=== PATIENT | male | born 1950 | race Caucasian/White ===

== ENCOUNTER → 2016-03-27 | Outpatient (CLI) | payer OTHER ==
[~2016-03-27] VITALS: Ht 167.6 cm; Wt 123.2 kg
[~2016-03-27] MED LIST: ACT30 PO; ALBINS/ INH; ALBUAER2 INH; AMLO10TA2 PO; ASPI-435 PO; ATOR-54 PO; CALC500C70 PO; CARV25TA PO; FRRS300 PO; FURO-85 PO; GLYB5TAB3 PO; HYDR-5688 PO; INSDGI SC; INSDGIPEN SC; LSN/2025 PO; LSN20 PO; MRLP17X PO; MULTCAP33 PO; NAPR-1169 PO; PRD20 PO; SITA50TA9 PO; TMF75 PO; VNTHFA/IN INH
[2016-03-27 15:38] VITALS: BP 131/78; PULSE 92; Ht 167.6 cm; Wt 123.2 kg
== END | disposition home or self-care (01) ==
LOC: C.NEUR 13:15
PROVIDERS: ATTEND Internal Medicine Pulmonary Disease
DX: G47.33 Obstructive sleep apnea (adult) (pediatric) (principal); I10 Essential (primary) hypertension

== ENCOUNTER 2016-05-07 09:13 | Inpatient (IN) | payer OTHER ==
[~2016-05-07] VITALS: Ht 167.6 cm; Wt 119.3 kg
[2016-05-07] VITALS (7 sets, daily range): BP systolic 107–137; BP diastolic 63–77; PULSE 78–87; TEMP 36.6–36.7; O2SAT 90–97; BMI 42.5
[~2016-05-07 09:13] MED LIST changes: -ALBINS/ INH; -FRRS300 PO; -FURO-85 PO; -INSDGI SC; -INSDGIPEN SC; -LSN20 PO; -MRLP17X PO; -PRD20 PO; -SITA50TA9 PO; -TMF75 PO; -VNTHFA/IN INH
[2016-05-07] MEDS ORDERED: ALBUT/IPRATROP 3MG/0.5MG NEB 3 ML VIAL INH STA (09:39)
[2016-05-07] MEDS ORDERED: METHYLPREDNISOLONE 125 MG VIAL IV STA (09:39)
[2016-05-07] MEDS ORDERED: SODIUM CHLORIDE 0.9% 1000ML 1,000 ML IV STA (09:39)
[2016-05-07] MEDS ORDERED: ALBUT/IPRATROP 3MG/0.5MG NEB 3 ML VIAL INH ONE (09:45)
[2016-05-07 09:53] LABS: BASO % 0.6 %; BASO ABS # 0.03 K/uL (0-0.2); COMPLETE YES; EOS % 0.8 %; HEMATOCRIT 42.6 % (42-52); IG% 0.2 %; LYMPH % 16.9 %; LYMPH ABS # 0.82 K/uL (1.2-3.4); MEAN CELL VOLUME 82.7 fL (80-100); MEAN CORPUSCULAR HEMOGLOBIN 26.8 pg (25-34); MEAN CORPUSCULAR HGB CONC 32.4 g/dl (32-36); MEAN PLATELET VOLUME 8.5 fL (7.4-10.4); MONO % 11.5 %; PLATELET COUNT 170 K/uL (130-400); RED BLOOD COUNT 5.15 M/uL (4.7-6.1); WHITE BLOOD COUNT 4.86 K/uL (4.8-10.8)
[2016-05-07 09:56] LABS: ISTAT CREATININE 1.7 mg/dl (0.6-1.3); ISTAT HEMOGLOBIN 15.3 g/dl (14.0-18.0); ISTAT IONIZED CALCIUM 1.1 mmol/l (1.12-1.32)
--- NOTE | 2016-05-07 10:06 | DIAGNOSTIC IMAGING REPORT ---
CHEST ONE VIEW PORTABLE CLINICAL HISTORY: EVALUATE RESPIRATORY DISTRESS. DYSPNEA dyspnea COMPARISON STUDY: No previous studies for comparison. FINDINGS: Poor inspiratory volumes. Lungs are considered clear. No evidence for significant cardiac enlargement. IMPRESSION: No acute process. Electronically signed by: Michael Espinal M.D. 05/07/2016 10:05 AM Dictated Date/Time: 05/07/2016 10:05 AM
[2016-05-07 10:08] LABS: BUN/CREATININE RATIO 9.5 (10-20); CALCIUM 8.6 mg/dl (8.5-10.1); CREATININE 1.9 mg/dl (0.60-1.40); POTASSIUM 3.4 mmol/L (3.5-5.1)
[2016-05-07 10:12] LABS: ALB/GLOB RATIO 0.8 (0.9-2); CKMB/CK RATIO 1.2 (0-3.0)
[2016-05-07] MEDS ORDERED: VNTHFA/IN INH (10:34)
[2016-05-07] MEDS ORDERED: OSELTAMIVIR PHOSPHATE 75 MG CAP PO STA (10:36)
[2016-05-07] MEDS ORDERED: HydrALAZINE HCL 20 MG/ML VIAL IV. PRN (11:45)
[2016-05-07] MEDS ORDERED: ALBUTEROL HFA 8 GM INHALER INH PRN (11:45)
[2016-05-07] MEDS ORDERED: ONDANSETRON INJ 2 MG/ML 2 ML VIAL IV PRN (11:45)
[2016-05-07] MEDS ORDERED: MAGNESIUM HYDROXIDE SUSP 30 ML UDC PO PRN (11:45)
[2016-05-07] MEDS ORDERED: ALUMINUM/MAGNESIUM/SIMETH (MAALOX MAX) 30 ML UDC PO PRN (11:45)
[2016-05-07] MEDS ORDERED: ACETAMINOPHEN 325 MG TAB PO PRN (11:45)
--- NOTE | 2016-05-07 12:02 | History and Physical ---
History & Physical Date & Time of Service: May 07, 2016 at 11:43 Chief Complaint: COUGH Primary Care Physician: Chidi Bearden MD History of Present Illness Source: patient Patient is a pleasant 65 y/o male, with PMHx of HTN, COPD, T2DM, dyslipidemia, SHALA, ?CKD stage III, and prostate cancer, who presented to the ED because of worsening SOB x3 days. For the last 3 days, patient has felt over lousy. + cough. +body aches. +diarrhea- 1 episode on 05/07 AM. +decreased appetite. He has a history of COPD and uses nebulizers 3 times per day. Over the last 3 days , SOB has been getting progressively worse, with little improvement from nebulizer. Patient states his SOB has improved significantly since arrival. Patient denies any fever, chills, sweats, lightheadedness, dizziness, vision changes, CP, palpitations, edema, wheezing, abdominal pain, nausea, vomiting, urinary symptoms, melena, numbness/tingling, weakness, anxiety/depression, active bleeding, or new skin discoloration/changes. Past Medical/Surgical History PMHx: 1. HTN 2. COPD 3. T2DM 4. SHALA 5. ?CKD stage III 6. Prostate cancer 7. Dyslipidemia Family History Mother and father- heart disease Social History Smoking Status: Never Smoker Alcohol Use: occasionally Drug Use: none Marital Status: Housing status: lives with family Occupational Status: retired Allergies Coded Allergies: BEE STING (Unverified Allergy, Severe, ANAPHYLAXIS, 05/07/16) Home Medications Scheduled Amlodipine Besylate (Norvasc), 10 MG PO HS Aspirin (Aspirin 81), 1 TAB PO DAILY Atorvastatin (Lipitor), 20 MG PO HS Carvedilol (Coreg), 25 MG PO BID Glyburide-Metformin (Glucovance 5/500 Mg), 2 TAB PO BID Hctz/Lisinopril (Lisinopril/Hctz 20/25 Mg), 1 TAB PO QAM Multiple Vitamins W/ Minerals (Preservision Areds), 1 CAP PO BID Pioglitazone (Actos), 30 MG PO QAM Scheduled PRN Albuterol Hfa (Ventolin Hfa), 2 PUFFS INH QID PRN for Shortness of Breath Physical Exam Vital Signs Date Time Temp Pulse Resp B/P Pulse Ox O2 Delivery O2 Flow Rate FiO2 05/07/16 11:37 77 20 110/66 96 Nebulizer 6.0 05/07/16 11:00 76 20 101/64 95 Nebulizer 6.0 05/07/16 10:56 76 05/07/16 10:15 76 26 112/58 97 Room Air 05/07/16 10:03 78 24 90 Venturi Mask 8.0 05/07/16 09:54 66 Room Air 05/07/16 09:30 90 Venturi Mask 10.0 05/07/16 09:25 90 Venturi Mask 10.0 05/07/16 09:23 37.4 80 16 119/71 77 Room Air General Appearance: no apparent distress, + obese Head: normocephalic, atraumatic Eyes: normal inspection, PERRL ENT: hearing grossly normal Neck: supple Respiratory/Chest: no respiratory distress, no accessory muscle use, + decreased breath sounds (bilateral lung bases ), + pertinent finding (Nebulizer treatment in process. Patient is able to speak full sentences w/out SOB.) Cardiovascular: regular rate, rhythm, normal peripheral pulses Abdomen/GI: normal bowel sounds, non tender, soft Back: normal inspection Extremities/Musculoskelatal: no calf tenderness, no pedal edema Neurologic/Psych: alert, normal mood/affect, oriented x 3 Skin: normal color, warm/dry, no rash Diagnostics Laboratory Results Results Past 24 Hours Test 05/07/16 09:39 05/07/16 09:41 05/07/16 09:43 05/07/16 09:44 Range/Units White Blood Count 4.86 4.8-10.8 K/uL Red Blood Count 5.15 4.7-6.1 M/uL Hemoglobin 13.8 14.0-18.0 g/dL Hematocrit 42.6 42-52 % Mean Corpuscular Volume 82.7 80-100 fL Mean Corpuscular Hemoglobin 26.8 25-34 pg Mean Corpuscular Hemoglobin Concent 32.4 32-36 g/dl Platelet Count 170 130-400 K/uL Mean Platelet Volume 8.5 7.4-10.4 fL Neutrophils (%) (Auto) 70.0 % Lymphocytes (%) (Auto) 16.9 % Monocytes (%) (Auto) 11.5 % Eosinophils (%) (Auto) 0.8 % Basophils (%) (Auto) 0.6 % Neutrophils # (Auto) 3.40 1.4-6.5 K/uL Lymphocytes # (Auto) 0.82 1.2-3.4 K/uL Monocytes # (Auto) 0.56 0.11-0.59 K/uL Eosinophils # (Auto) 0.04 0-0.5 K/uL Basophils # (Auto) 0.03 0-0.2 K/uL RDW Standard Deviation 46.3 36.4-46.3 fL RDW Coefficient of Variation 15.4 11.5-14.5 % Immature Granulocyte % (Auto) 0.2 % Immature Granulocyte # (Auto) 0.01 0.00-0.02 K/uL Sodium Level 137 136-145 mmol/L Potassium Level 3.4 3.5-5.1 mmol/L Chloride Level 96 98-107 mmol/L Carbon Dioxide Level 30 21-32 mmol/L Anion Gap 11.0 19.0 16-25 mmol/L Blood Urea Nitrogen 18 7-18 mg/dl Creatinine 1.90 0.60-1.40 mg/dl Est Creatinine Clear Calc Drug Dose 46.5 ml/min Estimated GFR () 41.7 Estimated GFR (Non- 35.9 BUN/Creatinine Ratio 9.5 10-20 Random Glucose 201 70-99 mg/dl Calcium Level 8.6 8.5-10.1 mg/dl Total Bilirubin 0.5 0.2-1 mg/dl Aspartate Amino Transf (AST/SGOT) 22 15-37 U/L Alanine Aminotransferase (ALT/SGPT) 20 12-78 U/L Alkaline Phosphatase 103 45-117 U/L Total Creatine Kinase 384 39-308 U/L Creatine Kinase MB 4.5 0.5-3.6 ng/ml Creatine Kinase MB Ratio 1.2 0-3.0 Total Protein 7.2 6.4-8.2 gm/dl Albumin 3.2 3.4-5.0 gm/dl Globulin 4.0 2.5-4.0 gm/dl Albumin/Globulin Ratio 0.8 0.9-2 Influenza Type A Antigen Neg for Influ A NEG Influenza Type B Antigen POS for Influ B NEG Bedside Troponin I 0.000 0-0.045 ng/ml CD-Yra-O-Type Natriuretic Peptide 205 0-900 pg/ml Bedside Hemoglobin 15.3 14.0-18.0 g/dl Bedside Hematocrit 45 42-52 % Bedside Sodium 137 135-144 mEq/L Bedside Potassium 3.4 3.3-5.0 mEq/L Bedside Chloride 91 101-112 mEq/L Bedside Total CO2 31 24-31 mEq/l Bedside Blood Urea Nitrogen 20 7-18 mg/dl Bedside Creatinine 1.7 0.6-1.3 mg/dl Bedside Glucose (other) 210 70-99 mg/dl Bedside Ionized Calcium (Andrea) 1.10 1.12-1.32 mmol/l Test 05/07/16 09:59 Range/Units Bedside Lactic Acid Venous 1.39 0.90-1.70 mmol/L Microbiology Results 05/07/16 Blood Culture, Received Pending 05/07/16 Blood Culture, Received Pending Diagnostic Radiology CHEST ONE VIEW PORTABLE CLINICAL HISTORY: EVALUATE RESPIRATORY DISTRESS. DYSPNEA dyspnea COMPARISON STUDY: No previous studies for comparison. FINDINGS: Poor inspiratory volumes. Lungs are considered clear. No evidence for significant cardiac enlargement. IMPRESSION: No acute process. Electronically signed by: Michael Espinal M.D. 05/07/2016 10:05 AM Dictated Date/Time: 05/07/2016 10:05 AM The status of this report is Signed. Draft = Not yet reviewed or approved by Radiologist. Signed = Reviewed and approved by Radiologist. EKG JO BISHOP ID:[id number] 07-MAY-2016 09:37:23 [facility] Normal sinus rhythm Normal ECG No previous ECGs available 25mm/s 10mm/mV 150Hz 8.0 SP2 12SL 241 CRISTIANE: 0 Referred by: Referred Self Unconfirmed Vent. 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 +Influenza B: - Admit med/surg - Pending U/A and blood cultures - Tamiflu 75 mg PO BID (started on 05/07) - Droplet precautions Acute on chronic COPD exacerbation, hypoxic on RA at 66%: - DuoNeb QID and q2 hrs PRN - IV SoluMedrol 125 mg given in ED. Start IV SoluMedrol 40 mg q8 hrs - CXR- no acute processes ?CKD, stage III: - Bump in Cr/BUN, likely secondary to dehydration. Treat with IV NSS + 20 mEq KCL @ 125 ml/hr - Follow PRP HTN: - Hold Lisinopril/HCTZ due to bump in kidney function - Continue Norvasc 10 mg PO daily - Hydralazine 10 mg IV PRN T2DM: - Hold Actos and Glucovance - BSG ACHS - Start Lantus 20 units BID due to IV steroid treatment, titrate as needed Dyslipidemia: - Continue Atorvastatin 20 mg PO HS SHALA: - CPAP GI Prophylaxis: - Maalox PRN - IV Zofran PRN - Colace and/or Milk of Mag PRN DVT prophylaxis: - Heparin 5000 units SQ q12 hrs - JANN and SCDs Code Status: LEVEL V, DNR Dispo: From home Level of Care Med/Surg Resuscitation Status DO NOT RESUSCITATE VTE Prophylaxis VTE Risk Assessment Done? Y/N: Yes Risk Level: Low Given or contraindicated: Unfractionated heparin SQ, T.E.D. Stockings, SCD's Reviewed: Pt Seen/Exam by Me History Pt is feeling improved. No further SOB s/p nebs, steroids, and O2 use. He is not on O2 at home. Pt states he was dx with COPD about 2 years ago. He has been using nebs daily since he was d/c'd from [facility] about a month ago. Prior to this he was on rescue inhalers PRN only. His smokes, although he has no hx of tobacco use himself. Denies chest pain. Has had decreased appetite and PO intake the last few days, but did take 1/2 of a sandwich while awaiting transfer from the ED. Agree with HPI/ROS as noted. General Appearance: no apparent distress, obese Respiratory: normal breath sounds, no respiratory distress Cardiovascular: normal peripheral pulses, regular rate, rhythm Gastrointestinal: non tender, soft Extremities: non-tender, no pedal edema Neurologic/Psychiatric: alert, oriented x 3 Skin Characteristics: normal color, warm/dry Assessment/Plan Agree with plan as outlined above Flu B + in ED, started on tamiflu Nebs, steroids, O2 for COPD exacerbation
[2016-05-07] MEDS ORDERED: GLUCOSE 10 TABS/TUBE PO PRN (14:30)
[2016-05-07] MEDS ORDERED: DEXTROSE 50% 50 ML SYR IV PRN (14:30)
[2016-05-07] MEDS ORDERED: GLUCOSE 40% GEL 15 GM TUBE PO PRN (14:30)
[2016-05-07] MEDS ORDERED: GLUCAGON FOR INJ 1 MG VIAL SQ PRN (14:30)
[2016-05-07] MEDS ORDERED: INFLUENZA ADMINISTRATION CHARGE ONE (14:45)
[2016-05-07] MEDS ORDERED: PNEUMOCOCCAL POLYSACCHARIDES 25 MCG/0.5 ML VIAL/SYR IM. ONE (14:45)
[2016-05-07] MEDS ORDERED: INFLUENZA VIRUS QUAD VACCINE 0.5 ML SYR IM. ONE (14:45)
[2016-05-07] MEDS ORDERED: PNEUMOCOCCAL ADMINISTRATION CHARGE ONE (14:45)
[2016-05-07 14:48] LABS: PARTIAL THROMBOPLASTIN RATIO 1.1; PROTHROMBIN TIME (PATIENT) 11.2 SECONDS (9.0-12.0)
[2016-05-07] MEDS: NSS + 20MEQ KCL 1000ML 1,000 ML IV SCH ×2 (15:18→23:30)
[2016-05-07] MEDS: ALBUT/IPRATROP 3MG/0.5MG NEB 3 ML VIAL INH SCH ×2 (15:42→19:16)
[2016-05-07] MEDS: METHYLPREDNISOLONE IV 40 MG in SYRINGE 0 ML IV SCH (17:52)
[2016-05-07] MEDS: INSULIN ASPART 100 UNITS/ML 3 ML PEN SC SCH ×2 (17:55→20:39)
[2016-05-07 19:05] LABS: URINE APPEARANCE CLEAR (CLEAR); URINE BILIRUBIN NEG (NEG); URINE COLOR YELLOW; URINE NITRITE NEG (NEG); URINE SPECIFIC GRAVITY 1.021 (1.000-1.030); UROBILINOGEN NEG (NEG)
[2016-05-07 19:06] LABS: MANUAL MICROSCOPIC REQUIRED? NO; REVIEW REQ? YES
--- NOTE | 2016-05-07 19:15 | EMERGENCY ROOM VISIT NOTE ---
History Report prepared by Dutch: Kelli Samuels Under the Supervision of: Dr. Braulio Padilla M.D. First contact with patient: 09:33 Chief Complaint: RESPIRATORY PROBLEMS Stated Complaint: COUGH History of Present Illness The patient is a 65 year old male who presents to the Emergency Room with complaints of worsening respiratory problems. He is accompanied by his . He reports he has felt "lousy" for the past 3 days with cold symptoms and this morning his breathing worsened. He admits to a history of COPD for the past 2 years and states he uses Nebulizers at home as needed. The patient notes he did experience some neck and shoulder pain this morning as well, but states the pain is improved here in the ED. He denies any chest pain but states he feels "discomfort" around his esophagus. The patient denies any previous cardiac history. He does have an occasionally productive cough and admits he experienced pneumonia approximately 1 month ago. He also admits to some recent diarrhea. The patient denies any LOC, headache, fevers, chills, diaphoresis, visual changes, nausea, vomiting, abdominal pain, back pain, melena, hematochezia, urinary symptoms, numbness, weakness, lymphadenopathy, rash, or other complaints. Source of History: patient Onset: 729 this morning Position: chest Timing: worsening Associated Symptoms: + cough, + diarrhea, + neck pain Review of Systems See HPI for pertinent positives and negatives. A total of ten systems were reviewed and were otherwise negative. Past Medical & Surgical Medical Problems: (1) COPD (chronic obstructive pulmonary disease) (2) Influenza B (3) Prostate cancer Social History Smoking Status: Never Smoker Smokeless Tobacco Use: No Alcohol Use: occasionally Drug Use: none Marital Status: Housing Status: lives with family Occupation Status: retired Current/Historical Medications Scheduled Amlodipine Besylate (Norvasc), 10 MG PO HS Aspirin (Aspirin 81), 1 TAB PO DAILY Atorvastatin (Lipitor), 20 MG PO HS Carvedilol (Coreg), 25 MG PO BID Glyburide-Metformin (Glucovance 5/500 Mg), 2 TAB PO BID Hctz/Lisinopril (Lisinopril/Hctz 20/25 Mg), 1 TAB PO QAM Multiple Vitamins W/ Minerals (Preservision Areds), 1 CAP PO BID Pioglitazone (Actos), 30 MG PO QAM Scheduled PRN Albuterol Hfa (Ventolin Hfa), 2 PUFFS INH QID PRN for Shortness of Breath Allergies Coded Allergies: BEE STING (Unverified Allergy, Severe, ANAPHYLAXIS, 05/07/16) Physical Exam Vital Signs Date Time Temp Pulse Resp B/P Pulse Ox O2 Delivery O2 Flow Rate FiO2 05/07/16 11:37 77 20 110/66 96 Nebulizer 6.0 05/07/16 11:10 96 6.0 05/07/16 11:00 76 20 101/64 95 Nebulizer 6.0 05/07/16 10:56 76 05/07/16 10:15 76 26 112/58 97 Room Air 05/07/16 10:03 78 24 90 Venturi Mask 10.0 05/07/16 09:54 66 Room Air 05/07/16 09:30 90 Venturi Mask 10.0 05/07/16 09:25 90 Venturi Mask 10.0 05/07/16 09:23 37.4 80 16 119/71 77 Room Air Physical Exam GENERAL: Awake, alert, tired-appearing, in no acute distress HENT: Normocephalic, atraumatic. Oropharynx unremarkable. EYES: Normal conjunctiva. Sclera non-icteric. NECK: Supple. No nuchal rigidity. FROM. No JVD. RESPIRATORY: Clear to auscultation. CARDIAC: Regular rate, normal rhythm. Extremities warm and well perfused. Pulses equal. ABDOMEN: Soft, non-distended. Mild tenderness to palpation, worsens with cough. No rebound or guarding. No masses. RECTAL: Deferred. MUSCULOSKELETAL: Chest examination reveals no tenderness. The back is symmetrical on inspection without obvious abnormality. There is no CVA tenderness to palpation. No joint edema. LOWER EXTREMITIES: Calves are equal size bilaterally and non-tender. Chronic venous discoloration of the lower extremities bilaterally. 1+ edema. NEURO: Normal sensorium. No sensory or motor deficits noted. SKIN: No rash or jaundice noted. Medical Decision & Procedures ER Provider Diagnostic Interpretation: This X-Ray was reviewed and interpreted by myself and the radiologist. CHEST ONE VIEW PORTABLE CLINICAL HISTORY: EVALUATE RESPIRATORY DISTRESS. DYSPNEA dyspnea COMPARISON STUDY: No previous studies for comparison. FINDINGS: Poor inspiratory volumes. Lungs are considered clear. No evidence for significant cardiac enlargement. IMPRESSION: No acute process. Electronically signed by: Michael Espinal M.D. 05/07/2016 10:05 AM Laboratory Results 05/07/16 09:39 Red Blood Count 5.15, Mean Corpuscular Volume 82.7, Mean Corpuscular Hemoglobin 26.8, Mean Corpuscular Hemoglobin Concent 32.4, Mean Platelet Volume 8.5, Neutrophils (%) (Auto) 70.0, Lymphocytes (%) (Auto) 16.9, Monocytes (%) (Auto) 11.5, Eosinophils (%) (Auto) 0.8, Basophils (%) (Auto) 0.6, Neutrophils # (Auto ) 3.40, Lymphocytes # (Auto) 0.82, Monocytes # (Auto) 0.56, Eosinophils # (Auto ) 0.04, Basophils # (Auto) 0.03 05/07/16 09:39 Test 05/07/16 09:39 05/07/16 09:41 05/07/16 09:43 05/07/16 09:44 White Blood Count 4.86 K/uL (4.8-10.8) Red Blood Count 5.15 M/uL (4.7-6.1) Hemoglobin 13.8 g/dL (14.0-18.0) Hematocrit 42.6 % (42-52) Mean Corpuscular Volume 82.7 fL (80-100) Mean Corpuscular Hemoglobin 26.8 pg (25-34) Mean Corpuscular Hemoglobin Concent 32.4 g/dl (32-36) Platelet Count 170 K/uL (130-400) Mean Platelet Volume 8.5 fL (7.4-10.4) Neutrophils (%) (Auto) 70.0 % Lymphocytes (%) (Auto) 16.9 % Monocytes (%) (Auto) 11.5 % Eosinophils (%) (Auto) 0.8 % Basophils (%) (Auto) 0.6 % Neutrophils # (Auto) 3.40 K/uL (1.4-6.5) Lymphocytes # (Auto) 0.82 K/uL (1.2-3.4) Monocytes # (Auto) 0.56 K/uL (0.11-0.59) Eosinophils # (Auto) 0.04 K/uL (0-0.5) Basophils # (Auto) 0.03 K/uL (0-0.2) RDW Standard Deviation 46.3 fL (36.4-46.3) RDW Coefficient of Variation 15.4 % (11.5-14.5) Immature Granulocyte % (Auto) 0.2 % Immature Granulocyte # (Auto) 0.01 K/uL (0.00-0.02) Prothrombin Time 11.2 SECONDS (9.0-12.0) Prothromb Time International Ratio 1.0 (0.9-1.1) Activated Partial Thromboplast Time 29.8 SECONDS (21.0-31.0) Partial Thromboplastin Ratio 1.1 Est Creatinine Clear Calc Drug Dose 46.5 ml/min Estimated GFR () 41.7 Estimated GFR (Non- 35.9 BUN/Creatinine Ratio 9.5 (10-20) Calcium Level 8.6 mg/dl (8.5-10.1) Total Bilirubin 0.5 mg/dl (0.2-1) Aspartate Amino Transf (AST/SGOT) 22 U/L (15-37) Alanine Aminotransferase (ALT/SGPT) 20 U/L (12-78) Alkaline Phosphatase 103 U/L (45-117) Total Creatine Kinase 384 U/L (39-308) Creatine Kinase MB 4.5 ng/ml (0.5-3.6) Creatine Kinase MB Ratio 1.2 (0-3.0) Total Protein 7.2 gm/dl (6.4-8.2) Albumin 3.2 gm/dl (3.4-5.0) Globulin 4.0 gm/dl (2.5-4.0) Albumin/Globulin Ratio 0.8 (0.9-2) Influenza Type A Antigen Neg for Influ A (NEG) Influenza Type B Antigen POS for Influ B (NEG) Bedside Troponin I 0.000 ng/ml (0-0.045) AY-Ukx-X-Type Natriuretic Peptide 205 pg/ml (0-900) Bedside Hemoglobin 15.3 g/dl (14.0-18.0) Bedside Hematocrit 45 % (42-52) Bedside Sodium 137 mEq/L (135-144) Bedside Potassium 3.4 mEq/L (3.3-5.0) Bedside Chloride 91 mEq/L (101-112) Bedside Total CO2 31 mEq/l (24-31) Anion Gap 19.0 mmol/L (16-25) Bedside Blood Urea Nitrogen 20 mg/dl (7-18) Bedside Creatinine 1.7 mg/dl (0.6-1.3) Bedside Glucose (other) 210 mg/dl (70-99) Bedside Ionized Calcium (Andrea) 1.10 mmol/l (1.12-1.32) Test 05/07/16 09:59 Bedside Lactic Acid Venous 1.39 mmol/L (0.90-1.70) Laboratory results reviewed by me Medications Administered Medications (Trade) Dose Ordered Sig/Zenobia Route Start Time Stop Time Status Last Admin Dose Admin Albuterol/ Ipratropium (Duoneb) 3 ml NOW STAT INH 05/07/16 09:39 05/07/16 09:42 DC 05/07/16 09:47 3 ML Methylprednisolone Sodium Succinate 125 mg 125 mg NOW STAT IV 05/07/16 09:39 05/07/16 09:42 DC 05/07/16 09:47 125 MG Sodium Chloride (Nss 1000ml) 1,000 ml @ 125 mls/hr Q8H STAT IV 05/07/16 09:39 05/07/16 14:16 DC 05/07/16 09:39 125 MLS/HR Albuterol/ Ipratropium (Duoneb) 12 ml ONE ONCE INH 05/07/16 09:45 05/07/16 09:46 DC 05/07/16 10:02 12 ML Oseltamivir Phosphate (Tamiflu Cap) 75 mg NOW STAT PO 05/07/16 10:36 05/07/16 10:37 DC 05/07/16 10:55 75 MG ECG Indication: SOB/dyspnea Rate (beats per minute): 78 Rhythm: normal sinus (normal sinus rhythm) Findings: no acute ischemic change, no ectopy ED Course 0934: The patient was evaluated in room A2. A complete history and physical exam was performed. 1939: NSS 1000 ml @ 125 mls/hr IV, Solu-Medrol 125 mg IV, DuoNeb 3 ml INH. 0945: DuoNeb 12 ml INH. 0955: I reevaluated the patient. He is feeling a little better after starting a breathing treatment. 1036: Tamiflu 75 mg PO. 1037: I reevaluated the patient. He is feeling well and resting comfortably. I discussed my plan for him to remain in the hospital for further evaluation and management and he and his verbalized complete understanding and agreement. 1045: I discussed the patients case with Dr. Qureshi [facility] Hospitalist. The patient will be further evaluated. Medical Decision Triage Nursing notes reviewed. The patient's presentation and history were concerning for SOB. Etiologies such as pneumonia, COPD, reactive airway disease, CHF, cardiac ischemia, pulmonary embolism, pneumothorax, musculoskeletal, infections, gastrointestinal, as well as others were entertained. The patient was evaluated. He was hypoxic. He was given a breathing treatment and Solu-Medrol. This helped somewhat but he still required supplemental oxygen. I did use a Venturi mask to try and improve his oxygenation without going overboard on a nonrebreather. Chest imaging was unremarkable. The patient was placed on a hour-long breathing treatment. On reassessment he was doing better. CBC and chemistry panel were unremarkable. Creatinine was mildly elevated at 1.7. Cardiac markers were negative. Glucose was mildly elevated at 210. Influenza testing came back positive for flu B. The patient was treated with Tamiflu. Because of uterine will need admission to the hospital. I discussed this with him and his family. I gave my usual and customary discussion regarding this issue. The patient had consultation made with internal medicine. He was evaluated in the Emergency Room for further management. The chart was completed utilizing [employer] Speech voice recognition software. Grammatical errors, random word insertions, pronoun errors, and incomplete sentences are an occasional consequence of this system due to software limitations, ambient noise, and hardware issues. Any formal questions or concerns about the content, text, or information contained within the body of this dictation should be directly addressed to the physician for clarification. Consults Time Called: 1033 Consulting Physician: Dr. Qureshi [facility] Hospitalist Returned Call: [phone] I discussed the patients case with Dr. Qureshi [facility] Hospitalist. The patient will be further evaluated. Impression Primary Impression: Influenza B Additional Impressions: Hypoxia COPD (chronic obstructive pulmonary disease) Critical Care I have personally spent greater than 30 minutes of critical care time in the direct management of this patient. This includes bedside care, interpretation of diagnostic studies, and testing, discussion with consultants, patient, and family members, and other required patient management activities. This 30 minutes is in excess of all separately billable procedures. Scribe Attestation The scribe's documentation has been prepared under my direction and personally reviewed by me in its entirety. I confirm that the note above accurately reflects all work, treatment, procedures, and medical decision making performed by me. Departure Information Dispostion Being Evaluated By Hospitalist Referrals Chidi Bearden MD (PCP) Patient Instructions My [facility] Problem Qualifiers
[2016-05-07] MEDS: OSELTAMIVIR PHOSPHATE 75 MG CAP PO SCH (20:43)
[2016-05-07] MEDS: AMLODIPINE BESYLATE 5 MG TAB PO SCH (20:43)
[2016-05-07] MEDS: ATORVASTATIN 20 MG TAB PO SCH (20:43)
[2016-05-07] MEDS: CARVEDILOL 25 MG TAB PO SCH (20:43)
[2016-05-07] MEDS ORDERED: INSULIN GLARGINE SOLOSTAR 100 UNITS/ML 3 ML PEN SC SCH (21:00)
[2016-05-07] MEDS: HEPARIN SOD 5000 UNIT/0.5 ML CARP SQ SCH (21:19)
[2016-05-07] MEDS ORDERED: INSULIN HUMAN REGULAR PER UNIT 6 UNITS in SYRINGE 5.94 ML IV ONE (22:02)
[2016-05-08] VITALS (10 sets, daily range): BP systolic 105–144; BP diastolic 64–79; PULSE 66–88; TEMP 36.4–36.7; O2SAT 90–96; BMI 42.5
[2016-05-08] MEDS ORDERED: INSULIN HUMAN REGULAR PER UNIT 6 UNITS in SYRINGE 5.94 ML IV ONE (01:30)
[2016-05-08] MEDS: METHYLPREDNISOLONE IV 40 MG in SYRINGE 0 ML IV SCH ×2 (02:47→10:40)
--- NOTE | 2016-05-08 05:00 | Progress Note ---
Progress Note I was paged at approximately 20:28 on 05/07/2016. Patient was noted to be glycemic with 2 consecutive blood sugar measurements of 403 and 431. The following was done: - Administer sliding scale coverage (9 units NovoLog) - Administer 20 units of insulin glargine - Call back in one hour with repeat blood sugar checks - 00:00 and 04:00 Accu-Cheks were ordered ------- 21:30 repeat BSG 403 21:45 repeat BSG 367 - 6 units regular insulin IV administered; repeat Accu-Chek at 00:00 -------- 05/08/2016 00:00 repeat BSG 272 - 6 units regular insulin IV administered; repeat Accu-Chek at 04:00 -------- 04:25 repeat BSG 206 - A administer NovoLog per sliding scale coverage
[2016-05-08 05:52] LABS: MEAN CELL VOLUME 85.5 fL (80-100); MEAN CORPUSCULAR HEMOGLOBIN 27.4 pg (25-34); MEAN CORPUSCULAR HGB CONC 32.1 g/dl (32-36); MEAN PLATELET VOLUME 8.9 fL (7.4-10.4); PLATELET COUNT 166 K/uL (130-400); RED BLOOD COUNT 5.03 M/uL (4.7-6.1); WHITE BLOOD COUNT 2.77 K/uL (4.8-10.8)
[2016-05-08] MEDS: NSS + 20MEQ KCL 1000ML 1,000 ML IV SCH (06:11)
[2016-05-08 06:27] LABS: BUN/CREATININE RATIO 15.5 (10-20); CALCIUM 8.2 mg/dl (8.5-10.1); CREATININE 1.9 mg/dl (0.60-1.40)
[2016-05-08] MEDS: INSULIN ASPART 100 UNITS/ML 3 ML PEN SC SCH ×4 (06:30→22:03)
[2016-05-08] MEDS: ALBUT/IPRATROP 3MG/0.5MG NEB 3 ML VIAL INH SCH ×4 (07:01→19:32)
[2016-05-08 07:06] LABS: POTASSIUM 4.7 mmol/L (3.5-5.1)
--- NOTE | 2016-05-08 07:23 | Hospitalist Progress Note ---
Hospitalist Progress Note Date of Service May 08, 2016. Subjective Pt evaluation today including: conversation w/ patient, physical exam, chart review, lab review, review of inpatient medication list Voiding: no voiding problems, no incontinence Patient states he is feeling improved since admission. +productive cough since this AM. +SOB- improving. He is eating and drinking OK. Patient denies any fever , chills, sweats, lightheadedness, dizziness, vision changes, CP, palpitations, edema, wheezing, abdominal pain, nausea, vomiting, diarrhea, urinary symptoms, melena, numbness/tingling, weakness, muscle/joint pain, anxiety/depression, active bleeding, or new skin discoloration/changes. Medications Current Inpatient Medications Medications (Trade) Dose Ordered Sig/Zenobia Route Start Time Stop Time Status Last Admin Dose Admin Acetaminophen (Tylenol Tab) 650 mg Q4H PRN PO 05/07/16 11:45 06/06/16 11:44 Al Hydrox/Mg Hydrox/Simethicone (Maalox Max Susp) 15 ml Q4H PRN PO 05/07/16 11:45 06/06/16 11:44 Magnesium Hydroxide (Milk Of Magnesia Susp) 30 ml Q6H PRN PO 05/07/16 11:45 06/06/16 11:44 Ondansetron HCl (Zofran Inj) 4 mg Q6H PRN IV 05/07/16 11:45 06/06/16 11:44 Heparin Sodium (Porcine) (Heparin Sq 5000 Unit/0.5ml) 5,000 unit Q12 SQ 05/07/16 21:00 06/06/16 20:59 05/07/16 21:19 5,000 UNIT Oseltamivir Phosphate (Tamiflu Cap) 75 mg BID PO 05/07/16 21:00 05/12/16 08:59 05/08/16 07:44 75 MG Albuterol/ Ipratropium 3 ml 3 ml QIDR INH 05/07/16 16:00 06/06/16 15:59 05/08/16 07:01 3 ML Methylprednisolone Sodium Succinate/ Syringe (Solu-Medrol IV/ Syringe) 0.64 ml @ 1.5 mls/min Q8@0200,1000,1800 IV 05/07/16 18:00 06/06/16 17:59 05/08/16 02:47 1.5 MLS/MIN Albuterol (Ventolin Hfa Inhaler) 2 puffs QID PRN INH 05/07/16 11:45 06/06/16 11:44 Amlodipine Besylate (Norvasc Tab) 10 mg HS PO 05/07/16 21:00 06/06/16 20:59 05/07/16 20:43 10 MG Aspirin (Ecotrin Tab) 81 mg DAILY PO 05/08/16 09:00 06/07/16 08:59 05/08/16 07:44 81 MG Atorvastatin Calcium (Lipitor Tab) 20 mg HS PO 05/07/16 21:00 06/06/16 20:59 05/07/16 20:43 20 MG Carvedilol (Coreg Tab) 25 mg BID PO 05/07/16 21:00 06/06/16 20:59 05/08/16 07:44 25 MG Insulin Aspart (novoLOG ASPART) SLIDING SCALE G... ACHS SC 05/07/16 16:00 06/06/16 15:59 05/07/16 20:39 9 UNITS Insulin Glargine (Lantus Solostar Pen) 20 unit BID SC 05/07/16 21:00 06/06/16 20:59 05/07/16 20:40 20 UNIT Hydralazine HCl (HydrALAZINE INJ) 10 mg Q6H PRN IV. 05/07/16 11:45 06/06/16 11:44 Glucose (Glucose 40% Gel) 15-30 GRAMS 15 GRAMS... UD PRN PO 05/07/16 14:30 06/06/16 14:29 Glucose (Glucose Chew Tab) 4-8 Tablets 4 Tabl... UD PRN PO 05/07/16 14:30 06/06/16 14:29 Dextrose (Dextrose 50% 50ML Syringe) 25-50ML OF 50% DW IV FOR... UD PRN IV 05/07/16 14:30 06/06/16 14:29 Glucagon 1 mg 1 mg UD PRN SQ 05/07/16 14:30 06/06/16 14:29 Sodium Chloride (Nss 1000ml) 1,000 ml @ 125 mls/hr Q8H IV 05/08/16 07:30 06/07/16 07:29 05/08/16 07:42 125 MLS/HR Objective Vital Signs Date Time Temp Pulse Resp B/P Pulse Ox O2 Delivery O2 Flow Rate FiO2 05/08/16 07:01 88 18 90 Nasal Cannula 5.0 05/08/16 01:00 Nasal Cannula 5.0 05/08/16 00:22 36.5 71 18 105/64 96 Nasal Cannula 5.0 05/07/16 22:00 Nasal Cannula 5.0 05/07/16 19:16 81 18 92 Nasal Cannula 5.0 05/07/16 16:17 36.6 87 16 107/63 94 6.0 05/07/16 16:00 94 Nasal Cannula 5.0 05/07/16 15:42 85 18 94 Nasal Cannula 6.0 05/07/16 13:29 36.7 87 20 137/77 97 Nasal Cannula 5.0 05/07/16 13:00 79 20 122/71 96 Nasal Cannula 6.0 05/07/16 11:44 95 Nasal Cannula 6.0 05/07/16 11:44 87 Room Air 05/07/16 11:37 77 20 110/66 96 Nebulizer 6.0 05/07/16 11:10 96 6.0 05/07/16 11:00 76 20 101/64 95 Nebulizer 6.0 05/07/16 10:56 76 05/07/16 10:15 76 26 112/58 97 Room Air 05/07/16 10:03 78 24 90 Venturi Mask 10.0 05/07/16 09:54 66 Room Air 05/07/16 09:30 90 Venturi Mask 10.0 05/07/16 09:25 90 Venturi Mask 10.0 05/07/16 09:23 37.4 80 16 119/71 77 Room Air Physical Exam General Appearance: no apparent distress, + obese Eyes: normal inspection, PERRL ENT: hearing grossly normal Neck: supple Respiratory/Chest: lungs clear, no respiratory distress, no accessory muscle use, + decreased breath sounds (decreased BS throughout, > at bilateral lung bases ) Cardiovascular: regular rate, rhythm Abdomen: normal bowel sounds, non tender, + distended Extremities: no pedal edema, no calf tenderness Neurologic/Psychiatric: alert, normal mood/affect, oriented x 3 Laboratory Results Last 24 Hours Test 05/07/16 09:39 05/07/16 09:41 05/07/16 09:43 05/07/16 09:44 White Blood Count 4.86 K/uL Red Blood Count 5.15 M/uL Hemoglobin 13.8 g/dL Hematocrit 42.6 % Mean Corpuscular Volume 82.7 fL Mean Corpuscular Hemoglobin 26.8 pg Mean Corpuscular Hemoglobin Concent 32.4 g/dl Platelet Count 170 K/uL Mean Platelet Volume 8.5 fL Neutrophils (%) (Auto) 70.0 % Lymphocytes (%) (Auto) 16.9 % Monocytes (%) (Auto) 11.5 % Eosinophils (%) (Auto) 0.8 % Basophils (%) (Auto) 0.6 % Neutrophils # (Auto) 3.40 K/uL Lymphocytes # (Auto) 0.82 K/uL Monocytes # (Auto) 0.56 K/uL Eosinophils # (Auto) 0.04 K/uL Basophils # (Auto) 0.03 K/uL RDW Standard Deviation 46.3 fL RDW Coefficient of Variation 15.4 % Immature Granulocyte % (Auto) 0.2 % Immature Granulocyte # (Auto) 0.01 K/uL Prothrombin Time 11.2 SECONDS Prothromb Time International Ratio 1.0 Activated Partial Thromboplast Time 29.8 SECONDS Partial Thromboplastin Ratio 1.1 Sodium Level 137 mmol/L Potassium Level 3.4 mmol/L Chloride Level 96 mmol/L Carbon Dioxide Level 30 mmol/L Anion Gap 11.0 mmol/L 19.0 mmol/L Blood Urea Nitrogen 18 mg/dl Creatinine 1.90 mg/dl Est Creatinine Clear Calc Drug Dose 46.5 ml/min Estimated GFR () 41.7 Estimated GFR (Non- 35.9 BUN/Creatinine Ratio 9.5 Random Glucose 201 mg/dl Calcium Level 8.6 mg/dl Total Bilirubin 0.5 mg/dl Aspartate Amino Transf (AST/SGOT) 22 U/L Alanine Aminotransferase (ALT/SGPT) 20 U/L Alkaline Phosphatase 103 U/L Total Creatine Kinase 384 U/L Creatine Kinase MB 4.5 ng/ml Creatine Kinase MB Ratio 1.2 Total Protein 7.2 gm/dl Albumin 3.2 gm/dl Globulin 4.0 gm/dl Albumin/Globulin Ratio 0.8 Influenza Type A Antigen Neg for Influ A Influenza Type B Antigen POS for Influ B Bedside Troponin I 0.000 ng/ml XR-Fro-N-Type Natriuretic Peptide 205 pg/ml Bedside Hemoglobin 15.3 g/dl Bedside Hematocrit 45 % Bedside Sodium 137 mEq/L Bedside Potassium 3.4 mEq/L Bedside Chloride 91 mEq/L Bedside Total CO2 31 mEq/l Bedside Blood Urea Nitrogen 20 mg/dl Bedside Creatinine 1.7 mg/dl Bedside Glucose (other) 210 mg/dl Bedside Ionized Calcium (Andrea) 1.10 mmol/l Test 05/07/16 09:59 05/07/16 18:00 05/07/16 21:38 05/07/16 21:42 Bedside Lactic Acid Venous 1.39 mmol/L Urine Color YELLOW Urine Appearance CLEAR Urine pH 5.0 Urine Specific [place] 1.021 Urine Protein 1+ Urine Glucose (UA) 3+ Urine Ketones NEG Urine Occult Blood NEG Urine Nitrite NEG Urine Bilirubin NEG Urine Urobilinogen NEG Urine Leukocyte Esterase NEG Urine WBC (Auto) 1-5 /hpf Urine RBC (Auto) 0-4 /hpf Urine Hyaline Casts (Auto) 5-10 /lpf Urine Epithelial Cells (Auto) 10-20 /lpf Urine Bacteria (Auto) NEG Urine Pathogenic Casts /lpf Bedside Glucose 405 mg/dl 367 mg/dl Test 05/07/16 23:53 05/08/16 04:04 05/08/16 05:20 Bedside Glucose 272 mg/dl 206 mg/dl White Blood Count 2.77 K/uL Red Blood Count 5.03 M/uL Hemoglobin 13.8 g/dL Hematocrit 43.0 % Mean Corpuscular Volume 85.5 fL Mean Corpuscular Hemoglobin 27.4 pg Mean Corpuscular Hemoglobin Concent 32.1 g/dl RDW Standard Deviation 48.6 fL RDW Coefficient of Variation 15.6 % Platelet Count 166 K/uL Mean Platelet Volume 8.9 fL Sodium Level 140 mmol/L Potassium Level 4.7 mmol/L Chloride Level 99 mmol/L Carbon Dioxide Level 31 mmol/L Anion Gap 10.0 mmol/L Blood Urea Nitrogen 30 mg/dl Creatinine 1.90 mg/dl Est Creatinine Clear Calc Drug Dose 46.5 ml/min Estimated GFR () 41.7 Estimated GFR (Non- 35.9 BUN/Creatinine Ratio 15.5 Random Glucose 242 mg/dl Calcium Level 8.2 mg/dl Assessment and Plan 65 y/o male, with PMHx of HTN, COPD, T2DM, dyslipidemia, SHALA, ?CKD stage III, and prostate cancer, who presented to the ED because of worsening SOB x3 days. +Influenza B: - Admit med/surg - Pending blood cultures - U/A pending - Tamiflu 75 mg PO BID (started on 05/07) - Droplet precautions Acute on chronic COPD exacerbation, hypoxic on RA at 66%: - DuoNeb QID and q2 hrs PRN - IV SoluMedrol 125 mg given in ED. Start IV SoluMedrol 40 mg q8 hrs--> wean as patient's status improves - CXR- no acute processes - O2 supplement- does NOT wear O2 at home, currently on 5L--> wean as tolerated ?CKD, stage III: - Bump in Cr/BUN, likely secondary to dehydration. Treat with IV NSS + 20 mEq KCL @ 125 ml/hr x3 bags. Start IV NSS @ 125 ml/hr - Follow PRP HTN: - Hold Lisinopril/HCTZ due to bump in kidney function - Continue Norvasc 10 mg PO daily - Hydralazine 10 mg IV PRN T2DM: - Hold Actos and Glucovance - BSG ACHS w/ sliding insulin scale - Start Lantus 30 units BID due to IV steroid treatment, titrate as needed - Per patient, sugars run 200-250 at home. Does not remember last ha1c check, no records found--> check ha1c Dyslipidemia: - Continue Atorvastatin 20 mg PO HS SHALA: - CPAP GI Prophylaxis: - Maalox PRN - IV Zofran PRN - Colace and/or Milk of Mag PRN DVT prophylaxis: - Heparin 5000 units SQ q12 hrs - JANN and SCDs Code Status: LEVEL V, DNR Dispo: discharge to home once medically stable
[2016-05-08] MEDS ORDERED: SODIUM CHLORIDE 0.9% 1000ML 1,000 ML IV SCH (07:30)
[2016-05-08] MEDS: OSELTAMIVIR PHOSPHATE 75 MG CAP PO SCH ×2 (07:44→22:01)
[2016-05-08] MEDS: ASPIRIN 81 MG ECTAB PO SCH (07:44)
[2016-05-08] MEDS: CARVEDILOL 25 MG TAB PO SCH ×2 (07:44→22:01)
[2016-05-08] MEDS: HEPARIN SOD 5000 UNIT/0.5 ML CARP SQ SCH ×2 (08:07→22:05)
[2016-05-08] MEDS: INSULIN GLARGINE SOLOSTAR 100 UNITS/ML 3 ML PEN SC SCH ×2 (08:14→22:04)
[2016-05-08 09:41] LABS: ESTIMATED AVERAGE GLUCOSE 249 mg/dl; HA1C FLAG Normal (Normal)
[2016-05-08] MEDS: ATORVASTATIN 20 MG TAB PO SCH (21:59)
[2016-05-08] MEDS: AMLODIPINE BESYLATE 5 MG TAB PO SCH (21:59)
[2016-05-09] VITALS (7 sets, daily range): BP systolic 126–144; BP diastolic 76–79; PULSE 72–81; TEMP 36.4; O2SAT 79–94; Ht 167.6 cm; Wt 119.3 kg
[2016-05-09 06:44] LABS: HEMATOCRIT 41.2 % (42-52); MEAN CELL VOLUME 83.6 fL (80-100); MEAN CORPUSCULAR HEMOGLOBIN 27.2 pg (25-34); MEAN CORPUSCULAR HGB CONC 32.5 g/dl (32-36); MEAN PLATELET VOLUME 8.6 fL (7.4-10.4); PLATELET COUNT 153 K/uL (130-400); RED BLOOD COUNT 4.93 M/uL (4.7-6.1); WHITE BLOOD COUNT 8.03 K/uL (4.8-10.8)
[2016-05-09 07:19] LABS: BUN/CREATININE RATIO 21.8 (10-20); CALCIUM 7.9 mg/dl (8.5-10.1); CREATININE 1.5 mg/dl (0.60-1.40); POTASSIUM 4.3 mmol/L (3.5-5.1)
[2016-05-09] MEDS: ALBUT/IPRATROP 3MG/0.5MG NEB 3 ML VIAL INH SCH ×2 (08:28→11:11)
[2016-05-09] MEDS: ASPIRIN 81 MG ECTAB PO SCH (08:57)
[2016-05-09] MEDS: OSELTAMIVIR PHOSPHATE 75 MG CAP PO SCH (09:00)
[2016-05-09] MEDS: CARVEDILOL 25 MG TAB PO SCH (09:00)
[2016-05-09] MEDS: INSULIN GLARGINE SOLOSTAR 100 UNITS/ML 3 ML PEN SC SCH (09:04)
[2016-05-09] MEDS: INSULIN ASPART 100 UNITS/ML 3 ML PEN SC SCH ×2 (09:04→12:19)
[2016-05-09] MEDS: HEPARIN SOD 5000 UNIT/0.5 ML CARP SQ SCH (09:05)
[2016-05-09] MEDS ORDERED: INSDGIPEN SC (15:33)
[2016-05-09] MEDS ORDERED: TMF75 PO (15:33)
--- NOTE | 2016-05-09 15:45 | Discharge Instructions ---
Discharge Instructions Admission Reason for Admission: Influenza B Discharge Discharge Diagnosis / Problem: Acute hypoxic respiratory failure, COPD exacerbation, influenza B infection Discharge Goals Goal(s): Improve function, Improve disease control Activity Recommendations Activity Limitations: resume your previous activity Lifting Limitations: none Exercise/Sports Limitations: as tolerated May Resume Sexual Activity: when tolerated Shower/Bathe: no limitations Driving or Machine Use: no limitations . Instructions / Follow-Up Instructions / Follow-Up Medications: - PREDNISONE: taper as follows, starting tomorrow, 40mg daily x 2 days then 20mg daily x 3 days then stop - LANTUS: based on your HbA1c of 10.4, you would benefit from twice a day Lantus in addition to your oral agents for the first two days you will take 30 units twice a day, then when you start taking Prednisone 20mg daily you will take 20 units twice a day once you are off of Prednisone you will take 10 units twice a day, continue with this dose if your morning blood sugar is less than 120, only take 5 units in the morning - TAMIFLU: you need two more days (4 more doses) for influenza B Influenza B: treated with Tamiflu, you are no longer contagious COPD exacerbation: no wheezing on exam, your lungs are moving good air, still requiring supplemental oxygen, complete 5 more days of Prednisone Acute hypoxic respiratory failure: testing today showed that you need 2L at rest and 3L on exertion, script sent to supply [facility] you should continue to use this oxygen until you are seen in your PCP office in 5-7 days and they can check your pulse oximetry Diabetes type II: you are poorly controlled currently with HbA1c of 10, Lantus has been added to your daily regimen please check your sugars 4 times a day (first thing in morning, prior to lunch, prior to dinner and prior to bedtime) please record the results and take them to your PCP visit in 5-7 days to discuss please continue your your Glyburide, Actos and Metformin as previously prescribed FOLLOW UP - please call office of Dr. Bearden for follow up visit in 5-7 days, request a hospital follow up visit, very important that you are seen in a timely manner Current Hospital Diet Patient's current hospital diet: AHA Diet (Heart Healthy), Diabetes Type 2 Diet Discharge Diet Recommended Diet: AHA Diet (Heart Healthy), Diabetes Type 2 Diet Procedures Procedures Performed: none Pending Studies Studies pending at discharge: no Laboratory Results Last Resulted CBC 05/09/16 06:29 Last Resulted BMP 05/09/16 06:29 Hemoglobin A1c Test 05/08/16 05:20 Range/Units Estimated Average Glucose 249 mg/dl Hemoglobin A1c 10.3 H 4.5-5.6 % Medical Emergencies . Who to Call and When: Medical Emergencies: If at any time you feel your situation is an emergency, please call 911 immediately. . Non-Emergent Contact Non-Emergency issues call your: Primary Care Provider Call Non-Emergent contact if: you have any medication questions . . "Provider Documentation" section prepared by Richard Solano. VTE Core Measure Inpt VTE Proph given/why not?: Unfractionated heparin SQ, T.E.Sabino Maldonado, SCD 's [place] Drug Monitoring Program Search Results: no issues identified
[2016-05-09] MEDS ORDERED: PRD20 PO (15:47)
--- NOTE | 2016-05-09 16:15 | Discharge Summary ---
Discharge Summary Date of Service May 09, 2016. Discharge Summary Admission Date: May 07, 2016 at 11:42 Discharge Date: May 09, 2016 Discharge Disposition: Home Principal Diagnosis: COPD exacerbation Problems/Secondary Diagnoses: Influenza B Acute respiratory failure with hypoxia DM type II with hyperglycemia Procedures: 2 step exercise - required 2L at rest and 3L on exertion Consultations: none Medication Reconciliation New Medications: Insulin Glargine (Lantus Solostar) 100 Unit/Ml Inj 30 UNIT SC BID, #1 BOX 5 Refills 30 units BID while on Prednisone 40mg 20 units BID while on Prednisone 20mg 10 units BID once off of Prednisone Oseltamivir Phosphate (Tamiflu) 75 Mg Cap 75 MG PO BID, #4 CAP 0 Refills Prednisone (Prednisone) 20 Mg Tab 40 MG PO QAM, #7 TAB 0 Refills starting 05/10, take 40mg daily x 2 days then 20mg daily x 3 days then stop Continued Medications: Albuterol Hfa (Ventolin Hfa) 200 Puffs/32610 Mcg Aers 2 PUFFS INH QID PRN for Shortness of Breath, #1 INHALER Amlodipine Besylate (Norvasc) 10 Mg Tab 10 MG PO HS, TAB Aspirin (Aspirin 81) 81 Mg Tab 1 TAB PO DAILY Atorvastatin (Lipitor) 20 Mg Tab 20 MG PO HS, TAB Carvedilol (Coreg) 25 Mg Tab 25 MG PO BID, TAB Glyburide-Metformin (Glucovance 5/500 Mg) 1 Tab Tab 2 TAB PO BID, TAB Hctz/Lisinopril (Lisinopril/Hctz 20/25 Mg) 1 Ea Tab 1 TAB PO QAM, TAB Multiple Vitamins W/ Minerals (Preservision Areds) 1 Cap Cap 1 CAP PO BID Pioglitazone (Actos) 30 Mg Tab 30 MG PO QAM for 30 Days, #30 TAB 5 Refills Discharge Exam Patient feeling well today, sitting up in chair out of bed. Was off oxygen for an hour, repeated pulse oximetry and he was 85% on room air so oxygen was resumed. Even when he was 85% he did not feel short of breath. He performed a 2 step and required supplemental oxygen and was set up for home. He is eating well, drinking fluids, urinating well and moving bowels. The mild swelling in his legs went down after IV fluids stopped. Overall he feels much better and would like to go home and now oxygen is arranged. Review of Systems: Constitutional: No chills, No fatigue, No fever, No problem reported, No sweats, No weakness, No weight loss Eyes: No diplopia, No discharge, No eye pain, No problem reported, No redness, No worsening of vision ENT: No dental problems, No hearing loss, No nasal symptoms, No problem reported, No sore throat, No tinnitus, No trouble swallowing, No unusual epistaxis Respiratory: + cough, + dyspnea on exertion, No dyspnea at rest, No hemoptysis, No problem reported, No shortness of breath, No sputum, No wheezing Cardiovascular: No PND, No chest pain, No claudication, No edema, No orthopnea, No palpitations, No problem reported Abdomen: No GI bleeding, No constipation, No diarrhea, No nausea, No pain, No problem reported, No vomiting Musculoskeletal: No calf pain, No joint pain, No muscle pain, No problem reported, No swelling Genitourinary - Male: No dysuria, No hematuria, No urinary frequency, No urinary urgency Neurologic: No balance problems, No memory loss, No numbness/tingling, No paralysis, No problem reported, No vertigo, No weakness Psychiatric: No anhedonism, No anxiety, No depression symptoms, No insomnia , No problem reported, No substance abuse Endocrine: No excessive thirst, No excessive urination, No fatigue, No problem reported Hematologic / Lymphatic: No abnormal bleeding/bruising, No clotting problems , No night sweats, No problem reported, No swollen lymph nodes Integumentary: No bleeding, No color change, No itch, No new/changing skin lesions, No problem reported, No rash Physical Exam: General Appearance: no apparent distress, + obese Eyes: normal inspection, EOMI, sclerae normal ENT: normal ENT inspection, hearing grossly normal, pharynx normal Neck: supple, no adenopathy, no JVD, trachea midline Respiratory/Chest: chest non-tender, lungs clear, normal breath sounds, no respiratory distress, no accessory muscle use Cardiovascular: regular rate, rhythm, no edema, no gallop, no JVD, no murmur , normal peripheral pulses Abdomen / GI: normal bowel sounds, non tender, soft, no organomegaly Extremities: normal inspection, no calf tenderness, normal capillary refill , no pedal edema, normal range of motion, pelvis stable Neurologic/Psychiatric: tire finisher II-XII nml as tested, no motor/sensory deficits , alert, normal mood/affect, normal reflexes, oriented x 3 Skin: normal color, warm/dry, no rash Lymphatic: no adenopathy Hospital Course 65 y/o male, with PMHx of HTN, COPD, T2DM, dyslipidemia, SHALA, ?CKD stage III, and prostate cancer, who presented to the ED because of worsening SOB x3 days. +Influenza B: treated with Tamiflu, will complete 4 more doses for 5 days total treatment initially given IV fluids, stopped yesterday since he was eating and drinking well COPD exacerbation: treated with Solumedrol, nebulizers transitioned to Prednisone 40mg daily lungs clear, no wheezing, no distress will d/c home on short Prednisone taper, continue nebulizers at home Acute hypoxic respiratory failure: still requiring oxygen 2L at rest and 3L on exertion, will follow up with PCP to determine when oxygen can be discontinued CKD, stage III: Cr stable, good urine output initially given IV fluids for 24 hours, had some mild edema which resolved after fluids stopped HTN: -held Lisinopril/HCTZ due to bump in kidney function, resumed on discharge - Continue Norvasc 10 mg PO daily - Hydralazine 10 mg IV PRN T2DM: poorly controlled, HbA1c 10.3, takes Actos, Metformin, Glyburide hyperglycemia due to steroid use here in the hospital, responded well to Lantus 30 units BID based upon weight plan on discharge is to continue oral medications while on Prednisone he will continue with the Lantus 30 units BID and will taper down over 5 days once off Prednisone, he should be on 10 units BID planning on following diabetic diet, recording sugars 4 times a day for the next week Dyslipidemia: - Continue Atorvastatin 20 mg PO HS SHALA: - CPAP GI Prophylaxis: - Maalox PRN - IV Zofran PRN - Colace and/or Milk of Mag PRN DVT prophylaxis: - Heparin 5000 units SQ q12 hrs - JANN and SCDs Code Status: LEVEL V, DNR Dispo: d/c home on oxygen Total Time Spent: Greater than 30 minutes This includes examination of the patient, discharge planning, medication reconciliation, and communication with other providers. Discharge Instructions Please refer to the electronic Patient Visit Report (Discharge Instructions) for additional information. Follow-Up Dr. Bearden in 5-7 days Additional Copies To Chidi Bearden MD
[2016-06-13] MEDS ORDERED: FURO-85 PO (13:17)
[2016-06-13] MEDS ORDERED: INSDGI SC (13:17)
== END 2016-05-09 17:20 | disposition home or self-care (01) | DRG 190 ==
LOC: ENRESERVDT → ENRESERVTM → C.EDB 09:15 → C.MS2W 11:42
PROVIDERS: ADMIT Family Medicine; ATTEND Internal Medicine
DX: J44.1 Chronic obstructive pulmonary disease with (acute) exacerbation (principal); J96.01 Acute respiratory failure with hypoxia; J11.1 Influenza due to unidentified influenza virus with other respiratory manifestations; E11.65 Type 2 diabetes mellitus with hyperglycemia; E78.5 Hyperlipidemia, unspecified; E11.22 Type 2 diabetes mellitus with diabetic chronic kidney disease; G47.33 Obstructive sleep apnea (adult) (pediatric); N18.3 Chronic kidney disease, stage 3 (moderate); I12.9 Hypertensive chronic kidney disease with stage 1 through stage 4 chronic kidney disease, or unspecified chronic kidney disease; Z85.46 Personal history of malignant neoplasm of prostate; Z66 Do not resuscitate; Z79.84 Long term (current) use of oral hypoglycemic drugs; Z79.82 Long term (current) use of aspirin; Z79.899 Other long term (current) drug therapy

== ENCOUNTER → 2016-06-13 | Outpatient (CLI) | payer OTHER ==
[~2016-06-13] MED LIST changes: +ALBINS/ INH; -ALBUAER2 INH; -CALC500C70 PO; +FRRS300 PO; +FURO-85 PO; -HYDR-5688 PO; +INSDGI SC; +INSDGIPEN SC; +LSN20 PO; +MRLP17X PO; -NAPR-1169 PO; +PRD20 PO; +PRED50TA PO; +SITA50TA9 PO; +TMF75 PO; +UMEC1AER INH; +VNTHFA/IN INH
[2016-06-13 13:00] VITALS: BP 132/76; PULSE 75; TEMP 36.4; O2SAT 93
--- NOTE | 2016-06-13 17:06 | Radiation Oncology Follow-Up ---
Radiation Oncology Follow-Up Date of Visit Jun 13, 2016. Reason For Visit Annual follow-up Radiation Completion Date salvage radiation on 11-16-2014 Diagnosis (1) Prostate cancer Status: Chronic Onset Date: 06/23/2008 Histology Subtype: adenocarcinoma Stage: ll (B) Permanent Comment: Rising PSA Status post biopsy revealing adenocarcinoma Anderson 3+4 10 of 24 cores positive, High-grade prostatic intraepithelial neoplasm present Status post robotic prostatectomy 10/06/2008 Adenocarcinoma Josy 3+3 negative margins Perineural invasion present Stage pT2c [id number] Rising PSA to 0.08 Status post completion of salvage radiation 11/16/2014 received 7040 cGy Last Edited By: Oliva Lozano on Nov 24, 2014 15:53 History of Present Illness Mr. Irizarry is a 64-year-old male who presented with an elevated prostate- specific antigen in 2008. He was seen by Dr. Resendez at the [facility] and underwent a prostate biopsy on 09/2008. This revealed an infiltrating moderately differentiated adenocarcinoma the prostate, Josy score 3+4 involving 10-80% of 10 out of 24 cores. Evidence of high-grade PIN was also identified. Lab #: [id number]. The patient opted to proceed with a radical prostatectomy. This was performed by Dr. Gomez at [facility]. His procedure was performed on 10/06/2008. This revealed a moderately differentiated adenocarcinoma with Josy grade 3+3 primarily involving the apical aspects of the right and left lobes. There was evidence of perineural invasion but no evidence of angiolymphatic invasion. There was no evidence of extraprostatic extension of tumor and all examined surgical margins were free of neoplasm. The seminal vesicles were uninvolved by tumor. A total of 10 lymph nodes were removed and all were negative. Patient underwent bone scan and CT scan of the abdomen and pelvis which were unremarkable with no evidence of disseminated disease. The patient was subsequently followed. Prostate-specific antigen on 04/06/2009 was less than 0.01. Prostate-specific antigen in 12/03/2009 was less than 0.005. Prostate-specific antigen on 2010 was 0.014. Prostate-specific antigen on 11/01/2010 was less than 0.005. Prostate-specific antigen on 05/31/2011 was less than 0.007. Prostate-specific antigen from 12/06/2011 was less than 0.007. He did have persistent urinary symptoms which persist to date. He has had multiple bone scans which have all been unremarkable. His prostate-specific antigen became undetectable and he continued under the care of Dr. Resendez. With his snf he was subsequently seen by Dr. Coreas initially on 2011. At that time he was using 3-4 pads a day and had Emergency Department. He underwent a diagnostic cystourethroscopy. The prostate was surgically absent. All regions of the bladder appeared normal with moderate trabeculation noted. The patient was placed onToviaz 8 mg with some improvement of his incontinence following provision of samples. Prostate-specific antigen from June 2012 was less than 0.007.. In June 2013 prostate-specific antigen was less than 0.07. On 09/30/2013 his prostate-specific antigen was 0.047. On 12/22/2013 the prostate-specific antigen continued to slowly rise to 0.08. Repeat prostate-specific antigen from 08/11/2014 showed continued slow rise to 0.171. With the slow rise in prostate-specific antigen the patient falls into the category of recurrent prostate cancer. Dr. Coreas's therefore asked if we would see this patient to discuss with him the role of salvage radiation. He completed salvage radiation therapy 11/16/2014 received 7040 cGy. Interim History He continues to have a high AUA score. He gave a score of 10. He does take diuretics. He completed expanded prostate cancer index composite for clinical practice and gave a score of 8 of 12 and urinary incontinence symptoms. He was score 212 and urinary irritation symptoms. He gave a score of 0 12 and bowel symptoms. He gave a score of 6 of 12 sexual symptoms. He gave a score of 4 of 12 and hormonal vitality symptoms. His total was 20 of 60. He has been followed by Dr. Coreas and has had recheck PSAs. He is been getting these closer to home at [facility] in [place]. He had a PSA 11/20/2015 that was 0.295. He had a recheck PSA 05/10/2016 that was 0.344. He has seen Dr. Coreas in follow-up there was discussion of the concern of increasing PSA. Patient has multiple comorbidities and there is concern about treatment with Lupron therapy. Allergies Coded Allergies: BEE STING (Unverified Allergy, Severe, ANAPHYLAXIS, 05/07/16) Home Medications Scheduled Amlodipine Besylate (Norvasc), 10 MG PO HS Aspirin (Aspirin 81), 1 TAB PO DAILY Atorvastatin (Lipitor), 20 MG PO HS Carvedilol (Coreg), 25 MG PO BID Furosemide (Lasix), 1 TAB PO MWF Glyburide-Metformin (Glucovance 5/500 Mg), 2 TAB PO BID Hctz/Lisinopril (Lisinopril/Hctz 20/25 Mg), 1 TAB PO QAM Insulin Glargine (Lantus), 12 UNITS SC AMPM Multiple Vitamins W/ Minerals (Preservision Areds), 1 CAP PO BID Pioglitazone (Actos), 30 MG PO QAM Scheduled PRN Albuterol Hfa (Ventolin Hfa), 2 PUFFS INH QID PRN for Shortness of Breath Review of Systems Gastrointestinal: Symptoms: WNL GI Comments: Not using any fiber supplements Oral: Symptoms: No Problems Respiratory: Symptoms: SOB With Exertion Other Respiratory: wears O 2 CONTINUOUS AT 2.0- 3.0 LITERS NC Urinary: Symptoms: Nocturia Comments: NOCTURIA TIMES 2 , DRIBBLING MOST OF THE TIME, URGENCY Skin: Symptoms: No Problems Physical Exam Vital Signs Date Time Temp Pulse Resp B/P Pulse Ox O2 Delivery O2 Flow Rate FiO2 06/13/16 13:00 36.4 75 20 132/76 93 Pain: Side: Bilateral Pain Location: None Patient Pain Scale: 0 - 10 Initial Pain Intensity: 0.0 Fatigue: None General Appearance: no apparent distress, + pertinent finding (has nasal oxygen in place) Eyes: normal inspection, EOMI ENT: normal ENT inspection, hearing grossly normal Neck: no adenopathy Respiratory/Chest: lungs clear, no respiratory distress, no accessory muscle use, + decreased breath sounds Cardiovascular: regular rate, rhythm, no gallop, no murmur Abdomen: non tender, soft Laboratory Studies Test 05/07/16 09:39 05/07/16 09:41 05/07/16 09:43 05/07/16 09:44 Immature Granulocyte % (Auto) 0.2 % White Blood Count 4.86 K/uL (4.8-10.8) Red Blood Count 5.15 M/uL (4.7-6.1) Hemoglobin 13.8 g/dL (14.0-18.0) Hematocrit 42.6 % (42-52) Mean Corpuscular Volume 82.7 fL (80-100) Mean Corpuscular Hemoglobin 26.8 pg (25-34) Mean Corpuscular Hemoglobin Concent 32.4 g/dl (32-36) Platelet Count 170 K/uL (130-400) Mean Platelet Volume 8.5 fL (7.4-10.4) Neutrophils (%) (Auto) 70.0 % Lymphocytes (%) (Auto) 16.9 % Monocytes (%) (Auto) 11.5 % Eosinophils (%) (Auto) 0.8 % Basophils (%) (Auto) 0.6 % Neutrophils # (Auto) 3.40 K/uL (1.4-6.5) Lymphocytes # (Auto) 0.82 K/uL (1.2-3.4) Monocytes # (Auto) 0.56 K/uL (0.11-0.59) Eosinophils # (Auto) 0.04 K/uL (0-0.5) Basophils # (Auto) 0.03 K/uL (0-0.2) Immature Granulocyte # (Auto) 0.01 K/uL (0.00-0.02) Prothrombin Time 11.2 SECONDS (9.0-12.0) Prothrombin Time INR 1.0 (0.9-1.1) PTT 29.8 SECONDS (21.0-31.0) Partial Thromboplastin Ratio 1.1 Total Bilirubin 0.5 mg/dl (0.2-1) Aspartate Amino Transferase (AST) 22 U/L (15-37) Alanine Aminotransferase (ALT) 20 U/L (12-78) Alkaline Phosphatase 103 U/L (45-117) Total Creatine Kinase 384 U/L (39-308) Creatine Kinase MB 4.5 ng/ml (0.5-3.6) Creatine Kinase MB Ratio 1.2 (0-3.0) Total Protein 7.2 gm/dl (6.4-8.2) Albumin 3.2 gm/dl (3.4-5.0) Globulin 4.0 gm/dl (2.5-4.0) Albumin/Globulin Ratio 0.8 (0.9-2) Influenza Type A Antigen Neg for Influ A (NEG) Influenza Type B Antigen POS for Influ B (NEG) POC Troponin I 0.000 ng/ml (0-0.045) LS-Vqd-M-Type Natriuretic Peptide 205 pg/ml (0-900) POC Hemoglobin 15.3 g/dl (14.0-18.0) POC Hematocrit 45 % (42-52) POC Sodium 137 mEq/L (135-144) POC Potassium 3.4 mEq/L (3.3-5.0) POC Chloride 91 mEq/L (101-112) POC Total CO2 31 mEq/l (24-31) POC Blood Urea Nitrogen 20 mg/dl (7-18) POC Creatinine 1.7 mg/dl (0.6-1.3) POC Glucose 210 mg/dl (70-99) POC Ionized Calcium (Andrea) 1.10 mmol/l (1.12-1.32) Test 05/07/16 09:59 05/07/16 18:00 05/08/16 05:20 05/09/16 06:29 POC Lactic Acid Venous 1.39 mmol/L (0.90-1.70) Urine Color YELLOW Urine Appearance CLEAR (CLEAR) Urine pH 5.0 (4.5-7.5) Urine Specific [place] 1.021 (1.000-1.030) Urine Protein 1+ (NEG) Urine Glucose (UA) 3+ (NEG) Urine Ketones NEG (NEG) Urine Occult Blood NEG (NEG) Urine Nitrite NEG (NEG) Urine Bilirubin NEG (NEG) Urine Urobilinogen NEG (NEG) Urine Leukocyte Esterase NEG (NEG) Urine WBC (Auto) 1-5 /hpf (0-5) Urine RBC (Auto) 0-4 /hpf (0-4) Urine Hyaline Casts (Auto) 5-10 /lpf (0-5) Urine Epithelial Cells (Auto) 10-20 /lpf (0-5) Urine Bacteria (Auto) NEG (NEG) Urine Pathogenic Casts /lpf (0) White Blood Count 2.77 K/uL (4.8-10.8) 8.03 K/uL (4.8-10.8) Red Blood Count 5.03 M/uL (4.7-6.1) 4.93 M/uL (4.7-6.1) Hemoglobin 13.8 g/dL (14.0-18.0) 13.4 g/dL (14.0-18.0) Hematocrit 43.0 % (42-52) 41.2 % (42-52) Mean Corpuscular Volume 85.5 fL (80-100) 83.6 fL (80-100) Mean Corpuscular Hemoglobin 27.4 pg (25-34) 27.2 pg (25-34) Mean Corpuscular Hemoglobin Concent 32.1 g/dl (32-36) 32.5 g/dl (32-36) RDW Standard Deviation 48.6 fL (36.4-46.3) 47.1 fL (36.4-46.3) RDW Coefficient of Variation 15.6 % (11.5-14.5) 15.4 % (11.5-14.5) Platelet Count 166 K/uL (130-400) 153 K/uL (130-400) Mean Platelet Volume 8.9 fL (7.4-10.4) 8.6 fL (7.4-10.4) Sodium Level 140 mmol/L (136-145) 141 mmol/L (136-145) Potassium Level 4.7 mmol/L (3.5-5.1) 4.3 mmol/L (3.5-5.1) Chloride Level 99 mmol/L (98-107) 102 mmol/L (98-107) Carbon Dioxide Level 31 mmol/L (21-32) 31 mmol/L (21-32) Anion Gap 10.0 mmol/L (3-11) 8.0 mmol/L (3-11) Blood Urea Nitrogen 30 mg/dl (7-18) 33 mg/dl (7-18) Creatinine 1.90 mg/dl (0.60-1.40) 1.50 mg/dl (0.60-1.40) Est Creatinine Clear Calc Drug Dose 46.5 ml/min 58.9 ml/min Estimated GFR () 41.7 55.4 Estimated GFR (Non- 35.9 47.8 BUN/Creatinine Ratio 15.5 (10-20) 21.8 (10-20) Random Glucose 242 mg/dl (70-99) 201 mg/dl (70-99) Estimated Average Glucose 249 mg/dl Hemoglobin A1c 10.3 % (4.5-5.6) Calcium Level 8.2 mg/dl (8.5-10.1) 7.9 mg/dl (8.5-10.1) Test 05/09/16 11:40 05/09/16 16:08 POC Glucose 170 mg/dl (70-99) 195 mg/dl (70-99) Assessment & Plan Plan: PSAs were reviewed with the patient. His case was discussed with Dr. Dr. Arredondo. This felt he should continue his follow-up with Dr. Coreas and follow- up PSAs. He is concerned that these are continuing to go up. He is also concerned as to how to proceed with treatment with his significant comorbidities. His information will be reviewed at our next urologic cancer conference. Patient will be notified as to the outcome of that discussion. Otherwise we'll continue follow-up with Dr. Coreas and Dr. Bearden. We gave an appointment to return to our office in 1 year. Total Time In Follow-Up I spent 20 minutes speaking to the patient forming examination. I spent 15 minutes reviewing information and completing this note. Copy To Chidi Bearden MD; Levon Coreas MD, Urology
== END | disposition home or self-care (01) ==
LOC: C.ONC 12:43
PROVIDERS: ATTEND Physician Assistant Medical
DX: Z08 Encounter for follow-up examination after completed treatment for malignant neoplasm (principal); Z92.3 Personal history of irradiation; Z85.46 Personal history of malignant neoplasm of prostate

== ENCOUNTER 2016-11-25 19:05 | Inpatient (IN) | payer OTHER ==
[~2016-11-25] VITALS: Ht 167.6 cm; Wt 121.1 kg
[~2016-11-25 19:05] MED LIST changes: -ALBINS/ INH; -FRRS300 PO; -INSDGIPEN SC; -LSN20 PO; -MRLP17X PO; -PRD20 PO; -PRED50TA PO; -SITA50TA9 PO; -TMF75 PO; -UMEC1AER INH
--- NOTE | 2016-11-25 19:41 | DIAGNOSTIC IMAGING REPORT ---
CHEST ONE VIEW PORTABLE CLINICAL HISTORY: EVALUATE GI BLEED dyspnea COMPARISON STUDY: 05/07/2016 FINDINGS: Mild stable cardiomegaly. Scattered atelectatic change considered stable. Chronic prominence pulmonary vasculature. IMPRESSION: Chronic change. Moderate stable cardiomegaly. No acute process. The above report was generated using voice recognition software. It may contain grammatical, syntax or spelling errors. Electronically signed by: Michael Espinal M.D. 11/25/2016 7:40 PM Dictated Date/Time: 11/25/2016 7:39 PM
[2016-11-25] MEDS ORDERED: SITA50TA9 PO (20:18)
[2016-11-25 20:19] LABS: BASO % 0.4 %; BASO ABS # 0.04 K/uL (0-0.2); COMPLETE YES; EOS % 3.1 %; HEMATOCRIT 30.5 % (42-52); IG% 0.5 %; LYMPH % 4.3 %; MEAN CELL VOLUME 81.8 fL (80-100); MEAN CORPUSCULAR HEMOGLOBIN 25.5 pg (25-34); MEAN CORPUSCULAR HGB CONC 31.1 g/dl (32-36); MEAN PLATELET VOLUME 8.1 fL (7.4-10.4); MONO % 9.4 %; NEUT % 82.3 %; PLATELET COUNT 220 K/uL (130-400); RED BLOOD COUNT 3.73 M/uL (4.7-6.1); WHITE BLOOD COUNT 9.29 K/uL (4.8-10.8)
[2016-11-25] MEDS ORDERED: LSN20 PO (20:21)
[2016-11-25] MEDS ORDERED: ALBINS/ INH (20:22)
[2016-11-25 20:32] LABS: PROTHROMBIN TIME (PATIENT) 10.9 SECONDS (9.0-12.0)
[2016-11-25 20:38] LABS: ALT/SGPT 14 U/L (12-78); AST/SGOT 10 U/L (15-37); BLOOD UREA NITROGEN 20 mg/dl (7-18); BUN/CREATININE RATIO 15.3 (10-20); CALCIUM 8.5 mg/dl (8.5-10.1); CARBON DIOXIDE 33 mmol/L (21-32); CHLORIDE 105 mmol/L (98-107); GLUCOSE 106 mg/dl (70-99); SODIUM 142 mmol/L (136-145)
[2016-11-25 20:43] LABS: ALKALINE PHOSPHATASE 105 U/L (45-117); CKMB/CK RATIO 4.2 (0-3.0)
--- NOTE | 2016-11-25 21:09 | EMERGENCY ROOM VISIT NOTE ---
History Report prepared by Dutch: An Sam Under the Supervision of: Dr. Scott Iglesias D.O. First contact with patient: 19:16 Chief Complaint: RECTAL BLEEDING Stated Complaint: RECTAL BLEEDING History of Present Illness The patient is a 66 year old male who presents to the Emergency Room with complaints of intermittent rectal bleeding beginning 3 hours ago. The patient states that he has had 4 episodes of rectal bleeding in the last 3 hours. He reports that he only passes blood with bowel movements and there is a significant amount. 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 The patient notes that he had a rectal mass removed at the time. He notes that the blood was bright red and there were clots. He denies any lightheadedness, dizziness, nausea, vomiting, history of rectal bleeding. The patient states that he had prostate cancer previously. Source of History: patient Onset: 3 days ago Position: other (rectal) Symptom Intensity: 4 episodes Quality: other (bleeding) Associated Symptoms: No SOB, No nausea, No vomiting Note: Pt notes that the blood was had clots in it. He denies lightheadedness, dizziness. Review of Systems See HPI for pertinent positives & negatives. A total of 10 systems reviewed and were otherwise negative. Past Medical & Surgical Medical Problems: (1) COPD (chronic obstructive pulmonary disease) (2) Influenza B (3) Prostate cancer Family History No pertinent family history stated. Social History Smoking Status: Never Smoker Alcohol Use: occasionally Drug Use: none Marital Status: Housing Status: lives with family Occupation Status: retired Current/Historical Medications Scheduled Amlodipine Besylate (Norvasc), 10 MG PO HS Atorvastatin (Lipitor), 20 MG PO HS Carvedilol (Coreg), 25 MG PO BID Furosemide (Lasix), 1 TAB PO MWF Glyburide-Metformin (Glucovance 5/500 Mg), 2 TAB PO BID Insulin Glargine (Lantus), 35 UNITS SC QAM Lisinopril (Lisinopril), 20 MG PO BID Multiple Vitamins W/ Minerals (Preservision Areds), 1 CAP PO BID Pioglitazone (Actos), 30 MG PO QAM Sitagliptin-Metformin Hcl (Janumet), 1 TAB PO BID Scheduled PRN Albuterol Hfa (Ventolin Hfa), 2 PUFFS INH QID PRN for Shortness of Breath Albuterol Sulf (Proventil 0.083% 2.5MG/3ML), 2.5 MG INH QID PRN for SOB/Wheezing Allergies Coded Allergies: BEE STING (Unverified Allergy, Severe, ANAPHYLAXIS, 11/25/16) Physical Exam Vital Signs Date Time Temp Pulse Resp B/P (MAP) Pulse Ox O2 Delivery O2 Flow Rate FiO2 11/25/16 22:07 76 11/25/16 19:10 36.7 78 22 168/82 90 Nasal Cannula 2.0 Physical Exam CONSTITUTIONAL/VITAL SIGNS: Reviewed / noted above. GENERAL: Non-toxic in appearance. INTEGUMENTARY: Warm, dry, and [place]. HEAD: Normocephalic. EYES: without scleral icterus or trauma. ENT/OROPHARYNX: clear and moist. LYMPHADENOPATHY/NECK: Is supple without lymphadenopathy or meningismus. RESPIRATORY: Lungs clear and equal. CARDIOVASCULAR: Regular rate and rhythm. GI/ABDOMEN: Soft and nontender. No organomegaly or pulsatile mass. No rebound or guarding. Normal bowel sounds. EXTREMITIES: Warm and well perfused. BACK: No CVA tenderness. NEUROLOGICAL: Intact without focal deficits. PSYCHIATRIC: normal affect. MUSCULOSKELETAL: Normally developed with good muscle tone. Medical Decision & Procedures ER Provider Diagnostic Interpretation: X ray results and stated below per my interpretation and radiology interpretation. CHEST ONE VIEW PORTABLE FINDINGS: Mild stable cardiomegaly. Scattered atelectatic change considered stable. Chronic prominence pulmonary vasculature. IMPRESSION: Chronic change. Moderate stable cardiomegaly. No acute process. The above report was generated using voice recognition software. It may contain grammatical, syntax or spelling errors. Electronically signed by: Michael Espinal M.D. 11/25/2016 7:40 PM Dictated Date/Time: 11/25/2016 7:39 PM Laboratory Results 11/25/16 19:42 Red Blood Count 3.73, Mean Corpuscular Volume 81.8, Mean Corpuscular Hemoglobin 25.5, Mean Corpuscular Hemoglobin Concent 31.1, Mean Platelet Volume 8.1, Neutrophils (%) (Auto) 82.3, Lymphocytes (%) (Auto) 4.3, Monocytes (%) (Auto) 9.4, Eosinophils (%) (Auto) 3.1, Basophils (%) (Auto) 0.4, Neutrophils # (Auto) 7.64, Lymphocytes # (Auto) 0.40, Monocytes # (Auto) 0.87, Eosinophils # (Auto) 0.29, Basophils # (Auto) 0.04 11/25/16 19:42 Test 11/25/16 19:42 11/25/16 22:01 White Blood Count 9.29 K/uL (4.8-10.8) Red Blood Count 3.73 M/uL (4.7-6.1) Hemoglobin 9.5 g/dL (14.0-18.0) Hematocrit 30.5 % (42-52) Mean Corpuscular Volume 81.8 fL (80-100) Mean Corpuscular Hemoglobin 25.5 pg (25-34) Mean Corpuscular Hemoglobin Concent 31.1 g/dl (32-36) Platelet Count 220 K/uL (130-400) Mean Platelet Volume 8.1 fL (7.4-10.4) Neutrophils (%) (Auto) 82.3 % Lymphocytes (%) (Auto) 4.3 % Monocytes (%) (Auto) 9.4 % Eosinophils (%) (Auto) 3.1 % Basophils (%) (Auto) 0.4 % Neutrophils # (Auto) 7.64 K/uL (1.4-6.5) Lymphocytes # (Auto) 0.40 K/uL (1.2-3.4) Monocytes # (Auto) 0.87 K/uL (0.11-0.59) Eosinophils # (Auto) 0.29 K/uL (0-0.5) Basophils # (Auto) 0.04 K/uL (0-0.2) RDW Standard Deviation 52.2 fL (36.4-46.3) RDW Coefficient of Variation 17.4 % (11.5-14.5) Immature Granulocyte % (Auto) 0.5 % Immature Granulocyte # (Auto) 0.05 K/uL (0.00-0.02) Prothrombin Time 10.9 SECONDS (9.0-12.0) Prothromb Time International Ratio 1.0 (0.9-1.1) Activated Partial Thromboplast Time 26.1 SECONDS (21.0-31.0) Partial Thromboplastin Ratio 1.0 Est Creatinine Clear Calc Drug Dose 68.2 ml/min Estimated GFR () 65.4 Estimated GFR (Non- 56.5 BUN/Creatinine Ratio 15.3 (10-20) Calcium Level 8.5 mg/dl (8.5-10.1) Total Bilirubin 0.4 mg/dl (0.2-1) Direct Bilirubin < 0.1 mg/dl (0-0.2) Aspartate Amino Transf (AST/SGOT) 10 U/L (15-37) Alanine Aminotransferase (ALT/SGPT) 14 U/L (12-78) Alkaline Phosphatase 105 U/L (45-117) Total Creatine Kinase 69 U/L (39-308) Creatine Kinase MB 2.9 ng/ml (0.5-3.6) Creatine Kinase MB Ratio 4.2 (0-3.0) Troponin I < 0.015 ng/ml (0-0.045) Total Protein 6.9 gm/dl (6.4-8.2) Albumin 3.0 gm/dl (3.4-5.0) Bedside Hemoglobin 9.2 g/dl (14.0-18.0) Bedside Hematocrit 27 % (42-52) Bedside Sodium 142 mEq/L (135-144) Bedside Potassium 4.2 mEq/L (3.3-5.0) Bedside Chloride 101 mEq/L (101-112) Bedside Total CO2 30 mEq/l (24-31) Anion Gap 17.0 mmol/L (16-25) Bedside Blood Urea Nitrogen 22 mg/dl (7-18) Bedside Creatinine 1.4 mg/dl (0.6-1.3) Bedside Glucose (other) 169 mg/dl (70-99) Bedside Ionized Calcium (Andrea) 1.23 mmol/l (1.12-1.32) Laboratory results as stated above per my review. ECG Indication: other (bleeding) Rate (beats per minute): 74 Rhythm: normal sinus Findings: no acute ischemic change, no ectopy ED Course 1915: Previous medical records were reviewed. The patient was evaluated in room C2. A complete history and physical examination was performed. 2108: Discussed the patient's case with Dr. Lopez of [facility]. The patient will be evaluated for further treatment and disposition. On reevaluation, the patient is doing well. I discussed the results and findings with the patient. He verbalized agreement of the treatment plan. I spoke with Dr. Lopez of the [facility] Hospitalist Service. The patient will be evaluated for further management and care. Medical Decision Differential diagnosis: Etiologies such as metabolic, infection, hypo/hyperglycemia, electrolyte abnormalities, cardiac sources, intracerebral event, toxicologic, neurologic, as well as others were entertained. This is a 66-year-old male who presents to the ED with a chief complaint of GI bleeding. The patient states that he has a history of prostate cancer with resection in 2008. The patient 3 weeks ago was found to have a sessile polyp that ultimately was removed by Dr. Zamorano in [place]. The patient the developed rectal bleeding today around 4:30. He has had 4 episodes at home and one episode here. The patient denies any chest pains, shortness of breath, lightheadedness or other symptoms. He has no abdominal pain. No nausea or vomiting. The patient's exam was unremarkable. He did have a grossly bloody bowel movement here. He also reported there were some clots in his blood earlier. His hemoglobin tonight is 9.5. Blood work was otherwise unremarkable. Troponin is negative. EKG shows a normal sinus rhythm. Chest x- ray did not show acute disease. The patient has been typed and screened. He is hemodynamically stable this time. He is felt to be stable for admission and further observation by the medicine service. Medication Reconcilliation Current Medication List: was personally reviewed by me Blood Pressure Screening Patient's blood pressure: Elevated blood pressure Blood pressure disposition: Referred to PCP Consults Time Called: 2104 Consulting Physician: Dr. Lopez - [facility] Returned Call: 2108 Discussed the patient's case with Dr. Lopez of [facility]. The patient will be evaluated for further treatment and disposition. Impression Primary Impression: GI bleed Scribe Attestation The scribe's documentation has been prepared under my direction and personally reviewed by me in its entirety. I confirm that the note above accurately reflects all work, treatment, procedures, and medical decision making performed by me. Departure Information Dispostion Being Evaluated By Hospitalist Referrals Chidi Bearden MD (PCP) Patient Instructions My [facility]
[2016-11-25 22:11] LABS: ISTAT CREATININE 1.4 mg/dl (0.6-1.3); ISTAT HEMOGLOBIN 9.2 g/dl (14.0-18.0); ISTAT IONIZED CALCIUM 1.23 mmol/l (1.12-1.32)
[2016-11-25] MEDS ORDERED: DEXTROSE 50% 50 ML SYR IV PRN (23:00)
[2016-11-25] MEDS ORDERED: GLUCOSE 10 TABS/TUBE PO PRN (23:00)
[2016-11-25] MEDS ORDERED: ONDANSETRON INJ 2 MG/ML 2 ML VIAL IV PRN (23:00)
[2016-11-25] MEDS ORDERED: GLUCAGON FOR INJ 1 MG VIAL SQ PRN (23:00)
[2016-11-25] MEDS ORDERED: ALBUTEROL HFA 8 GM INHALER INH PRN (23:00)
[2016-11-25] MEDS ORDERED: ACETAMINOPHEN 325 MG TAB PO PRN (23:00)
[2016-11-25] MEDS ORDERED: ALBUTEROL 0.083% NEBU SOLN 3 ML VIAL INH PRN (23:00)
[2016-11-25] MEDS ORDERED: GLUCOSE 40% GEL 15 GM TUBE PO PRN (23:00)
--- NOTE | 2016-11-25 23:19 | History and Physical ---
History & Physical Date & Time of Service: Nov 25, 2016 at 23:19 Chief Complaint: Rectal Bleeding Primary Care Physician: Chidi Bearden MD History of Present Illness Source: patient, family, spouse The patient is a 66-year-old male who presents to the emergency department with complaint of 4 episodes of rectal bleeding that began about 3 hours prior to arrival. 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 He has remained off his aspirin during that interval time, and is not take any NSAIDs. He reports no straining of bowels. He did have an episode of lightheadedness while in the emergency department when going to the restroom. Past Medical/Surgical History Medical Problems: (1) COPD (chronic obstructive pulmonary disease) Status: Chronic (2) Prostate cancer Permanent Comment: Rising PSA Status post biopsy revealing adenocarcinoma [place] 3+4 10 of 24 cores positive, High-grade prostatic intraepithelial neoplasm present Status post robotic prostatectomy 10/06/2008 Adenocarcinoma Josy 3+3 negative margins Perineural invasion present Stage pT2c pN0M0 Rising PSA to 0.08 Status post completion of salvage radiation 11/16/2014 received 7040 cGy Status: Chronic Family History Noncontributory Social History Smoking Status: Never Smoker Smokeless Tobacco Use: No Alcohol Use: occasionally Drug Use: none Marital Status: Housing status: lives with family Occupational Status: retired Immunizations History of Influenza Vaccine: Unknown History of Tetanus Vaccine?: Unknown History of Pneumococcal: Unknown History of Hepatitis B Vaccine: Unknown Multi-Drug Resistant Organisms History of MDRO: No Allergies Coded Allergies: BEE STING (Unverified Allergy, Severe, ANAPHYLAXIS, 11/25/16) Home Medications Scheduled Amlodipine Besylate (Norvasc), 10 MG PO HS Atorvastatin (Lipitor), 20 MG PO HS Carvedilol (Coreg), 25 MG PO BID Furosemide (Lasix), 1 TAB PO MWF Glyburide-Metformin (Glucovance 5/500 Mg), 2 TAB PO BID Insulin Glargine (Lantus), 35 UNITS SC QAM Lisinopril (Lisinopril), 20 MG PO BID Multiple Vitamins W/ Minerals (Preservision Areds), 1 CAP PO BID Pioglitazone (Actos), 30 MG PO QAM Sitagliptin-Metformin Hcl (Janumet), 1 TAB PO BID Scheduled PRN Albuterol Hfa (Ventolin Hfa), 2 PUFFS INH QID PRN for Shortness of Breath Albuterol Sulf (Proventil 0.083% 2.5MG/3ML), 2.5 MG INH QID PRN for SOB/Wheezing Review of Systems The patient denies chest pain, palpitations, shortness of breath, cough, lower extremity swelling, vision change, hearing change, sore throat, fevers, chills, sweats, weight change, nausea, vomiting, constipation, abdominal pain, pelvic pain, blood in urine, dysuria, urinary frequency or urgency, headache, memory loss, rash, abnormal bruising or bleeding, focal weakness, numbness or tingling in arms or legs, generalized arthralgias or myalgias, back or neck pain, night sweats, or allergy symptoms. The review of systems is otherwise negative other than for that already noted above, and at least 10 systems have been reviewed. Physical Exam Vital Signs Date Time Temp Pulse Resp B/P (MAP) Pulse Ox O2 Delivery O2 Flow Rate FiO2 11/25/16 22:35 79 11/25/16 22:07 76 11/25/16 21:53 112/82 98 Nasal Cannula 2.0 11/25/16 19:10 36.7 78 22 168/82 90 Nasal Cannula 2.0 The patient is awake, well-developed and adequately nourished, alert and oriented 3, normocephalic and atraumatic, lying in bed and in no acute distress. HEENT--PERRL, EOMI, mucous membranes and oropharynx dry. Neck--supple, no JVD or bruits, thyroid normal, trachea midline, no adenopathy. Heart--normal S1 and S2, no extra beats, no murmurs, rubs or gallops. Lungs--clear bilaterally but diminished throughout, no respiratory distress, no accessory muscle use. Abdomen--normal bowel sounds and soft, nontender and nondistended, no hernias or masses, no organomegaly and obese. Extremities--no cyanosis, clubbing or edema. There are good distal pulses b/l. Dermatologic--normal skin turgor, normal color, warm and dry, no abnormal lymph nodes, no rash. Neurologic--cranial nerves II through XII grossly intact, motor and sensory examination normal. Rheumatologic--normal range of motion, nontender, muscles and joints. Psychiatric--normal affect. Diagnostics Laboratory Results Results Past 24 Hours Test 11/25/16 19:42 11/25/16 22:01 11/25/16 22:51 Range/Units White Blood Count 9.29 4.8-10.8 K/uL Red Blood Count 3.73 4.7-6.1 M/uL Hemoglobin 9.5 14.0-18.0 g/dL Hematocrit 30.5 42-52 % Mean Corpuscular Volume 81.8 80-100 fL Mean Corpuscular Hemoglobin 25.5 25-34 pg Mean Corpuscular Hemoglobin Concent 31.1 32-36 g/dl Platelet Count 220 130-400 K/uL Mean Platelet Volume 8.1 7.4-10.4 fL Neutrophils (%) (Auto) 82.3 % Lymphocytes (%) (Auto) 4.3 % Monocytes (%) (Auto) 9.4 % Eosinophils (%) (Auto) 3.1 % Basophils (%) (Auto) 0.4 % Neutrophils # (Auto) 7.64 1.4-6.5 K/uL Lymphocytes # (Auto) 0.40 1.2-3.4 K/uL Monocytes # (Auto) 0.87 0.11-0.59 K/uL Eosinophils # (Auto) 0.29 0-0.5 K/uL Basophils # (Auto) 0.04 0-0.2 K/uL RDW Standard Deviation 52.2 36.4-46.3 fL RDW Coefficient of Variation 17.4 11.5-14.5 % Immature Granulocyte % (Auto) 0.5 % Immature Granulocyte # (Auto) 0.05 0.00-0.02 K/uL Prothrombin Time 10.9 9.0-12.0 SECONDS Prothromb Time International Ratio 1.0 0.9-1.1 Activated Partial Thromboplast Time 26.1 21.0-31.0 SECONDS Partial Thromboplastin Ratio 1.0 Sodium Level 142 136-145 mmol/L Potassium Level 4.0 3.5-5.1 mmol/L Chloride Level 105 98-107 mmol/L Carbon Dioxide Level 33 21-32 mmol/L Anion Gap 4.0 17.0 16-25 mmol/L Blood Urea Nitrogen 20 7-18 mg/dl Creatinine 1.30 0.60-1.40 mg/dl Est Creatinine Clear Calc Drug Dose 68.2 ml/min Estimated GFR () 65.4 Estimated GFR (Non- 56.5 BUN/Creatinine Ratio 15.3 10-20 Random Glucose 106 70-99 mg/dl Calcium Level 8.5 8.5-10.1 mg/dl Total Bilirubin 0.4 0.2-1 mg/dl Direct Bilirubin < 0.1 0-0.2 mg/dl Aspartate Amino Transf (AST/SGOT) 10 15-37 U/L Alanine Aminotransferase (ALT/SGPT) 14 12-78 U/L Alkaline Phosphatase 105 45-117 U/L Total Creatine Kinase 69 39-308 U/L Creatine Kinase MB 2.9 0.5-3.6 ng/ml Creatine Kinase MB Ratio 4.2 0-3.0 Troponin I < 0.015 0-0.045 ng/ml Total Protein 6.9 6.4-8.2 gm/dl Albumin 3.0 3.4-5.0 gm/dl Bedside Hemoglobin 9.2 14.0-18.0 g/dl Bedside Hematocrit 27 42-52 % Bedside Sodium 142 135-144 mEq/L Bedside Potassium 4.2 3.3-5.0 mEq/L Bedside Chloride 101 101-112 mEq/L Bedside Total CO2 30 24-31 mEq/l Bedside Blood Urea Nitrogen 22 7-18 mg/dl Bedside Creatinine 1.4 0.6-1.3 mg/dl Bedside Glucose (other) 169 70-99 mg/dl Bedside Ionized Calcium (Andrea) 1.23 1.12-1.32 mmol/l Diagnostic Radiology Patient Name: JO BISHOP Unit Number: [id number] Dictated: 11/25/161938 Transcribed: 11/25/161938 MS Printed Date/Time: [~ rep prt dt]/[~ rep prt tm] [~ rep ct labl] - [~ rep ct ivnm] [facility] Radiology Department [place], [place] [id number] Dictated: 11/25/161938 Transcribed: 11/25/161938 MS Printed Date/Time: [~ rep prt dt]/[~ rep prt tm] [~ rep ct labl] - [~ rep ct ivnm] CHEST ONE VIEW PORTABLE CLINICAL HISTORY: EVALUATE GI BLEED dyspnea COMPARISON STUDY: 05/07/2016 FINDINGS: Mild stable cardiomegaly. Scattered atelectatic change considered stable. Chronic prominence pulmonary vasculature. IMPRESSION: Chronic change. Moderate stable cardiomegaly. No acute process. The above report was generated using voice recognition software. It may contain grammatical, syntax or spelling errors. Electronically signed by: Michael Espinal M.D. 11/25/2016 7:40 PM Dictated Date/Time: 11/25/2016 7:39 PM The status of this report is Signed. Draft = Not yet reviewed or approved by Radiologist. Signed = Reviewed and approved by Radiologist. <AttendingPhy></AttendingPhy> <FamilyPhy>Chidi Bearden MD</FamilyPhy> < PrimaryPhy>Chidi Bearden MD</PrimaryPhy> <UnitNumber>[id number]</UnitNumber> < VisitNumber>[id number]</VisitNumber> <PatientName>JO BISHOP</ PatientName> <DateOfBirth>1950</DateOfBirth> <Location>[facility]</Location> < ServiceDate>11/25/16</ServiceDate> <MNE>ESINDI</MNE> <OrderingPhy>Scott Iglesias D.O.</OrderingPhy> <OrderingPhyMNE>f rep ord dr yanez</OrderingPhyMNE> < DictatingPhyMNE>f rep dict dr yanez</DictatingPhyMNE> <CCListMNE>f rep ct mne</ CCListMNE> <AdmittingPhyMNE>f pt admit dr yanez</AdmittingPhyMNE> <AttendingPhyMNE >f pt attend dr yanez</AttendingPhyMNE> <ConsultingPhyMNE>f pt consult dr yanez</ConsultingPhyMNE> <FamilyPhyMNE>f pt fam dr yanez</FamilyPhyMNE> <OtherPhyMNE>f pt other dr yanez</OtherPhyMNE> < PrimaryPhyMNE>f pt prim care dr yanez</PrimaryPhyMNE> <ReferringPhyMNE>f pt referring dr yanez</ReferringPhyMNE> EKG EKG shows normal sinus rhythm at 74 bpm, no acute ST-T changes, and no change compared to 05/07/2016. Impression Assessment and Plan Hematochezia/status post colon biopsy 3 weeks ago by /radiation proctitis/symptomatic anemia-- Check H&H every 6 hours. Type and screen performed, and transfusion consent signed. NSS with KCl 20 mEq at 100 mils per hour. Nothing by mouth except medications. Consult gastroenterology. Hypertension-- Reduce carvedilol from 25 mg by mouth twice a day to 12.5 mg by mouth twice a day with hold parameters. Hold amlodipine 10 mg by mouth at bedtime Hold lisinopril 20 mg by mouth twice a day. Hold furosemide Sunday/ Sunday/ Sunday. Diabetes mellitus-- hold Glucovance, pioglitazone, Janumet. Continue Lantus insulin but reduce from 35 units subcutaneous every morning to 15 units subcutaneous every morning. Place on Accu-Cheks 4 times a day with NovoLog coverage per scale. Hyperlipidemia-- Hold Lipitor 20 mg by mouth at bedtime. Level of Care Telemetry Advanced Directives Existing Advance Directive: No Existing Living Will: No Existing Power of Care Transitions Manager: No Resuscitation Status FULL RESUSCITATION VTE Prophylaxis VTE Risk Assessment Done? Y/N: Yes Risk Level: Moderate Given or contraindicated: SCD's Social Service Consult None Apply
[2016-11-25 23:40] VITALS: BP 153/76; PULSE 90; TEMP 36.7; O2SAT 99; Ht 167.6 cm; Wt 121.1 kg
[2016-11-26] VITALS (16 sets, daily range): BP systolic 94–179; BP diastolic 52–91; PULSE 71–94; TEMP 36.4–36.9; O2SAT 92–99
[2016-11-26] MEDS: NSS + 20MEQ KCL 1000ML 1,000 ML IV SCH ×3 (00:33→20:44)
[2016-11-26 00:47] LABS: HEMATOCRIT 23.9 % (42-52)
[2016-11-26] MEDS: INSULIN ASPART 100 UNITS/ML 3 ML PEN SC SCH ×4 (06:30→20:45)
[2016-11-26 07:21] LABS: HEMATOCRIT 24.8 % (42-52)
[2016-11-26 07:22] LABS: BASO % 0.6 %; BASO ABS # 0.04 K/uL (0-0.2); EOS % 2.7 %; HEMATOCRIT 24.9 % (42-52); IG% 0.5 %; LYMPH % 7.8 %; LYMPH ABS # 0.49 K/uL (1.2-3.4); MEAN CELL VOLUME 82.5 fL (80-100); MEAN CORPUSCULAR HEMOGLOBIN 25.5 pg (25-34); MEAN CORPUSCULAR HGB CONC 30.9 g/dl (32-36); MEAN PLATELET VOLUME 7.8 fL (7.4-10.4); MONO % 7.3 %; NEUT % 81.1 %; PLATELET COUNT 148 K/uL (130-400); RED BLOOD COUNT 3.02 M/uL (4.7-6.1); WHITE BLOOD COUNT 6.32 K/uL (4.8-10.8)
[2016-11-26 07:30] LABS: INR 1.1 (0.9-1.1); PROTHROMBIN TIME (PATIENT) 11.4 SECONDS (9.0-12.0)
[2016-11-26] MEDS ORDERED: PNEUMOCOCCAL POLYSACCHARIDES 25 MCG/0.5 ML VIAL/SYR IM. ONE (08:00)
[2016-11-26] MEDS ORDERED: PNEUMOCOCCAL ADMINISTRATION CHARGE ONE (08:00)
[2016-11-26 08:05] LABS: ALT/SGPT 10 U/L (12-78); BLOOD UREA NITROGEN 18 mg/dl (7-18); BUN/CREATININE RATIO 16.2 (10-20); CALCIUM 8.1 mg/dl (8.5-10.1); CARBON DIOXIDE 33 mmol/L (21-32); CHLORIDE 108 mmol/L (98-107); GLUCOSE 113 mg/dl (70-99); MAGNESIUM 1.6 mg/dl (1.8-2.4); SODIUM 143 mmol/L (136-145)
[2016-11-26 08:16] LABS: ALKALINE PHOSPHATASE 80 U/L (45-117); AST/SGOT 8 U/L (15-37)
[2016-11-26 08:18] LABS: COMPLETE YES; POLYCHROMASIA 1+
[2016-11-26] MEDS: CARVEDILOL 12.5 MG TAB PO SCH ×2 (08:24→20:45)
[2016-11-26] MEDS: INSULIN GLARGINE SOLOSTAR 100 UNITS/ML 3 ML PEN SC SCH (08:29)
[2016-11-26] MEDS ORDERED: CARVEDILOL 25 MG TAB PO SCH (09:00)
--- NOTE | 2016-11-26 10:35 | Gastrointestinal Consultation ---
Gastrointestinal Consultation Date of Consultation: Nov 26, 2016 Attending Physician: Dr. Montanez Consulting Physician: Dr. Noble Reason for Consultation: dark clots and bloody stool History of Present Illness Patient is a 66 year old male with O2 dependent COPD (3L ATC) as well as SHALA. He has a history of prostate cancer s/p surgery 2008 with a recurrence within the last year treated with XRT. He had a routine colonoscopy by dr. Zamorano at [facility] on 11/06 at which time 2 adenomatous polyps as well as a polypoid mass in the cecum which was removed. 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 Margin reported as 0.1cm. He tells me that he was doing fine until Sunday evening when he went to have a BM and filled the commode with stool and blood. He went on to have several BMS over the next 24 hours with dark blood and clots. His last BM was last night. He denies any associated abdominal pain , nausea or vomiting. He was on ASA 81 mg prior to his colonoscopy but stopped it 5 days before his procedure and has not resumed taking it. He does not take any OTC NSAIDs. No prior history of GI bleeding. 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 The blood in his stool now is not bright red per patient. Past Medical/Surgical History Medical Problems: (1) GI bleed Status: Acute (2) Hypoxia Status: Acute Past Medical History: COPD SHALA h/p prostate cancer Past Surgical History: prostate surgery Family History non-contributory Social History Smoking Status: Never Smoker Alcohol Use: occasionally Drug Use: none Marital Status: Housing Status: lives with family Occupation Status: retired Allergies Coded Allergies: BEE STING (Unverified Allergy, Severe, ANAPHYLAXIS, 11/25/16) Current Medications Home Meds and Scripts Medications Dose Route/Sig Max Daily Dose Days Date Category Dose Instructions Proventil 0.083% 2.5MG/3ML (Albuterol Sulf) 2.5 Mg/3 Ml Nebu 2.5 Mg INH QID PRN 11/25/16 Reported Lisinopril 20 Mg Tab 20 Mg PO BID 11/25/16 Reported Janumet (Sitagliptin-Metformin Hcl) 1 Tab Tab 1 Tab PO BID 30 11/25/16 Reported DOSE EQUALS 50/1000MG Lasix (Furosemide) 20 Mg Tab 1 Tab PO MWF 90 06/13/16 Reported Lantus (Insulin Glargine) 100 Unit/Ml Inj 35 Units SC QAM 06/13/16 Reported Ventolin Hfa (Albuterol) 200 Puffs/47089 Mcg Aers 2 Puffs INH QID PRN 05/07/16 Reported Preservision Areds (Multiple Vitamins W/ Minerals) 1 Cap Cap 1 Cap PO BID 06/15/15 Reported Actos (Pioglitazone) 30 Mg Tab 30 Mg PO QAM 30 06/15/15 Reported Lipitor (Atorvastatin) 20 Mg Tab 20 Mg PO HS 09/04/14 Reported Glucovance 5/500 Mg (Glyburide-Metformin) 1 Tab Tab 2 Tab PO BID 09/04/14 Reported Coreg (Carvedilol) 25 Mg Tab 25 Mg PO BID 09/04/14 Reported Norvasc (Amlodipine Besylate) 10 Mg Tab 10 Mg PO HS 09/04/14 Reported Review of Systems 12 systems reviewed and negative except as noted Physical Exam Date Time Temp Pulse Resp B/P (MAP) Pulse Ox O2 Delivery O2 Flow Rate FiO2 11/26/16 07:45 Nasal Cannula 3.0 11/26/16 06:15 36.8 91 20 129/69 96 2.0 11/26/16 05:14 36.8 88 18 137/80 97 11/26/16 04:16 36.7 91 20 117/65 94 11/26/16 04:00 36.7 91 20 117/65 (82) 94 Nasal Cannula 11/26/16 04:00 Nasal Cannula 2.0 11/26/16 03:45 36.8 94 20 179/91 97 11/26/16 03:30 36.8 93 20 111/68 96 11/26/16 03:00 36.7 94 20 159/84 92 3.0 11/26/16 00:00 99 Nasal Cannula 3.0 11/25/16 23:40 36.7 90 20 153/76 99 Nasal Cannula 2.0 11/25/16 23:25 84 18 153/85 95 11/25/16 22:35 79 11/25/16 22:07 76 11/25/16 21:53 112/82 98 Nasal Cannula 2.0 11/25/16 19:10 36.7 78 22 168/82 90 Nasal Cannula 2.0 General Appearance: WD/WN, no apparent distress Eyes: normal inspection, PERRL ENT: normal ENT inspection, hearing grossly normal, pharynx normal Neck: supple, no adenopathy Respiratory/Chest: chest non-tender, + decreased breath sounds Cardiovascular: regular rate, rhythm, no murmur Abdomen: normal bowel sounds, non tender, soft, + pertinent finding (obese) Extremities: normal range of motion, non-tender Neurologic/Psych: rn liaison II-XII nml as tested, no motor/sensory deficits, alert, normal mood/affect, oriented x 3 Skin: normal color, no jaundice, warm/dry, no rash Laboratory Results Last 24 Hours Test 11/25/16 19:42 11/25/16 22:01 11/26/16 00:26 11/26/16 07:07 White Blood Count 9.29 K/uL 6.32 K/uL Red Blood Count 3.73 M/uL 3.02 M/uL Hemoglobin 9.5 g/dL 7.2 g/dL 7.7 g/dL Hematocrit 30.5 % 23.9 % 24.9 % Mean Corpuscular Volume 81.8 fL 82.5 fL Mean Corpuscular Hemoglobin 25.5 pg 25.5 pg Mean Corpuscular Hemoglobin Concent 31.1 g/dl 30.9 g/dl Platelet Count 220 K/uL 148 K/uL Mean Platelet Volume 8.1 fL 7.8 fL Neutrophils (%) (Auto) 82.3 % 81.1 % Lymphocytes (%) (Auto) 4.3 % 7.8 % Monocytes (%) (Auto) 9.4 % 7.3 % Eosinophils (%) (Auto) 3.1 % 2.7 % Basophils (%) (Auto) 0.4 % 0.6 % Neutrophils # (Auto) 7.64 K/uL 5.13 K/uL Lymphocytes # (Auto) 0.40 K/uL 0.49 K/uL Monocytes # (Auto) 0.87 K/uL 0.46 K/uL Eosinophils # (Auto) 0.29 K/uL 0.17 K/uL Basophils # (Auto) 0.04 K/uL 0.04 K/uL RDW Standard Deviation 52.2 fL 52.9 fL RDW Coefficient of Variation 17.4 % 17.5 % Immature Granulocyte % (Auto) 0.5 % 0.5 % Immature Granulocyte # (Auto) 0.05 K/uL 0.03 K/uL Prothrombin Time 10.9 SECONDS 11.4 SECONDS Prothromb Time International Ratio 1.0 1.1 Activated Partial Thromboplast Time 26.1 SECONDS 25.2 SECONDS Partial Thromboplastin Ratio 1.0 1.0 Sodium Level 142 mmol/L 143 mmol/L Potassium Level 4.0 mmol/L 4.0 mmol/L Chloride Level 105 mmol/L 108 mmol/L Carbon Dioxide Level 33 mmol/L 33 mmol/L Anion Gap 4.0 mmol/L 17.0 mmol/L 2.0 mmol/L Blood Urea Nitrogen 20 mg/dl 18 mg/dl Creatinine 1.30 mg/dl 1.10 mg/dl Est Creatinine Clear Calc Drug Dose 68.2 ml/min 80.6 ml/min Estimated GFR () 65.4 80.1 Estimated GFR (Non- 56.5 69.1 BUN/Creatinine Ratio 15.3 16.2 Random Glucose 106 mg/dl 113 mg/dl Calcium Level 8.5 mg/dl 8.1 mg/dl Total Bilirubin 0.4 mg/dl 0.3 mg/dl Direct Bilirubin < 0.1 mg/dl < 0.1 mg/dl Aspartate Amino Transf (AST/SGOT) 10 U/L 8 U/L Alanine Aminotransferase (ALT/SGPT) 14 U/L 10 U/L Alkaline Phosphatase 105 U/L 80 U/L Total Creatine Kinase 69 U/L Creatine Kinase MB 2.9 ng/ml Creatine Kinase MB Ratio 4.2 Troponin I < 0.015 ng/ml Total Protein 6.9 gm/dl 5.4 gm/dl Albumin 3.0 gm/dl 2.5 gm/dl Bedside Hemoglobin 9.2 g/dl Bedside Hematocrit 27 % Bedside Sodium 142 mEq/L Bedside Potassium 4.2 mEq/L Bedside Chloride 101 mEq/L Bedside Total CO2 30 mEq/l Bedside Blood Urea Nitrogen 22 mg/dl Bedside Creatinine 1.4 mg/dl Bedside Glucose (other) 169 mg/dl Bedside Ionized Calcium (Andrea) 1.23 mmol/l Polychromasia 1+ Magnesium Level 1.6 mg/dl Test 11/26/16 08:22 Bedside Glucose 115 mg/dl Impression Patient is a 66 year old male with COPD and SHALA as well as prostate cancer s/p surgery as well as XRT (1 year ago) who had a recent colonoscopy (11/06) and a large polypoid mass was removed (at [facility]) from the cecum (see HPI for path details). It is late for a post-polypectomy bleed but quite possible. He should receive a colonoscopy prep today in preparation for a colonoscopy tomorrow. Plan - Please give the patient 2 dulcolax tablets at noon today then 7 packets of MiraLax mixed in 32 oz of gatorade starting at 3PM. - Clear liquid diet today. - Please give patient 7 packets of MiraLax in 32 oz gatorade (2nd dose) starting at 3AM. - NPO except for prep starting at midnight tonight.
[2016-11-26] MEDS ORDERED: NURSING VERBAL MED ORDER ONE (11:00)
[2016-11-26 11:48] LABS: HEMATOCRIT 24.9 % (42-52)
[2016-11-26] MEDS ORDERED: BISACODYL 5 MG TABEC PO SCH (12:00)
[2016-11-26] MEDS: POLYETHYLENE (MIRALAX) 17 GM PACK PO SCH (14:38)
--- NOTE | 2016-11-26 15:49 | Progress Note ---
Subjective Date of Service: Nov 26, 2016. Subjective Pt evaluation today including: conversation w/ patient, physical exam, chart review, lab review, review of studies, review of inpatient medication list Pt resting comfortably in bed NO acute events overnight No BM this AM Problem List Medical Problems: (1) GI bleed Status: Acute (2) Hypoxia Status: Acute Review of Systems Constitutional: No fever, No chills, No sweats, No weakness Eyes: No worsening of vision, No eye pain, No redness Respiratory: No cough, No sputum, No wheezing, No shortness of breath, No dyspnea on exertion Cardiac: No chest pain, No orthopnea, No PND, No edema, No claudication Abdomen: No pain, No nausea, No vomiting, No diarrhea, No constipation Musculoskeletal: No joint pain, No muscle pain, No swelling, No calf pain Male : No dysuria, No urinary frequency, No incontinence, No slowing stream Neurologic: No memory loss, No paralysis, No weakness, No numbness/tingling Psychiatric: No depression symptoms, No anhedonism, No anxiety, No insomnia Endo: No fatigue, No excessive thirst Skin: No rash, No itch Objective Vital Signs Date Time Temp Pulse Resp B/P (MAP) Pulse Ox O2 Delivery O2 Flow Rate FiO2 11/26/16 15:14 36.7 71 20 131/75 (93) 99 Nasal Cannula 4.0 11/26/16 11:55 Nasal Cannula 3.0 11/26/16 11:18 36.4 88 18 129/74 (92) 97 3.0 11/26/16 07:45 Nasal Cannula 3.0 11/26/16 06:15 36.8 91 20 129/69 96 2.0 11/26/16 05:14 36.8 88 18 137/80 97 11/26/16 04:16 36.7 91 20 117/65 94 11/26/16 04:00 36.7 91 20 117/65 (82) 94 Nasal Cannula 11/26/16 04:00 Nasal Cannula 2.0 11/26/16 03:45 36.8 94 20 179/91 97 11/26/16 03:30 36.8 93 20 111/68 96 11/26/16 03:00 36.7 94 20 159/84 92 3.0 11/26/16 00:00 99 Nasal Cannula 3.0 11/25/16 23:40 36.7 90 20 153/76 99 Nasal Cannula 2.0 11/25/16 23:25 84 18 153/85 95 11/25/16 22:35 79 11/25/16 22:07 76 11/25/16 21:53 112/82 98 Nasal Cannula 2.0 11/25/16 19:10 36.7 78 22 168/82 90 Nasal Cannula 2.0 Physical Exam General Appearance: WD/WN, no apparent distress Eyes: normal inspection, PERRL, EOMI, sclerae normal ENT: normal ENT inspection, hearing grossly normal, TMs normal, pharynx normal Neck: supple, no adenopathy, thyroid normal, no JVD Respiratory/Chest: chest non-tender, lungs clear, normal breath sounds, no respiratory distress Cardiovascular: regular rate, rhythm, no edema, no gallop, no JVD Abdomen: normal bowel sounds, non tender, soft, no organomegaly Neurologic/Psychiatric: no motor/sensory deficits, alert, normal mood/affect, oriented x 3 Laboratory Results Last 24 Hours Test 11/25/16 19:42 11/25/16 22:01 11/26/16 00:26 11/26/16 07:07 White Blood Count 9.29 K/uL 6.32 K/uL Red Blood Count 3.73 M/uL 3.02 M/uL Hemoglobin 9.5 g/dL 7.2 g/dL 7.7 g/dL Hematocrit 30.5 % 23.9 % 24.9 % Mean Corpuscular Volume 81.8 fL 82.5 fL Mean Corpuscular Hemoglobin 25.5 pg 25.5 pg Mean Corpuscular Hemoglobin Concent 31.1 g/dl 30.9 g/dl Platelet Count 220 K/uL 148 K/uL Mean Platelet Volume 8.1 fL 7.8 fL Neutrophils (%) (Auto) 82.3 % 81.1 % Lymphocytes (%) (Auto) 4.3 % 7.8 % Monocytes (%) (Auto) 9.4 % 7.3 % Eosinophils (%) (Auto) 3.1 % 2.7 % Basophils (%) (Auto) 0.4 % 0.6 % Neutrophils # (Auto) 7.64 K/uL 5.13 K/uL Lymphocytes # (Auto) 0.40 K/uL 0.49 K/uL Monocytes # (Auto) 0.87 K/uL 0.46 K/uL Eosinophils # (Auto) 0.29 K/uL 0.17 K/uL Basophils # (Auto) 0.04 K/uL 0.04 K/uL RDW Standard Deviation 52.2 fL 52.9 fL RDW Coefficient of Variation 17.4 % 17.5 % Immature Granulocyte % (Auto) 0.5 % 0.5 % Immature Granulocyte # (Auto) 0.05 K/uL 0.03 K/uL Prothrombin Time 10.9 SECONDS 11.4 SECONDS Prothromb Time International Ratio 1.0 1.1 Activated Partial Thromboplast Time 26.1 SECONDS 25.2 SECONDS Partial Thromboplastin Ratio 1.0 1.0 Sodium Level 142 mmol/L 143 mmol/L Potassium Level 4.0 mmol/L 4.0 mmol/L Chloride Level 105 mmol/L 108 mmol/L Carbon Dioxide Level 33 mmol/L 33 mmol/L Anion Gap 4.0 mmol/L 17.0 mmol/L 2.0 mmol/L Blood Urea Nitrogen 20 mg/dl 18 mg/dl Creatinine 1.30 mg/dl 1.10 mg/dl Est Creatinine Clear Calc Drug Dose 68.2 ml/min 80.6 ml/min Estimated GFR () 65.4 80.1 Estimated GFR (Non- 56.5 69.1 BUN/Creatinine Ratio 15.3 16.2 Random Glucose 106 mg/dl 113 mg/dl Calcium Level 8.5 mg/dl 8.1 mg/dl Total Bilirubin 0.4 mg/dl 0.3 mg/dl Direct Bilirubin < 0.1 mg/dl < 0.1 mg/dl Aspartate Amino Transf (AST/SGOT) 10 U/L 8 U/L Alanine Aminotransferase (ALT/SGPT) 14 U/L 10 U/L Alkaline Phosphatase 105 U/L 80 U/L Total Creatine Kinase 69 U/L Creatine Kinase MB 2.9 ng/ml Creatine Kinase MB Ratio 4.2 Troponin I < 0.015 ng/ml Total Protein 6.9 gm/dl 5.4 gm/dl Albumin 3.0 gm/dl 2.5 gm/dl Bedside Hemoglobin 9.2 g/dl Bedside Hematocrit 27 % Bedside Sodium 142 mEq/L Bedside Potassium 4.2 mEq/L Bedside Chloride 101 mEq/L Bedside Total CO2 30 mEq/l Bedside Blood Urea Nitrogen 22 mg/dl Bedside Creatinine 1.4 mg/dl Bedside Glucose (other) 169 mg/dl Bedside Ionized Calcium (Andrea) 1.23 mmol/l Polychromasia 1+ Magnesium Level 1.6 mg/dl Test 11/26/16 08:22 11/26/16 11:25 11/26/16 11:37 Bedside Glucose 115 mg/dl 117 mg/dl Hemoglobin 7.6 g/dL Hematocrit 24.9 % Assessment and Plan Hematochezia/status post colon biopsy 3 weeks ago by /radiation proctitis/symptomatic anemia-- Check H&H every 6 hours. S/P 1 unit PRBC transfusion 11/25 NSS with KCl 20 mEq at 100 mils per hour. Nothing by mouth except medications. Consult gastroenterology - Cont aggressive bowel regiment and prep for colonoscopy 11/27 Hypertension-- Reduce carvedilol from 25 mg by mouth twice a day to 12.5 mg by mouth twice a day with hold parameters. Hold amlodipine 10 mg by mouth at bedtime Hold lisinopril 20 mg by mouth twice a day. Hold furosemide Sunday/ Sunday/ Sunday. Diabetes mellitus-- hold Glucovance, pioglitazone, Janumet. Continue Lantus insulin but reduce from 35 units subcutaneous every morning to 15 units subcutaneous every morning. [address] on Accu-Cheks 4 times a day with NovoLog coverage per scale. Hyperlipidemia-- Hold Lipitor 20 mg by mouth at bedtime.
[2016-11-26 16:38] LABS: HEMATOCRIT 25.1 % (42-52)
[2016-11-26 22:52] LABS: HEMATOCRIT 23.3 % (42-52)
[2016-11-26] MEDS ORDERED: MAGNESIUM SULFATE 1GM / D5W 1 GM in PREMIXED IN D5W 100 ML IV STA (23:31)
[2016-11-26] MEDS ORDERED: SODIUM CHLORIDE 0.9% 500ML 500 ML IV STA (23:31)
[2016-11-27] VITALS (19 sets, daily range): BP systolic 129–186; BP diastolic 64–88; PULSE 72–89; TEMP 36.3–36.9; O2SAT 90–96
[2016-11-27] MEDS: POLYETHYLENE (MIRALAX) 17 GM PACK PO SCH (02:39)
[2016-11-27] MEDS: NSS + 20MEQ KCL 1000ML 1,000 ML IV SCH (06:27)
[2016-11-27] MEDS: INSULIN ASPART 100 UNITS/ML 3 ML PEN SC SCH ×5 (06:30→21:00)
[2016-11-27 07:08] LABS: BASO % 0.8 %; BASO ABS # 0.05 K/uL (0-0.2); EOS % 5.2 %; HEMATOCRIT 28.1 % (42-52); IG% 0.8 %; LYMPH % 6.9 %; LYMPH ABS # 0.42 K/uL (1.2-3.4); MEAN CELL VOLUME 84.4 fL (80-100); MEAN CORPUSCULAR HEMOGLOBIN 26.7 pg (25-34); MEAN CORPUSCULAR HGB CONC 31.7 g/dl (32-36); MEAN PLATELET VOLUME 8.4 fL (7.4-10.4); MONO % 11.4 %; NEUT % 74.9 %; PLATELET COUNT 163 K/uL (130-400); RED BLOOD COUNT 3.33 M/uL (4.7-6.1); WHITE BLOOD COUNT 6.13 K/uL (4.8-10.8)
[2016-11-27 07:30] LABS: PROTHROMBIN TIME (PATIENT) 10.8 SECONDS (9.0-12.0)
[2016-11-27 07:31] LABS: BUN/CREATININE RATIO 10.8 (10-20); CALCIUM 8.4 mg/dl (8.5-10.1); CREATININE 1.1 mg/dl (0.60-1.40)
[2016-11-27 07:47] LABS: ANISOCYTOSIS PRESENT; COMPLETE YES
--- NOTE | 2016-11-27 08:48 | Clinical Documentation Query ---
ELTON Anderson : CLINICAL DOCUMENTATION QUERIES QUERY 1 OF 3 Patient is a 66 year old male presenting for evaluation and treatment of hematochezia. He had a routine colonoscopy by dr. Zamorano at [facility] on 11/06 at which time 2 adenomatous polyps as well as a polypoid mass in the cecum which was removed. 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 Please as clinically appropriate. Thank you. In your clinical opinion is this patient being managed for: ( ) Hematochezia post colonoscopy s/p removal of two adenomatous polyps and cecal mass, a complication of care ( ) Hematochezia post colonoscopy s/p removal of two adenomatous polyps and cecal mass, not a complication of care ( ) Not Agree ( ) Other explanation of clinical findings (Please Explain) ( ) Unable to determine (Please Define) ( ) Need to Discuss The medical record reflects the following clinical findings, treatment, and risk factors. Clinical Indicators: As above Treatment: IVF, transfusion, serial hematology, GI consultation Risk Factors: ASA use, colonoscopy, polypectomy, resection of cecal mass QUERY 2 OF 3 Documentation includes "symptomatic anemia" (in the setting of hematochezia). As appropriate, consider documentation as below as the acuity of the blood loss cannot be assumed by the professional materials planner. In your clinical opinion is this patient being managed for: ( ) Acute blood loss symptomatic anemia ( ) Not Agree ( ) Other explanation of clinical findings (Please Explain) ( ) Unable to determine (Please Define) ( ) Need to Discuss The medical record reflects the following clinical findings, treatment, and risk factors. Clinical Indicators: Hematochezia Treatment: Risk Factors: Cecal CA, colonoscopy, age QUERY 3 OF 3 Patient noted by admission photo to utilize home oxygen. Noted history of COPD. As appropriate, consider documentation as suggested below in order to capture the severity of illness and associated risk of mortality associated with this clinical diagnosis. In your clinical opinion is this patient being managed for: ( ) Chronic respiratory failure with hypoxia ( ) Not Agree ( ) Other explanation of clinical findings (Please Explain) ( ) Unable to determine (Please Define) ( ) Need to Discuss The medical record reflects the following clinical findings, treatment, and risk factors. Clinical Indicators: As above Treatment: Ongoing provision of supplemental O2 Risk Factors: Age, obesity, COPD Please clarify and document your clinical opinion in the progress notes and discharge summary. Terms such as "probable", "suspected", "likely", "questionable", "possible", or "still to be ruled out" are acceptable. IF IN AGREEMENT, YOU MUST DOCUMENT ABOVE DIAGNOSTIC STATEMENT IN DAILY PROGRESS NOTES AND DISCHARGE SUMMARY. This document is not part of the patient's record. Thank You, Ronaldo Duarte, RN [phone]
[2016-11-27] MEDS: INSULIN GLARGINE SOLOSTAR 100 UNITS/ML 3 ML PEN SC SCH (08:49)
--- NOTE | 2016-11-27 09:27 | Clinical Documentation Query ---
HARIKA Carson : CLINICAL DOCUMENTATION QUERIES QUERY 1 OF 3 Patient is a 66 year old male presenting for evaluation and treatment of hematochezia. He had a routine colonoscopy by dr. Zamorano at [facility] on 11/06 at which time 2 adenomatous polyps as well as a polypoid mass in the cecum which was removed. 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 Please as clinically appropriate. Thank you. In your clinical opinion is this patient being managed for: ( ) Hematochezia post colonoscopy s/p removal of two adenomatous polyps and cecal mass, a complication of care (x ) Hematochezia post colonoscopy s/p removal of two adenomatous polyps and cecal mass, not a complication of care ( ) Not Agree ( ) Other explanation of clinical findings (Please Explain) ( ) Unable to determine (Please Define) ( ) Need to Discuss The medical record reflects the following clinical findings, treatment, and risk factors. Clinical Indicators: As above Treatment: IVF, transfusion, serial hematology, GI consultation Risk Factors: ASA use, colonoscopy, polypectomy, resection of cecal mass QUERY 2 OF 3 Documentation includes "symptomatic anemia" (in the setting of hematochezia). As appropriate, consider documentation as below as the acuity of the blood loss cannot be assumed by the professional chain maker machine. In your clinical opinion is this patient being managed for: (x ) Acute blood loss symptomatic anemia ( ) Not Agree ( ) Other explanation of clinical findings (Please Explain) ( ) Unable to determine (Please Define) ( ) Need to Discuss The medical record reflects the following clinical findings, treatment, and risk factors. Clinical Indicators: Hematochezia Treatment: Risk Factors: Cecal CA, colonoscopy, age QUERY 3 OF 3 Patient noted by admission photo to utilize home oxygen. Noted history of COPD. As appropriate, consider documentation as suggested below in order to capture the severity of illness and associated risk of mortality associated with this clinical diagnosis. In your clinical opinion is this patient being managed for: (x ) Chronic respiratory failure with hypoxia ( ) Not Agree ( ) Other explanation of clinical findings (Please Explain) ( ) Unable to determine (Please Define) ( ) Need to Discuss The medical record reflects the following clinical findings, treatment, and risk factors. Clinical Indicators: As above Treatment: Ongoing provision of supplemental O2 Risk Factors: Age, obesity, COPD Please clarify and document your clinical opinion in the progress notes and discharge summary. Terms such as "probable", "suspected", "likely", "questionable", "possible", or "still to be ruled out" are acceptable. IF IN AGREEMENT, YOU MUST DOCUMENT ABOVE DIAGNOSTIC STATEMENT IN DAILY PROGRESS NOTES AND DISCHARGE SUMMARY. This document is not part of the patient's record. Thank You, Ronaldo Duarte, SHAREE [phone]
[2016-11-27 11:10] LABS: HEMATOCRIT 30.3 % (42-52)
[2016-11-27] MEDS ORDERED: MIDAZOLAM HCL 1 MG/ML 2ML VIAL ONE (11:41)
[2016-11-27] MEDS ORDERED: LIDOCAINE HCL 2% 2 ML VIAL (20MG/ML) ONE (11:43)
[2016-11-27] MEDS ORDERED: PROPOFOL IV EMULSION 10 MG/ML 20 ML VIAL IV ONE (11:43)
[2016-11-27] MEDS ORDERED: ONDANSETRON INJ 2 MG/ML 2 ML VIAL ONE (11:43)
--- NOTE | 2016-11-27 11:47 | Endo History and Physical ---
History & Physical Date of Service: Nov 27, 2016. Chief Complaint: Hematochezia Referring Physician: History of Present Illness The patient presents for hematochezia exam after colonoscopy. He had a number of colon polyps removed by Dr. Zamorano. Past Medical History Diabetes, Cancer, High Cholesterol, Sleep Apnea, Hypertension Past Surgical History Hx Cardiac Surgery: No Hx Pacemaker: No Hx Abdominal Surgery: No Hx Post-Op Nausea and Vomiting: Yes Hx Cancer Surgery: Yes (Prostate ) Hx Thoracic Surgery: No Hx Orthopedic: No Hx Urinary Tract Surgery: No Social History Smoking Status: Never Smoker Smokeless Tobacco Use: No Hx Substance Use: No Hx Alcohol Use: No Allergies Coded Allergies: BEE STING (Unverified Allergy, Severe, ANAPHYLAXIS, 11/25/16) Current Medications Reported Home Medications Medications Dose Route/Sig Max Daily Dose Days Date Category Dose Instructions Proventil 0.083% 2.5MG/3ML (Albuterol Sulf) 2.5 Mg/3 Ml Nebu 2.5 Mg INH QID PRN 11/25/16 Reported Lisinopril 20 Mg Tab 20 Mg PO BID 11/25/16 Reported Janumet (Sitagliptin-Metformin Hcl) 1 Tab Tab 1 Tab PO BID 30 11/25/16 Reported DOSE EQUALS 50/1000MG Lasix (Furosemide) 20 Mg Tab 1 Tab PO MWF 90 06/13/16 Reported Lantus (Insulin Glargine) 100 Unit/Ml Inj 35 Units SC QAM 06/13/16 Reported Ventolin Hfa (Albuterol) 200 Puffs/93358 Mcg Aers 2 Puffs INH QID PRN 05/07/16 Reported Preservision Areds (Multiple Vitamins W/ Minerals) 1 Cap Cap 1 Cap PO BID 06/15/15 Reported Actos (Pioglitazone) 30 Mg Tab 30 Mg PO QAM 30 06/15/15 Reported Lipitor (Atorvastatin) 20 Mg Tab 20 Mg PO HS 09/04/14 Reported Glucovance 5/500 Mg (Glyburide-Metformin) 1 Tab Tab 2 Tab PO BID 09/04/14 Reported Coreg (Carvedilol) 25 Mg Tab 25 Mg PO BID 09/04/14 Reported Norvasc (Amlodipine Besylate) 10 Mg Tab 10 Mg PO HS 09/04/14 Reported Vital Signs Weight (Kilograms): 123.900 Height (Feet): 5 Height (Inches): 6.00 Date Time Temp Pulse Resp B/P (MAP) Pulse Ox O2 Delivery O2 Flow Rate FiO2 11/27/16 11:31 36.9 89 16 186/88 (120) 93 Nasal Cannula 4.0 11/27/16 11:30 Nasal Cannula 3.0 11/27/16 11:18 36.8 84 16 155/72 94 Nasal Cannula 3.0 11/27/16 07:45 Nasal Cannula 3.0 11/27/16 06:54 36.8 84 16 155/72 (99) 94 Nasal Cannula 4.0 11/27/16 06:13 36.5 85 18 160/82 95 3.0 11/27/16 05:17 36.6 86 20 135/75 92 11/27/16 04:15 36.8 85 18 143/75 95 3.0 11/27/16 04:00 Nasal Cannula 3.0 11/27/16 03:43 36.8 81 18 143/68 96 11/27/16 03:28 36.6 84 18 142/69 95 11/27/16 03:04 36.6 84 18 146/76 95 3.0 11/27/16 02:35 36.7 84 18 137/72 95 3.0 11/27/16 02:05 36.7 81 18 150/71 95 11/27/16 01:34 36.5 77 19 129/68 96 11/27/16 01:20 36.4 72 18 134/64 96 3.0 11/27/16 01:05 36.3 80 18 141/73 96 4.0 11/27/16 00:00 Nasal Cannula 3.0 11/26/16 23:56 80 20 124/58 (80) 96 Nasal Cannula 3.0 11/26/16 22:43 36.9 78 18 94/52 (66) 97 Nasal Cannula 4.0 11/26/16 20:43 76 154/69 (97) 96 Nasal Cannula 3.0 11/26/16 20:00 92 Nasal Cannula 3.0 11/26/16 19:23 36.8 79 18 126/63 (84) 92 Nasal Cannula 4.0 11/26/16 16:00 99 Nasal Cannula 3.0 11/26/16 15:14 36.7 71 20 131/75 (93) 99 Nasal Cannula 4.0 11/26/16 11:55 Nasal Cannula 3.0 Physical Exam General Appearance: + mild distress Respiratory/Chest: Auscultation: deminished air movement Abdomen: Inspection & Palpation: soft Assessment and Plan I saw and evaluated the patient he presents with hematochezia. 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 We will proceed with colonoscopy today for evaluation.
[2016-11-27] MEDS ORDERED: ETOMIDATE 2 MG/ML 20 ML VIAL IV ONE (11:58)
[2016-11-27] MEDS ORDERED: ENDOSCOPIC MARKER 5 ML SYR ONE (12:32)
--- NOTE | 2016-11-27 12:32 | Anesthesiology Progress Note ---
Anesthesia Post Op Note Date & Time Nov 27, 2016 at 12:32 Vital Signs Pain Intensity: 0.0 Vital Signs Past 12 Hours Date Time Temp Pulse Resp B/P (MAP) Pulse Ox O2 Delivery O2 Flow Rate FiO2 11/27/16 11:44 37 83 22 206/95 (132) 94 Nasal Cannula 3 11/27/16 11:31 36.9 89 16 186/88 (120) 93 Nasal Cannula 4.0 11/27/16 11:30 Nasal Cannula 3.0 11/27/16 11:18 36.8 84 16 155/72 94 Nasal Cannula 3.0 11/27/16 07:45 Nasal Cannula 3.0 11/27/16 06:54 36.8 84 16 155/72 (99) 94 Nasal Cannula 4.0 11/27/16 06:13 36.5 85 18 160/82 95 3.0 11/27/16 05:17 36.6 86 20 135/75 92 11/27/16 04:15 36.8 85 18 143/75 95 3.0 11/27/16 04:00 Nasal Cannula 3.0 11/27/16 03:43 36.8 81 18 143/68 96 11/27/16 03:28 36.6 84 18 142/69 95 11/27/16 03:04 36.6 84 18 146/76 95 3.0 11/27/16 02:35 36.7 84 18 137/72 95 3.0 11/27/16 02:05 36.7 81 18 150/71 95 11/27/16 01:34 36.5 77 19 129/68 96 11/27/16 01:20 36.4 72 18 134/64 96 3.0 11/27/16 01:05 36.3 80 18 141/73 96 4.0 Notes Mental Status: alert / awake / arousable, participated in evaluation Pt Amnestic to Procedure: Yes Nausea / Vomiting: adequately controlled Pain: adequately controlled Airway Patency, RR, SpO2: stable & adequate BP & HR: stable & adequate Hydration State: stable & adequate Anesthetic Complications: no major complications apparent
--- NOTE | 2016-11-27 12:34 | GI REPORT ---
Procedure Date: 11/27/2016 11:52 AM Procedure: Colonoscopy Indications: Hematochezia Medicines: Monitored Anesthesia Care Complications: No immediate complications. Estimated blood loss: Minimal. Estimated Blood Loss: Estimated blood loss was minimal. Procedure: Pre-Anesthesia Assessment: - Prior to the procedure, a History and Physical was performed, and patient medications, allergies and sensitivities were reviewed. The patient's tolerance of previous anesthesia was reviewed. - The risks and benefits of the procedure and the sedation options and risks were discussed with the patient. All questions were answered and informed consent was obtained. - Patient identification and proposed procedure were verified prior to the procedure by the physician, the nurse and the supervisor of instruction. The procedure was verified in the procedure room. - Pre-procedure physical examination revealed no contraindications to sedation. - ASA Grade Assessment: IV - A patient with severe systemic disease that is a constant threat to life. - After reviewing the risks and benefits, the patient was deemed in satisfactory condition to undergo the procedure. - The anesthesia plan was to use monitored anesthesia care (MAC). - Immediately prior to administration of medications, the patient was re-assessed for adequacy to receive sedatives. - The heart rate, respiratory rate, oxygen saturations, blood pressure, adequacy of pulmonary ventilation, and response to care were monitored throughout the procedure. - The physical status of the patient was re-assessed after the procedure. After I obtained informed consent, the scope was passed under direct vision. Throughout the procedure, the patient's blood pressure, pulse, and oxygen saturations were monitored continuously. The scope was introduced through the anus and advanced to the terminal ileum. The colonoscopy was performed without difficulty. The patient tolerated the procedure well. The quality of the bowel preparation was fair. Findings: The perianal and digital rectal examinations were normal. Pertinent negatives include normal sphincter tone. The terminal ileum appeared normal. Many medium-mouthed diverticula were found in the sigmoid colon and in the descending colon. A single (solitary) ten mm ulcer was found in the descending colon correlating with a prior polypectomy site. No bleeding was present, however, stigmata of recent bleeding were present which included a visible vessel. For hemostasis, one hemostatic clip was successfully placed (MR conditional, [employer] Inst[employer]). There was no bleeding at the end of the procedure. Area was tattooed with an injection of 4 mL of Spot (carbon black). Internal hemorrhoids were found during retroflexion. The hemorrhoids were mild. There was no evidence of radiation proctitis. The exam was otherwise without abnormality. Impression: - The examined portion of the ileum was normal. - Mild diverticulosis in the sigmoid colon and in the descending colon. - A single (solitary) ulcer in the descending colon. This appears to represent post-polypectomy bleeing. Clip (MR conditional) was placed. Tattooed. - Internal hemorrhoids. - The examination was otherwise normal. - No specimens collected. Recommendation: - Return patient to [facility] for ongoing care. - Advance diet as tolerated today. - Try Miralax 1 capful (17 grams) in 8 ounces of water PO daily for 6 weeks. - Repeat colonoscopy for surveillance per Dr. Zamorano for patients history of polyps. - Return to referring physician as previously scheduled. Rohan Yo D.O. Rohan Yo, 11/27/2016 12:33:37 PM This report has been signed electronically. Note Initiated On: 11/27/2016 11:52 AM I attest to the content of the Intraoperative Record and orders documented therein, exceptions below
--- NOTE | 2016-11-27 12:36 | Progress Note ---
Progress Note Date of Service Nov 27, 2016. Progress Note The patient underwent a colonoscopy today for follow-up of hematochezia. Findings Diverticulosis of the colon Internal hemorrhoids Ulceration with a visible vessel in the descending colon Impression: Patient with hematochezia most likely related to post polypectomy bleeding. This was treated with placement of an endoscopic clip. Recommendations Advance diet as tolerated MiraLAX 17 g per day Patient to follow up with his regular endoscopy provider in 6-8 weeks
[2016-11-27] MEDS ORDERED: HydrALAZINE HCL 20 MG/ML VIAL IV. PRN (15:00)
--- NOTE | 2016-11-27 15:04 | Hospitalist Progress Note ---
Hospitalist Progress Note Date of Service Nov 27, 2016. (Genet Laurent ., PANKAJ) Subjective Pt evaluation today including: conversation w/ patient, physical exam, lab review, review of studies, review of inpatient medication list Patient feeling well. SOB at baseline- wears 2L O2 09/10 SHALA- does NOT wear CPAP Tolerated prep well Denies any melena/BRBPR Patient denies any fever, chills, sweats, lightheadedness, dizziness, vision changes, CP, palpitations, edema, SOB, wheezing, cough, abdominal pain, nausea, vomiting, diarrhea, urinary symptoms, melena, numbness/tingling, weakness, muscle/joint pain, anxiety/depression, active bleeding, or new skin discoloration/changes. (Genet Laurent, WILVERC) Medications Current Inpatient Medications Medications (Trade) Dose Ordered Sig/Zenobia Route Start Time Stop Time Status Last Admin Dose Admin Acetaminophen (Tylenol Tab) 650 mg Q4H PRN PO 11/25/16 23:00 12/25/16 22:59 Albuterol (Ventolin Hfa Inhaler) 2 puffs QID PRN INH 11/25/16 23:00 12/25/16 22:59 Albuterol Sulfate (Ventolin 0.083% 2.5MG/3ML Neb) 2.5 mg QID PRN INH 11/25/16 23:00 12/25/16 22:59 Insulin Glargine (Lantus Solostar Pen) 15 units QAM SC 11/26/16 09:00 12/26/16 08:59 11/26/16 08:29 15 UNITS Ondansetron HCl (Zofran Inj) 4 mg Q6H PRN IV 11/25/16 23:00 12/25/16 22:59 Insulin Aspart (novoLOG ASPART) SLIDING SCALE If C... ACHS SC 11/26/16 06:30 12/26/16 06:59 11/27/16 13:40 2 UNITS Glucose (Glucose 40% Gel) UD PRN PO 11/25/16 23:00 12/25/16 22:59 Glucose (Glucose Chew Tab) 1 tabs UD PRN PO 11/25/16 23:00 12/25/16 22:59 Dextrose (Dextrose 50% 50ML Syringe) 50 ml UD PRN IV 11/25/16 23:00 12/25/16 22:59 Glucagon (Glucagon Inj) 1 mg UD PRN SQ 11/25/16 23:00 12/25/16 22:59 Carvedilol (Coreg Tab) 12.5 mg BID PO 11/26/16 09:00 12/26/16 08:59 Future Hold 11/26/16 20:45 12.5 MG (Genet Laurent, PAKittyC) Objective Vital Signs Date Time Temp Pulse Resp B/P (MAP) Pulse Ox O2 Delivery O2 Flow Rate FiO2 11/27/16 13:00 94 18 141/77 (98) 94 Nasal Cannula 6 11/27/16 12:45 93 18 155/92 (113) 93 Nasal Cannula 6 11/27/16 12:30 95 22 161/89 (113) 91 Nasal Cannula 6 11/27/16 11:44 37 83 22 206/95 (132) 94 Nasal Cannula 3 11/27/16 11:31 36.9 89 16 186/88 (120) 93 Nasal Cannula 4.0 11/27/16 11:30 Nasal Cannula 3.0 11/27/16 11:18 36.8 84 16 155/72 94 Nasal Cannula 3.0 11/27/16 07:45 Nasal Cannula 3.0 11/27/16 06:54 36.8 84 16 155/72 (99) 94 Nasal Cannula 4.0 11/27/16 06:13 36.5 85 18 160/82 95 3.0 11/27/16 05:17 36.6 86 20 135/75 92 11/27/16 04:15 36.8 85 18 143/75 95 3.0 11/27/16 04:00 Nasal Cannula 3.0 11/27/16 03:43 36.8 81 18 143/68 96 11/27/16 03:28 36.6 84 18 142/69 95 11/27/16 03:04 36.6 84 18 146/76 95 3.0 11/27/16 02:35 36.7 84 18 137/72 95 3.0 11/27/16 02:05 36.7 81 18 150/71 95 11/27/16 01:34 36.5 77 19 129/68 96 11/27/16 01:20 36.4 72 18 134/64 96 3.0 9/11/17 01:05 36.3 80 18 141/73 96 4.0 11/27/16 00:00 Nasal Cannula 3.0 11/26/16 23:56 80 20 124/58 (80) 96 Nasal Cannula 3.0 11/26/16 22:43 36.9 78 18 94/52 (66) 97 Nasal Cannula 4.0 11/26/16 20:43 76 154/69 (97) 96 Nasal Cannula 3.0 11/26/16 20:00 92 Nasal Cannula 3.0 11/26/16 19:23 36.8 79 18 126/63 (84) 92 Nasal Cannula 4.0 11/26/16 16:00 99 Nasal Cannula 3.0 11/26/16 15:14 36.7 71 20 131/75 (93) 99 Nasal Cannula 4.0 (Genet Laurent ., PA-C) Physical Exam General Appearance: no apparent distress, + obese, + pertinent finding (2L O2 NC) Eyes: normal inspection, PERRL ENT: hearing grossly normal Neck: supple Respiratory/Chest: lungs clear, no respiratory distress, no accessory muscle use, + decreased breath sounds Cardiovascular: regular rate, rhythm Abdomen: normal bowel sounds, non tender, soft Extremities: non-tender, no calf tenderness, + swelling (+1 pitting edema of bilateral lower extremities ), + pertinent finding (chronic venous stasis changes to bilateral lower extremity edema ) Neurologic/Psychiatric: alert, normal mood/affect, oriented x 3 Skin: normal color, warm/dry, no rash (Genet Laurent, PA-C) Laboratory Results Last 24 Hours Test 11/26/16 16:09 11/26/16 16:35 11/26/16 20:42 11/26/16 22:44 Hemoglobin 7.8 g/dL 7.2 g/dL Hematocrit 25.1 % 23.3 % Bedside Glucose 99 mg/dl 91 mg/dl Test 11/27/16 05:58 11/27/16 06:11 11/27/16 07:07 11/27/16 10:44 Bedside Glucose 110 mg/dl 105 mg/dl White Blood Count 6.13 K/uL Red Blood Count 3.33 M/uL Hemoglobin 8.9 g/dL 9.6 g/dL Hematocrit 28.1 % 30.3 % Mean Corpuscular Volume 84.4 fL Mean Corpuscular Hemoglobin 26.7 pg Mean Corpuscular Hemoglobin Concent 31.7 g/dl Platelet Count 163 K/uL Mean Platelet Volume 8.4 fL Neutrophils (%) (Auto) 74.9 % Lymphocytes (%) (Auto) 6.9 % Monocytes (%) (Auto) 11.4 % Eosinophils (%) (Auto) 5.2 % Basophils (%) (Auto) 0.8 % Neutrophils # (Auto) 4.59 K/uL Lymphocytes # (Auto) 0.42 K/uL Monocytes # (Auto) 0.70 K/uL Eosinophils # (Auto) 0.32 K/uL Basophils # (Auto) 0.05 K/uL RDW Standard Deviation 53.5 fL RDW Coefficient of Variation 17.3 % Immature Granulocyte % (Auto) 0.8 % Immature Granulocyte # (Auto) 0.05 K/uL Anisocytosis PRESENT Prothrombin Time 10.8 SECONDS Prothromb Time International Ratio 1.0 Activated Partial Thromboplast Time 26.1 SECONDS Partial Thromboplastin Ratio 1.0 Sodium Level 143 mmol/L Potassium Level 4.0 mmol/L Chloride Level 107 mmol/L Carbon Dioxide Level 33 mmol/L Anion Gap 3.0 mmol/L Blood Urea Nitrogen 12 mg/dl Creatinine 1.10 mg/dl Est Creatinine Clear Calc Drug Dose 80.9 ml/min Estimated GFR () 80.1 Estimated GFR (Non- 69.1 BUN/Creatinine Ratio 10.8 Random Glucose 102 mg/dl Calcium Level 8.4 mg/dl Magnesium Level 2.0 mg/dl Total Bilirubin 0.4 mg/dl Direct Bilirubin 0.1 mg/dl Aspartate Amino Transf (AST/SGOT) 12 U/L Alanine Aminotransferase (ALT/SGPT) 13 U/L Alkaline Phosphatase 83 U/L Total Protein 6.2 gm/dl Albumin 2.9 gm/dl Test 11/27/16 11:10 Bedside Glucose 95 mg/dl (Genet Laurent PA-C) Assessment and Plan The patient is a 66-year-old male who presents to the emergency department with complaint of 4 episodes of rectal bleeding that began about 3 hours prior to arrival. 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 He has remained off his aspirin during that interval time, and is not take any NSAIDs. He reports no straining of bowels. He did have an episode of lightheadedness while in the emergency department when going to the restroom. Hematochezia s/p colon biopsy 3 weeks ago by /radiation proctitis/ symptomatic anemia- transfused 3 u PRBCs: - Followed H&H- STABLE - NSS with KCl 20 mEq at 100 mils per hour. - Consulted GI, appreciate recommendations - Colonoscopy on 11/27- Diverticulosis of the colon, Internal hemorrhoids, Ulceration with a visible vessel in the descending colon- treated with placement of an endoscopic clip. -- Advance diet as tolerated, MiraLAX 17 g per day -- Follow-up with his regular endoscopy provider Dr. Zamorano in 6-8 weeks HTN: - Carvedilol decreased from 25 mg BID to 12.5 mg BID - Held Amlodipine 10 mg by mouth at bedtime, Lisinopril 20 mg by mouth twice a day, Furosemide Sunday/ Sunday/ Sunday - Hydralazine PRN T2DM: - Hold Glucovance, Pioglitazone, Janumet. - Lantus insulin \reduce from 35 units subcutaneous every morning to 15 units subcutaneous every morning due to NPO status - BSG ACHS and sliding insulin scale Hyperlipidemia: Hold Lipitor 20 mg by mouth at bedtime- resume once tolerating PO DVT prophylaxis: Chemical anticoagulation held due to rectal bleeding Code Status: LEVEL I, FULL Dispo: Discharge to home once medically stable (Genet Laurent ., PA-C) Attending Attestation: Pt seen/examined, chart reviewed, care plan d/w BARRERA Laurent. I agree w/ the rust components of her documentation. I saw the patient post-colonoscopy and he was resting fine. C-scope results reviewed - bleeding was likely from a previous polypectomy site. H/H have remained stable since PRBCs. No abd pain or further rectal bleeding VSS no fever gen - obese heart - RRR lungs - CTA b/l abd - soft, NT, ND, BS+ A/P: acute blood loss anemia 2nd to rectal bleeding likely from previous polypectomy site s/p endoclip by GI today serial H/H's tonight/tomorrow am resume diet if H/H remain stable can likely d/c home tomorrow Yazan Murillo MD (Yazan Murillo MD)
[2016-11-27 17:11] LABS: HEMATOCRIT 29.4 % (42-52)
[2016-11-28 04:12] VITALS: BP 165/79; PULSE 80; TEMP 37.2; O2SAT 94
[2016-11-28 06:15] LABS: BASO % 0.8 %; BASO ABS # 0.05 K/uL (0-0.2); EOS % 5.9 %; HEMATOCRIT 27.7 % (42-52); IG% 0.5 %; LYMPH ABS # 0.44 K/uL (1.2-3.4); MEAN CELL VOLUME 83.4 fL (80-100); MEAN CORPUSCULAR HEMOGLOBIN 26.2 pg (25-34); MEAN CORPUSCULAR HGB CONC 31.4 g/dl (32-36); MEAN PLATELET VOLUME 7.7 fL (7.4-10.4); MONO % 14.2 %; NEUT % 71.6 %; PLATELET COUNT 133 K/uL (130-400); RED BLOOD COUNT 3.32 M/uL (4.7-6.1); WHITE BLOOD COUNT 6.27 K/uL (4.8-10.8)
[2016-11-28 06:46] LABS: BUN/CREATININE RATIO 7.8 (10-20); CALCIUM 8.7 mg/dl (8.5-10.1); CREATININE 1.2 mg/dl (0.60-1.40); MAGNESIUM 1.9 mg/dl (1.8-2.4); POTASSIUM 3.7 mmol/L (3.5-5.1)
[2016-11-28 07:02] LABS: ANISOCYTOSIS PRESENT; COMPLETE YES; HYPERSEGMENTED POLYS 1+; OVALOCYTES 1+
[2016-11-28 07:17] VITALS: BP 111/65; PULSE 86; TEMP 37.2; O2SAT 90
[2016-11-28 07:18] VITALS: BP 165/81; PULSE 86; TEMP 37; O2SAT 90
[2016-11-28] MEDS: INSULIN ASPART 100 UNITS/ML 3 ML PEN SC SCH ×2 (08:04→12:46)
[2016-11-28] MEDS: INSULIN GLARGINE SOLOSTAR 100 UNITS/ML 3 ML PEN SC SCH (08:04)
--- NOTE | 2016-11-28 08:57 | Gastroenterology Progress Note ---
Progress Note Date of Service: Nov 28, 2016 Subjective Pt evaluation today including: conversation w/ patient, physical exam Pt was seen and evaluated, chart reviewed. No acute events overnight. Colonoscopy yesterday for post-polypectomy bleed, clip placed. Tolerated procedure well. Feels well and wants to go home. Tells me he had a semi-formed stool this AM without any blood Colonoscopy 11/28/16: The examined portion of the ileum was normal. Mild diverticulosis in the sigmoid colon and in the descending colon. A single ( solitary) ulcer in the descending colon. This appears to represent post- polypectomy bleeing. Clip (MR conditional) was placed. Tattooed. Internal hemorrhoids. The examination was otherwise normal. No specimens collected. Review of Systems Constitutional: No fever, No chills Respiratory: No shortness of breath Cardiac: No chest pain Abdomen: No pain, No nausea, No vomiting, No diarrhea, No constipation, No GI bleeding Medications Current Inpatient Medications Medications (Trade) Dose Ordered Sig/Zenobia Route Start Time Stop Time Status Last Admin Dose Admin Acetaminophen (Tylenol Tab) 650 mg Q4H PRN PO 11/25/16 23:00 12/25/16 22:59 Albuterol (Ventolin Hfa Inhaler) 2 puffs QID PRN INH 11/25/16 23:00 12/25/16 22:59 Albuterol Sulfate (Ventolin 0.083% 2.5MG/3ML Neb) 2.5 mg QID PRN INH 11/25/16 23:00 12/25/16 22:59 Insulin Glargine (Lantus Solostar Pen) 15 units QAM SC 11/26/16 09:00 12/26/16 08:59 11/28/16 08:04 15 UNITS Ondansetron HCl (Zofran Inj) 4 mg Q6H PRN IV 11/25/16 23:00 12/25/16 22:59 Insulin Aspart (novoLOG ASPART) SLIDING SCALE If C... ACHS SC 11/26/16 06:30 12/26/16 06:59 11/28/16 08:04 4 UNITS Glucose (Glucose 40% Gel) UD PRN PO 11/25/16 23:00 12/25/16 22:59 Glucose (Glucose Chew Tab) 1 tabs UD PRN PO 11/25/16 23:00 12/25/16 22:59 Dextrose (Dextrose 50% 50ML Syringe) 50 ml UD PRN IV 11/25/16 23:00 12/25/16 22:59 Glucagon (Glucagon Inj) 1 mg UD PRN SQ 11/25/16 23:00 12/25/16 22:59 Carvedilol (Coreg Tab) 12.5 mg BID PO 11/26/16 09:00 12/26/16 08:59 Future Hold 11/26/16 20:45 12.5 MG Hydralazine HCl (HydrALAZINE INJ) 10 mg Q6H PRN IV. 11/27/16 15:00 12/27/16 14:59 Carvedilol (Coreg Tab) 25 mg BID PO 11/28/16 09:00 12/28/16 08:59 UNV Lisinopril (Zestril Tab) 20 mg BID PO 11/28/16 09:00 12/28/16 08:59 UNV Objective Vital Signs Date Time Temp Pulse Resp B/P (MAP) Pulse Ox O2 Delivery O2 Flow Rate FiO2 11/28/16 08:00 Nasal Cannula 3.0 11/28/16 07:18 37.0 86 20 165/81 (109) 90 11/28/16 04:12 37.2 80 18 165/79 (107) 94 11/28/16 04:00 Nasal Cannula 3.0 11/28/16 00:00 Nasal Cannula 3.0 11/27/16 23:46 36.7 84 18 165/86 (112) 93 3.0 159/86 (110) 11/27/16 20:00 90 Nasal Cannula 3.0 11/27/16 19:26 36.9 89 18 161/72 (101) 90 3.0 11/27/16 16:00 93 Nasal Cannula 3.0 11/27/16 15:22 36.6 86 20 158/74 (102) 93 Nasal Cannula 3.0 11/27/16 13:00 94 18 141/77 (98) 94 Nasal Cannula 6 11/27/16 12:45 93 18 155/92 (113) 93 Nasal Cannula 6 11/27/16 12:30 95 22 161/89 (113) 91 Nasal Cannula 6 11/27/16 11:44 37 83 22 206/95 (132) 94 Nasal Cannula 3 11/27/16 11:31 36.9 89 16 186/88 (120) 93 Nasal Cannula 4.0 11/27/16 11:30 Nasal Cannula 3.0 11/27/16 11:18 36.8 84 16 155/72 94 Nasal Cannula 3.0 Physical Exam General Appearance: no apparent distress Eyes: PERRL ENT: hearing grossly normal Neck: supple Respiratory/Chest: lungs clear Cardiovascular: regular rate, rhythm Abdomen: non tender, soft, no organomegaly Neurologic/Psych: alert, normal mood/affect, oriented x 3 Skin: normal color, no jaundice Laboratory Results Last 24 Hours Test 11/27/16 10:44 11/27/16 11:10 11/27/16 13:21 11/27/16 16:49 Hemoglobin 9.6 g/dL 8.8 g/dL Hematocrit 30.3 % 29.4 % Bedside Glucose 95 mg/dl 89 mg/dl Test 11/27/16 17:16 11/27/16 20:00 11/28/16 06:05 Bedside Glucose 149 mg/dl 142 mg/dl White Blood Count 6.27 K/uL Red Blood Count 3.32 M/uL Hemoglobin 8.7 g/dL Hematocrit 27.7 % Mean Corpuscular Volume 83.4 fL Mean Corpuscular Hemoglobin 26.2 pg Mean Corpuscular Hemoglobin Concent 31.4 g/dl Platelet Count 133 K/uL Mean Platelet Volume 7.7 fL Neutrophils (%) (Auto) 71.6 % Lymphocytes (%) (Auto) 7.0 % Monocytes (%) (Auto) 14.2 % Eosinophils (%) (Auto) 5.9 % Basophils (%) (Auto) 0.8 % Neutrophils # (Auto) 4.49 K/uL Lymphocytes # (Auto) 0.44 K/uL Monocytes # (Auto) 0.89 K/uL Eosinophils # (Auto) 0.37 K/uL Basophils # (Auto) 0.05 K/uL RDW Standard Deviation 52.6 fL RDW Coefficient of Variation 17.2 % Immature Granulocyte % (Auto) 0.5 % Immature Granulocyte # (Auto) 0.03 K/uL Hypersegmented Polys 1+ Anisocytosis PRESENT Ovalocytes 1+ Sodium Level 142 mmol/L Potassium Level 3.7 mmol/L Chloride Level 105 mmol/L Carbon Dioxide Level 33 mmol/L Anion Gap 4.0 mmol/L Blood Urea Nitrogen 9 mg/dl Creatinine 1.20 mg/dl Est Creatinine Clear Calc Drug Dose 73.3 ml/min Estimated GFR () 72.1 Estimated GFR (Non- 62.2 BUN/Creatinine Ratio 7.8 Random Glucose 105 mg/dl Calcium Level 8.7 mg/dl Magnesium Level 1.9 mg/dl Assessment and Plan Diet as tolerated Miralax 17 grams in 8 ounces of water Repeat colonoscopy for surveillance per Dr. Zamorano - No GI contraindication to discharge, GI to sign off. Thanks! Patient was discharged prior to afternoon rounds. 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 Zamorano for questions with regard to his polyp removal -- If the patient wishes to transfer his care is have him call our office
[2016-11-28] MEDS ORDERED: CARVEDILOL 25 MG TAB PO SCH (09:00)
[2016-11-28] MEDS ORDERED: LISINOPRIL 20 MG TAB PO SCH (09:00)
[2016-11-28] MEDS ORDERED: MRLP17X PO (10:41)
[2016-11-28] MEDS ORDERED: FRRS300 PO ×2 (10:41→10:58)
[2016-11-28 10:56] VITALS: BP 123/66; PULSE 73; TEMP 37.1; O2SAT 92
[2016-11-28] MEDS ORDERED: POTASSIUM CHLORIDE 10 MEQ TABCR PO ONE (11:00)
[2016-11-28] MEDS ORDERED: MAGNESIUM OXIDE 400 MG TAB PO ONE (11:00)
[2016-11-28] MEDS ORDERED: FUROSEMIDE INJ 20 MG in SYRINGE 0 ML IV ONE (11:00)
--- NOTE | 2016-11-28 11:02 | Discharge Instructions ---
Discharge Instructions Date of Service Nov 28, 2016. Admission Reason for Admission: Gi Bleed, Orthostatic Dizziness Discharge Discharge Diagnosis / Problem: Gastrointestinal bleed Discharge Goals Goal(s): Decrease discomfort, Improve function, Improve disease control, Learn about illness, Diagnostic testing, Therapeutic intervention, Prevent Disease Progression Activity Recommendations Activity Limitations: resume your previous activity . Instructions / Follow-Up Instructions / Follow-Up You were admitted to the hospital because of rectal bleeding. During your stay, you were transfused with 3 units of blood. Your blood count stabilized and a colonoscopy was performed by Dr. Madrigal. Per Dr. Madrigal's recommendations: 17 gm of MiraLAX per day You will need a repeat colonoscopy in 6-8 weeks- please contact Dr. Jaun LAW to setup an appointment Aspirin has been discontinued Additionally, because of your low blood count from rectal bleeding, you have been started on an Iron supplement (Ferrous Sulfate 325 mg) twice per day It is important to note that iron supplementation can cause your stools to appear dark in color You will need to [facility] was [facility] for you because the tumor removed from your colon is close to margin lines- you may need more surgical intervention to ensure all of tumor is removed If you start to experience rectal bleeding, lightheadedness/dizziness, fatigue, shortness of breath, weakness, palpitations, or any other concerning/worrisome symptoms, please seek medical attention ANI Please take Lasix 20 mg by mouth SUNDAY, SUNDAY, SUNDAY. Check your weight Sunday morning- if at baseline weight, resume Sunday, Sunday, Sunday schedule. If weight is still elevated, take another Lasix on Sunday and check weight Sunday morning and continue Lasix daily until weight is at baseline then resume Sunday, Sunday, Sunday schedule. Diabetic Medications: STOP Actos and Glyburide-Metformin CONTINUE Janumet twice daily and Lantus 35 units daily Resume all other regular home medications FOLLOW-UPS: Please follow-up with your PCP within 5-7 days Please follow-up with Dr. Zamorano within 6-8 weeks Please follow-up with Dr. Lopez on 12/01 Please follow-up/keep all of your subspecialty appointments Current Hospital Diet Patient's current hospital diet: Diabetes Type 2 Diet Discharge Diet Recommended Diet: Diabetes Type 2 Diet Procedures Procedures Performed: Colonoscopy Hemostasis, Bleed Site marking with Makenzie Ink Pending Studies Studies pending at discharge: no Medical Emergencies . Who to Call and When: Medical Emergencies: If at any time you feel your situation is an emergency, please call 911 immediately. . Non-Emergent Contact Non-Emergency issues call your: Primary Care Provider Call Non-Emergent contact if: you have a fever, your pain is not controlled, your pain is worsening, your pain is unusual for you, your pain is concerning you, you have any medication questions . . "Provider Documentation" section prepared by Genet Laurent Attending Attestation: I agree with these discharge instructions as outlined by BARRERA Dunaway. Yazan Murillo MD VTE Core Measure Inpt VTE Proph given/why not?: SCD's
[2016-11-28 11:04] VITALS: BP 123/66; PULSE 73; TEMP 37.1; O2SAT 92
--- NOTE | 2016-11-28 11:15 | Discharge Summary ---
Discharge Summary Date of Service Nov 28, 2016. (Genet Laurent PA-C) Discharge Summary Admission Date: Nov 25, 2016 at 22:52 Discharge Date: Nov 28, 2016 Discharge Disposition: Home Principal Diagnosis: GI bleed Problems/Secondary Diagnoses: Hematochezia s/p colon biopsy prostate cancer radiation proctitis symptomatic anemia HTN T2DM Hyperlipidemia SHALA COPD CHF Immunizations: Have You Had Influenza Vaccine: Unknown History of Tetanus Vaccine?: Unknown History of Pneumococcal: Unknown History of Hepatitis B Vaccine: Unknown Procedures: COLONOSCOPY Impression: - The examined portion of the ileum was normal. - Mild diverticulosis in the sigmoid colon and in the descending colon. - A single (solitary) ulcer in the descending colon. This appears to represent post-polypectomy bleeing. Clip (MR conditional) was placed. Tattooed. - Internal hemorrhoids. - The examination was otherwise normal. - No specimens collected. Recommendation: - Return patient to [facility] for [facility] care. - Advance diet as tolerated today. - Try Miralax 1 capful (17 grams) in 8 ounces of water PO daily for 6 weeks. - Repeat colonoscopy for surveillance per Dr. Zamorano for patients history of polyps. - Return to referring physician as previously CHEST ONE VIEW PORTABLE CLINICAL HISTORY: EVALUATE GI BLEED dyspnea COMPARISON STUDY: 05/07/2016 FINDINGS: Mild stable cardiomegaly. Scattered atelectatic change considered stable. Chronic prominence pulmonary vasculature. IMPRESSION: Chronic change. Moderate stable cardiomegaly. No acute process. The above report was generated using voice recognition software. It may contain grammatical, syntax or spelling errors. Electronically signed by: Michael Espinal M.D. 11/25/2016 7:40 PM Dictated Date/Time: 11/25/2016 7:39 PM The status of this report is Signed. Draft = Not yet reviewed or approved by Radiologist. Signed = Reviewed and approved by Radiologist. Consultations: GI (Genet Laurent PA-C) Problems/Secondary Diagnoses: acute/chronic diastolic CHF chronic hypoxic respiratory failure morbid obesity, BMI 43 colon cancer - dx October 2016 acute blood loss anemia 2nd to rectal bleeding Procedures: 3 units PRBCs (Yazan Murillo MD) Medication Reconciliation New Medications: Ferrous Sulfate (Ferrous Sulfate) 325 Mg Tab 325 MG PO BID for 30 Days, #60 TABS 2 Refills Polyethylene (Miralax) 17 Gm Pow 17 GM PO DAILY for 30 Days Continued Medications: Albuterol Hfa (Ventolin Hfa) 200 Puffs/11952 Mcg Aers 2 PUFFS INH QID PRN for Shortness of Breath, #1 INHALER Albuterol Sulf (Proventil 0.083% 2.5MG/3ML) 2.5 Mg/3 Ml Nebu 2.5 MG INH QID PRN for SOB/Wheezing, #150 Amlodipine Besylate (Norvasc) 10 Mg Tab 10 MG PO HS, TAB Atorvastatin (Lipitor) 20 Mg Tab 20 MG PO HS, TAB Carvedilol (Coreg) 25 Mg Tab 25 MG PO BID, TAB Furosemide (Lasix) 20 Mg Tab 1 TAB PO MWF for 90 Days, TAB 1 Refill Insulin Glargine (Lantus) 100 Unit/Ml Inj 35 UNITS SC QAM, VIAL Lisinopril (Lisinopril) 20 Mg Tab 20 MG PO BID, #180 Multiple Vitamins W/ Minerals (Preservision Areds) 1 Cap Cap 1 CAP PO BID Sitagliptin-Metformin Hcl (Janumet) 1 Tab Tab 1 TAB PO BID for 30 Days, #60 TAB 5 Refills DOSE EQUALS 50/1000MG Discontinued Medications: Glyburide-Metformin (Glucovance 5/500 Mg) 1 Tab Tab 2 TAB PO BID, TAB Pioglitazone (Actos) 30 Mg Tab 30 MG PO QAM for 30 Days, #30 TAB 5 Refills Referrals At Discharge Follow up Referrals: Family Practice Referral - Within 1 Week with Chidi Bearden MD Optometric Assistant Referral - Within 6 Weeks with Marcio Zamorano M.D. Discharge Exam Review of Systems: Constitutional: No fever, No chills, No sweats, No weakness, No fatigue ENT: No hearing loss Respiratory: No cough, No shortness of breath, No hemoptysis Cardiovascular: No chest pain, No edema, No palpitations Abdomen: No pain, No nausea, No vomiting, No diarrhea, No constipation, No GI bleeding Musculoskeletal: No joint pain, No muscle pain, No swelling, No calf pain Genitourinary - Male: No hematuria, No dysuria Neurologic: No weakness, No numbness/tingling Psychiatric: No depression symptoms, No anxiety Hematologic / Lymphatic: No abnormal bleeding/bruising Integumentary: No rash, No itch, No new/changing skin lesions Physical Exam: General Appearance: no apparent distress, + obese, + pertinent finding (2L O2 NC) Eyes: normal inspection, PERRL ENT: hearing grossly normal Neck: supple Respiratory/Chest: no respiratory distress, no accessory muscle use, + decreased breath sounds (>at lung bases ), + crackles (bilateral lung bases ) Cardiovascular: regular rate, rhythm Abdomen / GI: normal bowel sounds, non tender, soft Extremities: no calf tenderness, + swelling (+1 bilateral pitting edema to lower extremities ), + pertinent finding (chronic venous stasis changes noted to bilateral lower extremities ) Neurologic/Psychiatric: alert, normal mood/affect, oriented x 3 Skin: normal color, warm/dry, no rash (Genet Laurent, PANKAJ) Hospital Course Admission H&P: The patient is a 66-year-old male who presents to the emergency department with complaint of 4 episodes of rectal bleeding that began about 3 hours prior to arrival. 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 He has remained off his aspirin during that interval time, and is not take any NSAIDs. He reports no straining of bowels. He did have an episode of lightheadedness while in the emergency department when going to the restroom. Physical Exam Vital Signs Date Time Temp Pulse Resp B/P (MAP) Pulse Ox O2 Delivery O2 Flow Rate FiO2 11/25/16 22:35 79 11/25/16 22:07 76 11/25/16 21:53 112/82 98 Nasal Cannula 2.0 11/25/16 19:10 36.7 78 22 168/82 90 Nasal Cannula 2.0 The patient is awake, well-developed and adequately nourished, alert and oriented 3, normocephalic and atraumatic, lying in bed and in no acute distress. HEENT--PERRL, EOMI, mucous membranes and oropharynx dry. Neck--supple, no JVD or bruits, thyroid normal, trachea midline, no adenopathy. Heart--normal S1 and S2, no extra beats, no murmurs, rubs or gallops. Lungs--clear bilaterally but diminished throughout, no respiratory distress, no accessory muscle use. Abdomen--normal bowel sounds and soft, nontender and nondistended, no hernias or masses, no organomegaly and obese. Extremities--no cyanosis, clubbing or edema. There are good distal pulses b/l. Dermatologic--normal skin turgor, normal color, warm and dry, no abnormal lymph nodes, no rash. Neurologic--cranial nerves II through XII grossly intact, motor and sensory examination normal. Rheumatologic--normal range of motion, nontender, muscles and joints. Psychiatric--normal affect. Hospital Course: Hematochezia s/p colon biopsy 3 weeks ago by /radiation proctitis/ symptomatic anemia- transfused 3 u PRBCs: - Followed H&H- STABLE - Started Iron supplement BID x2 months - Treated w/ NSS with KCl 20 mEq at 100 mils per hour. - Consulted GI, appreciate recommendations -- Colonoscopy on 11/27- Diverticulosis of the colon, Internal hemorrhoids, Ulceration with a visible vessel in the descending colon- treated with placement of an endoscopic clip. -- Advance diet as tolerated- tolerated diet well prior to discharge -- MiraLAX 17 g per day -- Follow-up with his regular endoscopy provider Dr. Zamorano in 6-8 weeks HTN: - Carvedilol decreased from 25 mg BID to 12.5 mg BID due to bleeding- resumed 25 mg BID at discharge - Held Amlodipine 10 mg by mouth at bedtime, Lisinopril 20 mg by mouth twice a day, Furosemide Sunday/ Sunday/ Sunday due to bleeding- resumed at discharge - Hydralazine PRN Mild CHF exacerbation: - Treated w/ IV Lasix - Instructed to continue Lasix 20 mg daily at discharge until weight is at baseline, then resume MWF schedule T2DM: - Hold Glucovance, Pioglitazone, Janumet -- Discontinued Glucovance and Pioglitazone at discharge - Lantus insulin reduce from 35 units subcutaneous every morning to 15 units subcutaneous every morning due to NPO status- resume 35 u daily at discharge - BSG ACHS and sliding insulin scale Hyperlipidemia: Hold Lipitor 20 mg by mouth at bedtime- resume once tolerating PO- resumed at discharge COPD, SHALA: - Continue home inhalers - O2 protocol- weans 2L O2 09/10 - CPAP- long discussion w/ patient about the importance of CPAP compliance DVT prophylaxis: Chemical anticoagulation held due to rectal bleeding Code Status: LEVEL I, FULL Dispo: Discharge to home Total Time Spent: Greater than 30 minutes This includes examination of the patient, discharge planning, medication reconciliation, and communication with other providers. (Genet Laurent PA-C) Attending Discharge Note & Attestation: Pt seen/examined, chart reviewed, discharge care plan d/w BARRERA Laurent. I agree w/ the rust components of her documentation. 66yo male with chronic hypoxic respiratory failure on home O2 with recent diagnosis of colon cancer (discovered during colonoscopy by Dr. Marcio Zamorano performed at [facility] in October) who presented with rectal bleeding and subsequent acute blood loss anemia. He received 3 units PRBCs. Discharge hemoglobin was 8.7. He was seen in consult by [facility] who performed colonoscopy. This showed an ulceration at the previous site of a polypectomy. There was a visible vessel. This area was injected and a clip was placed. This location was felt to represent the cause of his rectal bleeding. Post-colonoscopy he was resumed on a diet and this was tolerated. Subsequent H/ H's remained stable. His stay was complicated by mild acute/chronic diastolic CHF and he received IV diuretic. He will need close follow-up with GI and general surgery for the newly discovered colon cancer. Follow-up appointments have been arranged. He was asked to remain OFF aspirin at this time. Discharge exam - gen - NAD, obese neck - no JVD heart - RRR lungs - mild rales bases abd - soft, NT, ND, BS+ ext - 1+ edema b/l Yazan Murillo MD (Yazan Murillo MD) Discharge Instructions Please refer to the electronic Patient Visit Report (Discharge Instructions) for additional information. (Genet Laurent, WILVERC) Follow-Up Please follow-up with your PCP within 5-7 days Please follow-up with General Surgery on 12/01 Follow-up with GI in 6-8 weeks Please follow-up/keep all of your subspecialty appointments (Genet Laurent PA-C) Additional Copies To Marcio Zamorano M.D.; Michael Lopez M.D.; Chidi Baerden MD; Ravinder Esquivel
== END 2016-11-28 13:30 | disposition home or self-care (01) | DRG 378 ==
LOC: C.EDB 19:06 → C.MED 22:52 → ENRESERV 23:06
PROVIDERS: ADMIT Hospitalist; ATTEND Internal Medicine
PROC: 0DJD8ZZ Inspection of Lower Intestinal Tract, Via Natural or Artificial Opening Endoscopic (ICD-10-PCS; principal; 2016-11-27 11:35)
DX: K92.1 Melena (principal); Z68.41 Body mass index [BMI] 40.0-44.9, adult; J44.9 Chronic obstructive pulmonary disease, unspecified; I10 Essential (primary) hypertension; E11.9 Type 2 diabetes mellitus without complications; E78.5 Hyperlipidemia, unspecified; G47.33 Obstructive sleep apnea (adult) (pediatric); D64.9 Anemia, unspecified; E66.9 Obesity, unspecified; K62.7 Radiation proctitis; Z85.46 Personal history of malignant neoplasm of prostate

== ENCOUNTER 2017-02-17 10:35 | Emergency (ER) | payer OTHER ==
[~2017-02-17] VITALS: Ht 167.6 cm; Wt 120.0 kg
[~2017-02-17 10:35] MED LIST changes: -ACT30 PO; +ALBINS/ INH; -ASPI-435 PO; +FRRS300 PO; -GLYB5TAB3 PO; -LSN/2025 PO; +LSN20 PO; +MRLP17X PO; +SITA50TA9 PO
[2017-02-17 10:42] VITALS: TEMP 36.8; Ht 167.6 cm; Wt 120.0 kg
--- NOTE | 2017-02-17 11:25 | DIAGNOSTIC IMAGING REPORT ---
CHEST ONE VIEW PORTABLE HISTORY: 66 years-old Male ABDOMINAL PAIN/GI acute generalized abdominal pain COMPARISON: Chest radiograph 11/25/2016 TECHNIQUE: Portable AP view of the chest FINDINGS: Cardiac silhouette is moderately enlarged, unchanged. Patient is slightly rotated to the right. No pneumothorax or pleural effusion. Mild pulmonary vascular congestion without overt pulmonary edema or lobar airspace consolidation. Linear subsegmental bibasilar opacities are unchanged compatible with atelectasis. IMPRESSION: Cardiomegaly without acute cardiopulmonary process. The above report was generated using voice recognition software. It may contain grammatical, syntax or spelling errors. Electronically signed by: Kobe Das M.D. 02/17/2017 11:24 AM Dictated Date/Time: 02/17/2017 11:22 AM
[2017-02-17 11:36] LABS: URINE APPEARANCE CLEAR (CLEAR); URINE BILIRUBIN NEG (NEG); URINE COLOR YELLOW; URINE NITRITE NEG (NEG); URINE PH 8.5 (4.5-7.5); UROBILINOGEN NEG (NEG); ZZUR CULT IF INDIC CLEAN CATCH NO
[2017-02-17 11:47] LABS: MANUAL MICROSCOPIC REQUIRED? NO; REVIEW REQ? NO
[2017-02-17 11:48] LABS: SULFASALICYLIC ACID POS (NEG)
[2017-02-17 11:56] LABS: BASO % 0.7 %; BASO ABS # 0.06 K/uL (0-0.2); COMPLETE YES; EOS % 3.4 %; HEMATOCRIT 35.4 % (42-52); IG% 0.5 %; LYMPH ABS # 0.42 K/uL (1.2-3.4); MEAN CELL VOLUME 80.5 fL (80-100); MEAN CORPUSCULAR HEMOGLOBIN 24.5 pg (25-34); MEAN CORPUSCULAR HGB CONC 30.5 g/dl (32-36); MEAN PLATELET VOLUME 8.7 fL (7.4-10.4); MONO % 9.5 %; NEUT % 80.9 %; PLATELET COUNT 219 K/uL (130-400); WHITE BLOOD COUNT 8.44 K/uL (4.8-10.8)
[2017-02-17 12:16] LABS: ALT/SGPT 14 U/L (12-78); BLOOD UREA NITROGEN 15 mg/dl (7-18); BUN/CREATININE RATIO 12.1 (10-20); CALCIUM 9.4 mg/dl (8.5-10.1); CARBON DIOXIDE 37 mmol/L (21-32); CHLORIDE 97 mmol/L (98-107); CREATININE 1.26 mg/dl (0.60-1.40); GLUCOSE 155 mg/dl (70-99); POTASSIUM 4.2 mmol/L (3.5-5.1); SODIUM 138 mmol/L (136-145)
[2017-02-17] MEDS ORDERED: ALBUT/IPRATROP 3MG/0.5MG NEB 3 ML VIAL INH STA (12:16)
[2017-02-17] MEDS ORDERED: METHYLPREDNISOLONE 125 MG VIAL IV STA (12:19)
[2017-02-17 12:21] LABS: ALKALINE PHOSPHATASE 134 U/L (45-117); AST/SGOT 10 U/L (15-37)
--- NOTE | 2017-02-17 13:17 | DIAGNOSTIC IMAGING REPORT ---
L-SPINE MIN 4 VIEWS ROUTINE HISTORY: 66 years-old Male low back and flank pain, cant lie flat for ct acute low back and flank pain COMPARISON: KUB of same day TECHNIQUE: 5 views of the lumbar spine FINDINGS: 5 lumbar type vertebral segments are present. No acute fracture or subluxation identified. No spondylolysis identified. Multilevel facet arthrosis, posterior intervertebral disc space narrowing and endplate spurring is noted. There is severe facet arthrosis at L4-L5 and L5-S1. No compression deformity is seen. Nondilated gas-filled loops of small bowel are seen. Calcifications within the right upper abdomen measure up to 3.1 x 1.5 cm. There is atherosclerosis of the aorta. IMPRESSION: 1. No acute fracture or subluxation of the lumbar spine. 2. Multilevel discogenic degenerative changes and facet arthrosis. 3. Calcifications of the right upper abdomen suggest cholelithiasis. The above report was generated using voice recognition software. It may contain grammatical, syntax or spelling errors. Electronically signed by: Kobe Das M.D. 02/17/2017 1:15 PM Dictated Date/Time: 02/17/2017 1:12 PM
[2017-02-17] MEDS ORDERED: UMEC1AER INH (13:18)
--- NOTE | 2017-02-17 13:20 | DIAGNOSTIC IMAGING REPORT ---
KUB HISTORY: Acute low back and flank pain low back and flank pain, cant lie flat for ct COMPARISON: Lumbar spine radiographs of same day. FINDINGS: Gas-filled loops of small bowel are seen throughout the abdomen with a nonobstructive bowel gas pattern. There is no organomegaly. No renal calculi. No ureteral calculi. No pneumoperitoneum or pneumatosis. Calcifications of the right upper abdomen measuring up to 3.1 cm suggest cholelithiasis. No fracture. IMPRESSION: 1. Gas-filled loops of small bowel within the central abdomen in a nonobstructive pattern. 2. Calcifications of the right upper abdomen suggest cholelithiasis. Electronically signed by: Kobe Das M.D. 02/17/2017 1:18 PM Dictated Date/Time: 02/17/2017 1:17 PM
[2017-02-17 14:05] VITALS: O2SAT 89
[2017-02-17 14:35] VITALS: PULSE 87
[2017-02-17 14:47] VITALS: BP 175/91
[2017-02-17] MEDS ORDERED: PRED50TA PO (14:57)
[2017-02-17] MEDS ORDERED: OXYCODONE IR HOME PACK PO ONE (15:00)
--- NOTE | 2017-02-17 15:02 | EMERGENCY ROOM VISIT NOTE ---
History Report prepared by Dutch: Aurelia Casey Under the Supervision of: Dr. Braulio Padilla M.D. First contact with patient: 10:56 Chief Complaint: URINARY SYMPTOMS Stated Complaint: BACK PAIN,FREQUENT URINATION Nursing Triage Summary: patient to ED for c/o bilateral lower back pain for several days, states "I have hx of UTI's." History of Present Illness The patient is a 66 year old male who presents to the Emergency Room with complaints of back pain beginning 2 days ago. He rates the pain at an 8/10. The patient states that he would have the pain when he would stand or move, and that the pain also radiated to his legs. He also reports frequent urination and chills. He states that his breathing has been off lately, but that his Oxygen has been broken at home. He also reports tingling in his feet but that he has had this for the last 3 months, and it is not a new symptom. Pt denies LOC, fevers, headaches neck pain, chest pain, nausea, vomiting, abdominal pain, melena, hematochezia,, weakness, or other complaints. He states that he has a history of urinary infections and blood in his urine, but denies a history of kidney stones. The patient also reports a history of sciatic problems, but denies having other back problems. He denies a history of smoking, but his states that she is a smoker. Source of History: patient Onset: 2 days ago Position: back Symptom Intensity: rated at an 8/10 Associated Symptoms: + chills, + urinary symptoms (frequent urination), No fevers Review of Systems See HPI for pertinent positives and negatives. A total of ten systems were reviewed and were otherwise negative. Past Medical & Surgical Medical Problems: (1) Colon cancer (2) COPD (chronic obstructive pulmonary disease) (3) Diabetes (4) Hypertension (5) Influenza B (6) Orthostatic dizziness (7) Prostate cancer Family History Cancer Diabetes mellitus FH: COPD (chronic obstructive pulmonary disease) Heart disease Hypertension Social History Smoking Status: Never Smoker Alcohol Use: occasionally Drug Use: none Marital Status: Housing Status: lives with family Occupation Status: retired Current/Historical Medications Scheduled Amlodipine Besylate (Norvasc), 10 MG PO HS Atorvastatin (Lipitor), 20 MG PO HS Carvedilol (Coreg), 25 MG PO BID Ferrous Sulfate (Ferrous Sulfate), 325 MG PO BID Furosemide (Lasix), 1 TAB PO MWF Insulin Glargine (Lantus), 35 UNITS SC QAM Lisinopril (Lisinopril), 20 MG PO BID Multiple Vitamins W/ Minerals (Preservision Areds), 1 CAP PO BID Polyethylene (Miralax), 17 GM PO DAILY Prednisone (Prednisone), 50 MG PO DAILY Sitagliptin-Metformin Hcl (Janumet), 1 TAB PO BID Umeclidinium-Vilanterol (Anoro Ellipta 62.5-25 Mcg/INH), 1 PUFF INH DAILY Scheduled PRN Albuterol Hfa (Ventolin Hfa), 2 PUFFS INH QID PRN for Shortness of Breath Albuterol Sulf (Proventil 0.083% 2.5MG/3ML), 2.5 MG INH QID PRN for SOB/Wheezing Allergies Coded Allergies: BEE STING (Unverified Allergy, Severe, ANAPHYLAXIS, 02/17/17) Physical Exam Vital Signs Date Time Temp Pulse Resp B/P (MAP) Pulse Ox O2 Delivery O2 Flow Rate FiO2 02/17/17 14:47 175/91 02/17/17 14:35 87 23 02/17/17 14:05 83 33 89 02/17/17 13:35 84 33 96 02/17/17 12:35 86 27 93 02/17/17 12:27 79 28 170/88 94 Nasal Cannula 3.0 02/17/17 12:17 80 02/17/17 12:14 170/88 02/17/17 11:35 76 31 02/17/17 10:42 36.8 77 20 153/87 80 Room Air Physical Exam GENERAL: Awake, alert, well-appearing, in no distress HENT: Normocephalic, atraumatic. Oropharynx unremarkable. EYES: Normal conjunctiva. Sclera non-icteric. NECK: Supple. No nuchal rigidity. FROM. No JVD. RESPIRATORY: Clear to auscultation. Mildly dyspneic. CARDIAC: Regular rate, normal rhythm. Extremities warm and well perfused. Pulses equal. ABDOMEN: Soft, non-distended. No tenderness to palpation. No rebound or guarding. No masses. RECTAL: Deferred. MUSCULOSKELETAL: Chest examination reveals no tenderness. The back is symmetrical on inspection without obvious abnormality. There is right CVA tenderness to palpation. Midline tenderness. No joint edema. LOWER EXTREMITIES: Calves are equal size bilaterally and non-tender. 2+ lower extremity edema. Chronic venous discoloration. NEURO: Normal sensorium. No sensory or motor deficits noted. SKIN: No rash or jaundice noted. Medical Decision & Procedures ER Provider Diagnostic Interpretation: Radiology results as stated below per my review and radiologist interpretation: CHEST ONE VIEW PORTABLE HISTORY: 66 years-old Male ABDOMINAL PAIN/GI acute generalized abdominal pain COMPARISON: Chest radiograph 11/25/2016 TECHNIQUE: Portable AP view of the chest FINDINGS: Cardiac silhouette is moderately enlarged, unchanged. Patient is slightly rotated to the right. No pneumothorax or pleural effusion. Mild pulmonary vascular congestion without overt pulmonary edema or lobar airspace consolidation. Linear subsegmental bibasilar opacities are unchanged compatible with atelectasis. IMPRESSION: Cardiomegaly without acute cardiopulmonary process. The above report was generated using voice recognition software. It may contain grammatical, syntax or spelling errors. Electronically signed by: Kobe Das M.D. 02/17/2017 11:24 AM Dictated Date/Time: 02/17/2017 11:22 AM L-SPINE MIN 4 VIEWS ROUTINE HISTORY: 66 years-old Male low back and flank pain, cant lie flat for ct acute low back and flank pain COMPARISON: KUB of same day TECHNIQUE: 5 views of the lumbar spine FINDINGS: 5 lumbar type vertebral segments are present. No acute fracture or subluxation identified. No spondylolysis identified. Multilevel facet arthrosis, posterior intervertebral disc space narrowing and endplate spurring is noted. There is severe facet arthrosis at L4-L5 and L5-S1. No compression deformity is seen. Nondilated gas-filled loops of small bowel are seen. Calcifications within the right upper abdomen measure up to 3.1 x 1.5 cm. There is atherosclerosis of the aorta. IMPRESSION: 1. No acute fracture or subluxation of the lumbar spine. 2. Multilevel discogenic degenerative changes and facet arthrosis. 3. Calcifications of the right upper abdomen suggest cholelithiasis. The above report was generated using voice recognition software. It may contain grammatical, syntax or spelling errors. Electronically signed by: Kobe Das M.D. 02/17/2017 1:15 PM Dictated Date/Time: 02/17/2017 1:12 PM KUB HISTORY: Acute low back and flank pain low back and flank pain, cant lie flat for ct COMPARISON: Lumbar spine radiographs of same day. FINDINGS: Gas-filled loops of small bowel are seen throughout the abdomen with a nonobstructive bowel gas pattern. There is no organomegaly. No renal calculi. No ureteral calculi. No pneumoperitoneum or pneumatosis. Calcifications of the right upper abdomen measuring up to 3.1 cm suggest cholelithiasis. No fracture. IMPRESSION: 1. Gas-filled loops of small bowel within the central abdomen in a nonobstructive pattern. 2. Calcifications of the right upper abdomen suggest cholelithiasis. Electronically signed by: Kobe Das M.D. 02/17/2017 1:18 PM Dictated Date/Time: 02/17/2017 1:17 PM Laboratory Results 02/17/17 11:30 Red Blood Count 4.40, Mean Corpuscular Volume 80.5, Mean Corpuscular Hemoglobin 24.5, Mean Corpuscular Hemoglobin Concent 30.5, Mean Platelet Volume 8.7, Neutrophils (%) (Auto) 80.9, Lymphocytes (%) (Auto) 5.0, Monocytes (%) (Auto) 9.5, Eosinophils (%) (Auto) 3.4, Basophils (%) (Auto) 0.7, Neutrophils # (Auto) 6.83, Lymphocytes # (Auto) 0.42, Monocytes # (Auto) 0.80, Eosinophils # (Auto) 0.29, Basophils # (Auto) 0.06 02/17/17 11:30 Test 02/17/17 11:15 02/17/17 11:30 Urine Color YELLOW Urine Appearance CLEAR (CLEAR) Urine pH 8.5 (4.5-7.5) Urine Specific [place] 1.010 (1.000-1.030) Urine Protein 1+ (NEG) Urine Glucose (UA) NEG (NEG) Urine Ketones NEG (NEG) Urine Occult Blood NEG (NEG) Urine Nitrite NEG (NEG) Urine Bilirubin NEG (NEG) Urine Urobilinogen NEG (NEG) Urine Leukocyte Esterase NEG (NEG) Urine WBC (Auto) 0 /hpf (0-5) Urine RBC (Auto) 0-4 /hpf (0-4) Urine Hyaline Casts (Auto) 0 /lpf (0-5) Urine Epithelial Cells (Auto) 5-10 /lpf (0-5) Urine Bacteria (Auto) NEG (NEG) White Blood Count 8.44 K/uL (4.8-10.8) Red Blood Count 4.40 M/uL (4.7-6.1) Hemoglobin 10.8 g/dL (14.0-18.0) Hematocrit 35.4 % (42-52) Mean Corpuscular Volume 80.5 fL (80-100) Mean Corpuscular Hemoglobin 24.5 pg (25-34) Mean Corpuscular Hemoglobin Concent 30.5 g/dl (32-36) Platelet Count 219 K/uL (130-400) Mean Platelet Volume 8.7 fL (7.4-10.4) Neutrophils (%) (Auto) 80.9 % Lymphocytes (%) (Auto) 5.0 % Monocytes (%) (Auto) 9.5 % Eosinophils (%) (Auto) 3.4 % Basophils (%) (Auto) 0.7 % Neutrophils # (Auto) 6.83 K/uL (1.4-6.5) Lymphocytes # (Auto) 0.42 K/uL (1.2-3.4) Monocytes # (Auto) 0.80 K/uL (0.11-0.59) Eosinophils # (Auto) 0.29 K/uL (0-0.5) Basophils # (Auto) 0.06 K/uL (0-0.2) RDW Standard Deviation 46.0 fL (36.4-46.3) RDW Coefficient of Variation 15.9 % (11.5-14.5) Immature Granulocyte % (Auto) 0.5 % Immature Granulocyte # (Auto) 0.04 K/uL (0.00-0.02) Anion Gap 4.0 mmol/L (3-11) Est Creatinine Clear Calc Drug Dose 69.4 ml/min Estimated GFR () 68.0 Estimated GFR (Non- 58.6 BUN/Creatinine Ratio 12.1 (10-20) Calcium Level 9.4 mg/dl (8.5-10.1) Total Bilirubin 0.4 mg/dl (0.2-1) Direct Bilirubin 0.1 mg/dl (0-0.2) Aspartate Amino Transf (AST/SGOT) 10 U/L (15-37) Alanine Aminotransferase (ALT/SGPT) 14 U/L (12-78) Alkaline Phosphatase 134 U/L (45-117) Troponin I < 0.015 ng/ml (0-0.045) Pro-B-Type Natriuretic Peptide 293 pg/ml (0-900) Total Protein 7.9 gm/dl (6.4-8.2) Albumin 3.5 gm/dl (3.4-5.0) Lipase 150 U/L (73-393) Laboratory results reviewed by me Medications Administered Medications (Trade) Dose Ordered Sig/Z[place]obia Route Start Time Stop Time Status Last Admin Dose Admin Albuterol/ Ipratropium (Duoneb) 3 ml NOW STAT INH 02/17/17 12:16 02/17/17 12:18 DC 02/17/17 12:29 3 ML Methylprednisolone Sodium Succinate (Solu-Medrol IV) 125 mg NOW STAT IV 02/17/17 12:19 02/17/17 12:20 DC 02/17/17 12:30 125 MG Oxycodone HCl (Roxicodone Immediate Rel 5MG Home Pack) 1 homepack UD ONCE PO 02/17/17 15:00 02/17/17 15:01 DC 02/17/17 15:05 1 HOMEPACK Prednisone (PredniSONE TAB) 60 mg NOW STAT PO 02/17/17 14:58 02/17/17 14:59 DC 02/17/17 15:04 60 MG ECG Indication: weakness Rate (beats per minute): 76 Rhythm: normal sinus Findings: no acute ischemic change, no ectopy ED Course 1050: The patient was evaluated in room C9. A complete history and physical exam was performed. 1216: Ordered Duoneb 3 ml INH. 1219: Ordered Methylprednisolone Sodium Succinate 125 mg IV. 1440: I checked on the patient and he is feeling better. 1448: Ordered Prednisone 60 mg PO. 1500: Ordered Oxycodone HCl 1 homepack PO. 1505: I reevaluated the patient. Discussed results and discharge instructions: He verbalized understanding and agreement. The patient is ready for discharge. Medical Decision Triage Nursing notes reviewed. The patient's presentation and history were concerning for back pain and urinary issues. Etiologies such as musculoskeletal, renal colic, appendicitis, diverticulitis, mesenteric ischemia, aortic pathology, infections, inflammatory bowel disease, PUD, biliary pathology, UTI, as well as others were entertained. Patient was evaluated. Clinically he was doing okay. He has long-standing COPD. He uses nebulizers at home. His oxygen concentrator was working appropriately. He arrived and is O2 saturations were low. He responded very well to supplemental oxygen. Chest x-ray and cardiac workup was unremarkable. The patient was given a DuoNeb and Solu-Medrol. Blood work was unremarkable. Urinalysis revealed no evidence of infection. He had a benign abdomen. The patient was sent for CT imaging but could not tolerate lying flat and refused to do so. He states that he never lies flat because of his COPD. He was sent for x-ray. This was completed with him standing. His KUB did reveal some gallstones but has no pain in the right upper quadrant. His pain is all low in the back. The patient had no significant findings on his x-rays either. He did not receive any pain medication in the ED as he refused. On reassessment the patient's symptoms resolved completely. Urinalysis did not reveal any hematuria. It is possible that this is musculoskeletal as his workup so far is negative. I did discuss the limitations with regards to not being able to get the CT scan. The patient felt comfortable with conservative management he did not want any pain medication by prescription but did take a home pack. He is going to follow up with his primary physician in the next few days. He worsens in any way he will be back. He has oxygen at home. By the evaluation outlined above other emergent etiologies such as those listed in the differential, as well as others, were deemed relatively unlikely. The patient was educated about the findings as listed above. All questions were answered and the patient was pleased with the treatment. Return instructions were outlined and the patient was discharged in stable condition. The patient was referred to to his PCP for follow-up for a recheck of the current condition. Medication Reconcilliation Current Medication List: was personally reviewed by me Blood Pressure Screening Patient's blood pressure: Elevated blood pressure Blood pressure disposition: Referred to PCP Impression Primary Impression: Low back pain Additional Impression: COPD (chronic obstructive pulmonary disease) Scribe Attestation The scribe's documentation has been prepared under my direction and personally reviewed by me in its entirety. I confirm that the note above accurately reflects all work, treatment, procedures, and medical decision making performed by me. Departure Information Dispostion Home / Self-Care Prescriptions Prednisone (Prednisone) 50 Mg Tab 50 MG PO DAILY for 4 Days, #4 TAB Prov: Braulio Padilla MD 02/17/17 Referrals Chidi Bearden MD (PCP) Forms HOME CARE DOCUMENTATION FORM, IMPORTANT VISIT INFORMATION Patient Instructions My [facility] Additional Instructions BACK PAIN INSTRUCTIONS: Prednisone 50mg: Once daily until the prescription is finished. It is best to take this earlier in the day as some patients note occasional difficulty falling asleep when taken in the late evening. Oxycodone (OxyIR) 5mg: Take 1-2 pills every four hours for breakthrough pain. Avoid alcohol, operating machinery or dangerous equipment, working on ladders or roofs, DRIVING, or situations where being under the influence may be dangerous. It is recommended to use an nzrx-vuc-goyifsk stool softener such as Colace, 100mg twice daily while taking this medication to avoid constipation. Acetaminophen(Tylenol) may be used for fever or pain. Use 1000mg every six hours as needed. Avoid using more than 4000mg in a 24 hour period. This medication can be taken if you need to drive, work, or perform activities which may be dangerous when taking narcotic pain medication. Rest and avoid heavy lifting until your symptoms resolve and then gradually return to full activity. A good rule of thumb is if it hurts your back to perform a certain activity, then it should be avoided until you are healthy again. A heating pad, warm compresses, or a hot shower may help with tight muscles and can be done several times a day as needed. Continue current medications. Return to the ER immediately for any numbness, tingling, severe pain, loss of control of your bowels or bladder, inability to walk, or as needed. Follow up with your primary care physician within 3-5 days for a recheck of your current condition. Problem Qualifiers
== END 2017-02-17 15:15 | disposition home or self-care (01) ==
LOC: C.EDB 10:36 → C.EDC 15:15
DX: M54.5 Low back pain (principal); J44.9 Chronic obstructive pulmonary disease, unspecified; I10 Essential (primary) hypertension; E11.9 Type 2 diabetes mellitus without complications; Z85.038 Personal history of other malignant neoplasm of large intestine; Z85.46 Personal history of malignant neoplasm of prostate; Z87.440 Personal history of urinary (tract) infections; Z79.4 Long term (current) use of insulin; Z79.84 Long term (current) use of oral hypoglycemic drugs; Z79.899 Other long term (current) drug therapy; Z91.030 Bee allergy status; Z80.9 Family history of malignant neoplasm, unspecified; Z83.3 Family history of diabetes mellitus; Z82.49 Family history of ischemic heart disease and other diseases of the circulatory system

== ENCOUNTER 2020-04-03 21:06 | Observation (INO) ==
[2020-04-03] MEDS ORDERED: NITROGLYCERIN SL 0.4 MG/TAB TAB SL STA (21:31)
[2020-04-03] MEDS ORDERED: FUROSEMIDE 40 MG/4 ML VIAL IV STA (21:31)
[2020-04-03 21:44] LABS: Basophils # (auto) 0.03 K/uL (0-0.2); Basophils % (auto) 0.3 %; Eosinophils % (auto) 2.2 %; Hemoglobin 12.6 g/dL (14.0-18.0); Immature Granulocytes # (auto) 0.02 K/uL (0.00-0.02); Immature Granulocytes % (auto) 0.2 %; Lymphocytes # (auto) 0.56 K/uL (1.2-3.4); Lymphocytes % (auto) 6.1 %; Mean Corpuscular Hemoglobin 27.9 pg (25-34); Mean Corpuscular Hgb Conc 32.3 g/dL (32-36); Mean Corpuscular Volume 86.3 fL (80-100); Mean Platelet Volume 8.9 fL (7.4-10.4); Monocytes # (auto) 0.86 K/uL (0.11-0.59); Monocytes % (auto) 9.3 %; Neutrophils # (auto) 7.56 K/uL (1.4-6.5); Neutrophils % (auto) 81.9 %; Platelet Count 274 K/uL (130-400); RDW Coefficient of Variation 15.1 % (11.5-14.5); RDW Standard Deviation 47.9 fL (36.4-46.3); Red Blood Count 4.52 M/uL (4.7-6.1); White Blood Count 9.23 K/uL (4.8-10.8)
[2020-04-03 21:49] LABS: Partial Thromboplastin Time 27.6 Seconds (21.0-31.0); Prothrombin Time 10.2 Seconds (9.0-12.0)
[2020-04-03 21:53] LABS: Alanine Aminotransferase 23 U/L (12-78); Albumin Level 3.1 gm/dl (3.4-5.0); Aspartate Aminotransferase 14 U/L (15-37); BUN Creatinine Ratio 13.1 (10-20); Blood Urea Nitrogen 23 mg/dl (7-18); Calcium 8.9 mg/dl (8.5-10.1); Carbon Dioxide 31 mmol/L (21-32); Chloride 105 mmol/L (98-107); Creatinine Clr Calc Pharmacy 51.9 ml/min; Est GFR (African American) 44.1; Est GFR (Non-African American) 38.1; Glucose 190 mg/dl (70-99); Magnesium 2.2 mg/dl (1.8-2.4); Potassium 4.2 mmol/L (3.5-5.1); Sodium 140 mmol/L (136-145)
[2020-04-03 21:58] LABS: Albumin Globulin Ratio 0.7 (0.9-2); Alkaline Phosphatase 172 U/L (45-117); Bilirubin,Total 0.2 mg/dl (0.2-1); Globulin 4.7 gm/dl (2.5-4.0); NT Pro B Type Natriuretic Pept 320 pg/ml (0-900); Total Protein 7.8 gm/dl (6.4-8.2); Troponin I < 0.015 ng/ml (0-0.045)
[2020-04-03 22:30] LABS: Appearance Urine Clear (Clear); Bacteria Urine Automated Negative (Negative); Bilirubin Urine Negative (Negative); Blood Urine 1+ (Negative); Color Urine Yellow; Glucose Urine UA 2+ (Negative); Ketones Urine Negative (Negative); Leukocyte Esterase Urine Negative (Negative); Nitrite Urine Negative (Negative); Protein Urine 3+ (Negative); RBC Urine Automated 0-4 /hpf (0-4); Urobilinogen Urine Negative (Negative)
[2020-04-03 22:31] LABS: Base Excess VBG 4.1 mEq/L; Oxygen Saturation VBG 85.1 %; pH VBG 7.3 (7.36-7.41)
[2020-04-03 22:37] LABS: Influenza A virus by PCR Negative (Neg); Influenza B virus by PCR Negative (Neg); RSV by PCR Negative (Neg); SARS CoV2 RNA(COVID-19) InHosp NEGATIVE (Negative)
[2020-04-03] MEDS ORDERED: METOPROLOL SUCC 50MG EXT REL TAB PO STA (23:30)
--- NOTE | 2020-04-03 23:31 | History & Physical Report ---
Date of Service April 03, 2020 Assessment & Plan (1) Acute respiratory failure with hypoxia: 69yo male with COPD on 3L home O2 presenting with 2-3 days of progressive SOB, hypoxic on arrival at 81% on 3L. Patient has improved on BiPAP with Lasix + Nitro. Breathing comfortably with no distress at present. He has diminished breath sounds without wheezing, no rales. Ddx to include COPD, CHF, less likely PE. Procalcitonin negative. No evidence of PNA. -Observation to medical with telemetry -Liberate BiPAP - use PRN, continue home O3 3L NC with humidity -Lasix 40mg IV daily. Monitor weights, I/Os -Nebs PRN -Check d-dimer (2) Hypertension: Blood pressure elevated on arrival -Continue Amlodipine 10mg po qHS - dose given in ER -Continue Metoprolol 50mg po BID - dose given in ER -Patient is on Lisinopril and Cozaar - difficult time completing medication reconciliation. Patient is not certain which medications he takes. Will hold both agents for now and attempt to contact PCP (3) Diabetes: Chronic -Hold home medication regimen -Lantus 10u BID -ISS -Goal blood sugar 100 - 140 -Check HgbA1C Present on Admission?: Yes (4) COPD (chronic obstructive pulmonary disease): Chronic. On 3L home O2. No wheeze at present -Nebs as needed -Supplemental O2 as needed, goal saturation 92% -Continue Anoro Ellipta Present on Admission?: Yes (5) Depression: Chronic. -Continue Wellbutrin 150mg po qAM Present on Admission?: Yes (6) Hyperlipidemia: Chronic -Continue Atorvastatin 40mg po daily F/E/N - Gentle diuresis. Monitor I/Os, renal function and electrolytes. CC/AHA diet as tolerated Ppx -Heparin Code - DNR/DNI per discussion with patient Dispo - Observation to medical with telemetry Present on Admission?: Yes History of Present Illness Chief Complaint: Shortness of breath Primary Care Provider: Joy Garcia Davis Irizarry is a 69yo male with history of COPD on 3L home O2, DM, HTN presenting with 2-3 days of progressive SOB. Patient states he has had some nasal congestion lately and it has been hard to breath. He reports difficulty sleeping x 2 nights due to shortness of breath. Also with worsening bilateral LE edema. He reports wheezing as well as shakes and chills Patient denies new cough, fever, sweats, chest pain, palpitations, chest tightness Denies new or worsening orthopnea - has never laid flat No urinary complaints No additional complaints at this time. On arrival to the ER patient afebrile, tachycardic, saturating 81% on his home 3L of oxygen. Blood pressure high on arrival. He was administered Lasix, Nitro and placed on BiPAP with improvement. ER Course: Lasix 20mg IV, Nitro 0.4mg, Metoprolol 50mg po, Amlodipine 10mg po Allergies Allergy/AdvReac Type Severity Reaction Status Date / Time bee venom protein (honey bee) Allergy Severe ANAPHYLAXIS Verified 04/03/20 22:58 Home Medications Medication Instructions Recorded Confirmed Type albuterol sulfate 2.5 mg INHALATION QID PRN 03/10/19 04/03/20 History albuterol sulfate [Ventolin HFA] 2 puff INHALATION QID PRN 03/10/19 04/03/20 History amlodipine [Norvasc] 10 mg PO HS 03/10/19 04/03/20 History atorvastatin [Lipitor] 40 mg PO HS 03/10/19 04/03/20 History clotrimazole [Antifungal 1 applic TOPICAL BID 03/10/19 04/03/20 History (clotrimazole)] cyanocobalamin (vitamin B-12) 500 mcg PO DAILY 03/10/19 04/03/20 History [Vitamin B-12] dapagliflozin [Farxiga] 10 mg PO QAM 03/10/19 04/03/20 History ferrous sulfate 325 mg PO DAILY 03/10/19 04/03/20 History furosemide [Lasix] 20 mg PO DAILY 03/10/19 04/03/20 History insulin aspart U-100 [Novolog 5 unit SUBCUT DAILYBD 03/10/19 04/03/20 History Flexpen U-100 Insulin] insulin aspart U-100 [Novolog 10 unit SUBCUT DAILYBL 03/10/19 04/03/20 History Flexpen U-100 Insulin] insulin glargine [Basaglar KwikPen 40 unit SUBCUT QAM 03/10/19 04/03/20 History U-100 Insulin] lisinopril [Zestril] 20 mg PO BID 03/10/19 04/03/20 History losartan [Cozaar] 100 mg PO DAILY 03/10/19 04/03/20 History metoprolol tartrate [Lopressor] 50 mg PO BID 03/10/19 04/03/20 History pioglitazone [Actos] 30 mg PO DAILYBD 03/10/19 04/03/20 History tolnaftate [Tinactin] 1 applic TOPICAL DAILY 03/10/19 04/03/20 History umeclidinium-vilanterol [Anoro 1 inh INHALATION QAM 03/10/19 04/03/20 History Ellipta] sildenafil (pulm.hypertension) 20 100 mg PO ONCE PRN #30 tab 11/07/19 04/03/20 Rx mg tablet bupropion HCl 150 mg PO QAM 04/03/20 04/03/20 History ropinirole 0.5 mg PO DAILY 04/03/20 04/03/20 History trazodone 50 mg PO HS 04/03/20 04/03/20 History umeclidinium [Incruse Ellipta] 1 inh INHALATION DAILY 04/03/20 04/03/20 History Past Med/Surg History Medical History (Updated 04/04/20 @ 00:24 by Lisa Guevara DO) Colon cancer COPD (chronic obstructive pulmonary disease) Diabetes Hypertension Influenza B Knee pain Low back pain Orthostatic dizziness Prostate cancer (06/23/08) "Rising PSA Status post biopsy revealing adenocarcinoma [place] 3+4 10 of 24 cores positive, High-grade prostatic intraepithelial neoplasm present Status post robotic prostatectomy 10/06/2008 Adenocarcinoma [place] 3+3 negative margins Perineural invasion present Stage pT2c pN0M0 Rising PSA to 0.08 Status post completion of salvage radiation 11/16/2014 received 7040 cGy " On 11/24/14 15:53 Oliva Lozano wrote "Rising PSA Status post biopsy revealing adenocarcinoma [place] 3+4 10 of 24 cores positive, High-grade prostatic intraepithelial neoplasm present Status post robotic prostatectomy 10/06/2008 Adenocarcinoma [place] 3+3 negative margins Perineural invasion present Stage pT2c pN0M0 Rising PSA to 0.08 Status post completion of salvage radiation 11/16/2014 received 7040 cGy " On 09/04/14 10:59 Oliva Lozano wrote "Rising PSA Status post biopsy revealing adenocarcinoma [place] 3+4 10 of 24 cores positive, High-grade prostatic intraepithelial neoplasm present Status post robotic prostatectomy 10/06/2008 Adenocarcinoma [place] 3+3 negative margins Perineural invasion present PT2c pN0M0 Rising PSA to 0.08 " Urinary problem Surgical History (Updated 04/04/20 @ 00:12 by Lisa Guevara DO) History of prostatectomy Family History Other No significant family history Social History (Updated 04/04/20 @ 00:13 by Lisa Guevara DO) Smoking Status: Former smoker Hx Alcohol Use: No Hx Substance Use: No Preferred Language: Khmer Feels Safe at Home: Yes Review of Systems Review of Systems: All systems reviewed & are unremarkable except as noted in HPI & below Physical Exam Physical Exam: General: patient resting comfortably, NAD, non-toxic in marybeth earance, AA&O x 4, BiPAP in place Skin: warm, dry, intact, no rashes or lesions HEENT: NC/AT, PERRL, EOMI, anicteric sclera, conjunctiva without injection, external ear normal to inspection and nontender, nares patent, moist mucus membranes, dentition intact, no oropharyngeal lesions, neck supple, trachea midline, no LAD, no thyromegaly, no JVD Heart: +S1/S2, regular, tachycardic, no m/r/g Lungs: equal air entry bilaterally, no rales/rhonchi/wheezes Abd: +BS, soft, NT/ND, no masses/organomegaly/ascites Ext: warm, 2+ pulses in UE/LE bilaterally, no clubbing/cyanosis, 3+ pitting edema of bilateral LE - equal Neuro: nonfocal, patient AA&O x 4, speech intact, no facial droop, moving all extremities on command with equal strength 5/5 Results & Data Results & Data ([facility]) Vital Signs (Past 12 Hours) Vital Signs Temp Pulse Resp BP Pulse Ox 04/03/20 22:00 102 H 26 H 140/81 98 04/03/20 21:35 99 04/03/20 21:30 81 L 04/03/20 21:26 100 H 32 H 97 04/03/20 21:19 99 H 26 H 183/72 H 99 04/03/20 21:07 36.7 C 110 H 36 H 81 L Laboratory Results Lab Results 04/03/20 04/03/20 04/03/20 Range/Units 21:26 21:26 21:26 WBC 9.23 (4.8-10.8) K/uL RBC 4.52 L (4.7-6.1) M/uL Hgb 12.6 L (14.0-18.0) g/dL Hct 39.0 L (42-52) % MCV 86.3 (80-100) fL MCH 27.9 (25-34) pg MCHC 32.3 (32-36) g/dL RDW Std Deviation 47.9 H (36.4-46.3) fL RDW Coeff of Lyric 15.1 H (11.5-14.5) % Plt Count 274 (130-400) K/uL MPV 8.9 (7.4-10.4) fL Immature Gran % (Auto) 0.2 % Neut % (Auto) 81.9 % Lymph % (Auto) 6.1 % [place] % (Auto) 9.3 % Eos % (Auto) 2.2 % Baso % (Auto) 0.3 % Neut # (Auto) 7.56 H (1.4-6.5) K/uL Lymph # (Auto) 0.56 L (1.2-3.4) K/uL [place] # (Auto) 0.86 H (0.11-0.59) K/uL Eos # (Auto) 0.20 (0-0.5) K/uL Baso # (Auto) 0.03 (0-0.2) K/uL Immature Gran # (Auto) 0.02 (0.00-0.02) K/uL PT (9.0-12.0) Seconds INR (0.9-1.1) APTT (21.0-31.0) Seconds PTT Ratio VBG pH (7.36-7.41) VBG pCO2 (38-50) mmHg VBG pO2 mmHg VBG HCO3 mmol/L VBG O2 Saturation % VBG Base Excess mEq/L Barometric Pressure mm/Hg Sodium 140 (136-145) mmol/L Potassium 4.2 (3.5-5.1) mmol/L Chloride 105 (98-107) mmol/L Carbon Dioxide 31 (21-32) mmol/L Anion Gap 5.0 (3-11) BUN 23 H (7-18) mg/dl Creatinine 1.77 H (0.6-1.4) mg/dl Est Cr Clr Drug Dosing 51.9 ml/min Est GFR ( Amer) 44.1 Est GFR (Non-Af Amer) 38.1 BUN/Creatinine Ratio 13.1 (10-20) Glucose 190 H (70-99) mg/dl Lactate (0.4-2.0) mmol/L Calcium 8.9 (8.5-10.1) mg/dl Magnesium 2.2 (1.8-2.4) mg/dl Total Bilirubin 0.2 (0.2-1) mg/dl AST 14 L (15-37) U/L ALT 23 (12-78) U/L Alkaline Phosphatase 172 H (45-117) U/L Troponin I < 0.015 (0-0.045) ng/ml NT-Pro-B Natriuret Pep 320 (0-900) pg/ml Total Protein 7.8 (6.4-8.2) gm/dl Albumin 3.1 L (3.4-5.0) gm/dl Globulin 4.7 H (2.5-4.0) gm/dl Albumin/Globulin Ratio 0.7 L (0.9-2) Procalcitonin < 0.05 (0-0.5) ng/ml Urine Color Urine Appearance (Clear) Urine pH (4.5-7.5) Ur Specific [place] (1.000-1.030) Urine Protein (Negative) Urine Glucose (UA) (Negative) Urine Ketones (Negative) Urine Blood (Negative) Urine Nitrite (Negative) Urine Bilirubin (Negative) Urine Urobilinogen (Negative) Ur Leukocyte Esterase (Negative) Urine WBC (Auto) (0-5) /hpf Urine RBC (Auto) (0-4) /hpf U Hyaline Cast (Auto) (0-5) /lpf U Epithel Cells (Auto) (0-5) /lpf Urine Bacteria (Auto) (Negative) COVID-19 Eval Order SARS-CoV-2 (PCR) (Negative) Influenza Type A (PCR) (Neg) Influenza Type B (PCR) (Neg) RSV (RT-PCR) (Neg) 04/03/20 04/03/20 04/03/20 Range/Units 21:26 21:26 21:41 WBC (4.8-10.8) K/uL RBC (4.7-6.1) M/uL Hgb (14.0-18.0) g/dL Hct (42-52) % MCV (80-100) fL MCH (25-34) pg MCHC (32-36) g/dL RDW Std Deviation (36.4-46.3) fL RDW Coeff of Lyric (11.5-14.5) % Plt Count (130-400) K/uL MPV (7.4-10.4) fL Immature Gran % (Auto) % Neut % (Auto) % Lymph % (Auto) % [place] % (Auto) % Eos % (Auto) % Baso % (Auto) % Neut # (Auto) (1.4-6.5) K/uL Lymph # (Auto) (1.2-3.4) K/uL [place] # (Auto) (0.11-0.59) K/uL Eos # (Auto) (0-0.5) K/uL Baso # (Auto) (0-0.2) K/uL Immature Gran # (Auto) (0.00-0.02) K/uL PT 10.2 (9.0-12.0) Seconds INR 1.0 (0.9-1.1) APTT 27.6 (21.0-31.0) Seconds PTT Ratio 1.0 VBG pH (7.36-7.41) VBG pCO2 (38-50) mmHg VBG pO2 mmHg VBG HCO3 mmol/L VBG O2 Saturation % VBG Base Excess mEq/L Barometric Pressure mm/Hg Sodium (136-145) mmol/L Potassium (3.5-5.1) mmol/L Chloride (98-107) mmol/L Carbon Dioxide (21-32) mmol/L Anion Gap (3-11) BUN (7-18) mg/dl Creatinine (0.6-1.4) mg/dl Est Cr Clr Drug Dosing ml/min Est GFR ( Amer) Est GFR (Non-Af Amer) BUN/Creatinine Ratio (10-20) Glucose (70-99) mg/dl Lactate 2.3 H* (0.4-2.0) mmol/L Calcium (8.5-10.1) mg/dl Magnesium (1.8-2.4) mg/dl Total Bilirubin (0.2-1) mg/dl AST (15-37) U/L ALT (12-78) U/L Alkaline Phosphatase (45-117) U/L Troponin I (0-0.045) ng/ml NT-Pro-B Natriuret Pep (0-900) pg/ml Total Protein (6.4-8.2) gm/dl Albumin (3.4-5.0) gm/dl Globulin (2.5-4.0) gm/dl Albumin/Globulin Ratio (0.9-2) Procalcitonin (0-0.5) ng/ml Urine Color Urine Appearance (Clear) Urine pH (4.5-7.5) Ur Specific [place] (1.000-1.030) Urine Protein (Negative) Urine Glucose (UA) (Negative) Urine Ketones (Negative) Urine Blood (Negative) Urine Nitrite (Negative) Urine Bilirubin (Negative) Urine Urobilinogen (Negative) Ur Leukocyte Esterase (Negative) Urine WBC (Auto) (0-5) /hpf Urine RBC (Auto) (0-4) /hpf U Hyaline Cast (Auto) (0-5) /lpf U Epithel Cells (Auto) (0-5) /lpf Urine Bacteria (Auto) (Negative) COVID-19 Eval Order CovFluRsv at [facility] SARS-CoV-2 (PCR) (Negative) Influenza Type A (PCR) (Neg) Influenza Type B (PCR) (Neg) RSV (RT-PCR) (Neg) 04/03/20 04/03/20 04/03/20 Range/Units 21:41 22:15 22:20 WBC (4.8-10.8) K/uL RBC (4.7-6.1) M/uL Hgb (14.0-18.0) g/dL Hct (42-52) % MCV (80-100) fL MCH (25-34) pg MCHC (32-36) g/dL RDW Std Deviation (36.4-46.3) fL RDW Coeff of Lyric (11.5-14.5) % Plt Count (130-400) K/uL MPV (7.4-10.4) fL Immature Gran % (Auto) % Neut % (Auto) % Lymph % (Auto) % [place] % (Auto) % Eos % (Auto) % Baso % (Auto) % Neut # (Auto) (1.4-6.5) K/uL Lymph # (Auto) (1.2-3.4) K/uL [place] # (Auto) (0.11-0.59) K/uL Eos # (Auto) (0-0.5) K/uL Baso # (Auto) (0-0.2) K/uL Immature Gran # (Auto) (0.00-0.02) K/uL PT (9.0-12.0) Seconds INR (0.9-1.1) APTT (21.0-31.0) Seconds PTT Ratio VBG pH 7.30 L (7.36-7.41) VBG pCO2 67 H (38-50) mmHg VBG pO2 52 mmHg VBG HCO3 32 mmol/L VBG O2 Saturation 85.1 % VBG Base Excess 4.1 mEq/L Barometric Pressure 722.8 mm/Hg Sodium (136-145) mmol/L Potassium (3.5-5.1) mmol/L Chloride (98-107) mmol/L Carbon Dioxide (21-32) mmol/L Anion Gap (3-11) BUN (7-18) mg/dl Creatinine (0.6-1.4) mg/dl Est Cr Clr Drug Dosing ml/min Est GFR ( Amer) Est GFR (Non-Af Amer) BUN/Creatinine Ratio (10-20) Glucose (70-99) mg/dl Lactate (0.4-2.0) mmol/L Calcium (8.5-10.1) mg/dl Magnesium (1.8-2.4) mg/dl Total Bilirubin (0.2-1) mg/dl AST (15-37) U/L ALT (12-78) U/L Alkaline Phosphatase (45-117) U/L Troponin I (0-0.045) ng/ml NT-Pro-B Natriuret Pep (0-900) pg/ml Total Protein (6.4-8.2) gm/dl Albumin (3.4-5.0) gm/dl Globulin (2.5-4.0) gm/dl Albumin/Globulin Ratio (0.9-2) Procalcitonin (0-0.5) ng/ml Urine Color Yellow Urine Appearance Clear (Clear) Urine pH 5.0 (4.5-7.5) Ur Specific [place] 1.020 (1.000-1.030) Urine Protein 3+ H (Negative) Urine Glucose (UA) 2+ H (Negative) Urine Ketones Negative (Negative) Urine Blood 1+ H (Negative) Urine Nitrite Negative (Negative) Urine Bilirubin Negative (Negative) Urine Urobilinogen Negative (Negative) Ur Leukocyte Esterase Negative (Negative) Urine WBC (Auto) 1-5 (0-5) /hpf Urine RBC (Auto) 0-4 (0-4) /hpf U Hyaline Cast (Auto) 1-5 (0-5) /lpf U Epithel Cells (Auto) 10-20 H (0-5) /lpf Urine Bacteria (Auto) Negative (Negative) COVID-19 Eval Order SARS-CoV-2 (PCR) NEGATIVE (Negative) Influenza Type A (PCR) Negative (Neg) Influenza Type B (PCR) Negative (Neg) RSV (RT-PCR) Negative (Neg) Code Status & VTE Plan VTE Prophylaxis Plan VTE Prophylaxis will be ordered: Yes PG Care Time/CCT Total # of Minutes Spent Total Time Spent with Patient: Total time spent is greater than 50% in coordination of care (as documented) at patient's floor/unit and/or counseling patient: Coding Level of Care Code 61713 OBS Care - Level 3 Diagnoses Acute respiratory failure with hypoxia J96.01 Hypertension I10 Hypertension type: essential hypertension Diabetes E11.9; Z79.4 Diabetes mellitus complication status: without complication Diabetes mellitus beauty specialist insulin use: with detention use Diabetes mellitus type: type 2 COPD (chronic obstructive pulmonary disease) J44.9 COPD type: unspecified COPD Depression F32.9 Depression Type: unspecified Hyperlipidemia E78.5 Hyperlipidemia type: unspecified (1) Diabetes Diabetes mellitus complication status: without complication Diabetes mellitus beauty specialist insulin use: with detention use Diabetes mellitus type: type 2 Qualified Code(s): E11.9 - Type 2 diabetes mellitus without complications; 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
[2020-04-03] MEDS ORDERED: amLODIPine BESYLATE 5 MG TAB PO STA (23:38)
--- NOTE | 2020-04-04 00:39 | Emergency Department Note ---
Impression & Plan Acute hypoxemic respiratory failure ED Provider Note NAME: JO BISHOP AGE: 69 SEX: M : 1950 ARRIVES VIA: Walk-In INFORMANT: Patient, ED PROVIDER(S): Rafa Lambert MD Chief Complaint: Shortness of breath HPI: Patient does present with worsening shortness of breath and orthopnea. The patient does have chronic issues with COPD secondary to environmental exposures at work in the past. The patient is chronically on 3 L of oxygen at all times but states that his shortness of breath has gotten worse over the last week and especially worse today. The patient has noticed increasing lower extremity swelling. The patient has no prior history of CHF or heart disease. Patient states he is not was compliant with a CPAP which she is to wear at home. Patient states he has felt more tight. The patient states he has been compliant with his medications. Patient denies any prior history of DVT or PE. Patient states that shortness of breath is gotten progressively worse and is constant in nature. ROS: See HPI for pertinent positives and negatives. A total of 10 systems were reviewed and otherwise negative. Past medical history: See below Surgical history: See below Social history: See below Physical Exam: GENERAL: Severe distress, nasal cannula in place, tachypnea noted. EYE EXAM: Normal conjunctiva. PERRL, no anisocoria and EOM's grossly intact w/o pain. NECK: Supple, no nuchal rigidity, no adenopathy, non-tender. No signs of meningismus. LUNGS: Short shallow breathing, tachypnea, decreased breath sounds bilaterally with no obvious wheezing or rhonchi, diminished breath sounds bilateral bases with bibasilar crackles noted. HEART: Tachycardic and regular, no MRG. ABDOMEN: Abdomen soft, non-tender, normo-active bowel sounds, no masses, no rebound or guarding. BACK: No CVA TTP. SKIN: No rashes and no bruising. UPPER EXTREMITIES: Upper extremities are grossly normal. LOWER EXTREMITIES: Grossly normal, 3+ bilateral lower extremity symmetric edema. NEURO EXAM: A&O x3, cranial nerves II-XII grossly intact, normal speech, moves all 4 extremities on command w/o issue. Differential diagnoses: Reactive airway disease, pneumonia, pneumothorax, COPD, CHF, infections, cardiac ischemia, pulmonary embolism, musculoskeletal, gastrointestinal, as well as other pathologies. Course: Patient was seen and evaluated the bedside. Full history physical exam was performed. EKG: Indication: Shortness of breath Normal sinus rhythm, rate of 97, normal intervals, normal axis, no ST changes or T WI. Imaging Studies: Poor inspiratory effort, increasing haziness bilaterally, questionable pleural effusion right chest, gastric bubble noted. Cardiac monitoring: An order was placed for continuous cardiac monitoring. The monitor shows a rate of 88 with sinus rhythm. MDM: Patient has a white count of 9. Patient has mild anemia at 12.6. Patient has a normal platelet count. The patient is mildly hypercarbic with a pH of 7.3 and PCO2 of 67. Patient does have mild MILTON. The patient's troponin is not elevated BNP is not elevated. Patient had initially given dose of nitro and Lasix due to his hypertension and lower extremity edema coupled with worsening orthopnea. The patient did improve on the BiPAP and I did down titrate his oxygen the patient was tolerating FiO2 of 30% 10/5. I did speak to the on-call hospitalist and the patient was admitted to the medicine service by Dr. Guevara. Critical Care: I have personally spent 75 minutes of critical care time in direct management of this patient. This includes bedside care, interpretation of diagnostic studies, and testing, discussion with consultants, patient, and family members, and other require inpatient management activities. This 75 minutes is in excess of all separately billable procedures. Past Med/Surg History Medical History Colon cancer COPD (chronic obstructive pulmonary disease) Diabetes Hypertension Influenza B Knee pain Low back pain Orthostatic dizziness Prostate cancer (06/23/08) "Rising PSA Status post biopsy revealing adenocarcinoma Jos[place] 3+4 10 of 24 cores positive, High-grade prostatic intraepithelial neoplasm present Status post robotic prostatectomy 10/06/2008 Adenocarcinoma Josy 3+3 negative margins Perineural invasion present Stage pT2c pN0M0 Rising PSA to 0.08 Status post completion of salvage radiation 11/16/2014 received 7040 cGy " On 11/24/14 15:53 Oliva Lozano wrote "Rising PSA Status post biopsy revealing adenocarcinoma [place] 3+4 10 of 24 cores positive, High-grade prostatic intraepithelial neoplasm present Status post robotic prostatectomy 10/06/2008 Adenocarcinoma Josy 3+3 negative margins Perineural invasion present Stage pT2c pN0M0 Rising PSA to 0.08 Status post completion of salvage radiation 11/16/2014 received 7040 cGy " On 09/04/14 10:59 Oliva Lozano wrote "Rising PSA Status post biopsy revealing adenocarcinoma Josy 3+4 10 of 24 cores positive, High-grade prostatic intraepithelial neoplasm present Status post robotic prostatectomy 10/06/2008 Adenocarcinoma Josy 3+3 negative margins Perineural invasion present PT2c pN0M0 Rising PSA to 0.08 " Urinary problem Surgical History History of prostatectomy Family History Other No significant family history Social History Smoking Status: Former smoker Hx Alcohol Use: No Hx Substance Use: No Preferred Language: Beninese Feels Safe at Home: Yes Allergies Allergies Allergy/AdvReac Type Severity Reaction Status Date / Time bee venom protein (honey bee) Allergy Severe ANAPHYLAXIS Verified 04/03/20 22:58 Home Meds Home Medications Medication Instructions Recorded Confirmed albuterol sulfate 2.5 mg INHALATION QID PRN 03/10/19 04/03/20 albuterol sulfate [Ventolin HFA] 2 puff INHALATION QID PRN 03/10/19 04/03/20 amlodipine [Norvasc] 10 mg PO HS 03/10/19 04/03/20 atorvastatin [Lipitor] 40 mg PO HS 03/10/19 04/03/20 clotrimazole [Antifungal 1 applic TOPICAL BID 03/10/19 04/03/20 (clotrimazole)] cyanocobalamin (vitamin B-12) 500 mcg PO DAILY 03/10/19 04/03/20 [Vitamin B-12] dapagliflozin [Farxiga] 10 mg PO QAM 03/10/19 04/03/20 ferrous sulfate 325 mg PO DAILY 03/10/19 04/03/20 furosemide [Lasix] 20 mg PO DAILY 03/10/19 04/03/20 insulin aspart U-100 [Novolog 5 unit SUBCUT DAILYBD 03/10/19 04/03/20 Flexpen U-100 Insulin] insulin aspart U-100 [Novolog 10 unit SUBCUT DAILYBL 03/10/19 04/03/20 Flexpen U-100 Insulin] insulin glargine [Basaglar KwikPen 40 unit SUBCUT QAM 03/10/19 04/03/20 U-100 Insulin] lisinopril [Zestril] 20 mg PO BID 03/10/19 04/03/20 losartan [Cozaar] 100 mg PO DAILY 03/10/19 04/03/20 metoprolol tartrate [Lopressor] 50 mg PO BID 03/10/19 04/03/20 pioglitazone [Actos] 30 mg PO DAILYBD 03/10/19 04/03/20 tolnaftate [Tinactin] 1 applic TOPICAL DAILY 03/10/19 04/03/20 umeclidinium-vilanterol [Anoro 1 inh INHALATION QAM 03/10/19 04/03/20 Ellipta] bupropion HCl 150 mg PO QAM 04/03/20 04/03/20 ropinirole 0.5 mg PO DAILY 04/03/20 04/03/20 trazodone 50 mg PO HS 04/03/20 04/03/20 umeclidinium [Incruse Ellipta] 1 inh INHALATION DAILY 04/03/20 04/03/20 Previous Rx's Medication Instructions Recorded sildenafil (pulm.hypertension) 20 100 mg PO ONCE PRN #30 tab 11/06/20 mg tablet Results & Data (ED) Vital Signs Vital Signs - 24 hr 04/03/20 21:07 04/03/20 21:19 04/03/20 21:26 Temperature 36.7 C Temperature Source Temporal Artery Scan Pulse Rate 110 H 99 H 100 H Pulse Strength Normal Respiratory Rate 36 H 26 H 32 H Respiratory Effort / Characteristics Spontaneous SOB on Exertion Respiratory Depth Normal Respiratory Pattern Regular Blood Pressure 183/72 H Blood Pressure Mean 89 Blood Pressure Position Sitting Pulse Oximetry 81 L 99 97 Oxygen Delivery Method Nasal Cannula BiPAP Oxygen Flow Rate 3 Fraction of Inspired Oxygen 40 40 Sepsis Recent Fever Within 48 Hours Yes Sepsis New/Unexplained Change in Mental Status N/A Sepsis Action Taken by Nursing No Action Required Fraction of Inspired Oxygen - Titration Pulse Oximetry Post Tiitration 04/03/20 21:30 04/03/20 21:35 04/03/20 22:00 Temperature Temperature Source Pulse Rate 102 H Pulse Strength Respiratory Rate 26 H Respiratory Effort / Characteristics Respiratory Depth Respiratory Pattern Blood Pressure 140/81 Blood Pressure Mean 97 Blood Pressure Position Pulse Oximetry 81 L 99 98 Oxygen Delivery Method Room Air BiPAP BiPAP BiPAP Oxygen Flow Rate 3 Fraction of Inspired Oxygen 40 Sepsis Recent Fever Within 48 Hours Sepsis New/Unexplained Change in Mental Status Sepsis Action Taken by Nursing Fraction of Inspired Oxygen - Titration 40 Pulse Oximetry Post Tiitration 99 04/03/20 23:52 Temperature Temperature Source Pulse Rate 88 Pulse Strength Respiratory Rate 28 H Respiratory Effort / Characteristics Spontaneous SOB on Exertion Respiratory Depth Normal Respiratory Pattern Regular Blood Pressure Blood Pressure Mean Blood Pressure Position Pulse Oximetry 95 Oxygen Delivery Method BiPAP Oxygen Flow Rate Fraction of Inspired Oxygen 40 Sepsis Recent Fever Within 48 Hours Sepsis New/Unexplained Change in Mental Status Sepsis Action Taken by Nursing Fraction of Inspired Oxygen - Titration Pulse Oximetry Post Tiitration Home Medications Current Medication List: was personally reviewed by me Laboratory Data Attestation: I reviewed the patient's lab results. Result diagrams: 04/03/20 21:26 04/03/20 21:26 Lab Results 04/03/20 04/03/20 04/03/20 Range/Units 21:26 21:26 21:26 WBC 9.23 (4.8-10.8) K/uL RBC 4.52 L (4.7-6.1) M/uL Hgb 12.6 L (14.0-18.0) g/dL Hct 39.0 L (42-52) % MCV 86.3 (80-100) fL MCH 27.9 (25-34) pg MCHC 32.3 (32-36) g/dL RDW Std Deviation 47.9 H (36.4-46.3) fL RDW Coeff of Lyric 15.1 H (11.5-14.5) % Plt Count 274 (130-400) K/uL MPV 8.9 (7.4-10.4) fL Immature Gran % (Auto) 0.2 % Neut % (Auto) 81.9 % Lymph % (Auto) 6.1 % [place] % (Auto) 9.3 % Eos % (Auto) 2.2 % Baso % (Auto) 0.3 % Neut # (Auto) 7.56 H (1.4-6.5) K/uL Lymph # (Auto) 0.56 L (1.2-3.4) K/uL [place] # (Auto) 0.86 H (0.11-0.59) K/uL Eos # (Auto) 0.20 (0-0.5) K/uL Baso # (Auto) 0.03 (0-0.2) K/uL Immature Gran # (Auto) 0.02 (0.00-0.02) K/uL PT (9.0-12.0) Seconds INR (0.9-1.1) APTT (21.0-31.0) Seconds PTT Ratio VBG pH (7.36-7.41) VBG pCO2 (38-50) mmHg VBG pO2 mmHg VBG HCO3 mmol/L VBG O2 Saturation % VBG Base Excess mEq/L Barometric Pressure mm/Hg Sodium 140 (136-145) mmol/L Potassium 4.2 (3.5-5.1) mmol/L Chloride 105 (98-107) mmol/L Carbon Dioxide 31 (21-32) mmol/L Anion Gap 5.0 (3-11) BUN 23 H (7-18) mg/dl Creatinine 1.77 H (0.6-1.4) mg/dl Est Cr Clr Drug Dosing 51.9 ml/min Est GFR ( Amer) 44.1 Est GFR (Non-Af Amer) 38.1 BUN/Creatinine Ratio 13.1 (10-20) Glucose 190 H (70-99) mg/dl Lactate (0.4-2.0) mmol/L Calcium 8.9 (8.5-10.1) mg/dl Magnesium 2.2 (1.8-2.4) mg/dl Total Bilirubin 0.2 (0.2-1) mg/dl AST 14 L (15-37) U/L ALT 23 (12-78) U/L Alkaline Phosphatase 172 H (45-117) U/L Troponin I < 0.015 (0-0.045) ng/ml NT-Pro-B Natriuret Pep 320 (0-900) pg/ml Total Protein 7.8 (6.4-8.2) gm/dl Albumin 3.1 L (3.4-5.0) gm/dl Globulin 4.7 H (2.5-4.0) gm/dl Albumin/Globulin Ratio 0.7 L (0.9-2) Procalcitonin < 0.05 (0-0.5) ng/ml Urine Color Urine Appearance (Clear) Urine pH (4.5-7.5) Ur Specific [place] (1.000-1.030) Urine Protein (Negative) Urine Glucose (UA) (Negative) Urine Ketones (Negative) Urine Blood (Negative) Urine Nitrite (Negative) Urine Bilirubin (Negative) Urine Urobilinogen (Negative) Ur Leukocyte Esterase (Negative) Urine WBC (Auto) (0-5) /hpf Urine RBC (Auto) (0-4) /hpf U Hyaline Cast (Auto) (0-5) /lpf U Epithel Cells (Auto) (0-5) /lpf Urine Bacteria (Auto) (Negative) COVID-19 Eval Order SARS-CoV-2 (PCR) (Negative) Influenza Type A (PCR) (Neg) Influenza Type B (PCR) (Neg) RSV (RT-PCR) (Neg) 04/03/20 04/03/20 04/03/20 Range/Units 21:26 21:26 21:41 WBC (4.8-10.8) K/uL RBC (4.7-6.1) M/uL Hgb (14.0-18.0) g/dL Hct (42-52) % MCV (80-100) fL MCH (25-34) pg MCHC (32-36) g/dL RDW Std Deviation (36.4-46.3) fL RDW Coeff of Lyric (11.5-14.5) % Plt Count (130-400) K/uL MPV (7.4-10.4) fL Immature Gran % (Auto) % Neut % (Auto) % Lymph % (Auto) % [place] % (Auto) % Eos % (Auto) % Baso % (Auto) % Neut # (Auto) (1.4-6.5) K/uL Lymph # (Auto) (1.2-3.4) K/uL [place] # (Auto) (0.11-0.59) K/uL Eos # (Auto) (0-0.5) K/uL Baso # (Auto) (0-0.2) K/uL Immature Gran # (Auto) (0.00-0.02) K/uL PT 10.2 (9.0-12.0) Seconds INR 1.0 (0.9-1.1) APTT 27.6 (21.0-31.0) Seconds PTT Ratio 1.0 VBG pH (7.36-7.41) VBG pCO2 (38-50) mmHg VBG pO2 mmHg VBG HCO3 mmol/L VBG O2 Saturation % VBG Base Excess mEq/L Barometric Pressure mm/Hg Sodium (136-145) mmol/L Potassium (3.5-5.1) mmol/L Chloride (98-107) mmol/L Carbon Dioxide (21-32) mmol/L Anion Gap (3-11) BUN (7-18) mg/dl Creatinine (0.6-1.4) mg/dl Est Cr Clr Drug Dosing ml/min Est GFR ( Amer) Est GFR (Non-Af Amer) BUN/Creatinine Ratio (10-20) Glucose (70-99) mg/dl Lactate 2.3 H* (0.4-2.0) mmol/L Calcium (8.5-10.1) mg/dl Magnesium (1.8-2.4) mg/dl Total Bilirubin (0.2-1) mg/dl AST (15-37) U/L ALT (12-78) U/L Alkaline Phosphatase (45-117) U/L Troponin I (0-0.045) ng/ml NT-Pro-B Natriuret Pep (0-900) pg/ml Total Protein (6.4-8.2) gm/dl Albumin (3.4-5.0) gm/dl Globulin (2.5-4.0) gm/dl Albumin/Globulin Ratio (0.9-2) Procalcitonin (0-0.5) ng/ml Urine Color Urine Appearance (Clear) Urine pH (4.5-7.5) Ur Specific [place] (1.000-1.030) Urine Protein (Negative) Urine Glucose (UA) (Negative) Urine Ketones (Negative) Urine Blood (Negative) Urine Nitrite (Negative) Urine Bilirubin (Negative) Urine Urobilinogen (Negative) Ur Leukocyte Esterase (Negative) Urine WBC (Auto) (0-5) /hpf Urine RBC (Auto) (0-4) /hpf U Hyaline Cast (Auto) (0-5) /lpf U Epithel Cells (Auto) (0-5) /lpf Urine Bacteria (Auto) (Negative) COVID-19 Eval Order CovFluRsv at [facility] SARS-CoV-2 (PCR) (Negative) Influenza Type A (PCR) (Neg) Influenza Type B (PCR) (Neg) RSV (RT-PCR) (Neg) 04/03/20 04/03/20 04/03/20 Range/Units 21:41 22:15 22:20 WBC (4.8-10.8) K/uL RBC (4.7-6.1) M/uL Hgb (14.0-18.0) g/dL Hct (42-52) % MCV (80-100) fL MCH (25-34) pg MCHC (32-36) g/dL RDW Std Deviation (36.4-46.3) fL RDW Coeff of Lyric (11.5-14.5) % Plt Count (130-400) K/uL MPV (7.4-10.4) fL Immature Gran % (Auto) % Neut % (Auto) % Lymph % (Auto) % [place] % (Auto) % Eos % (Auto) % Baso % (Auto) % Neut # (Auto) (1.4-6.5) K/uL Lymph # (Auto) (1.2-3.4) K/uL [place] # (Auto) (0.11-0.59) K/uL Eos # (Auto) (0-0.5) K/uL Baso # (Auto) (0-0.2) K/uL Immature Gran # (Auto) (0.00-0.02) K/uL PT (9.0-12.0) Seconds INR (0.9-1.1) APTT (21.0-31.0) Seconds PTT Ratio VBG pH 7.30 L (7.36-7.41) VBG pCO2 67 H (38-50) mmHg VBG pO2 52 mmHg VBG HCO3 32 mmol/L VBG O2 Saturation 85.1 % VBG Base Excess 4.1 mEq/L Barometric Pressure 722.8 mm/Hg Sodium (136-145) mmol/L Potassium (3.5-5.1) mmol/L Chloride (98-107) mmol/L Carbon Dioxide (21-32) mmol/L Anion Gap (3-11) BUN (7-18) mg/dl Creatinine (0.6-1.4) mg/dl Est Cr Clr Drug Dosing ml/min Est GFR ( Amer) Est GFR (Non-Af Amer) BUN/Creatinine Ratio (10-20) Glucose (70-99) mg/dl Lactate (0.4-2.0) mmol/L Calcium (8.5-10.1) mg/dl Magnesium (1.8-2.4) mg/dl Total Bilirubin (0.2-1) mg/dl AST (15-37) U/L ALT (12-78) U/L Alkaline Phosphatase (45-117) U/L Troponin I (0-0.045) ng/ml NT-Pro-B Natriuret Pep (0-900) pg/ml Total Protein (6.4-8.2) gm/dl Albumin (3.4-5.0) gm/dl Globulin (2.5-4.0) gm/dl Albumin/Globulin Ratio (0.9-2) Procalcitonin (0-0.5) ng/ml Urine Color Yellow Urine Appearance Clear (Clear) Urine pH 5.0 (4.5-7.5) Ur Specific [place] 1.020 (1.000-1.030) Urine Protein 3+ H (Negative) Urine Glucose (UA) 2+ H (Negative) Urine Ketones Negative (Negative) Urine Blood 1+ H (Negative) Urine Nitrite Negative (Negative) Urine Bilirubin Negative (Negative) Urine Urobilinogen Negative (Negative) Ur Leukocyte Esterase Negative (Negative) Urine WBC (Auto) 1-5 (0-5) /hpf Urine RBC (Auto) 0-4 (0-4) /hpf U Hyaline Cast (Auto) 1-5 (0-5) /lpf U Epithel Cells (Auto) 10-20 H (0-5) /lpf Urine Bacteria (Auto) Negative (Negative) COVID-19 Eval Order SARS-CoV-2 (PCR) NEGATIVE (Negative) Influenza Type A (PCR) Negative (Neg) Influenza Type B (PCR) Negative (Neg) RSV (RT-PCR) Negative (Neg) 04/03/20 Range/Units 23:57 WBC (4.8-10.8) K/uL RBC (4.7-6.1) M/uL Hgb (14.0-18.0) g/dL Hct (42-52) % MCV (80-100) fL MCH (25-34) pg MCHC (32-36) g/dL RDW Std Deviation (36.4-46.3) fL RDW Coeff of Lyric (11.5-14.5) % Plt Count (130-400) K/uL MPV (7.4-10.4) fL Immature Gran % (Auto) % Neut % (Auto) % Lymph % (Auto) % [place] % (Auto) % Eos % (Auto) % Baso % (Auto) % Neut # (Auto) (1.4-6.5) K/uL Lymph # (Auto) (1.2-3.4) K/uL [place] # (Auto) (0.11-0.59) K/uL Eos # (Auto) (0-0.5) K/uL Baso # (Auto) (0-0.2) K/uL Immature Gran # (Auto) (0.00-0.02) K/uL PT (9.0-12.0) Seconds INR (0.9-1.1) APTT (21.0-31.0) Seconds PTT Ratio VBG pH (7.36-7.41) VBG pCO2 (38-50) mmHg VBG pO2 mmHg VBG HCO3 mmol/L VBG O2 Saturation % VBG Base Excess mEq/L Barometric Pressure mm/Hg Sodium (136-145) mmol/L Potassium (3.5-5.1) mmol/L Chloride (98-107) mmol/L Carbon Dioxide (21-32) mmol/L Anion Gap (3-11) BUN (7-18) mg/dl Creatinine (0.6-1.4) mg/dl Est Cr Clr Drug Dosing ml/min Est GFR ( Amer) Est GFR (Non-Af Amer) BUN/Creatinine Ratio (10-20) Glucose (70-99) mg/dl Lactate 1.1 (0.4-2.0) mmol/L Calcium (8.5-10.1) mg/dl Magnesium (1.8-2.4) mg/dl Total Bilirubin (0.2-1) mg/dl AST (15-37) U/L ALT (12-78) U/L Alkaline Phosphatase (45-117) U/L Troponin I (0-0.045) ng/ml NT-Pro-B Natriuret Pep (0-900) pg/ml Total Protein (6.4-8.2) gm/dl Albumin (3.4-5.0) gm/dl Globulin (2.5-4.0) gm/dl Albumin/Globulin Ratio (0.9-2) Procalcitonin (0-0.5) ng/ml Urine Color Urine Appearance (Clear) Urine pH (4.5-7.5) Ur Specific [place] (1.000-1.030) Urine Protein (Negative) Urine Glucose (UA) (Negative) Urine Ketones (Negative) Urine Blood (Negative) Urine Nitrite (Negative) Urine Bilirubin (Negative) Urine Urobilinogen (Negative) Ur Leukocyte Esterase (Negative) Urine WBC (Auto) (0-5) /hpf Urine RBC (Auto) (0-4) /hpf U Hyaline Cast (Auto) (0-5) /lpf U Epithel Cells (Auto) (0-5) /lpf Urine Bacteria (Auto) (Negative) COVID-19 Eval Order SARS-CoV-2 (PCR) (Negative) Influenza Type A (PCR) (Neg) Influenza Type B (PCR) (Neg) RSV (RT-PCR) (Neg) Administered Medications Discontinued Medications Amlodipine Besylate (Amlodipine Besylate 5 Mg Tab) 10 mg PO NOW STA Stop: 04/03/20 23:39 Last Admin: 04/03/20 23:55 Dose: 10 mg Documented by: [id number] Furosemide (Furosemide 40 Mg/4 Ml Vial) 20 mg IV NOW STA Stop: 04/03/20 21:32 Last Admin: 04/03/20 21:35 Dose: 20 mg Documented by: [id number] Metoprolol Succinate (Metoprolol Succ 50mg Ext Rel Tab) 50 mg PO NOW STA Stop: 04/03/20 23:31 Last Admin: 04/03/20 23:54 Dose: 50 mg Documented by: [id number] Nitroglycerin (Nitroglycerin Sl 0.4 Mg/Tab Tab) 0.4 mg SL NOW STA Stop: 04/03/20 21:32 Last Admin: 04/03/20 21:34 Dose: 0.4 mg Documented by: [id number] Discharge Plan Visit Data Chief Complaint: Shortness of Breath/Dyspnea Stated Complaint: SHORTNESS OF BREATH ED Provider: Rafa Lambert Discharge Problem: Acute hypoxemic respiratory failure Forms Stand Alone Forms: My [facility] [employer] Prescriptions Prescriptions: No Action sildenafil (pulm.hypertension) 20 mg tablet 100 mg PO ONCE PRN (Reason: sexual activity) Qty: 30 RF: 11 atorvastatin [Lipitor] 40 mg tablet 40 mg PO HS RF: 0 albuterol sulfate 2.5 mg /3 mL (0.083 %) Solution For Nebulization 2.5 mg INHALATION QID PRN (Reason: Shortness Of Breath Or Wheezing) RF: 0 lisinopril [Zestril] 20 mg tablet 20 mg PO BID RF: 0 cyanocobalamin (vitamin B-12) [Vitamin B-12] 500 mcg Tablet 500 mcg PO DAILY RF: 0 amlodipine [Norvasc] 10 mg tablet 10 mg PO HS RF: 0 ferrous sulfate 325 mg (65 mg iron) Tablet 325 mg PO DAILY RF: 0 metoprolol tartrate [Lopressor] 50 mg tablet 50 mg PO BID RF: 0 tolnaftate [Tinactin] 1 % Powder 1 applic TOPICAL DAILY RF: 0 furosemide [Lasix] 20 mg Tablet 20 mg PO DAILY RF: 0 albuterol sulfate [Ventolin HFA] 90 mcg/actuation Hfa Aerosol Inhaler 2 puff INHALATION QID PRN (Reason: Shortness Of Breath Or Wheezing) RF: 0 pioglitazone [Actos] 30 mg Tablet 30 mg PO DAILYBD RF: 0 losartan [Cozaar] 100 mg tablet 100 mg PO DAILY RF: 0 clotrimazole [Antifungal (clotrimazole)] 1 % Cream 1 applic TOPICAL BID RF: 0 insulin aspart U-100 [Novolog Flexpen U-100 Insulin] 100 unit/mL (3 mL) insulin pen 10 unit SUBCUT DAILYBL RF: 0 insulin aspart U-100 [Novolog Flexpen U-100 Insulin] 100 unit/mL (3 mL) insulin pen 5 unit SUBCUT DAILYBD RF: 0 Basaglar KwikPen U-100 Insulin 100 unit/mL (3 mL) Insulin Pen 40 unit SUBCUT QAM RF: 0 Anoro Ellipta 62.5-25 mcg/actuation blister with device 1 inh INHALATION QAM RF: 0 Farxiga 10 mg tablet 10 mg PO QAM RF: 0 trazodone 50 mg Tablet 50 mg PO HS RF: 0 ropinirole 0.5 mg Tablet 0.5 mg PO DAILY RF: 0 bupropion HCl 150 mg Tablet Extended Release 24 Hr 150 mg PO QAM RF: 0 Incruse Ellipta 62.5 mcg/actuation Blister With Device 1 inh INHALATION DAILY RF: 0
[2020-04-04] MEDS ORDERED: ALBUTEROL 0.5% NEB SOLN 2.5 MG/0.5 ML VIAL NEB PRN (01:54)
[2020-04-04] MEDS ORDERED: GLUCOSE 40% GEL 15 GM TUBE PO PRN (01:54)
[2020-04-04] MEDS ORDERED: GLUCOSE 10 TABS/TUBE PO PRN (01:54)
[2020-04-04] MEDS ORDERED: CARBOHYDRATES FOR HYPOGLYCEMIA PO PRN (01:54)
[2020-04-04] MEDS ORDERED: ACETAMINOPHEN 325 MG TAB PO PRN (01:54)
[2020-04-04] MEDS ORDERED: GLUCAGON FOR INJ 1 MG VIAL SQ PRN (01:54)
[2020-04-04] MEDS ORDERED: DEXTROSE 50% 50 ML SYRINGE IV PRN (01:54)
[2020-04-04] MEDS ORDERED: traZODone HCL 50 MG TAB PO PRN (01:54)
[2020-04-04 02:26] LABS: D Dimer 410 ug/L FEU (0-500)
[2020-04-04] MEDS: INSULIN ASPART 100 UNITS/ML 3 ML PEN SC SCH ×4 (03:16→17:09)
[2020-04-04] MEDS: ALBUT/IPRATROP 3MG/0.5MG NEB 3 ML VIAL NEB SCH ×4 (03:22→15:09)
[2020-04-04] MEDS ORDERED: POTASSIUM PHOS 3 MMOL/1 ML INFUSION IV STA (06:15)
[2020-04-04] MEDS: HEPARIN SOD 5,000 UNIT/0.5 ML VIAL SQ SCH ×2 (06:34→13:58)
[2020-04-04] MEDS ORDERED: POTASSIUM PHOSPHATE 9 MMOL in SODIUM CHLORIDE 0.9% 250 ML IV ONE (06:45)
[2020-04-04 07:33] LABS: Alanine Aminotransferase 18 U/L (12-78); Albumin Level 2.9 gm/dl (3.4-5.0); Aspartate Aminotransferase 14 U/L (15-37); BUN Creatinine Ratio 12.9 (10-20); Bilirubin Direct < 0.1 mg/dl (0-0.2); Blood Urea Nitrogen 21 mg/dl (7-18); Calcium 8.8 mg/dl (8.5-10.1); Carbon Dioxide 34 mmol/L (21-32); Chloride 105 mmol/L (98-107); Creatinine Clr Calc Pharmacy 55.7 ml/min; Est GFR (African American) 49.9; Glucose 86 mg/dl (70-99); Potassium 3.8 mmol/L (3.5-5.1); Sodium 142 mmol/L (136-145)
[2020-04-04 07:35] LABS: Alkaline Phosphatase 131 U/L (45-117); Bilirubin,Total 0.2 mg/dl (0.2-1); Total Protein 7.2 gm/dl (6.4-8.2)
[2020-04-04] MEDS: UMECLIDINIUM/VILANTEROL 62.5/25MCG 7 PUFFS/INHALER INH SCH ×3 (07:59→13:57)
--- NOTE | 2020-04-04 08:42 | XRay Report ---
XR chest 1V portable CLINICAL HISTORY: SEPSIS COMPARISON STUDY: Chest radiograph March 10, 2019. FINDINGS: Low lung volumes are again noted. There is no pneumothorax or pleural effusion. Linear biba silar opacities are unchanged. Cardiomegaly is unchanged. There is no evidence for pulmonary edema. IMPRESSION: No change in appearance of the chest. Low lung volumes with bibasilar opacities that fav or atelectasis. ACT 112: Negative or not required by law. Electronically signed by: Rip Johnson M.D. 04/04/2020 8:41 AM
[2020-04-04] MEDS ORDERED: LOSARTAN POTASSIUM 50 MG TAB PO SCH ×2 (09:00)
[2020-04-04] MEDS ORDERED: buPROPion XL 150 MG TABCR PO SCH (09:00)
[2020-04-04] MEDS ORDERED: lisinopril 20 MG TAB PO SCH ×2 (09:00)
[2020-04-04] MEDS ORDERED: FUROSEMIDE 40 MG/4 ML VIAL IV SCH (09:00)
[2020-04-04] MEDS ORDERED: FUROSEMIDE 40 MG in SYRINGE 0 ML IV SCH (09:00)
[2020-04-04] MEDS ORDERED: INSULIN GLARGINE SOLOSTAR 100 UNITS/ML 3 ML PEN SC SCH (09:00)
[2020-04-04] MEDS ORDERED: METOPROLOL TARTRATE 50 MG TAB PO SCH (09:00)
[2020-04-04] MEDS ORDERED: FUROSEMIDE 20 MG in SYRINGE 0 ML IV ONE (17:28)
[2020-04-04] MEDS ORDERED: FUROSEMIDE 40 MG/4 ML VIAL IV ONE (17:45)
[2020-04-04] MEDS ORDERED: ATORVASTATIN 40 MG TAB PO SCH (21:00)
[2020-04-04] MEDS ORDERED: rOPINIRole HCL 0.25 MG TABLET PO SCH (21:00)
[2020-04-04] MEDS ORDERED: amLODIPine BESYLATE 5 MG TAB PO SCH (21:00)
--- NOTE | 2020-04-05 06:00 | Electrocardiogram Report ---
Test Reason : Blood Pressure : / mmHG Vent. Rate : 097 BPM Atrial Rate : 194 BPM P-R Int : 192 ms QRS Dur : 082 ms QT Int : 370 ms P-R-T Axes : -05 010 060 degrees QTc Int : 469 ms Normal sinus rhythm When compared with ECG of 10-MAR-2019 11:09, No significant change Confirmed by Alex Shipman ([id number]) on 04/05/2020 5:59:36 AM Referred By: REFERRED SELF Confirmed By:Alex Shipman
[2020-04-05 06:26] LABS: Estimated Average Glucose 154 mg/dl
--- NOTE | 2020-04-10 21:59 | Discharge Summary ---
Date of Service April 04, 2020 Admission HPI Per Admitting Provider Davis Irizarry is a 69yo male with history of COPD on 3L home O2, DM, HTN presenting with 2-3 days of progressive SOB. Patient states he has had some nasal congestion lately and it has been hard to breath. He reports difficulty sleeping x 2 nights due to shortness of breath. Also with worsening bilateral LE edema. He reports wheezing as well as shakes and chills Patient denies new cough, fever, sweats, chest pain, palpitations, chest tightness Denies new or worsening orthopnea - has never laid flat No urinary complaints No additional complaints at this time. On arrival to the ER patient afebrile, tachycardic, saturating 81% on his home 3L of oxygen. Blood pressure high on arrival. He was administered Lasix, Nitro and placed on BiPAP with improvement. ER Course: Lasix 20mg IV, Nitro 0.4mg, Metoprolol 50mg po, Amlodipine 10mg po Principal Diagnosis acute respiratory failure Discharge Exam General: patient resting comfortably, NAD, non-toxic in appearance, AA&O x 4, BiPAP in place Skin: warm, dry, intact, no rashes or lesions HEENT: NC/AT, PERRL, EOMI, anicteric sclera, conjunctiva without injection, external ear normal to inspection and nontender, nares patent, moist mucus membranes, dentition intact, no oropharyngeal lesions, neck supple, trachea midline, no LAD, no thyromegaly, no JVD Heart: +S1/S2, regular, tachycardic, no m/r/g Lungs: equal air entry bilaterally, no rales/rhonchi/wheezes Abd: +BS, soft, NT/ND, no masses/organomegaly/ascites Ext: warm, 2+ pulses in UE/LE bilaterally, no clubbing/cyanosis, 3+ pitting edema of bilateral LE - equal Neuro: nonfocal, patient AA&O x 4, speech intact, no facial droop, moving all extremities on command with equal strength 5/5 Discharge Data Allergies Allergy/AdvReac Type Severity Reaction Status Date / Time bee venom protein (honey bee) Allergy Severe ANAPHYLAXIS Verified 04/03/20 22:58 Consultations 04/03/20 22:45 ED Decision to Admit Stat Hospital Course (1) Acute respiratory failure with hypoxia: 69yo male with COPD on 3L home O2 presenting with 2-3 days of progressive SOB, hypoxic on arrival at 81% on 3L. Patient has improved on BiPAP with Lasix + Nitro. Breathing comfortably with no distress at present. He has diminished breath sounds without wheezing, no rales. Ddx to include COPD, CHF, less likely PE. Procalcitonin negative. No evidence of PNA. -Observation to medical with telemetry -Liberate BiPAP - use PRN, continue home O3 3L NC with humidity -improved with Lasix 40mg IV daily. On day of discharge, oxygen saturation improved. Instructions below (2) Hypertension: Blood pressure elevated on arrival -Continue Amlodipine 10mg po qHS - dose given in ER -Continue Metoprolol 50mg po BID - dose given in ER -Patient is on Lisinopril and Cozaar - difficult time completing medication reconciliation. Patient is not certain which medications he takes. Will hold both agents for now and attempt to contact PCP (3) Diabetes: Chronic -Hold home medication regimen -Lantus 10u BID -ISS -Goal blood sugar 100 - 140 -Check HgbA1C (4) COPD (chronic obstructive pulmonary disease): Chronic. On 3L home O2. No wheeze at present -Nebs as needed -Supplemental O2 as needed, goal saturation 92% -Continue Anoro Ellipta (5) Depression: Chronic. -Continue Wellbutrin 150mg po qAM (6) Hyperlipidemia: Chronic -Continue Atorvastatin 40mg po daily Ppx -Heparin Code - DNR/DNI per discussion with patient Total Time Total Time Spent Total Time Spent (In Minutes): 32 Total Time Includes: Examination of the Patient, Discharge Planning and Medication Reconciliation Discharge Plan Discharge Items Patient Disposition: Home - Self-Care Reason For Visit: HYPOXIA Discharge Diagnosis: hypoxia Activity: Resume your previous activity Non-emergency contact: Primary Care Provider Call non-emergency contact if: you have any medication questions Follow-up/Referrals: Joy Garcia [Primary Care Provider] - Diet: Carb Consistent or DM2 and Low Sodium (2gm) Addtl Attending Provider Instructions: You have been hospitalized for an acute medical problem. During your stay at [facility], we have made an effort to correct the problem that brought you to the hospital while keeping you as comfortable as possible. Medications were used to bring your condition under control and your discharge instructions will include directions for any medications you should take after leaving the hospital. Please make sure you see your Primary Care Provider as part of your follow up plan. Recommend followup with PCP in 1 weeks for blood pressure. Pending Studies at Discharge: No Stand-Alone Forms: My [facility] [employer], Smoking Cessation Medications and DC Order Prescriptions: New metoprolol tartrate 75 mg tablet 75 mg PO BID Qty: 60 RF: 0 Continued sildenafil (pulm.hypertension) 20 mg tablet 100 mg PO ONCE PRN (Reason: sexual activity) Qty: 30 RF: 11 atorvastatin [Lipitor] 40 mg tablet 40 mg PO HS RF: 0 albuterol sulfate 2.5 mg /3 mL (0.083 %) Solution For Nebulization 2.5 mg INHALATION QID PRN (Reason: Shortness Of Breath Or Wheezing) RF: 0 cyanocobalamin (vitamin B-12) [Vitamin B-12] 500 mcg Tablet 500 mcg PO DAILY RF: 0 amlodipine [Norvasc] 10 mg tablet 10 mg PO HS RF: 0 ferrous sulfate 325 mg (65 mg iron) Tablet 325 mg PO DAILY RF: 0 tolnaftate [Tinactin] 1 % Powder 1 applic TOPICAL DAILY RF: 0 furosemide [Lasix] 20 mg Tablet 20 mg PO DAILY RF: 0 albuterol sulfate [Ventolin HFA] 90 mcg/actuation Hfa Aerosol Inhaler 2 puff INHALATION QID PRN (Reason: Shortness Of Breath Or Wheezing) RF: 0 pioglitazone [Actos] 30 mg Tablet 30 mg PO DAILYBD RF: 0 losartan [Cozaar] 100 mg tablet 100 mg PO DAILY RF: 0 clotrimazole [Antifungal (clotrimazole)] 1 % Cream 1 applic TOPICAL BID RF: 0 insulin aspart U-100 [Novolog Flexpen U-100 Insulin] 100 unit/mL (3 mL) insulin pen 10 unit SUBCUT DAILYBL RF: 0 insulin aspart U-100 [Novolog Flexpen U-100 Insulin] 100 unit/mL (3 mL) insulin pen 5 unit SUBCUT DAILYBD RF: 0 Basaglar KwikPen U-100 Insulin 100 unit/mL (3 mL) Insulin Pen 40 unit SUBCUT QAM RF: 0 Anoro Ellipta 62.5-25 mcg/actuation blister with device 1 inh INHALATION QAM RF: 0 Farxiga 10 mg tablet 10 mg PO QAM RF: 0 trazodone 50 mg Tablet 50 mg PO HS RF: 0 ropinirole 0.5 mg Tablet 0.5 mg PO DAILY RF: 0 bupropion HCl 150 mg Tablet Extended Release 24 Hr 150 mg PO QAM RF: 0 Incruse Ellipta 62.5 mcg/actuation Blister With Device 1 inh INHALATION DAILY RF: 0 Discontinued lisinopril [Zestril] 20 mg tablet 20 mg PO BID RF: 0 metoprolol tartrate [Lopressor] 50 mg tablet 50 mg PO BID RF: 0 Discharge Orders: Discharge Order (Routine); Ordered 04/04/20 Ordered By: Juan Joshi Admission Data Admit Date/Time: 04/03/20 23:29 Attending Provider: Juan Joshi Admit Provider: Lisa Guevara Primary Care Provider: Joy Garcia Other Providers: Lisa Guevara Other Interventions: Discharge Summary Assessment (RN) Last Done: 04/04/20 17:48 Coding Level of Care Code 17990 OBS Care - Discharge Diagnoses Acute respiratory failure with hypoxia J96.01 Hypertension I10 Hypertension type: essential hypertension Diabetes E11.9; Z79.4 Diabetes mellitus type: type 2 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
== END 2020-04-04 18:26 | disposition home or self-care (01) ==
LOC: ED 21:06 → 2N 21:06 → SUATTDRO 23:29 → 2N 04-04 00:58

== ENCOUNTER 2022-03-07 12:49 | Observation (INO) ==
[2022-03-07] MEDS ORDERED: ALBUT/IPRATROP 3MG/0.5MG NEB 3 ML VIAL NEB STA (13:13)
[2022-03-07] MEDS ORDERED: LORazepam 1 MG TAB SL STA (13:13)
[2022-03-07] MEDS ORDERED: methylPREDNISolone 125 MG/2 ML VIAL IV STA (13:13)
--- NOTE | 2022-03-07 13:26 | Emergency Department Note ---
Impression & Plan SOB (shortness of breath), COPD (chronic obstructive pulmonary disease), Acute anxiety ED Provider Note INFORMANT: Patient and ED PROVIDER(S): Braulio Padilla MD CHIEF COMPLAINT: Shortness of breath PLAN: Disposition: Admitted Condition: Good Outpatient prescription management: none Referral: None MEDICAL DECISION MAKING: Patient presented because of shortness of breath. He was dyspneic and had significant hypertension. He also notes having a lot of anxiety because of his breathing. The patient underwent a work-up. ECG did not show any acute ischemia. The patient had an unremarkable CBC. Mild anemia noted. Chemistry panel revealed some mild renal insufficiency but not significantly different than prior. Patient's cardiac troponin was minimally elevated. In light of ongoing renal disease does not appear to be consistent with ACS given his several days of symptoms. The patient was complaining about abdominal pain. He also noted a recent fall and was concerned about a head injury. The patient underwent CT scan of the head as well as abdomen and pelvis. Both of these were negative for any acute process. Prior to CT imaging the patient was treated with albuterol, Solu-Medrol, and oral lorazepam. On reassessment he was feeling better. He was still requiring a moderate mount of supplemental oxygen. Patient's BNP was moderately elevated concerning for component of CHF. Patient does have peripheral edema. On recheck the patient's blood pressure was even more elevated at 226/105. This was done after the patient was feeling better with regards to his anxiety and breathing. Patient was given IV hydralazine, Nitropaste, and IV Lasix for blood pressure management and diuresis. I discussed his issues with the case planner. In light of his multiple medical issues, severe hypertension, CHF issues, and age the patient would not be a good candidate for psychiatric admission. He would be better served by medical admission, appropriate management of his medications and current issues and consultation with psychiatry. Consultation was made with the [facility] service. Patient was evaluated in the ER and admitted for further management. Triage Nursing notes reviewed and agree them. Vital Signs: reviewed and remarkable for severe hypertension Differential diagnosis: Reactive airway disease, pneumonia, pneumothorax, COPD, CHF, infections, cardiac ischemia, pulmonary embolism, musculoskeletal, gastrointestinal, as well as other pathologies. Diagnostics interpreted by me: ECG: Twelve-lead ECG reveals normal sinus rhythm at 81 bpm. Mildly prolonged QT interval. No ST elevation or depression. No PVCs or PACs. Cardiac Monitoring: Cardiac monitoring ordered by me: The patient was placed on continuous cardiac monitoring and observed. It revealed a normal sinus rhythm at 86 beats per minute without ectopy or evidence of dysrhythmia. Imaging studies: Head CT: A noncontrast CT scan of the head was performed and was negative for tumor, fracture, intracranial hemorrhage, or other acute pathology. CT scan and with pelvis is negative for acute pathology. I refer you to the EMR for further details. Chest x-ray shows bibasilar atelectasis and cardiomegaly. No acute infiltrate or overt edema noted. HPI: The patient is a 71year old male who presents to the Emergency Room with complaints of shortness of breath. This started a few days ago and is worsening. The patient also notes the following associated symptoms, feeling anxious, nonproductive cough, stable lower extremity swelling. Patient states he has a history of COPD and CHF. Patient had an echocardiogram done over a week ago. At that time he was feeling well. Over the last few days he was feeling poorly. He did have a cardiology follow-up yesterday. He was told that his echo looked good and they did not feel CHF was an issue. Patient felt like his breathing was getting worse and he was more anxious. He presented to the emergency department today for evaluation. The patient has found no relieving factors. Current pain is rated as 9/10. He also notes presence of lower abdominal pain. That has been present for about 3 to 4 days as well. Pt denies LOC, headache, fevers, chills, diaphoresis, visual changes, neck pain, chest pain, nausea, vomiting, back pain, melena, hematochezia, urinary symptoms, numbness, weakness, lymphadenopathy, rash, or other complaints. ROS: See above HPI for pertinent positives & negatives. A total of 10 systems reviewed and were otherwise negative. PAST MEDICAL HISTORY:See Below , COPD, CHF PAST SURGICAL HISTORY:See Below, FAMILY HISTORY:See Below SOCIAL HISTORY:See Below, non-smoker HOME MEDICATIONS:See Below ALLERGIES:See Below VITALS:See Below PHYSICAL EXAMINATION: GENERAL: Awake, alert, anxious and dyspneic-appearing, in mild distress HENT: Normocephalic, atraumatic. Oropharynx unremarkable. EYES: Normal conjunctiva. Sclera non-icteric. NECK: Inspection normal. Non-tender. Supple. No nuchal rigidity. FROM. No masses. RESPIRATORY: Clear to auscultation. No wheezes. No rales. Increased respiratory effort. CARDIAC: Normal rate. Normal rhythm. No murmurs. No rubs. Extremities warm and well perfused. Pulses equal. No JVD. GI: Soft, non-distended. No tenderness to palpation. No rebound or guarding. No masses. MUSCULOSKELETAL: Atraumatic. Chest examination reveals no tenderness. The back is symmetrical on inspection without obvious abnormality. There is no CVA tenderness to palpation. No joint edema. LOWER EXTREMITIES: Calves are equal size bilaterally and non-tender. 2+ edema. Chronic venous discoloration. NEURO: Normal sensorium. No sensory or motor deficits noted. SKIN: No rash or jaundice noted. Braulio Padilla MD Past Med/Surg History Medical History Acute on chronic heart failure with preserved ejection fraction (HFpEF) Chronic hypoxemic respiratory failure CKD (chronic kidney disease) Colon cancer COPD (chronic obstructive pulmonary disease) Diabetes Hypercapnic respiratory failure Hyperlipidemia Hypertension Influenza B Knee pain Low back pain Obesity Obstructive sleep apnea Orthostatic dizziness Prostate cancer (06/23/08) Restrictive lung disease Urinary problem Surgical History History of prostatectomy Family History Other No significant family history Social History Smoking Status: Never smoker Hx Alcohol Use: Yes Alcohol type: beer Hx Substance Use: No Preferred Language: Khmer Communication Ability: Effective Beliefs That Will Affect Care: None Current Living Situation: Spouse Current Living Situation Comment: with Feels Safe at Home: Yes Assistive Devices: Glasses and Oxygen - Continuous Allergies Allergies Allergy/AdvReac Type Severity Reaction Status Date / Time bee venom protein (honey bee) Allergy Severe ANAPHYLAXIS Verified 03/07/22 15:06 Home Meds Home Medications Medication Instructions Recorded Confirmed albuterol sulfate 2.5 mg/3 mL 2.5 mg inhalation QID PRN 03/10/19 03/07/22 (0.083 %) solution for nebulization Shortness Of Breath Or Wheezing albuterol sulfate 90 mcg/actuation 2 puff inhalation QID PRN 03/10/19 03/07/22 aerosol inhaler (Ventolin HFA) Shortness Of Breath Or Wheezing insulin aspart U-100 100 unit/mL 5 unit subcut DIRECTED 03/10/19 03/07/22 (3 mL) subcutaneous pen (Novolog Flexpen U-100 Insulin aspart) losartan 100 mg tablet (Cozaar) 100 mg PO DAILY 03/10/19 03/07/22 ropinirole 0.5 mg tablet 0.5 mg PO HS 04/03/20 03/07/22 hydralazine 50 mg tablet 100 mg PO TID 09/18/20 03/07/22 metoprolol tartrate 50 mg tablet 50 mg PO BID 12/03/20 03/07/22 (Lopressor) furosemide 40 mg tablet 40 mg PO DAILY 02/23/22 03/07/22 Previous Rx's Medication Instructions Recorded fluticasone fur. 200 mcg-umeclid 1 inh inhalation Q24H #28 ea 03/06/22 62.5 mcg-vilant 25 mcg inhalat.powder (Trelegy Ellipta) Results & Data (ED) Vital Signs Vital Signs - 24 hr 03/07/22 12:52 03/07/22 14:16 03/07/22 14:16 Temperature 36.8 C Temperature Source Temporal Artery Scan Pulse Rate 82 Pulse Rate [Apical] 80 Respiratory Rate 26 H 18 Respiratory Effort / Characteristics Labored Blood Pressure 199/94 H Blood Pressure [Left Arm] Blood Pressure Mean 129 Blood Pressure Mean [Left Arm] Pulse Oximetry 91 100 Oxygen Delivery Method Nasal Cannula Room Air Room Air Oxygen Flow Rate 3 Sepsis Recent Fever Within 48 Hours No Sepsis New/Unexplained Change in Mental Status No Sepsis Action Taken by Nursing No Action Required 03/07/22 15:39 03/07/22 15:48 03/07/22 16:17 Temperature Temperature Source Pulse Rate Pulse Rate [Apical] 86 Respiratory Rate Respiratory Effort / Characteristics Blood Pressure Blood Pressure [Left Arm] 226/105 H 205/100 H Blood Pressure Mean Blood Pressure Mean [Left Arm] 145 135 Pulse Oximetry 100 Oxygen Delivery Method Nasal Cannula Oxygen Flow Rate 5 Sepsis Recent Fever Within 48 Hours Sepsis New/Unexplained Change in Mental Status Sepsis Action Taken by Nursing 03/07/22 16:32 Temperature Temperature Source Pulse Rate Pulse Rate [Apical] Respiratory Rate 83 H Respiratory Effort / Characteristics Blood Pressure Blood Pressure [Left Arm] 181/87 H Blood Pressure Mean Blood Pressure Mean [Left Arm] 118 Pulse Oximetry 98 Oxygen Delivery Method Nasal Cannula Oxygen Flow Rate 4 Sepsis Recent Fever Within 48 Hours Sepsis New/Unexplained Change in Mental Status Sepsis Action Taken by Nursing Laboratory Data Result diagrams: 03/07/22 13:30 03/07/22 13:30 Lab Results 03/07/22 03/07/22 03/07/22 Range/Units 13:30 13:30 13:30 WBC 5.96 (4.8-10.8) K/ul RBC 3.70 L (4.63-6.08) M/uL Hgb 10.1 L (14.0-18.0) g/dl Hct 31.2 L (40.1-51.0) % MCV 84.3 (80.0-100.0) fL MCH 27.3 (25.0-34.0) pg MCHC 32.4 (32.0-36.0) g/dL RDW Std Deviation 46.8 H (36.4-46.3) fL RDW Coeff of Lyric 15.3 H (11.5-14.5) % Plt Count 154 (130-400) K/uL MPV 8.9 L (9.4-12.4) fL Immature Gran % (Auto) 0.3 % Neut % (Auto) 81.9 % Lymph % (Auto) 5.4 % [place] % (Auto) 10.2 % Eos % (Auto) 1.2 % Baso % (Auto) 1.0 % Neut # (Auto) 4.88 (1.4-6.5) K/uL Lymph # (Auto) 0.32 L (1.2-3.4) K/uL [place] # (Auto) 0.61 (0.24-0.82) K/uL Eos # (Auto) 0.07 (0-0.50) K/uL Baso # (Auto) 0.06 (0-0.2) K/uL Immature Gran # (Auto) 0.02 (0.00-0.02) K/uL Sodium 143 (136-145) mmol/L Potassium 3.9 (3.5-5.1) mmol/L Chloride 96 L (98-107) mmol/L Carbon Dioxide 38 H (21-32) mmol/L Anion Gap 9 (3-11) BUN 22 (6-23) mg/dl Creatinine 2.14 H (0.6-1.4) mg/dl Est Cr Clr Drug Dosing Not Reportable Est GFR ( Amer) 34.6 ml/min Est GFR (Non-Af Amer) 29.8 ml/min BUN/Creatinine Ratio 10.3 (10-20) Glucose 123 H (70-99(Fasting)) mg/dl Calcium 9.0 (8.5-10.1) mg/dl Total Bilirubin 1.0 (0.2-1.0) mg/dl AST 17 (13-39) U/L ALT 10 (7-52) U/L Alkaline Phosphatase 95 (34-104) U/L Troponin I High Sens 20.3 H (0-20) pg/ml B-Natriuretic Peptide 516 H (0-100) pg/ml Total Protein 7.2 (6.0-8.3) gm/dl Albumin 3.9 (3.4-5.0) gm/dl Globulin 3.3 (2.5-4.0) gm/dl Albumin/Globulin Ratio 1.2 (0.9-2) Urine Color Urine Appearance (Clear) Urine pH (4.5-7.5) Ur Specific [place] (1.000-1.030) Urine Protein (Negative) Urine Glucose (UA) (Negative) Urine Ketones (Negative) Urine Blood (Negative) Urine Nitrite (Negative) Urine Bilirubin (Negative) Urine Urobilinogen (Negative) Ur Leukocyte Esterase (Negative) Urine WBC (Auto) (0-5) /hpf Urine RBC (Auto) (0-4) /hpf U Hyaline Cast (Auto) (0-5) /lpf U Epithel Cells (Auto) (0-5) /lpf Urine Bacteria (Auto) (Negative) 03/07/22 Range/Units 13:30 WBC (4.8-10.8) K/ul RBC (4.63-6.08) M/uL Hgb (14.0-18.0) g/dl Hct (40.1-51.0) % MCV (80.0-100.0) fL MCH (25.0-34.0) pg MCHC (32.0-36.0) g/dL RDW Std Deviation (36.4-46.3) fL RDW Coeff of Lyric (11.5-14.5) % Plt Count (130-400) K/uL MPV (9.4-12.4) fL Immature Gran % (Auto) % Neut % (Auto) % Lymph % (Auto) % [place] % (Auto) % Eos % (Auto) % Baso % (Auto) % Neut # (Auto) (1.4-6.5) K/uL Lymph # (Auto) (1.2-3.4) K/uL [place] # (Auto) (0.24-0.82) K/uL Eos # (Auto) (0-0.50) K/uL Baso # (Auto) (0-0.2) K/uL Immature Gran # (Auto) (0.00-0.02) K/uL Sodium (136-145) mmol/L Potassium (3.5-5.1) mmol/L Chloride (98-107) mmol/L Carbon Dioxide (21-32) mmol/L Anion Gap (3-11) BUN (6-23) mg/dl Creatinine (0.6-1.4) mg/dl Est Cr Clr Drug Dosing Est GFR ( Amer) ml/min Est GFR (Non-Af Amer) ml/min BUN/Creatinine Ratio (10-20) Glucose (70-99(Fasting)) mg/dl Calcium (8.5-10.1) mg/dl Total Bilirubin (0.2-1.0) mg/dl AST (13-39) U/L ALT (7-52) U/L Alkaline Phosphatase (34-104) U/L Troponin I High Sens (0-20) pg/ml B-Natriuretic Peptide (0-100) pg/ml Total Protein (6.0-8.3) gm/dl Albumin (3.4-5.0) gm/dl Globulin (2.5-4.0) gm/dl Albumin/Globulin Ratio (0.9-2) Urine Color Yellow Urine Appearance Clear (Clear) Urine pH 7.5 (4.5-7.5) Ur Specific [place] 1.008 (1.000-1.030) Urine Protein 3+ H (Negative) Urine Glucose (UA) Negative (Negative) Urine Ketones Negative (Negative) Urine Blood Trace H (Negative) Urine Nitrite Negative (Negative) Urine Bilirubin Negative (Negative) Urine Urobilinogen Negative (Negative) Ur Leukocyte Esterase Negative (Negative) Urine WBC (Auto) 1-5 (0-5) /hpf Urine RBC (Auto) 0-4 (0-4) /hpf U Hyaline Cast (Auto) 1-5 (0-5) /lpf U Epithel Cells (Auto) 5-10 H (0-5) /lpf Urine Bacteria (Auto) Negative (Negative) Administered Medications Discontinued Medications Albuterol (Albut/Ipratrop 3mg/0.5mg Neb 3 Ml Vial) 3 ml NEB NOW STA; Protocol Stop: 03/07/22 13:14 Last Admin: 03/07/22 13:20 Dose: 3 ml Documented By: WAGNER Furosemide (Furosemide 40 Mg/4 Ml Vial) 40 mg IV ONE ONE Stop: 03/07/22 15:51 Last Admin: 03/07/22 16:03 Dose: 40 mg Documented By: WAGNER Hydralazine HCl (Hydralazine Hcl 20 Mg/Ml Vial) 5 mg IV NOW ONE Stop: 03/07/22 15:51 Last Admin: 03/07/22 16:04 Dose: 5 mg Documented By: WAGNER Lorazepam (Lorazepam 1 Mg Tab) 1 mg SL NOW STA Stop: 03/07/22 13:14 Last Admin: 03/07/22 13:19 Dose: 1 mg Documented By: WAGNER Methylprednisolone (Methylprednisolone 125 Mg/2 Ml Vial) 125 mg IV NOW STA Stop: 03/07/22 13:14 Last Admin: 03/07/22 13:27 Dose: 125 mg Documented By: WAGNER Nitroglycerin (Nitroglycerin 2% Ointment 30gm Tube) 0.5 inch EXT NOW STA Stop: 03/07/22 15:51 Last Admin: 03/07/22 16:04 Dose: 0.5 inch Documented By: WAGNER Imaging Data Radiologist's Impression: Chest X-Ray 03/07/22 13:01 XR chest 1V portable CLINICAL HISTORY: Dyspnea TECHNIQUE: Single frontal radiograph of the chest was obtained. Comparison: Comparison is made to chest radiograph 10/30/2021 FINDINGS: No lines and tubes are seen. Calcified aortic knob is seen. Lungs are underinflated but clear apart from bibasilar atelectasis. No evidence of pleural effusion or pneumothorax. IMPRESSION: Lungs are underinflated with bibasilar atelectasis. ACT 112: Negative or not required by law. Electronically signed by: Richard Moran M.D. 03/07/2022 1:34 PM Abdomen/Pelvis CT 03/07/22 14:35 CT abd pelvis wo con CLINICAL HISTORY: lower abd pain TECHNIQUE: Helical axial images of the abdomen and pelvis were obtained. Automated dose lowering techniques and/or adjustment according to patient size were utilized for this exam. This exam was performed without intravenous contrast. CT DOSE: 845.41 mGy.cm COMPARISON: Comparison is made to CT abdomen pelvis 11/09/2021 FINDINGS: Lower chest: Bibasilar atelectasis versus scarring is seen. Biatrial enlargement is seen. Liver: Unremarkable. No focal lesions are seen. Gallbladder and biliary tree: Cholelithiasis is seen without evidence of cholecystitis. No intra- or extrahepatic biliary ductal dilation. Pancreas: Unremarkable, no focal lesions. Spleen: Unremarkable. Adrenals: Bilateral adrenal thickening is unchanged from prior exam. Left myel olipoma is unchanged. Kidneys and ureters: Perinephric stranding is noted bilaterally. A right renal cyst measures 19 mm in diameter. There is a tiny hyperdense lesion in the right kidney inferior pole. Bladder: Unremarkable. Reproductive organs: Status post prostatectomy. Bowel: Unremarkable appearance of the bowel. The appendix is normal. Lymph nodes Retroperitoneal: Subcentimeter lymph nodes are noted. Pelvic: Unremarkable. Mesenteric: Unremarkable. Peritoneum: Normal. Vessels: Atherosclerotic calcifications are seen. Abdominal wall: Unremarkable. Bones: Degenerative changes in the visualized spine. IMPRESSION: 1. No acute abnormalities to explain lower abdominal pain. The appendix is normal. 2. Cholelithiasis without cholecystitis. 3. Atelectasis and small pericardial effusion. 4. Bilateral adrenal adenomas, unchanged from prior exam. ACT 112: Negative or not required by law. Electronically signed by: Richard Moran M.D. 03/07/2022 3:[address] 03/07/22 14:50 CT head/brain wo con CLINICAL HISTORY: fall Technique: Contiguous axial CT images of the head were acquired from the base of the skull to the vertex without intravenous contrast administration. Images were viewed in brain, subdural and bone windows. Automated dose lowering techniques and/or adjustment according to patient size were utilized for this exam. Comparison: None available at the time of this dictation. Findings: Areas of decreased attenuation are present in the periventricular and subcortical white matter bilaterally consistent with small vessel ischemic disease. Generalized cerebral atrophy with commensurate enlargement of the ventricles, sulci, and cisterns is also present. There is no acute intracranial hemorrhage or evidence of acute territorial infarction. No shift of the midline structures, mass effect, or extra-axial abnormalities are shown. Atheroscler otic calcifications are present in the intracranial segments of the internal carotid arteries. Imaged portions of the paranasal sinuses and mastoid air cells are clear. The orbits appear normal. There are no acute fractures of the calvaria or scalp swelling. Impression: No acute intracranial hemorrhage, no evidence of acute territorial infarction or other acute intracranial disease process. ACT 112: Negative or not required by law. Electronically signed by: Richard Moran M.D. 03/07/2022 3:06 PM Discharge Plan Visit Data Chief Complaint: Anxiety Stated Complaint: SEVERE ANXIETY, HARD TO BREATHE ED Provider: Braulio Padilla Discharge Problem: SOB (shortness of breath), COPD (chronic obstructive pulmonary disease), Acute anxiety Forms Stand Alone Forms: My [facility], Suicide Prevention Resources Prescriptions Prescriptions: No Action furosemide 40 mg tablet 40 mg PO DAILY Hold Instructions: MILTON Romo Ellipta 200-62.5-25 mcg blister with device 1 inh inhalation Q24H Qty: 28 0RF Rx Instructions: Samples given on 03/06/22. albuterol sulfate 2.5 mg /3 mL (0.083 %) Solution For Nebulization 2.5 mg INHALATION QID PRN (Reason: Shortness Of Breath Or Wheezing) albuterol sulfate [Ventolin HFA] 90 mcg/actuation Hfa Aerosol Inhaler 2 puff INHALATION QID PRN (Reason: Shortness Of Breath Or Wheezing) losartan [Cozaar] 100 mg tablet 100 mg PO DAILY Hold Instructions: MILTON Rx Instructions: PER SPOUSE "WAS ON HOLD, I THINK HE IS TO RESTART THIS MED". insulin aspart U-100 [Novolog Flexpen U-100 Insulin] 100 unit/mL (3 mL) ins ulin pen 5 unit SUBCUT DIRECTED Rx Instructions: take 5 units if BSG is over 200 ropinirole 0.5 mg Tablet 0.5 mg PO HS hydralazine 50 mg tablet 100 mg PO TID metoprolol tartrate [Lopressor] 50 mg tablet 50 mg PO BID Referrals Referrals: PCP,NO [Physician] -
--- NOTE | 2022-03-07 13:36 | XRay Report ---
XR chest 1V portable CLINICAL HISTORY: Dyspnea TECHNIQUE: Single frontal radiograph of the chest was obtained. Comparison: Comparison is made to chest radiograph 10/30/2021 FINDINGS: No lines and tubes are seen. Calcified aortic knob is seen. Lungs are underinflated but clear apart f rom bibasilar atelectasis. No evidence of pleural effusion or pneumothorax. IMPRESSION: Lungs are underinflated with bibasilar atelectasis. ACT 112: Negative or not required by law. Electronically signed by: Richard Moran M.D. 03/07/2022 1:34 PM
[2022-03-07 13:44] LABS: Basophils # (auto) 0.06 K/uL (0-0.2); Eosinophils # (auto) 0.07 K/uL (0-0.50); Eosinophils % (auto) 1.2 %; Hematocrit (blood only) 31.2 % (40.1-51.0); Hemoglobin 10.1 g/dl (14.0-18.0); Immature Granulocytes # (auto) 0.02 K/uL (0.00-0.02); Immature Granulocytes % (auto) 0.3 %; Lymphocytes # (auto) 0.32 K/uL (1.2-3.4); Lymphocytes % (auto) 5.4 %; Mean Corpuscular Hemoglobin 27.3 pg (25.0-34.0); Mean Corpuscular Hgb Conc 32.4 g/dL (32.0-36.0); Mean Corpuscular Volume 84.3 fL (80.0-100.0); Mean Platelet Volume 8.9 fL (9.4-12.4); Monocytes # (auto) 0.61 K/uL (0.24-0.82); Monocytes % (auto) 10.2 %; Neutrophils # (auto) 4.88 K/uL (1.4-6.5); Neutrophils % (auto) 81.9 %; Platelet Count 154 K/uL (130-400); RDW Coefficient of Variation 15.3 % (11.5-14.5); RDW Standard Deviation 46.8 fL (36.4-46.3); White Blood Count 5.96 K/ul (4.8-10.8)
[2022-03-07 14:03] LABS: Appearance Urine Clear (Clear); Bacteria Urine Automated Negative (Negative); Bilirubin Urine Negative (Negative); Blood Urine Trace (Negative); Color Urine Yellow; Glucose Urine UA Negative (Negative); Ketones Urine Negative (Negative); Leukocyte Esterase Urine Negative (Negative); Nitrite Urine Negative (Negative); RBC Urine Automated 0-4 /hpf (0-4); Specific Gravity Urine 1.008 (1.000-1.030); Urobilinogen Urine Negative (Negative); pH Urine 7.5 (4.5-7.5)
[2022-03-07 14:06] LABS: Protein Urine 3+ (Negative)
[2022-03-07 14:07] LABS: Alanine Aminotransferase 10 U/L (7-52); Albumin Globulin Ratio 1.2 (0.9-2); Albumin Level 3.9 gm/dl (3.4-5.0); Alkaline Phosphatase 95 U/L (34-104); Anion Gap 9 (3-11); Aspartate Aminotransferase 17 U/L (13-39); BUN Creatinine Ratio 10.3 (10-20); Blood Urea Nitrogen 22 mg/dl (6-23); Carbon Dioxide 38 mmol/L (21-32); Chloride 96 mmol/L (98-107); Est GFR (African American) 34.6 ml/min; Est GFR (Non-African American) 29.8 ml/min; Globulin 3.3 gm/dl (2.5-4.0); Glucose 123 mg/dl (70-99(Fasting)); Potassium 3.9 mmol/L (3.5-5.1); Sodium 143 mmol/L (136-145); Total Protein 7.2 gm/dl (6.0-8.3)
[2022-03-07 14:09] LABS: Troponin I High Sensitivity 20.3 pg/ml (0-20)
--- NOTE | 2022-03-07 15:07 | CT Scan Report ---
CT head/brain wo con CLINICAL HISTORY: fall Technique: Contiguous axial CT images of the head were acquired from the base of the skull to the lidia gen[place] without intravenous contrast administration. Images were viewed in brain, subdural and bone [facility]. Automated dose lowering techniques and/or adjustment according to patient size were utilized for this exam. Comparison: None available at the time of this dictation. Findings: Areas of decreased attenuation are present in the periventricular and subcortical white matter bilate rally consistent with small vessel ischemic disease. Generalized cerebral atrophy with commensurate e nlargement of the ventricles, sulci, and cisterns is also present. There is no acute intracranial hem orrhage or evidence of acute territorial infarction. No shift of the midline structures, mass effect, or extra-axial abnormalities are shown. Atherosclerotic calcifications are present in the intracran ial segments of the internal carotid arteries. Imaged portions of the paranasal sinuses and mastoid air cells are clear. The orbits appear normal. There are no acute fractures of the calvaria or scalp swelling. Impression: No acute intracranial hemorrhage, no evidence of acute territorial infarction or other acute intracra nial disease process. ACT 112: Negative or not required by law. Electronically signed by: Richard Moran M.D. 03/07/2022 3:06 PM
--- NOTE | 2022-03-07 15:26 | CT Scan Report ---
CT abd pelvis wo con CLINICAL HISTORY: lower abd pain TECHNIQUE: Helical axial images of the abdomen and pelvis were obtained. Automated dose lowering tech niques and/or adjustment according to patient size were utilized for this exam. This exam was perfor med without intravenous contrast. CT DOSE: 845.41 mGy.cm COMPARISON: Comparison is made to CT abdomen pelvis 11/09/2021 FINDINGS: Lower chest: Bibasilar atelectasis versus scarring is seen. Biatrial enlargement is seen. Liver: Unremarkable. No focal lesions are seen. Gallbladder and biliary tree: Cholelithiasis is seen without evidence of cholecystitis. No intra- or extrahepatic biliary ductal dilation. Pancreas: Unremarkable, no focal lesions. Spleen: Unremarkable. Adrenals: Bilateral adrenal thickening is unchanged from prior exam. Left myelolipoma is unchanged. Kidneys and ureters: Perinephric stranding is noted bilaterally. A right renal cyst measures 19 mm in diameter. There is a tiny hyperdense lesion in the right kidney inferior pole. Bladder: Unremarkable. Reproductive organs: Status post prostatectomy. Bowel: Unremarkable appearance of the bowel. The appendix is normal. Lymph nodes Retroperitoneal: Subcentimeter lymph nodes are noted. Pelvic: Unremarkable. Mesenteric: Unremarkable. Peritoneum: Normal. Vessels: Atherosclerotic calcifications are seen. Abdominal wall: Unremarkable. Bones: Degenerative changes in the visualized spine. IMPRESSION: 1. No acute abnormalities to explain lower abdominal pain. The appendix is normal. 2. Cholelithiasis without cholecystitis. 3. Atelectasis and small pericardial effusion. 4. Bilateral adrenal adenomas, unchanged from prior exam. ACT 112: Negative or not required by law. Electronically signed by: Richard Moran M.D. 03/07/2022 3:25 PM
[2022-03-07] MEDS ORDERED: FUROSEMIDE 40 MG/4 ML VIAL IV ONE (15:50)
[2022-03-07] MEDS ORDERED: hydrALAZINE HCL 20 MG/ML VIAL IV ONE (15:50)
[2022-03-07] MEDS ORDERED: NITROGLYCERIN 2% OINTMENT 30GM TUBE EXT STA (15:50)
--- NOTE | 2022-03-07 16:03 | History & Physical Report ---
Date of Service March 07, 2022 Assessment & Plan (1) SOB (shortness of breath): Plan: - Seems to be multifactorial, largely driven by anxiety and I believe he may suffer anxiety attacks and had one today, although he does have underlying restrictive lung disease, SHALA, and obesity causing chronic respiratory failure. Recent cardiology note highlights he is noncompliant with CPAP and uses inhalers inconsistently. - His breathing more comfortably and general disposition is much better after receiving lorazepam. - He is maintaining O2 sats > 92% on his usual 3-4 L NC, without wheezing or decreased breath sounds appreciated. CXR shows underinflated lungs w/ bibasilar atelectasis, CT A/P able to detect small pericardial effusion, atelectasis. - Trop minimally elevated to 20, likely from underlying CKD, BNP 516, he does not appear obviously volume overloaded other than peripheral edema which is baseline, cardiology note from yesterday 03/06 notes the same. - He received 40 mg IV Lasix in ED, will continue with usual 40 mg PO Lasix tomorrow. - Psych consult placed to address depression and anxiety as this is likely a large component of his SOB. - Will defer repeat echo as he had one < 1 month ago. - DuoNebs ordered. No indication for antibiotics or steroids. 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 Patient has previously been resistant to pulmonology follow up, however is desperate to alleviate his breathing difficulties, would like to know if there are other treatments available. Did discuss with him the importance of weight loss, inhaler and CPAP compliance. (2) Anxiety with depression: Plan: - Ongoing severe anxiety and depression seemingly driven by health issues, with passive SI and concerns voice by as addressed in HPI. - Psych consult placed, at this time do not feel suicide precautions or 1:1 sitter is required. (3) (HFpEF) heart failure with preserved ejection fraction: Plan: - Echo 02/13: EF 65-70%, mild LVH, normal LV size and systolic function. No significant valvular abnormalities. - BNP 516, appears euvolemic on exam with baseline b/l LE edema, no JVD, crackles, or pulmonary vascular congestion on CXR/CT. - Received 40 IV Lasix in ED. Continue Lasix 40 PO daily. - Strict I/Os, low sodium diet, 1800 cc fluid restriction, daily standing weights. (4) Hypertension: Plan: - He has been quite hypertensive for 1+ year with BP reading rarely < 160/90. - BP 226/105, given 40 IV Lasix, 5mg IV hydralazine, 0.5 inc nitropaste in ED. - Not having any chest pain with the BP, respiratory status improved with lorazepam/before BP controlled. - BP down to 138/78 will continue his home BP meds. - [employer]--> hydralazine 100 mg TID, losartan 100 mg daily, metoprolol 50 mg BID. (5) Abdominal pain: Plan: - Complaining of ongoing, diffuse abdominal pain even to very light touch for days, if not weeks. - WBC and lactate wnl, CT A/P unremarkable. - UA not appearing infected. - LFTS wnl, no comment of ascited on CT, does not appear volume overloaded as a cause for pain. - Unsure what may be causing this currently, but labs/exam reassuring there is no infectious or ischemic etiology causing it. (6) Headaches due to old head injury: Plan: - Chronic, ongoing, pressure-like, could be due to chronically elevated BP. - CT head unremarkable. - Tylenol ordered prn, monitor for resolution with control of BP. (7) Hypercapnic respiratory failure: Plan: - CO2 38 on BMP, about his baseline. He is maintaining SpO2 > 92% on his usual 3-4L NC. - No evidence of COPD exacerbation at this time. - Encourage compliance with usual home inhalers, will add on scheduled and prn DuoNebs. (8) CKD (chronic kidney disease): Plan: - Cr 2.14, about baseline since October. - Did receive IV Lasix, has suffered azotemia with increased Lasix dose to 80 mg PO--will continue to monitor renal function. - Avoid nephrotoxins, renally dose medications as able. (9) Obesity: Plan: - Weight loss would likel help with respiratory failure. (10) Obstructive sleep apnea: Plan: - Cannot tolerate CPAP. (11) Low back pain: Plan: - Patient complaining of acute on chronic low back pain, no recent fall or injuries. - Chronically incontinent of urine from prostatectomy in 2008, otherwise no change in bowel/bladder habits, no saddle anesthesia. - He is TTP in the lumbar region, no step offs, swelling. CT A/P noted degenerative changes. - Will obtain lumbar x-ray while admitted. Low suspicion for infectious process. (12) Withdrawal syndrome: Plan - Admit to med/tele. - SCDs, Lovenox for VTE ppx. - DNR/DNI. History of Present Illness Chief Complaint: sob x 2 days Primary Care Provider: PERCY Chavez Davis Irizarry is a 71-year-old male with a past medical history significant for heart failure, SHALA intolerant to CPAP, restrictive lung disease on 34 L NC chronically, anxiety, depression, diabetes, CKD, hypertension, and hyperlipidemia is presenting today with shortness of breath. This is not new for him as he has underlying restrictive lung disease on 3 or 4 times, as well as severe anxiety which seems to exacerbate his shortness of breath. Beginning yesterday he felt himself becoming more anxious with some racing thoughts which caused him to feel as if he could not catch his breath. His anxiety is centered around things he "should have done in the past but didn't", as well as his health which he perceives to be failing and notes he has chronic head, abdominal, and back pain. He said he frequently has throbbing headaches, and diffuse abdominal pain even with light touch of his abdomen, but without nausea, vomiting, diarrhea, constipation. He openly admits to being very anxious and depressed, no active suicidal ideation but does say that if his pain continues like this he doesn't think he could go on and has had passive thoughts about ending his life. at bedside says that he has mentioning shooting himself for, and she is concerned about leaving him home alone as they do have guns in the house. Patient later states he does not think he can actually do this, however admits he has thought about it. He has not had any fever or chills, increasing cough, or worsening swelling in his legs. He is without any chest pain or palpitations, at rest or with activity though he is very sedentary. Blood pressure is significantly elevated to 226/105 at its highest, per chart review this is not uncommon for him and he states his blood pressure has been poorly controlled for some time. He has had vision changes and chronic headaches in the past, none currently. On presentation to the ED, his BP has been as high as 226/105, on 5 L NC at 100%, afebrile, without tachypnea or tachycardia. His labs are mostly unremarkable, significant for troponin of 20.3 and a BNP of 516, CO2 on BMP is 38 which is about his baseline, creatinine 2.14 again is about his baseline for the past few months. UA with 3+ protein and trace blood, otherwise without evidence of infection. CXR shows underinflated lungs with bibasilar atelectasis. CT A/P shows normal appendix, cholelithiasis without cholecystitis, bilateral adrenal adenomas, unchanged from prior exam. The visualized portion of the chest showed atelectasis and a small pericardial effusion. Head CT unremarkable. In the ED, he has received 0.5 inch nitroglycerin paste, 5 mg IV hydralazine, 40 mg IV Lasix, 1 mg of lorazepam, 125 mg Solu-Medrol, and an albuterol breathing treatment. He notes feeling significantly better after the lorazepam. Allergies Allergy/AdvReac Type Severity Reaction Status Date / Time bee venom protein (honey bee) Allergy Severe ANAPHYLAXIS Verified 03/07/22 15:06 Home Medications Medication Instructions Recorded Confirmed Type albuterol sulfate 2.5 mg/3 mL 2.5 mg inhalation QID PRN 03/10/19 03/07/22 History (0.083 %) solution for nebulization Shortness Of Breath Or Wheezing albuterol sulfate 90 mcg/actuation 2 puff inhalation QID PRN 03/10/19 03/07/22 History aerosol inhaler (Ventolin HFA) Shortness Of Breath Or Wheezing insulin aspart U-100 100 unit/mL 5 unit subcut DIRECTED 03/10/19 03/07/22 History (3 mL) subcutaneous pen (Novolog Flexpen U-100 Insulin aspart) losartan 100 mg tablet (Cozaar) 100 mg PO DAILY 03/10/19 03/07/22 History ropinirole 0.5 mg tablet 0.5 mg PO HS 04/03/20 03/07/22 History hydralazine 50 mg tablet 100 mg PO TID 09/18/20 03/07/22 History metoprolol tartrate 50 mg tablet 50 mg PO BID 12/03/20 03/07/22 History (Lopressor) furosemide 40 mg tablet 40 mg PO DAILY 02/23/22 03/07/22 History fluticasone fur. 200 mcg-umeclid 1 inh inhalation Q24H #28 ea 03/06/22 03/07/22 Rx 62.5 mcg-vilant 25 mcg inhalat.powder (Trelegy Ellipta) Past Med/Surg History Medical History Acute on chronic heart failure with preserved ejection fraction (HFpEF) Chronic hypoxemic respiratory failure CKD (chronic kidney disease) Colon cancer COPD (chronic obstructive pulmonary disease) Diabetes Hypercapnic respiratory failure Hyperlipidemia Hypertension Influenza B Knee pain Low back pain Obesity Obstructive sleep apnea Orthostatic dizziness Prostate cancer (06/23/08) "Rising PSA Status post biopsy revealing adenocarcinoma [place] 3+4 10 of 24 cores positive, High-grade prostatic intraepithelial neoplasm present Status post robotic prostatectomy 10/06/2008 Adenocarcinoma [place] 3+3 negative margins Perineural invasion present Stage pT2c pN0M0 Rising PSA to 0.08 Status post completion of salvage radiation 11/16/2014 received 7040 cGy " On 11/24/14 15:53 Oliva Lozano wrote "Rising PSA Status post biopsy revealing adenocarcinoma [place] 3+4 10 of 24 cores positive, High-grade prostatic intraepithelial neoplasm present Status post robotic prostatectomy 10/06/2008 Adenocarcinoma [place] 3+3 negative margins Perineural invasion present Stage pT2c pN0M0 Rising PSA to 0.08 Status post completion of salvage radiation 11/16/2014 received 7040 cGy " On 09/04/14 10:59 Oliva Lozano wrote "Rising PSA Status post biopsy revealing adenocarcinoma [place] 3+4 10 of 24 cores positive, High-grade prostatic intraepithelial neoplasm present Status post robotic prostatectomy 10/06/2008 Adenocarcinoma [place] 3+3 negative margins Perineural invasion present PT2c pN0M0 Rising PSA to 0.08 " Restrictive lung disease Urinary problem Surgical History History of prostatectomy Family History Other No significant family history Social History Smoking Status: Never smoker Hx Alcohol Use: Yes Alcohol type: beer Hx Substance Use: No Preferred Language: Kazakh Communication Ability: Effective Amalgamator Required: No Beliefs That Will Affect Care: None Current Living Situation: Spouse Current Living Situation Comment: with Other Information That Helps Us Care for You: No Feels Safe at Home: Yes Safety Concerns: Feels Safe At This Time Assistive Devices: Walker and Wheelchair Review of Systems Review of Systems: Constitutional: No fever/chills, weakness, fatigue, myalgias, anorexia, night sweats Eyes: No diplopia, no worsening or blurred vision ENT: normal hearing, no trouble swallowing Respiratory: SOB at rest and exertion, no cough or difficulty laying flat Cardiovascular: No chest pain, tightness or palpitations Abdomen: diffuse abdominal pain; No nausea, vomiting, diarrhea or constipation : Denies dysuria, hematuria, increased urgency/frequency, urinary retention Musculoskeletal: low back pain, ongoing for several years, seems worse over past week; No joint pain, calf pain, swelling Neurologic: No weakness, numbness/tingling, or balance problems Psychiatric: No anxiety or depression Skin: No rash or itch Physical Exam Physical Exam: General: awake, alert, calm, no apparent distress Head: Normocephalic, atraumatic ENT: PERRL, EOMI, no pharyngeal exudate, mucous membranes moist Chest: Clear to auscultation, on room air, no adventitious breath sounds Cardiac: Regular rate and rhythm, no murmur, no JVD, normal peripheral pulses, good capillary refill Abdominal: verbalizes pain to light palpation without grimacing, guarding, or rebound throughout entire abdomen; NABS x 4 quadrants, soft Extremities: b/l LEs with 2+ edema, dulce changes consistent with venous insufficiency; no open wounds or evidnce of infection; calfs nontender to palpation Psych: flat affect Neuro: AAO x 3, strength intact bilaterally and rated 5/5, no motor deficits, speech is clear, no peripheral sensory deficits Skin: no rash or erythema Results & Data Results & Data ([facility]) Vital Signs (Past 12 Hours) Vital Signs Temp Pulse Pulse Resp BP BP Pulse Ox 03/07/22 15:48 226/105 H 03/07/22 15:39 86 100 03/07/22 14:16 80 18 100 03/07/22 14:16 03/07/22 12:52 36.8 C 82 26 H 199/94 H 91 O2 Del Method O2 Flow Rate 03/07/22 15:48 03/07/22 15:39 Nasal Cannula 5 03/07/22 14:16 Room Air 03/07/22 14:16 Room Air 03/07/22 12:52 Nasal Cannula 3 Laboratory Results Abnormal lab results 03/07/22 03/07/22 03/07/22 Range/Units 13:30 13:30 13:30 RBC 3.70 L (4.63-6.08) M/uL Hgb 10.1 L (14.0-18.0) g/dl Hct 31.2 L (40.1-51.0) % RDW Std Deviation 46.8 H (36.4-46.3) fL RDW Coeff of Lyric 15.3 H (11.5-14.5) % MPV 8.9 L (9.4-12.4) fL Lymph # (Auto) 0.32 L (1.2-3.4) K/uL Chloride 96 L (98-107) mmol/L Carbon Dioxide 38 H (21-32) mmol/L Creatinine 2.14 H (0.6-1.4) mg/dl Glucose 123 H (70-99(Fasting)) mg/dl Troponin I High Sens 20.3 H (0-20) pg/ml B-Natriuretic Peptide 516 H (0-100) pg/ml Urine Protein (Negative) Urine Blood (Negative) U Epithel Cells (Auto) (0-5) /lpf 03/07/22 Range/Units 13:30 RBC (4.63-6.08) M/uL Hgb (14.0-18.0) g/dl Hct (40.1-51.0) % RDW Std Deviation (36.4-46.3) fL RDW Coeff of Lyric (11.5-14.5) % MPV (9.4-12.4) fL Lymph # (Auto) (1.2-3.4) K/uL Chloride (98-107) mmol/L Carbon Dioxide (21-32) mmol/L Creatinine (0.6-1.4) mg/dl Glucose (70-99(Fasting)) mg/dl Troponin I High Sens (0-20) pg/ml B-Natriuretic Peptide (0-100) pg/ml Urine Protein 3+ H (Negative) Urine Blood Trace H (Negative) U Epithel Cells (Auto) 5-10 H (0-5) /lpf Diagnostic Findings Chest X-Ray 03/07/22 13:01 XR chest 1V portable CLINICAL HISTORY: Dyspnea TECHNIQUE: Single frontal radiograph of the chest was obtained. Comparison: Comparison is made to chest radiograph 10/30/2021 FINDINGS: No lines and tubes are seen. Calcified aortic knob is seen. Lungs are underinfl ated but clear apart from bibasilar atelectasis. No evidence of pleural effusion or pneumothorax. IMPRESSION: Lungs are underinflated with bibasilar atelectasis. ACT 112: Negative or not required by law. Electronically signed by: Richard Moran M.D. 03/07/2022 1:34 PM Abdomen/Pelvis CT 03/07/22 14:35 CT abd pelvis wo con CLINICAL HISTORY: lower abd pain TECHNIQUE: Helical axial images of the abdomen and pelvis were obtained. Automated dose lowering techniques and/or adjustment according to patient size were utilized for this exam. This exam was performed without intravenous contrast. CT DOSE: 845.41 mGy.cm COMPARISON: Comparison is made to CT abdomen pelvis 11/09/2021 FINDINGS: Lower chest: Bibasilar atelectasis versus scarring is seen. Biatrial enlargement is seen. Liver: Unremarkable. No focal lesions are seen. Gallbladder and biliary tree: Cholelithiasis is seen without evidence of cholecystitis. No intra- or extrahepatic biliary ductal dilation. Pancreas: Unremarkable, no focal lesions. Spleen: Unremarkable. Adrenals: Bilateral adrenal thickening is unchanged from prior exam. Left myelolipoma is unchanged. Kidneys and ureters: Perinephric stranding is noted bilaterally. A right renal cyst measures 19 mm in diameter. There is a tiny hyperdense lesion in the right kidney inferior pole. Bladder: Unremarkable. Reproductive organs: Status post prostatectomy. Bowel: Unremarkable appearance of the bowel. The appendix is normal. Lymph nodes Retroperitoneal: Subcentimeter lymph nodes are noted. Pelvic: Unremarkable. Mesenteric: Unremarkable. Peritoneum: Normal. Vessels: Atherosclerotic calcifications are seen. Abdominal wall: Unremarkable. Bones: Degenerative changes in the visualized spine. IMPRESSION: 1. No acute abnormalities to explain lower abdominal pain. The appendix is normal. 2. Cholelithiasis without cholecystitis. 3. Atelectasis and small pericardial effusion. 4. Bilateral adrenal adenomas, unchanged from prior exam. ACT 112: Negative or not required by law. Electronically signed by: Richard Moran M.D. 03/07/2022 3:[address] 03/07/22 14:50 CT head/brain wo con CLINICAL HISTORY: fall Technique: Contiguous axial CT images of the head were acquired from the base of the skull to the vertex without intravenous contrast administration. Images were viewed in brain, subdural and bone windows. Automated dose lowering techniques and/or adjustment according to patient size were utilized for this exam. Comparison: None available at the time of this dictation. Findings: Areas of decreased attenuation are present in the periventricular and subcortical white matter bilaterally consistent with small vessel ischemic dise ase. Generalized cerebral atrophy with commensurate enlargement of the ventricles, sulci, and cisterns is also present. There is no acute intracranial hemorrhage or evidence of acute territorial infarction. No shift of the midline structures, mass effect, or extra-axial abnormalities are shown. Atherosclerotic calcifications are present in the intracranial segments of the internal carotid arteries. Imaged portions of the paranasal sinuses and mastoid air cells are clear. The orbits appear normal. There are no acute fractures of the calvaria or scalp swelling. Impression: No acute intracranial hemorrhage, no evidence of acute territorial infarction or other acute intracranial disease process. ACT 112: Negative or not required by law. Electronically signed by: Richard Moran M.D. 03/07/2022 3:06 PM ECG Additional Comments: Poor data quality, interpretation may be adversely affected Normal sinus rhythm Prolonged QT Abnormal ECG When compared with ECG of 30-OCT-2021 12:07, No significant change was found Code Status & VTE Plan Code Status DNR/DNI. Supervising Physician Co-Signing Physician Notes I personally saw and examined the patient. I verified all rust points and agree with Leia Ackerman PA-C with the following exceptions and/or additions: 71 year old male presents to the ER with increased anxiety, suicidal ideation, a bdominal pain. O/E No abdominal pain on distraction, BS normal, Chest b/l rhonchi, no wheezes, prolonged expiratory phase and using accessory muscles, HS RRR, no murmurs, A&Ox3 A/P Trazodone withdrawal - suspect the majority of his acute symptoms are from this. Will restart at 50mg PO HS. Consult psychiatry for suicidal ideation. Hypertensive urgency - improved with medications given in ER. Will continue to monitor on his regular medications. PG Care Time/CCT Total # of Minutes Spent Total Time Spent with Patient: Total time spent is greater than 50% in coordination of care (as documented) at patient's floor/unit and/or counseling patient: Coding Level of Care Code 26122 Initial Inpt Care Lvl 3 Diagnoses SOB (shortness of breath) R06.02 Anxiety with depression F41.8 (HFpEF) heart failure with preserved ejection fraction I50.30 Hypertension I10 Hypertension type: essential hypertension Abdominal pain R10.9 Headaches due to old head injury G44.309; S09.90XS Hypercapnic respiratory failure J96.92 CKD (chronic kidney disease) N18.9 Obesity E66.9 Obstructive sleep apnea G47.33 Low back pain M54.5 Withdrawal syndrome F19.939 (1) Hypertension Hypertension type: essential hypertension Qualified Code(s): I10 - Essential (primary) hypertension
[2022-03-07 17:06] LABS: Influenza A virus by PCR Negative (Neg); Influenza B virus by PCR Negative (Neg); RSV by PCR Negative (Neg); SARS CoV2 RNA(COVID-19) Ceph NEGATIVE (Negative)
[2022-03-07] MEDS ORDERED: ACETAMINOPHEN 325 MG TAB PO PRN (18:40)
[2022-03-07] MEDS ORDERED: ONDANSETRON INJ 2 MG/ML 2 ML VIAL IV PRN (18:40)
[2022-03-07] MEDS ORDERED: DEXTROSE 50% 50 ML SYRINGE IV PRN (18:40)
[2022-03-07] MEDS ORDERED: ALBUT/IPRATROP 3MG/0.5MG NEB 3 ML VIAL NEB PRN (18:40)
[2022-03-07] MEDS ORDERED: ALUMINUM/MAGNESIUM SUSP 30 ML UDC PO PRN (18:40)
[2022-03-07] MEDS ORDERED: NON-FORMULARY MEDICATION (Fluticasone-Umeclidin-Vilanter [Trelegy Ellipta] 200-62.5-25 mcg INH SCH (18:40)
[2022-03-07] MEDS ORDERED: GLUCAGON FOR INJ 1 MG VIAL SQ PRN (18:40)
[2022-03-07] MEDS ORDERED: GLUCOSE 40% GEL 15 GM TUBE PO PRN (18:40)
[2022-03-07] MEDS ORDERED: CARBOHYDRATES FOR HYPOGLYCEMIA PO PRN (18:40)
[2022-03-07] MEDS ORDERED: POLYETHYLENE (MIRALAX) 17 GM PACK PO PRN (18:40)
[2022-03-07] MEDS ORDERED: GLUCOSE 10 TAB/TUBE PO PRN (18:40)
--- NOTE | 2022-03-07 19:04 | XRay Report ---
XR lumbar spine 2-3V CLINICAL HISTORY: acute on chronic low back pain TECHNIQUE: 3 views of the lumbar spine were obtained. Comparison: Comparison is made to abdomen radiograph 02/17/2017 FINDINGS: There is no evidence of an acute fracture. Degenerative changes are seen in the lumbar spine. The ali gnment is normal. Vascular calcifications are noted. IMPRESSION: No acute fracture or subluxation. ACT 112: Negative or not required by law. Electronically signed by: Richard Moran M.D. 03/07/2022 7:03 PM
[2022-03-07] MEDS ORDERED: Patient's HEIGHT &/or WEIGHT Needed STA (19:16)
[2022-03-07] MEDS: ALBUT/IPRATROP 3MG/0.5MG NEB 3 ML VIAL INH SCH (19:44)
[2022-03-07] MEDS ORDERED: ENOXAPARIN INJ 40 MG/0.4 ML SYR SQ SCH (20:00)
[2022-03-07] MEDS ORDERED: FLUTICASONE FUROATE 200MCG 14 PUFFS/INHALER INH SCH (20:00)
[2022-03-07] MEDS ORDERED: UMECLIDINIUM/VILANTEROL 62.5/25MCG 7 PUFFS/INHALER INH SCH (20:00)
[2022-03-07] MEDS: INSULIN ASPART PER UNIT SC SCH (20:43)
[2022-03-07] MEDS: LANTUS PER UNIT CHARGE SQ SCH (20:43)
[2022-03-07] MEDS ORDERED: rOPINIRole HCL 0.25 MG TABLET PO SCH (21:00)
[2022-03-07] MEDS ORDERED: traZODone HCL 50 MG TAB PO SCH (21:00)
[2022-03-07] MEDS: HEPARIN SOD 5,000 UNIT/0.5 ML VIAL SQ SCH (22:39)
[2022-03-07] MEDS: METOPROLOL TARTRATE 50 MG TAB PO SCH (22:39)
[2022-03-07] MEDS: hydrALAZINE TAB 50 MG TAB PO SCH (22:40)
[2022-03-08] MEDS: ALBUT/IPRATROP 3MG/0.5MG NEB 3 ML VIAL INH SCH ×3 (02:22→12:51)
[2022-03-08] MEDS ORDERED: hydrALAZINE HCL 20 MG/ML VIAL IV ONE (05:59)
[2022-03-08 07:21] LABS: Basophils # (auto) 0.01 K/uL (0-0.2); Basophils % (auto) 0.2 %; Hematocrit (blood only) 29.6 % (40.1-51.0); Hemoglobin 9.4 g/dl (14.0-18.0); Immature Granulocytes # (auto) 0.02 K/uL (0.00-0.02); Immature Granulocytes % (auto) 0.5 %; Lymphocytes # (auto) 0.23 K/uL (1.2-3.4); Lymphocytes % (auto) 5.5 %; Mean Corpuscular Hemoglobin 26.6 pg (25.0-34.0); Mean Corpuscular Hgb Conc 31.8 g/dL (32.0-36.0); Mean Corpuscular Volume 83.9 fL (80.0-100.0); Mean Platelet Volume 9.3 fL (9.4-12.4); Neutrophils # (auto) 3.42 K/uL (1.4-6.5); Neutrophils % (auto) 81.8 %; Platelet Count 156 K/uL (130-400); RDW Coefficient of Variation 15.2 % (11.5-14.5); RDW Standard Deviation 45.8 fL (36.4-46.3); Red Blood Count 3.53 M/uL (4.63-6.08); White Blood Count 4.18 K/ul (4.8-10.8)
--- NOTE | 2022-03-08 07:46 | Pulmonary Consultation ---
Date of Consultation March 08, 2022 Assessment & Plan (1) Acute anxiety: (2) (HFpEF) heart failure with preserved ejection fraction: (3) Chronic hypoxemic respiratory failure: (4) Obstructive sleep apnea: (5) Restrictive lung disease: Plan CT chest 10/30/2021 personally reviewed: Elevated left hemidiaphragm Dependent ectasis of the left lower lobe Cardiomegaly No significant mediastinal adenopathy Chest x-ray 03/07/2022 personally reviewed: Portable film, poor inspiratory effort, elevation of the left hemidiaphragm, bilateral costophrenic angles are clean, no clear lung input appreciated 2D echo 02/13/2022: EF 65-70%, mild concentric LVH, severe LA dilatation, grade 2 diastolic dysfunction, RV not well visualized -- Acute on chronic hypoxic respiratory failure Etiology is multifactorial It is mostly coming from patient's underlying diastolic CHF BNP 516 Influenza A/B, RSV negative COVID-19 PCR negative ABG 03/08/2022: 7.49/64/126 on 3 L -- Restrictive lung disease Likely from elevated hemidiaphragm along with obesity Incentive spirometer will be beneficial Patient is on Trelegy inhaler which was recently started. I personally am not sure if it is making any difference in his breathing -- Chronic hypercapnic respiratory failure Likely from restrictive lung disease -- SHALA Patient is noncompliant with CPAP I do think patient will benefit from BiPAP nightly and as needed shortness of breath. Patient is not willing to use it. I do not think there is an acute indication for any intervention like tracheostomy. But if the patient refuses and he comes in with hypercapnia and altered but that will be the next step Plan: Incentive spirometry BiPAP nightly and as needed shortness of breath Continue with diuretics to keep the patient negative balance Patient is currently on Anoro and Arnuity. I am unsure if that is making any difference Would continue while he is in the hospital. On discharge would recommend only Anoro and see if he has any benefit from it. I do think anxiety is also playing a role in his feeling of shortness of breath Do not over oxygenate the patient, keep O2 saturation between 88-92% Case was discussed with RN at bedside Please note the above document was generated using voice recognition software. It may contain grammatical, syntax or spelling errors.Any formal questions or concerns about the content, text or information contained within the body of this dictation should be directly addressed to the provider for clarification. History of Present Illness Attending Physician: Yazan Calloway MD History of Present Illness 71-year-old male presented to hospital for shortness of breath Past medical history: SHALA intolerant to CPAP, restrictive lung disease, anxiety/depression, diabetes, CKD, dyslipidemia, heart failure Pulmonary consulted for restrictive lung disease Patient follows with Dr. Caba as an outpatient. He saw the patient last on 11/16/2020. Previous notes personally reviewed At the time of examination patient was saturating 96% on 3 L. I went down to 1 L he was still able to maintain saturation 93%. He stated that he is feeling better compared to before coming to the hospital. Is coughing bringing up clear phlegm. Denies any hemoptysis. No chest pain No headache, no blurry vision No fever or chills No dysuria, no diarrhea. Patient was recently started on Trelegy inhaler, he is unsure if it is making any difference Social history: Lifetime non-smoker. 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 and dust Asthma: Questionable history of asthma in mother and father who are both smokers Allergies Allergy/AdvReac Type Severity Reaction Status Date / Time bee venom protein (honey bee) Allergy Severe ANAPHYLAXIS Verified 03/07/22 15:06 Home Medications Medication Instructions Recorded Confirmed Type albuterol sulfate 2.5 mg/3 mL 2.5 mg inhalation QID PRN 03/10/19 03/07/22 History (0.083 %) solution for nebulization Shortness Of Breath Or Wheezing albuterol sulfate 90 mcg/actuation 2 puff inhalation QID PRN 03/10/19 03/07/22 History aerosol inhaler (Ventolin HFA) Shortness Of Breath Or Wheezing insulin aspart U-100 100 unit/mL 5 unit subcut DIRECTED 03/10/19 03/07/22 History (3 mL) subcutaneous pen (Novolog Flexpen U-100 Insulin aspart) losartan 100 mg tablet (Cozaar) 100 mg PO DAILY 03/10/19 03/07/22 History ropinirole 0.5 mg tablet 0.5 mg PO HS 04/03/20 03/07/22 History hydralazine 50 mg tablet 100 mg PO TID 09/18/20 03/07/22 History metoprolol tartrate 50 mg tablet 50 mg PO BID 12/03/20 03/07/22 History (Lopressor) furosemide 40 mg tablet 40 mg PO DAILY 02/23/22 03/07/22 History fluticasone fur. 200 mcg-umeclid 1 inh inhalation Q24H #28 ea 03/06/22 03/07/22 Rx 62.5 mcg-vilant 25 mcg inhalat.powder (Trelegy Ellipta) Patient History Medical History Acute on chronic heart failure with preserved ejection fraction (HFpEF) Chronic hypoxemic respiratory failure CKD (chronic kidney disease) Colon cancer COPD (chronic obstructive pulmonary disease) Diabetes Hypercapnic respiratory failure Hyperlipidemia Hypertension Influenza B Knee pain Low back pain Obesity Obstructive sleep apnea Orthostatic dizziness Prostate cancer (06/23/08) "Rising PSA Status post biopsy revealing adenocarcinoma [place] 3+4 10 of 24 cores positive, High-grade prostatic intraepithelial neoplasm present Status post robotic prostatectomy 10/06/2008 Adenocarcinoma [place] 3+3 negative margins Perineural invasion present Stage pT2c pN0M0 Rising PSA to 0.08 Status post completion of salvage radiation 11/16/2014 received 7040 cGy " On 11/24/14 15:53 Oliva Lozano wrote "Rising PSA Status post biopsy revealing adenocarcinoma [place] 3+4 10 of 24 cores positive, High-grade prostatic intraepithelial neoplasm present Status post robotic prostatectomy 10/06/2008 Adenocarcinoma [place] 3+3 negative margins Perineural invasion present Stage pT2c pN0M0 Rising PSA to 0.08 Status post completion of salvage radiation 11/16/2014 received 7040 cGy " On 09/04/14 10:59 Oliva Lozano wrote "Rising PSA Status post biopsy revealing adenocarcinoma [place] 3+4 10 of 24 cores positive, High-grade prostatic intraepithelial neoplasm present Status post robotic prostatectomy 10/06/2008 Adenocarcinoma [place] 3+3 negative margins Perineural invasion present PT2c pN0M0 Rising PSA to 0.08 " Restrictive lung disease Urinary problem Surgical History History of prostatectomy Family History Other No significant family history Social History Smoking Status: Never smoker Hx Alcohol Use: Yes Alcohol type: beer Hx Substance Use: No Preferred Language: Armenian Communication Ability: Effective 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 Required: No Beliefs That Will Affect Care: None Current Living Situation: Spouse Current Living Situation Comment: with Other Information That Helps Us Care for You: No Feels Safe at Home: Yes Safety Concerns: Feels Safe At This Time Assistive Devices: Walker and Wheelchair Review of Systems Review of Systems: All systems reviewed & are unremarkable except as noted in HPI & below Physical Exam Physical Exam: Constitutional: No acute distress HEENT: EOMI, PERRLA Respiratory system: Decreased air entry bilaterally, no wheeze, no rhonchi, positive crackles bilateral lower lobes CVS: S1-S2 positive, no murmurs or gallops, accentuated P2 Abdomen: Soft, nontender, nondistended, positive bowel sounds x4, obese Extremities: +2 pulses bilaterally radialis/ dorsalis pedis, no cyanosis, +1 pitting edema bilateral lower extremity Neuro: Awake alert oriented x3 Psych: Normal mood and affect G/U: Positive [place] Skin: no rashes, warm and dry Lymphatic: no cervical or axillary lymphadenopathy Results & Data Results & Data ([facility]) Vital Signs (Past 12 Hours) Vital Signs Temp Pulse Pulse Resp BP Pulse Ox O2 Del Method 03/08/22 06:57 37.0 C 73 20 173/77 H 98 Nasal Cannula 03/08/22 06:38 178/88 H 03/08/22 05:37 188/93 H 03/08/22 03:36 36.7 C 75 20 183/85 H 97 Nasal Cannula 03/08/22 02:50 161/85 H 03/08/22 02:26 67 18 96 Nasal Cannula 03/07/22 23:26 171/83 H 03/07/22 22:54 Nasal Cannula 03/07/22 22:53 97 H 03/07/22 22:52 37.0 C 91 H 18 190/87 H 93 Nasal Cannula 03/07/22 22:10 100 H O2 Flow Rate 03/08/22 06:57 3 03/08/22 06:38 03/08/22 05:37 03/08/22 03:36 3 03/08/22 02:50 12/21/22 02:26 3 03/07/22 23:26 03/07/22 22:54 3 03/07/22 22:53 03/07/22 22:52 3 03/07/22 22:10 Laboratory Results 03/08/22 06:58 PG Care Time/CCT Total # of Minutes Spent Total Time Spent with Patient: Total time spent is greater than 50% in coordination of care (as documented) at patient's floor/unit and/or counseling patient: Coding Level of Care Code 20367 Initial Inpt Care Lvl 3 Diagnoses Acute anxiety F41.9 (HFpEF) heart failure with preserved ejection fraction I50.30 Chronic hypoxemic respiratory failure J96.11 Obstructive sleep apnea G47.33 Restrictive lung disease J98.4
[2022-03-08 07:47] LABS: BUN Creatinine Ratio 14.2 (10-20); Calcium 8.3 mg/dl (8.5-10.1); Creatinine Clr Calc Pharmacy 29.5 ml/min; Est GFR (African American) 29.1 ml/min; Est GFR (Non-African American) 25.1 ml/min; Magnesium 1.8 mg/dl (1.7-2.4); Potassium 3.9 mmol/L (3.5-5.1)
[2022-03-08 08:44] LABS: Estimated Average Glucose 128 mg/dl; Hemoglobin A1C 6.1 % (4.5-5.6)
[2022-03-08] MEDS ORDERED: LOSARTAN POTASSIUM 50 MG TAB PO SCH (09:00)
[2022-03-08] MEDS ORDERED: FUROSEMIDE 40 MG TAB PO SCH (09:00)
[2022-03-08] MEDS: hydrALAZINE TAB 50 MG TAB PO SCH ×2 (09:02→14:34)
[2022-03-08] MEDS: METOPROLOL TARTRATE 50 MG TAB PO SCH (09:02)
[2022-03-08] MEDS: HEPARIN SOD 5,000 UNIT/0.5 ML VIAL SQ SCH (09:02)
[2022-03-08] MEDS: INSULIN ASPART PER UNIT SC SCH ×3 (09:07→17:34)
[2022-03-08] MEDS: LANTUS PER UNIT CHARGE SQ SCH (09:08)
[2022-03-08 09:15] LABS: Base Excess ABG 21.4 mEq/L (-9-1.8); HCO3 ABG 49 mmol/L (19-24); Oxygen Saturation ABG 99.5 % (90-95); PCO2 ABG 64 mmHg (35-46); PO2 ABG 126 mmHg (80-95); pH ABG 7.49 (7.35-7.45)
[2022-03-08 09:18] LABS: Allen Test POS (Pos)
--- NOTE | 2022-03-08 11:09 | Psychiatric Consultation ---
Date of Consultation March 08, 2022 Impression / Recommendations Impression 71 yo male with worsening mood/ongoing anxiety in the setting of multiple health issues/phase of life. He was reportedly overly sedated per on trazodone 150 mg. has had recent TSH and vit D level. (1) Anxiety with depression: (2) SOB (shortness of breath): Plan there is no indication for inpatient psychiatric admission, I do not view him as acutely suicidal but he has risk factors given age/health condition/hopeless at times so liaison to speak with re: guns (if any) and provide crisis resources. he would be agreeable to a trial of an SSRI. Would recommend 5 mg Lexapro, defer to hospitalist, Dr. Calloway notified. I typically don't see discontinuation syndrome with trazodone and would prefer no sleep meds given his respiratory status but 50 mg trazodone not inappropriate. Psych History Identifying Data 71 yo male from near [place], [place]. Admit medically for SOB, longstanding hx of chronic O2 with respiratory and heart failure. Consult is by hospitalist service for severe anxiety and depression. Chief Complaint "I don't want to look outside since I can't be there". History of Present Illness He met briefly with liaison last night to complete PHQ-9 screening: He was able to answer the PHQ-9 questions and scored a 17. More than half the days over the past two weeks he has been feeling down, had little pleasure in doing things, sleeping more, feeling as though he has let his family down, and has had trouble concentrating. He says that he does sometimes think he would be better off , but denies any suicidal thoughts or thoughts to harm himself. He says he has been dealing with anxiety for about a year now but has no idea what has brought it on, denies any specific stressors. Today he agains denies SI but states that [place], he hasn't felt comfortable driving for weeks. There was reportedly some concern that he was experiencing a discontinuation syndrome from trazodone. had reportedly stopped 150 mg trazodone rather abruptly and there was concern maybe that was contributing to his presentation. He said he "doesn't know, my handles that." He did state he'd be agreeable to medication for mood/anxiety but only if could be prescribed by PCP. He states he used to [employer] and work outdoors but "not for years and misses it." No prior psych hx. Allergies Allergy/AdvReac Type Severity Reaction Status Date / Time bee venom protein (honey bee) Allergy Severe ANAPHYLAXIS Verified 03/07/22 15:06 Home Medications Medication Instructions Recorded Confirmed Type albuterol sulfate 2.5 mg/3 mL 2.5 mg inhalation QID PRN 03/10/19 03/07/22 History (0.083 %) solution for nebulization Shortness Of Breath Or Wheezing albuterol sulfate 90 mcg/actuation 2 puff inhalation QID PRN 03/10/19 03/07/22 History aerosol inhaler (Ventolin HFA) Shortness Of Breath Or Wheezing insulin aspart U-100 100 unit/mL 5 unit subcut DIRECTED 03/10/19 03/07/22 History (3 mL) subcutaneous pen (Novolog Flexpen U-100 Insulin aspart) losartan 100 mg tablet (Cozaar) 100 mg PO DAILY 03/10/19 03/07/22 History ropinirole 0.5 mg tablet 0.5 mg PO HS 04/03/20 03/07/22 History hydralazine 50 mg tablet 100 mg PO TID 09/18/20 03/07/22 History metoprolol tartrate 50 mg tablet 50 mg PO BID 12/03/20 03/07/22 History (Lopressor) furosemide 40 mg tablet 40 mg PO DAILY 02/23/22 03/07/22 History fluticasone fur. 200 mcg-umeclid 1 inh inhalation Q24H #28 ea 03/06/22 03/07/22 Rx 62.5 mcg-vilant 25 mcg inhalat.powder (Trelegy Ellipta) Personal History Beliefs That Will Affect Care: None Patient History Medical History Acute on chronic heart failure with preserved ejection fraction (HFpEF) Chronic hypoxemic respiratory failure CKD (chronic kidney disease) Colon cancer COPD (chronic obstructive pulmonary disease) Diabetes Hypercapnic respiratory failure Hyperlipidemia Hypertension Influenza B Knee pain Low back pain Obesity Obstructive sleep apnea Orthostatic dizziness Prostate cancer (06/23/08) "Rising PSA Status post biopsy revealing adenocarcinoma Jos[facility] 3+4 10 of 24 cores positive, High-grade prostatic intraepithelial neoplasm present Status post robotic prostatectomy 10/06/2008 Adenocarcinoma [facility] 3+3 negative margins Perineural invasion present Stage pT2c pN0M0 Rising PSA to 0.08 Status post completion of salvage radiation 11/16/2014 received 7040 cGy " On 11/24/14 15:53 Oliva Lozano wrote "Rising PSA Status post biopsy revealing adenocarcinoma Josy 3+4 10 of 24 cores positive, High-grade prostatic intraepithelial neoplasm present Status post robotic prostatectomy 10/06/2008 Adenocarcinoma [facility] 3+3 negative margins Perineural invasion present Stage pT2c pN0M0 Rising PSA to 0.08 Status post completion of salvage radiation 11/16/2014 received 7040 cGy " On 09/04/14 10:59 Oliva Lozano wrote "Rising PSA Status post biopsy revealing adenocarcinoma Josy 3+4 10 of 24 cores positive, High-grade prostatic intraepithelial neoplasm present Status post robotic prostatectomy 10/06/2008 Adenocarcinoma Josy 3+3 negative margins Perineural invasion present PT2c pN0M0 Rising PSA to 0.08 " Restrictive lung disease Urinary problem Surgical History History of prostatectomy Family History Other No significant family history Social History Smoking Status: Never smoker Hx Alcohol Use: Yes Alcohol type: beer Hx Substance Use: No Preferred Language: Taiwanese Communication Ability: Effective Logistician Required: No Beliefs That Will Affect Care: None Current Living Situation: Spouse Current Living Situation Comment: with Other Information That Helps Us Care for You: No Feels Safe at Home: Yes Safety Concerns: Feels Safe At This Time Assistive Devices: Walker and Wheelchair Physical Exam Psychiatric: Orientation: alert and oriented x 3 Apperance: appropriately dressed and appropriately groomed Eye Contact: good eye contact Motor Behavior: no abnormal motor movements Speech: normal rate/rhythm/volume of speech Affect: + depressed affect Mood: + depressed mood Thought Process: goal directed thought process Thought Content: reality based without delusions Suicidal Thoughts: denies suicidal thoughts Homicidal Thoughts: denies homicidal thoughts Hallucinations: no auditory hallucinations and no visual hallucinations Cognition: attention grossly intact and language grossly intact Estimated Intelligence: consistent with education level Vital Signs (Past 24 Hours): Last Vital Signs Temp 37.0 C 03/08/22 06:57 Pulse 70 03/08/22 07:56 Resp 16 03/08/22 07:56 BP 173/77 H 03/08/22 06:57 Pulse Ox 97 03/08/22 07:56 O2 Del Method 03/08/22 07:56 O2 Flow Rate 3 03/08/22 07:56 Review of Systems All systems reviewed & are unremarkable except as noted in HPI & below Results & Data (PSY) Laboratory Results 03/08/22 03/08/22 03/08/22 Range/Units 08:16 07:49 06:58 WBC (4.8-10.8) K/ul RBC (4.63-6.08) M/uL Hgb (14.0-18.0) g/dl Hct (40.1-51.0) % MCV (80.0-100.0) fL MCH (25.0-34.0) pg MCHC (32.0-36.0) g/dL RDW Std Deviation (36.4-46.3) fL RDW Coeff of Lyric (11.5-14.5) % Plt Count (130-400) K/uL MPV (9.4-12.4) fL Immature Gran % (Auto) % Neut % (Auto) % Lymph % (Auto) % Meagher % (Auto) % Eos % (Auto) % Baso % (Auto) % Neut # (Auto) (1.4-6.5) K/uL Lymph # (Auto) (1.2-3.4) K/uL Meagher # (Auto) (0.24-0.82) K/uL Eos # (Auto) (0-0.50) K/uL Baso # (Auto) (0-0.2) K/uL Immature Gran # (Auto) (0.00-0.02) K/uL ABG pH 7.49 H (7.35-7.45) ABG pCO2 64 H (35-46) mmHg ABG pO2 126 H (80-95) mmHg ABG HCO3 49 H (19-24) mmol/L ABG O2 Saturation 99.5 H (90-95) % ABG Base Excess 21.4 H (-9-1.8) mEq/L Jonathon Test POS (Pos) Oxygen Given 3 Sodium 141 (136-145) mmol/L Potassium 3.9 (3.5-5.1) mmol/L Chloride 94 L (98-107) mmol/L Carbon Dioxide 43 H* (21-32) mmol/L Anion Gap 4 (3-11) BUN 35 H (6-23) mg/dl Creatinine 2.47 H D (0.6-1.4) mg/dl Est Cr Clr Drug Dosing 29.5 Est GFR ( Amer) 29.1 ml/min Est GFR (Non-Af Amer) 25.1 ml/min BUN/Creatinine Ratio 14.2 (10-20) Glucose 157 H (70-99(Fasting)) mg/dl POC Glucose 155 H (70-99) mg/dl Estimat Average Glucose mg/dl Hemoglobin A1c (4.5-5.6) % Lactate (0.4-2.0) mmol/L Calcium 8.3 L (8.5-10.1) mg/dl Magnesium 1.8 (1.7-2.4) mg/dl Total Bilirubin (0.2-1.0) mg/dl AST (13-39) U/L ALT (7-52) U/L Alkaline Phosphatase (34-104) U/L Troponin I High Sens (0-20) pg/ml B-Natriuretic Peptide (0-100) pg/ml Total Protein (6.0-8.3) gm/dl Albumin (3.4-5.0) gm/dl Globulin (2.5-4.0) gm/dl Albumin/Globulin Ratio (0.9-2) Urine Color Urine Appearance (Clear) Urine pH (4.5-7.5) Ur Specific [place] (1.000-1.030) Urine Protein (Negative) Urine Glucose (UA) (Negative) Urine Ketones (Negative) Urine Blood (Negative) Urine Nitrite (Negative) Urine Bilirubin (Negative) Urine Urobilinogen (Negative) Ur Leukocyte Esterase (Negative) Urine WBC (Auto) (0-5) /hpf Urine RBC (Auto) (0-4) /hpf U Hyaline Cast (Auto) (0-5) /lpf U Epithel Cells (Auto) (0-5) /lpf Urine Bacteria (Auto) (Negative) SARS-CoV-2 (PCR) (Negative) Influenza Type A (PCR) (Neg) Influenza Type B (PCR) (Neg) RSV (RT-PCR) (Neg) 03/08/22 03/08/22 03/07/22 Range/Units 06:58 06:58 22:21 WBC 4.18 L (4.8-10.8) K/ul RBC 3.53 L (4.63-6.08) M/uL Hgb 9.4 L (14.0-18.0) g/dl Hct 29.6 L (40.1-51.0) % MCV 83.9 (80.0-100.0) fL MCH 26.6 (25.0-34.0) pg MCHC 31.8 L (32.0-36.0) g/dL RDW Std Deviation 45.8 (36.4-46.3) fL RDW Coeff of Lyric 15.2 H (11.5-14.5) % Plt Count 156 (130-400) K/uL MPV 9.3 L (9.4-12.4) fL Immature Gran % (Auto) 0.5 % Neut % (Auto) 81.8 % Lymph % (Auto) 5.5 % Meagher % (Auto) 12.0 % Eos % (Auto) 0.0 % Baso % (Auto) 0.2 % Neut # (Auto) 3.42 (1.4-6.5) K/uL Lymph # (Auto) 0.23 L (1.2-3.4) K/uL Meagher # (Auto) 0.50 (0.24-0.82) K/uL Eos # (Auto) 0.00 (0-0.50) K/uL Baso # (Auto) 0.01 (0-0.2) K/uL Immature Gran # (Auto) 0.02 (0.00-0.02) K/uL ABG pH (7.35-7.45) ABG pCO2 (35-46) mmHg ABG pO2 (80-95) mmHg ABG HCO3 (19-24) mmol/L ABG O2 Saturation (90-95) % ABG Base Excess (-9-1.8) mEq/L Jonathon Test (Pos) Oxygen Given Sodium (136-145) mmol/L Potassium (3.5-5.1) mmol/L Chloride (98-107) mmol/L Carbon Dioxide (21-32) mmol/L Anion Gap (3-11) BUN (6-23) mg/dl Creatinine (0.6-1.4) mg/dl Est Cr Clr Drug Dosing Est GFR ( Amer) ml/min Est GFR (Non-Af Amer) ml/min BUN/Creatinine Ratio (10-20) Glucose (70-99(Fasting)) mg/dl POC Glucose 283 H (70-99) mg/dl Estimat Average Glucose 128 mg/dl Hemoglobin A1c 6.1 H (4.5-5.6) % Lactate (0.4-2.0) mmol/L Calcium (8.5-10.1) mg/dl Magnesium (1.7-2.4) mg/dl Total Bilirubin (0.2-1.0) mg/dl AST (13-39) U/L ALT (7-52) U/L Alkaline Phosphatase (34-104) U/L Troponin I High Sens (0-20) pg/ml B-Natriuretic Peptide (0-100) pg/ml Total Protein (6.0-8.3) gm/dl Albumin (3.4-5.0) gm/dl Globulin (2.5-4.0) gm/dl Albumin/Globulin Ratio (0.9-2) Urine Color Urine Appearance (Clear) Urine pH (4.5-7.5) Ur Specific [place] (1.000-1.030) Urine Protein (Negative) Urine Glucose (UA) (Negative) Urine Ketones (Negative) Urine Blood (Negative) Urine Nitrite (Negative) Urine Bilirubin (Negative) Urine Urobilinogen (Negative) Ur Leukocyte Esterase (Negative) Urine WBC (Auto) (0-5) /hpf Urine RBC (Auto) (0-4) /hpf U Hyaline Cast (Auto) (0-5) /lpf U Epithel Cells (Auto) (0-5) /lpf Urine Bacteria (Auto) (Negative) SARS-CoV-2 (PCR) (Negative) Influenza Type A (PCR) (Neg) Influenza Type B (PCR) (Neg) RSV (RT-PCR) (Neg) 03/07/22 03/07/22 03/07/22 Range/Units 20:10 17:41 16:00 WBC (4.8-10.8) K/ul RBC (4.63-6.08) M/uL Hgb (14.0-18.0) g/dl Hct (40.1-51.0) % MCV (80.0-100.0) fL MCH (25.0-34.0) pg MCHC (32.0-36.0) g/dL RDW Std Deviation (36.4-46.3) fL RDW Coeff of Lyric (11.5-14.5) % Plt Count (130-400) K/uL MPV (9.4-12.4) fL Immature Gran % (Auto) % Neut % (Auto) % Lymph % (Auto) % Meagher % (Auto) % Eos % (Auto) % Baso % (Auto) % Neut # (Auto) (1.4-6.5) K/uL Lymph # (Auto) (1.2-3.4) K/uL Meagher # (Auto) (0.24-0.82) K/uL Eos # (Auto) (0-0.50) K/uL Baso # (Auto) (0-0.2) K/uL Immature Gran # (Auto) (0.00-0.02) K/uL ABG pH (7.35-7.45) ABG pCO2 (35-46) mmHg ABG pO2 (80-95) mmHg ABG HCO3 (19-24) mmol/L ABG O2 Saturation (90-95) % ABG Base Excess (-9-1.8) mEq/L Jonathon Test (Pos) Oxygen Given Sodium (136-145) mmol/L Potassium (3.5-5.1) mmol/L Chloride (98-107) mmol/L Carbon Dioxide (21-32) mmol/L Anion Gap (3-11) BUN (6-23) mg/dl Creatinine (0.6-1.4) mg/dl Est Cr Clr Drug Dosing Est GFR ( Amer) ml/min Est GFR (Non-Af Amer) ml/min BUN/Creatinine Ratio (10-20) Glucose (70-99(Fasting)) mg/dl POC Glucose 164 H (70-99) mg/dl Estimat Average Glucose mg/dl Hemoglobin A1c (4.5-5.6) % Lactate 0.6 (0.4-2.0) mmol/L Calcium (8.5-10.1) mg/dl Magnesium (1.7-2.4) mg/dl Total Bilirubin (0.2-1.0) mg/dl AST (13-39) U/L ALT (7-52) U/L Alkaline Phosphatase (34-104) U/L Troponin I High Sens (0-20) pg/ml B-Natriuretic Peptide (0-100) pg/ml Total Protein (6.0-8.3) gm/dl Albumin (3.4-5.0) gm/dl Globulin (2.5-4.0) gm/dl Albumin/Globulin Ratio (0.9-2) Urine Color Urine Appearance (Clear) Urine pH (4.5-7.5) Ur Specific [place] (1.000-1.030) Urine Protein (Negative) Urine Glucose (UA) (Negative) Urine Ketones (Negative) Urine Blood (Negative) Urine Nitrite (Negative) Urine Bilirubin (Negative) Urine Urobilinogen (Negative) Ur Leukocyte Esterase (Negative) Urine WBC (Auto) (0-5) /hpf Urine RBC (Auto) (0-4) /hpf U Hyaline Cast (Auto) (0-5) /lpf U Epithel Cells (Auto) (0-5) /lpf Urine Bacteria (Auto) (Negative) SARS-CoV-2 (PCR) NEGATIVE (Negative) Influenza Type A (PCR) Negative (Neg) Influenza Type B (PCR) Negative (Neg) RSV (RT-PCR) Negative (Neg) 03/07/22 03/07/22 03/07/22 Range/Units 13:30 13:30 13:30 WBC (4.8-10.8) K/ul RBC (4.63-6.08) M/uL Hgb (14.0-18.0) g/dl Hct (40.1-51.0) % MCV (80.0-100.0) fL MCH (25.0-34.0) pg MCHC (32.0-36.0) g/dL RDW Std Deviation (36.4-46.3) fL RDW Coeff of Lyric (11.5-14.5) % Plt Count (130-400) K/uL MPV (9.4-12.4) fL Immature Gran % (Auto) % Neut % (Auto) % Lymph % (Auto) % Meagher % (Auto) % Eos % (Auto) % Baso % (Auto) % Neut # (Auto) (1.4-6.5) K/uL Lymph # (Auto) (1.2-3.4) K/uL Meagher # (Auto) (0.24-0.82) K/uL Eos # (Auto) (0-0.50) K/uL Baso # (Auto) (0-0.2) K/uL Immature Gran # (Auto) (0.00-0.02) K/uL ABG pH (7.35-7.45) ABG pCO2 (35-46) mmHg ABG pO2 (80-95) mmHg ABG HCO3 (19-24) mmol/L ABG O2 Saturation (90-95) % ABG Base Excess (-9-1.8) mEq/L Jonathon Test (Pos) Oxygen Given Sodium 143 (136-145) mmol/L Potassium 3.9 (3.5-5.1) mmol/L Chloride 96 L (98-107) mmol/L Carbon Dioxide 38 H (21-32) mmol/L Anion Gap 9 (3-11) BUN 22 (6-23) mg/dl Creatinine 2.14 H (0.6-1.4) mg/dl Est Cr Clr Drug Dosing Not Reportable Est GFR ( Amer) 34.6 ml/min Est GFR (Non-Af Amer) 29.8 ml/min BUN/Creatinine Ratio 10.3 (10-20) Glucose 123 H (70-99(Fasting)) mg/dl POC Glucose (70-99) mg/dl Estimat Average Glucose mg/dl Hemoglobin A1c (4.5-5.6) % Lactate (0.4-2.0) mmol/L Calcium 9.0 (8.5-10.1) mg/dl Magnesium (1.7-2.4) mg/dl Total Bilirubin 1.0 (0.2-1.0) mg/dl AST 17 (13-39) U/L ALT 10 (7-52) U/L Alkaline Phosphatase 95 (34-104) U/L Troponin I High Sens 20.3 H (0-20) pg/ml B-Natriuretic Peptide 516 H (0-100) pg/ml Total Protein 7.2 (6.0-8.3) gm/dl Albumin 3.9 (3.4-5.0) gm/dl Globulin 3.3 (2.5-4.0) gm/dl Albumin/Globulin Ratio 1.2 (0.9-2) Urine Color Yellow Urine Appearance Clear (Clear) Urine pH 7.5 (4.5-7.5) Ur Specific [place] 1.008 (1.000-1.030) Urine Protein 3+ H (Negative) Urine Glucose (UA) Negative (Negative) Urine Ketones Negative (Negative) Urine Blood Trace H (Negative) Urine Nitrite Negative (Negative) Urine Bilirubin Negative (Negative) Urine Urobilinogen Negative (Negative) Ur Leukocyte Esterase Negative (Negative) Urine WBC (Auto) 1-5 (0-5) /hpf Urine RBC (Auto) 0-4 (0-4) /hpf U Hyaline Cast (Auto) 1-5 (0-5) /lpf U Epithel Cells (Auto) 5-10 H (0-5) /lpf Urine Bacteria (Auto) Negative (Negative) SARS-CoV-2 (PCR) (Negative) Influenza Type A (PCR) (Neg) Influenza Type B (PCR) (Neg) RSV (RT-PCR) (Neg) 03/07/22 Range/Units 13:30 WBC 5.96 (4.8-10.8) K/ul RBC 3.70 L (4.63-6.08) M/uL Hgb 10.1 L (14.0-18.0) g/dl Hct 31.2 L (40.1-51.0) % MCV 84.3 (80.0-100.0) fL MCH 27.3 (25.0-34.0) pg MCHC 32.4 (32.0-36.0) g/dL RDW Std Deviation 46.8 H (36.4-46.3) fL RDW Coeff of Lyric 15.3 H (11.5-14.5) % Plt Count 154 (130-400) K/uL MPV 8.9 L (9.4-12.4) fL Immature Gran % (Auto) 0.3 % Neut % (Auto) 81.9 % Lymph % (Auto) 5.4 % Meagher % (Auto) 10.2 % Eos % (Auto) 1.2 % Baso % (Auto) 1.0 % Neut # (Auto) 4.88 (1.4-6.5) K/uL Lymph # (Auto) 0.32 L (1.2-3.4) K/uL Meagher # (Auto) 0.61 (0.24-0.82) K/uL Eos # (Auto) 0.07 (0-0.50) K/uL Baso # (Auto) 0.06 (0-0.2) K/uL Immature Gran # (Auto) 0.02 (0.00-0.02) K/uL ABG pH (7.35-7.45) ABG pCO2 (35-46) mmHg ABG pO2 (80-95) mmHg ABG HCO3 (19-24) mmol/L ABG O2 Saturation (90-95) % ABG Base Excess (-9-1.8) mEq/L Jonathon Test (Pos) Oxygen Given Sodium (136-145) mmol/L Potassium (3.5-5.1) mmol/L Chloride (98-107) mmol/L Carbon Dioxide (21-32) mmol/L Anion Gap (3-11) BUN (6-23) mg/dl Creatinine (0.6-1.4) mg/dl Est Cr Clr Drug Dosing Est GFR ( Amer) ml/min Est GFR (Non-Af Amer) ml/min BUN/Creatinine Ratio (10-20) Glucose (70-99(Fasting)) mg/dl POC Glucose (70-99) mg/dl Estimat Average Glucose mg/dl Hemoglobin A1c (4.5-5.6) % Lactate (0.4-2.0) mmol/L Calcium (8.5-10.1) mg/dl Magnesium (1.7-2.4) mg/dl Total Bilirubin (0.2-1.0) mg/dl AST (13-39) U/L ALT (7-52) U/L Alkaline Phosphatase (34-104) U/L Troponin I High Sens (0-20) pg/ml B-Natriuretic Peptide (0-100) pg/ml Total Protein (6.0-8.3) gm/dl Albumin (3.4-5.0) gm/dl Globulin (2.5-4.0) gm/dl Albumin/Globulin Ratio (0.9-2) Urine Color Urine Appearance (Clear) Urine pH (4.5-7.5) Ur Specific [place] (1.000-1.030) Urine Protein (Negative) Urine Glucose (UA) (Negative) Urine Ketones (Negative) Urine Blood (Negative) Urine Nitrite (Negative) Urine Bilirubin (Negative) Urine Urobilinogen (Negative) Ur Leukocyte Esterase (Negative) Urine WBC (Auto) (0-5) /hpf Urine RBC (Auto) (0-4) /hpf U Hyaline Cast (Auto) (0-5) /lpf U Epithel Cells (Auto) (0-5) /lpf Urine Bacteria (Auto) (Negative) SARS-CoV-2 (PCR) (Negative) Influenza Type A (PCR) (Neg) Influenza Type B (PCR) (Neg) RSV (RT-PCR) (Neg) Medications Administered Acetaminophen (Acetaminophen 325 Mg Tab) 650 mg PO Q4H PRN PRN Reason: Pain or Fever Stop: 04/06/22 18:39 Last Admin: 03/08/22 06:07 Dose: 650 mg Documented By: FRANSISCAE Albuterol (Albut/Ipratrop 3mg/0.5mg Neb 3 Ml Vial) 3 ml INH Q6R LAZARO Stop: 04/06/22 18:59 Last Admin: 03/08/22 07:56 Dose: 3 ml Documented By: EAOumar Admin: 03/08/22 02:22 Dose: 3 ml Documented By: Admin: 03/07/22 19:44 Dose: 3 ml Documented By: AM Fluticasone Furoate (Fluticasone Furoate 200mcg 14 Puffs/Inhaler) 1 puffs INH Q24H LAZARO; Protocol Stop: 04/06/22 19:59 Last Admin: 03/08/22 09:00 Dose: Not Given Documented By: NAKIA Furosemide (Furosemide 40 Mg Tab) 40 mg PO DAILY LAZARO Stop: 04/07/22 08:59 Last Admin: 03/08/22 09:01 Dose: 40 mg Documented By: NAKIA Heparin Sodium (Porcine) (Heparin Sod 5,000 Unit/0.5 Ml Vial) 5,000 units SQ Q12 LAZARO Stop: 04/06/22 20:59 Last Admin: 03/08/22 09:02 Dose: 5,000 units Documented By: Admin: 03/07/22 22:39 Dose: 5,000 units Documented By: RAMÍREZ Hydralazine HCl (Hydralazine Tab 50 Mg Tab) 100 mg PO TID LAZARO Stop: 04/06/22 20:59 Last Admin: 03/08/22 09:02 Dose: 100 mg Documented By: Admin: 03/07/22 22:40 Dose: 100 mg Documented By: RAMÍREZ Insulin Aspart (Insulin Aspart Per Unit) 0 units SC ACHS LAZARO Stop: 04/06/22 20:59 Last Admin: 03/08/22 09:07 Dose: 2 units Documented By: NAKIA Co-signed By: CIPRIANO Admin: 03/07/22 20:43 Dose: 2 units Documented By: WAGNER Co-signed By: QGV Insulin Glargine (Lantus Per Unit Charge) 9 units SQ BID LAZARO Stop: 04/06/22 20:59 Last Admin: 03/08/22 09:08 Dose: 9 units Documented By: NAKIA Co-signed By: CIPRIANO Admin: 03/07/22 20:43 Dose: 9 units Documented By: WAGNER Co-signed By: QGV Losartan Potassium (Losartan Potassium 50 Mg Tab) 100 mg PO DAILY [facility] Stop: 04/07/22 08:59 Last Admin: 03/08/22 09:02 Dose: 100 mg Documented By: NAIKA Metoprolol Tartrate (Metoprolol Tartrate 50 Mg Tab) 50 mg PO BID [facility] Stop: 04/06/22 20:59 Last Admin: 03/08/22 09:02 Dose: 50 mg Documented By: Admin: 03/07/22 22:39 Dose: 50 mg Documented By: RAMÍREZ Ropinirole HCl (Ropinirole Hcl 0.25 Mg Tablet) 0.5 mg PO [facility] Stop: 04/06/22 20:59 Last Admin: 03/07/22 22:40 Dose: 0.5 mg Documented By: RAMÍREZ Trazodone HCl (Trazodone Hcl 50 Mg Tab) 50 mg PO HS [facility] Stop: 04/06/22 20:59 Last Admin: 03/07/22 22:38 Dose: 50 mg Documented By: RAMÍREZ Umeclidinium/Vilanterol (Umeclidinium/Vilanterol 62.5/25mcg 7 Puffs/Inhaler) 1 puffs INH Q24H LAZARO; Protocol Stop: 04/06/22 19:59 Last Admin: 03/08/22 09:00 Dose: Not Given Documented By: CB Coding Level of Care Code 73822 [facility] Intl Hosp Care Lvl 2 Diagnoses Anxiety with depression F41.8 SOB (shortness of breath) R06.02
--- NOTE | 2022-03-08 17:21 | Communication Note ---
Date of Service: March 08, 2022 By CMS guidelines, a determination that the admission or continued stay is not medically necessary has been made by a member of the UR committee and hallie hayes for this hospital stay, therefore a Code 44 will be completed and the Inpatient admission will be changed to outpatient.
--- NOTE | 2022-03-08 17:42 | Discharge Summary ---
Date of Service March 08, 2022 Admission HPI Per Admitting Provider Davis Irizarry is a 71-year-old male with a past medical history significant for heart failure, SHALA intolerant to CPAP, restrictive lung disease on 34 L NC chronically, anxiety, depression, diabetes, CKD, hypertension, and hyperlipidemia is presenting today with shortness of breath. This is not new for him as he has underlying restrictive lung disease on 3 or 4 times, as well as severe anxiety which seems to exacerbate his shortness of breath. Beginning yesterday he felt himself becoming more anxious with some racing thoughts which caused him to feel as if he could not catch his breath. His anxiety is centered around things he "should have done in the past but didn't", as well as his health which he perceives to be failing and notes he has chronic head, abdominal, and back pain. He said he frequently has throbbing headaches, and diffuse abdominal pain even with light touch of his abdomen, but without nausea, vomiting, diarrhea, constipation. He openly admits to being very anxious and depressed, no active suicidal ideation but does say that if his pain continues like this he doesn't think he could go on and has had passive thoughts about ending his life. at bedside says that he has mentioning shooting himself for, and she is concerned about leaving him home alone as they do have guns in the house. Patient later states he does not think he can actually do this, however admits he has thought about it. He has not had any fever or chills, increasing cough, or worsening swelling in his legs. He is without any chest pain or palpitations, at rest or with activity though he is very sedentary. Blood pressure is significantly elevated to 226/105 at its highest, per chart review this is not uncommon for him and he states his blood pressure has been poorly controlled for some time. He has had vision changes and chronic headaches in the past, none currently. On presentation to the ED, his BP has been as high as 226/105, on 5 L NC at 100%, afebrile, without tachypnea or tachycardia. His labs are mostly unremarkable, significant for troponin of 20.3 and a BNP of 516, CO2 on BMP is 38 which is about his baseline, creatinine 2.14 again is about his baseline for the past few months. UA with 3+ protein and trace blood, otherwise without evidence of infection. CXR shows underinflated lungs with bibasilar atelectasis. CT A/P shows normal appendix, cholelithiasis without cholecystitis, bilateral adrenal adenomas, unchanged from prior exam. The visualized portion of the chest showed atelectasis and a small pericardial effusion. Head CT unremarkable. In the ED, he has received 0.5 inch nitroglycerin paste, 5 mg IV hydralazine, 40 mg IV Lasix, 1 mg of lorazepam, 125 mg Solu-Medrol, and an albuterol breathing treatment. He notes feeling significantly better after the lorazepam. Principal Diagnosis Trazodone withdrawal syndrome Discharge Exam Patient appears much improved from the previous day. Much less anxious. No abdominal pain. No nausea or vomiting. He is keen to be discharged home. Discussed with his at bedside and she is happy with this plan. Explained symptoms are likely due to discontinuing trazodone cold turkey. Less likely to be drowsy if any taking his dose at night. We discussed side effects of having too much oxygen causing carbon dioxide retention. They demonstrated understanding and reported having a pulse oximeter at home and will aim his O2 sats around 90%. Constitutional well developed; + not well nourished and no acute distress Respiratory normal respiratory effort; no respiratory distress Auscultation: + diminished lung sounds (Bilaterally); no crackles, no rales and no rhonchi Cardiovascular RRR, no murmur, no edema Gastrointestinal (Abdomen) normal bowel sounds, soft, nontender, no hepatosplenomegaly Skin no rashes, warm and dry Neurologic moves all extremities and awake; not confused Psychiatric Orientation: alert Affect: euthymic affect Mood: + anxious mood Discharge Data Allergies Allergy/AdvReac Type Severity Reaction Status Date / Time bee venom protein (honey bee) Allergy Severe ANAPHYLAXIS Verified 03/07/22 15:06 Consultations 03/07/22 18:40 Consult Psychiatry Routine Consult Pulmonology Routine Ordered Studies 03/07/22 14:35 CT Abd and Pelvis [CT abd pelvis wo con] Stat IMPRESSION: 1. No acute abnormalities to explain lower abdominal pain. The appendix is normal. 2. Cholelithiasis without cholecystitis. 3. Atelectasis and small pericardial effusion. 4. Bilateral adrenal adenomas, unchanged from prior exam. 03/07/22 14:50 CT head/brain wo con Stat Impression: No acute intracranial hemorrhage, no evidence of acute territorial infarction or other acute intracranial disease process. Hospital Course (1) Withdrawal syndrome: Davis Irizarry is a 71 year old male admitted to [facility] from March 07 - 2021 due to increased anxiety, shortness of breath and abdominal pain. His recently stopped his trazodone due to sleeping too much during the daytime. He was taking 50 mg in the morning and 100 mg in the afternoon. His symptoms were suspected to be due to trazodone withdrawal and he was restarted on 50 mg at night. Suspect some of his drowsiness was due to trazodone but also CO2 retention causing confusion. He is usually on 3 L/min of oxygen but this appears to be too much. He was advised to lower his oxygen to aim O2 sats around 90% using his pulse oximeter at home. He should continue on a Trelegy Ellipta or Anoro Ellipta daily to help with the shortness of breath. He was reviewed by psychiatry and not appropriate for inpatient treatment at this time. Due to his ongoing anxiety and reducing his trazodone dosing we will start him on Lexapro 5 mg p.o. daily which he is agreeable to. He is in the process of changing primary care physicians and will follow up on Sunday to establish with the [facility] physician group. Recommend up titration of Lexapro as long as he is not having side effects. He was also diagnosed with hypertensive urgency with his uncontrolled hypertension likely causing his chronic kidney disease. Creatinine appears to be close to baseline and hypertension resolved with his usual medication after emergency treatment in the ER. He was advised to continue his usual antihypertensives as prescribed. 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 (2) SOB (shortness of breath): (3) Anxiety with depression: (4) (HFpEF) heart failure with preserved ejection fraction: (5) Hypertension: (6) Abdominal pain: (7) Headaches due to old head injury: (8) Hypercapnic respiratory failure: (9) CKD (chronic kidney disease): (10) Obesity: (11) Obstructive sleep apnea: (12) Low back pain: Total Time Total Time Spent Total Time Spent (In Minutes): 50 Discharge Plan Discharge Items Patient Disposition: Home - Self-Care Reason For Visit: SEVERE HYPERTENSION, ANXIETY, RESP DISTRESS Discharge Diagnosis: Trazodone withdrawal Anxiety Activity: Resume your previous activity Non-emergency contact: Primary Care Provider Call non-emergency contact if: you have any medication questions and your symptoms worsen Follow-up/Referrals: Nishant Fuentes CRNP [Primary Care Provider] - 03/27/22 10:20 am Diet: Regular Addtl Attending Provider Instructions: You were admitted to [facility] from March 07 - 2021 due to increased anxiety, shortness of breath and abdominal pain. You were diagnosed with trazodone withdrawal which was treated using a lower dose of your usual trazodone. Please continue trazodone 50 mg daily at night. To help with your anxiety we have prescribed you Lexapro 5 mg daily. Please follow-up with your primary care physician for up titration and ongoing management of this. You also reviewed by pulmonology for your shortness of breath. No acute pathology was diagnosed. Recommend cutting down your oxygen to aim for O2 sats on your pulse oximeter of 90% as too much oxygen can cause high levels of carbon dioxide in your blood and subsequent confusion. Please continue on Trelegy Ellipta as previously prescribed or Anoro Ellipta as prescribed daily to help with your shortness of breath. You also diagnosed with hypertensive urgency suspected to be secondary to not taking your usual medication. This resolved with your usual medication. Please continue to take your antihypertensive medication as prescribed. Pending Studies at Discharge: No Stand-Alone Forms: [facility], Smoking Cessation Medications and DC Order Prescriptions: New trazodone 50 mg tablet 50 mg PO HS Qty: 30 0RF escitalopram oxalate [Lexapro] 5 mg tablet 5 mg PO DAILY Qty: 30 0RF Anoro Ellipta 62.5-25 mcg/actuation blister with device 1 inh inhalation DAILY Qty: 60 0RF Continued furosemide 40 mg tablet 40 mg PO DAILY Hold Instructions: MILTON albuterol sulfate 2.5 mg /3 mL (0.083 %) Solution For Nebulization 2.5 mg INHALATION QID PRN (Reason: Shortness Of Breath Or Wheezing) albuterol sulfate [Ventolin HFA] 90 mcg/actuation Hfa Aerosol Inhaler 2 puff INHALATION QID PRN (Reason: Shortness Of Breath Or Wheezing) insulin aspart U-100 [Novolog Flexpen U-100 Insulin] 100 unit/mL (3 mL) insulin pen 5 unit SUBCUT DIRECTED Rx Instructions: take 5 units if BSG is over 200 ropinirole 0.5 mg Tablet 0.5 mg PO HS hydralazine 50 mg tablet 100 mg PO TID metoprolol tartrate [Lopressor] 50 mg tablet 50 mg PO BID losartan [Cozaar] 100 mg tablet 100 mg PO DAILY Qty: 30 0RF Discontinued Trelegy Ellipta 200-62.5-25 mcg blister with device 1 inh inhalation Q24H Qty: 28 0RF Rx Instructions: Samples given on 03/06/22. Discharge Orders: Discharge Order (Routine); Ordered 03/08/22 Ordered By: Yazan Stuart/Other Patient Handouts: Managing Type 2 Diabetes Admission Data Admit Date/Time: 03/07/22 17:15 Attending Provider: Yazan Calloway Admit Provider: Yazan Calloway Primary Care Provider: Nishant Fuentes Other Providers: Kristina Caballero ; Sharifa Bennett ; Sonido Lees Coding Level of Care Code 88040 OBS Care - Discharge Diagnoses Withdrawal syndrome F19.939 SOB (shortness of breath) R06.02 Anxiety with depression F41.8 (HFpEF) heart failure with preserved ejection fraction I50.30 Hypertension I10 Hypertension type: essential hypertension Abdominal pain R10.9 Headaches due to old head injury G44.309; S09.90XS Hypercapnic respiratory failure J96.92 CKD (chronic kidney disease) N18.9 Obesity E66.9 Obstructive sleep apnea G47.33 Low back pain M54.5
--- NOTE | 2022-03-09 23:18 | Electrocardiogram Report ---
Test Reason : Blood Pressure : / mmHG Vent. Rate : 081 BPM Atrial Rate : 081 BPM P-R Int : 132 ms QRS Dur : 090 ms QT Int : 416 ms P-R-T Axes : 046 018 042 degrees QTc Int : 483 ms Poor data quality, interpretation may be adversely affected Normal sinus rhythm Incomplete right bundle branch block Prolonged QT Abnormal ECG When compared with ECG of 30-OCT-2021 12:07, No significant change was found Confirmed by Alex Shipman ([id number]) on 03/09/2022 11:18:25 PM Referred By: Confirmed By:Alex Shipman
== END 2022-03-08 18:30 | disposition home or self-care (01) ==
LOC: ED 12:49 → EDINP 17:15 → INTOOBSV 17:15 → 2N 18:40

== ENCOUNTER 2023-02-15 15:09 | Inpatient (IN) ==
--- NOTE | 2023-02-15 16:06 | XRay Report ---
SINGLE VIEW CHEST CLINICAL HISTORY: Dyspnea FINDINGS: And AP, portable, upright chest radiograph is compared to study dated 01/29/2023. Correlati on is made with chest CT dated 10/30/2021. The examination is degraded by portable technique and patie nt rotation. The heart is enlarged noting atherosclerotic calcification of the thoracic aorta. There is pulmonary vascular congestion. Small pleural effusions are suspected with dependent consolidation . No pneumothorax is seen. The skeletal structures are osteopenic. The bony thorax is grossly intact. IMPRESSION: 1. Cardiomegaly with evidence of congestive failure. 2. Small pleural effusions with dependent consolidation. ACT 112: Negative or not required by law. Electronically signed by: Binu Heard M.D. 02/15/2023 4:05 PM
[2023-02-15 16:08] LABS: Basophils # (auto) 0.05 K/uL (0.00-0.20); Basophils % (auto) 0.8 %; Eosinophils % (auto) 1.6 %; Hematocrit (blood only) 30.3 % (42.0-52.0); Hemoglobin 9.6 g/dl (14.0-18.0); Immature Granulocytes # (auto) 0.01 K/uL (0.01-0.20); Immature Granulocytes % (auto) 0.2 %; Lymphocytes # (auto) 0.37 K/uL (1.20-3.40); Lymphocytes % (auto) 5.8 %; Mean Corpuscular Hemoglobin 29.2 pg (25.0-34.0); Mean Corpuscular Hgb Conc 31.7 g/dL (32.0-36.0); Mean Corpuscular Volume 92.1 fL (80.0-100.0); Mean Platelet Volume 9.5 fL (9.4-12.4); Monocytes # (auto) 0.41 K/uL (0.11-0.59); Monocytes % (auto) 6.4 %; Neutrophils # (auto) 5.43 K/uL (1.40-6.50); Neutrophils % (auto) 85.2 %; Platelet Count 184 K/uL (130-400); RDW Coefficient of Variation 14.5 % (11.5-14.5); Red Blood Count 3.29 M/uL (4.70-6.10); White Blood Count 6.37 K/ul (4.8-10.8)
[2023-02-15] MEDS ORDERED: NITROGLYCERIN SL 0.4 MG/TAB TAB SL STA (16:13)
[2023-02-15 16:25] LABS: Albumin Level 3.5 gm/dl (3.4-5.0); Anion Gap 1 (3-11); Bilirubin,Total 0.3 mg/dl (0.2-1.0); Calcium 9.1 mg/dl (8.6-10.3); Carbon Dioxide 38 mmol/L (21-32); Chloride 101 mmol/L (98-107); Potassium 4.8 mmol/L (3.5-5.1); Sodium 140 mmol/L (136-145)
[2023-02-15 16:28] LABS: Troponin I High Sensitivity 9.3 pg/ml (0-20)
[2023-02-15 16:31] LABS: Alanine Aminotransferase 12 U/L (7-52); Albumin Globulin Ratio 1.2 (0.9-2); Alkaline Phosphatase 88 U/L (34-104); Aspartate Aminotransferase 14 U/L (13-39); BUN Creatinine Ratio 12.4 (10-20); Blood Urea Nitrogen 25 mg/dl (6-23); Globulin 2.9 gm/dl (2.5-4.0); Glucose 156 mg/dl (70-99(Fasting)); Total Protein 6.4 gm/dl (6.0-8.3)
[2023-02-15 16:54] LABS: Base Excess VBG 12.4 mEq/L; HCO3 VBG 41 mmol/L; Oxygen Saturation VBG < 60.0 %; PCO2 VBG 73 mmHg (38-50); PO2 VBG 22 mmHg; pH VBG 7.36 (7.36-7.41)
[2023-02-15 17:13] LABS: Appearance Urine Clear (Clear); Bacteria Urine Automated Negative (Negative); Bilirubin Urine Negative (Negative); Blood Urine 2+ (Negative); Cast Urine Automated 0 /lpf (0-5); Color Urine Yellow; Glucose Urine UA Trace (Negative); Ketones Urine Negative (Negative); Leukocyte Esterase Urine Negative (Negative); Nitrite Urine Negative (Negative); Protein Urine 2+ (Negative); RBC Urine Automated >30 /hpf (0-4); Specific Gravity Urine 1.009 (1.000-1.030); Urobilinogen Urine Negative (Negative)
[2023-02-15] MEDS ORDERED: FUROSEMIDE 40 MG/4 ML VIAL IV ONE (17:17)
--- NOTE | 2023-02-15 18:27 | History & Physical Report ---
Date of Service February 15, 2023 Assessment & Plan (1) Acute on chronic respiratory failure with hypoxia and hypercapnia: Plan: -Admit to the PCU on tele and pulse oximetry -Currently stable on his baseline 2L NC but with pursed lip breathing but denies respiratory fatigue or increased work of breathing -Patient has been non-complaint with his daily bumex, low sodium diet, and fluid restriction -BNP elevated at 523, CXR showing Cardiomegaly with evidence of congestive failure and BL small pleural effusions, presenting as CHF exacerbation -No sign of infectious etiology at this time, WBC WNL, afebrile, no consolidation of CXR; will obtain procal and full respiratory biofire for further evaluation -Weight today is 111KG, up from 103KG as of 12/21 -Low suspicion of PE at this time as the patient is hemodynamically stable, without chest discomfort -S/P 40 mg iV lasix and 0.4 mg SL nitroglycerine in the ED -Will start 2mg IV bumex BID, patient is ok with guerrero cath placement -Will give afternoon dose of hydralazine as he did not have this earlier today -Obtaining stat ABG for reassessment of respiratory status -Will obtain TTE tomorrow as his last echo was one year ago -Will order HS CPAP/Bipap, strongly encouraged patient to use tonight as he is high risk for decompensation if he does not -Incentive spirometry, flutter therapy, continue home respiratory medications -Monitor intake/output Q-shift -Daily weights -Will order am ABG -SQ heparin for DVT PPX -HH/DMII/2g sodium restriction, 1500 mL fluid restriction (2) Chronic kidney disease, stage 4 (severe): Plan: -Cr is currently stable -Monitor daily renal function and electrolytes -Will obtain 10 pm BMP and mag to ensure electrolytes are stable with multiple doses of IV diuretics (3) CHF exacerbation: Plan: Acute on chronic HFpEF -See acute on chronic respiratory failure -Continue Entresto -Consider switch metoprolol tartrate to succinate or carvedilol (4) Obstructive sleep apnea: Plan: -HS Cpap/Bipap has been ordered -Spoke to the patient multiple times regarding the importance of using while admitted to prevent further repiratory compromise (5) Hypertension: Plan: -Currently hypertensive at 199/98 -Currently denies headache, vision changes, rining in ears, and chest pain -Did not have his afternoon dose of hydralazine, will give stat -Continue clonidine patch, TID hydrlazine, and metoprolol (6) Diabetes: Plan: -Monitor BSG ACHS, goal is 110-140 -Does not use basal insulin at home -Will start with CF of 50 and CR of 15 ACHS for now -Monitor am A1c -HH/DMII diet (7) Chronic back pain: Plan: -Holding HS tramadol and trazodone tonight to prevent further respiratory failure Plan The patient was discussed with Dr. Calloway at the time of the admission History of Present Illness Chief Complaint: Increased SOB from baseline Primary Care Provider: PERCY Chavez Mr. Irizarry is a 72-year-old male with a history of HFpEF, Hypertension, Dyslipidemia, Type 2 Diabetes Mellitus, CKD, Sleep Apnea (did not tolerate CPAP), Chronic Hypoxemic/Hypercapnic Respiratory Failure on chronic 2L O2 therapy, and Restrictive Lung Disease/Recently Diagnosed Silicosis who presented to the [facility] ED from his PCP's office for acute on chronic SOB. In the ED the patient was noted to be hypertensive at 201/87, reportedly hypoxic at 85% (Unsure how much O2 he was on at that point), tachypneic with respirations in t he 20's-40's, and afebrile. Labs were significant for a lymphocyte count of 0.37, VBG pH of 7.36. pCO2 of 73, and pO2 of 22, stable renal function, Bicarb of 38. Chest xray was read as "1. Cardiomegaly with evidence of congestive failure. 2. Small pleural effusions with dependent consolidation.". Prior to admission the patient was given 40 mg IV lasix and 0.4 mg SL nitroglycerine. At the time of the exam the patient was lying in bed in no acute distress. He is currently stable on 3L NC, I was able to successfully turn him back down to his baseline 2L NC during my exam. He states that he has been having progressive SOB/LEYVA, productive cough with clear sputum, and BL swelling for the past month. He was seen in the [facility] ED on 01/29 and was diagnosed with bronchitis. He was given a Z-pack and course of prednisone but states these did not improve him symptoms; he did complete both courses. He states that he went to his PCP's office today as he was unable to even walk from the family room to the kitchen without having to stop and take a break. Per the clinic note from today, the patient was unable to speak in full sentences and was saturating in the low 80's on his baseline 2L NC. When asked about salt intake he first states that "I don't eat any salt". I asked him if he ate a regular thanksgiving meal and he states, "Oh yes, my daughter probably put lots of salt on the food.". He then states that "I also ate sammarinese fries earlier this week". I asked if he was taking his bumex every day and he states he was not. I explained he needs to be better with his sodium restriction and fluid restriction, as well as taking his daily diuretics to prevent continued admissions and progressive respiratory failure. I asked why he cannot tolerate CPAP, he states the makes that the mask makes him too anxious. I explained that we will be repeat labs shortly, if they are getting worse we will need to escalate his oxygen delivery. He is willing to try Cpap/Bipap if needed. We also discussed code status, he does not want CPR/defibrillation in the event of cardiac arrest. He would want a trial of intubation in the event of respiratory failure. His would make medical decisions for him if he cannot make them himself. He denies recent fever, chills, chest pain, abd pain, nausea, vomiting, diarrhea, dysuria, hematuria. melena, and recent trauma. Per the last Cardiology note from 12/21/22, the patient's dry weight is 218 lbs. Per review, the patient weight approximately 103 Kg on 01/19. I weight him using the be scale during my exam and he is currently [address] Please refer to Dr[address] Calloway's attestation for any changes to the treatment plan Allergies Allergy/AdvReac Type Severity Reaction Status Date / Time bee venom protein (honey bee) Allergy Severe ANAPHYLAXIS Verified 02/15/23 13:56 Home Medications Medication Instructions Recorded Confirmed Type albuterol sulfate 2.5 mg/3 mL 2.5 mg inhalation QID PRN 03/10/19 02/15/23 History (0.083 %) solution for nebulization Shortness Of Breath Or Wheezing albuterol sulfate 90 mcg/actuation 2 puff inhalation QID PRN 03/10/19 02/15/23 History aerosol inhaler (Ventolin HFA) Shortness Of Breath Or Wheezing insulin aspart U-100 100 unit/mL 5 unit subcut DIRECTED 03/10/19 02/15/23 History (3 mL) subcutaneous pen (Novolog FlexPen U-100 Insulin aspart) fluticasone fur. 200 mcg-umeclid 1 inh inhalation DAILY 03/27/22 02/15/23 History 62.5 mcg-vilant 25 mcg inhalat.powder (Trelegy Ellipta) rosuvastatin 10 mg tablet 10 mg PO DAILY #90 tabs 03/27/22 02/15/23 Rx sacubitril 97 mg-valsartan 103 mg 1 tab PO BID 05/08/22 02/15/23 History tablet (Entresto) tamsulosin 0.4 mg capsule (Flomax) 0.4 mg PO DAILY 05/08/22 02/15/23 History ropinirole 0.5 mg tablet 0.5 mg PO HS #90 tabs 05/15/22 02/15/23 Rx metoprolol tartrate 50 mg tablet 50 mg PO BID #180 tabs 06/05/22 02/15/23 Rx (Lopressor) trazodone 50 mg tablet 50 mg PO HS #30 tabs 06/05/22 02/15/23 Rx aspirin 81 mg tablet,delayed 81 mg PO DAILY 10/19/22 02/15/23 History release cholecalciferol (vitamin D3) 25 25 mcg PO DAILY 10/19/22 02/15/23 History mcg (1,000 unit) capsule tramadol 50 mg tablet 50 mg PO DAILY #30 tabs 11/30/22 02/15/23 Rx escitalopram oxalate 5 mg tablet 5 mg PO DAILY #90 tabs 01/03/23 02/15/23 Rx (Lexapro) hydralazine 50 mg tablet 100 mg (2 x 50 mg) PO TID #270 tabs 01/03/23 02/15/23 Rx clonidine 0.3 mg/24 hr weekly 1 patch topical .COMPLEX #4 ea 01/04/23 02/15/23 Rx transdermal patch bumetanide 2 mg tablet 2 mg PO DAILY 02/15/23 02/15/23 History Past Med/Surg History Medical History Anemia Secondary hyperparathyroidism (of renal origin) Chronic kidney disease, stage 4 (severe) Chronic back pain Restrictive lung disease Hypercapnic respiratory failure Obstructive sleep apnea Chronic hypoxemic respiratory failure Hyperlipidemia Colon cancer Hypertension Diabetes Urinary problem COPD (chronic obstructive pulmonary disease) Prostate cancer (06/23/08) "Rising PSA Status post biopsy revealing adenocarcinoma Burtrum 3+4 10 of 24 cores positive, High-grade prostatic intraepithelial neoplasm present Status post robotic prostatectomy 10/06/2008 Adenocarcinoma Josy 3+3 negative margins Perineural invasion present Stage pT2c pN0M0 Rising PSA to 0.08 Status post completion of salvage radiation 11/16/2014 received 7040 cGy " On 11/24/14 15:53 Oliva Lozano wrote "Rising PSA Status post biopsy revealing adenocarcinoma Burtrum 3+4 10 of 24 cores positive, High-grade prostatic intraepithelial neoplasm present Status post robotic prostatectomy 10/06/2008 Adenocarcinoma Josy 3+3 negative margins Perineural invasion present Stage pT2c pN0M0 Rising PSA to 0.08 Status post completion of salvage radiation 11/16/2014 received 7040 cGy " On 09/04/14 10:59 Oliva Lozano wrote "Rising PSA Status post biopsy revealing adenocarcinoma Josy 3+4 10 of 24 cores positive, High-grade prostatic intraepithelial neoplasm present Status post robotic prostatectomy 10/06/2008 Adenocarcinoma Josy 3+3 negative margins Perineural invasion present PT2c pN0M0 Rising PSA to 0.08 " Knee pain Surgical History History of prostatectomy Family History Father Myocardial infarction, Onset Age: 70 Denies family history of Ovarian cancer Prostate cancer Breast cancer Colorectal cancer Social History Smoking Status: Never smoker Tobacco Type: Smokeless Tobacco (Dip or Chew) Second Hand Exposure: No; Do You Dip or Chew Tobacco: No (quit in 2008); Hx Alcohol Use: No Hx Substance Use: No Preferred Language: Latvian Communication Ability: Effective Visual Impairment: Limited Hearing Ability: Normal Air Hammer Operator Required: No Beliefs That Will Affect Care: None marital status: Current Living Situation: Spouse Current Living Situation Comment: with current occupational status: retired 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 Other Information That Helps Us Care for You: No Feels Safe at Home: Yes Safety Concerns: Feels Safe At This Time Childhood Exposure to Second-Hand Smoke: Yes caffeine: Yes (soda) during the past year weight has: remained stable Dental Care, Regularly: No Physical Activity Frequency: Does not Exercise Seatbelt Use: never Sunscreen Use: No Assistive Devices: CPAP, Denture - Upper, Glasses, Oxygen - Continuous and Walker Physical Exam Physical Exam: Physical Exam: General: In no acute distress, stated age, morbidly obese, non-toxic appearing HEENT: Normocephalic, atraumatic, no scleral icterus, pupils around round, symmetrical, and reactive to light, pursed lip breathing, moist mucus membranes, +JVD, trachea midline, no thyromegaly Chest/Pulm: No respiratory distress, symmetrical chest expansion, decreased breath sounds in the BL lower lung self, crackles in the middle and upper lobes Cardiac: RRR, no murmurs noted Abdomen: Negative for ascites and bruising, normoactive bowel sounds, soft, non-tender to palpation throughout Musculoskeletal: Symmetrical and without signs of acute trauma, upper and lower extremities with full ROM, no atrophy, spasticity, or flaccidity Extremities: Radial, dorsalis pedis, and posterior tibial pulses are intact and symmetrical, 3+ pitting edema noted in the LE's Skin: Signs of Chronic venous insufficiency in the BL LE's Neuro: Alert and oriented to person, place, month, year, and president, no focal defects, no tremors noted Psych: No acute distress, calm and cooperative during the exam Results & Data Results & Data Vital Signs (Past 12 Hours) Vital Signs Temp Pulse Pulse Resp BP BP Pulse Ox 02/15/23 17:37 71 28 H 187/92 H 96 02/15/23 16:48 72 21 95 02/15/23 16:48 95 02/15/23 16:12 65 26 H 199/95 H 93 02/15/23 16:00 41 H 179/86 H 95 02/15/23 15:27 02/15/23 15:26 36.5 C 74 28 H 194/77 H 93 02/15/23 15:16 74 O2 Del Method O2 Flow Rate 02/15/23 17:37 Nasal Cannula 3 02/15/23 16:48 Nasal Cannula 3 02/15/23 16:48 Nasal Cannula 3 02/15/23 16:12 Nasal Cannula 3 02/15/23 16:00 02/15/23 15:27 Nasal Cannula 6 02/15/23 15:26 Nasal Cannula 6 02/15/23 15:16 Laboratory Results Abnormal lab results 02/15/23 02/15/23 02/15/23 Range/Units 15:20 16:34 16:40 RBC 3.29 L (4.70-6.10) M/uL Hgb 9.6 L (14.0-18.0) g/dl Hct 30.3 L (42.0-52.0) % MCHC 31.7 L (32.0-36.0) g/dL RDW Std Deviation 49.0 H (36.4-46.3) fL Lymph # (Auto) 0.37 L (1.20-3.40) K/uL ABG pCO2 (35-46) mmHg ABG pO2 (80-95) mmHg ABG HCO3 (19-24) mmol/L ABG Base Excess (-9-1.8) mEq/L VBG pCO2 73 H (38-50) mmHg Carbon Dioxide 38 H (21-32) mmol/L Anion Gap 1 L (3-11) BUN 25 H (6-23) mg/dl Creatinine 2.01 H (0.6-1.4) mg/dl Glucose 156 H (70-99(Fasting)) mg/dl B-Natriuretic Peptide 523 H (0-100) pg/ml Urine Protein 2+ H (Negative) Urine Glucose (UA) Trace H (Negative) Urine Blood 2+ H (Negative) Urine RBC (Auto) >30 H (0-4) /hpf U Epithel Cells (Auto) 10-20 H (0-5) /lpf 02/15/23 Range/Units 19:03 RBC (4.70-6.10) M/uL Hgb (14.0-18.0) g/dl Hct (42.0-52.0) % MCHC (32.0-36.0) g/dL RDW Std Deviation (36.4-46.3) fL Lymph # (Auto) (1.20-3.40) K/uL ABG pCO2 60 H (35-46) mmHg ABG pO2 58 L (80-95) mmHg ABG HCO3 40 H (19-24) mmol/L ABG Base Excess 12.8 H (-9-1.8) mEq/L VBG pCO2 (38-50) mmHg Carbon Dioxide (21-32) mmol/L Anion Gap (3-11) BUN (6-23) mg/dl Creatinine (0.6-1.4) mg/dl Glucose (70-99(Fasting)) mg/dl B-Natriuretic Peptide (0-100) pg/ml Urine Protein (Negative) Urine Glucose (UA) (Negative) Urine Blood (Negative) Urine RBC (Auto) (0-4) /hpf U Epithel Cells (Auto) (0-5) /lpf Diagnostic Findings Chest X-Ray 02/15/23 15:38 SINGLE VIEW CHEST CLINICAL HISTORY: Dyspnea FINDINGS: And AP, portable, upright chest radiograph is compared to study dated 01/29/2023. Correlation is made with chest CT dated 10/30/2021. The examination is degraded by portable technique and patient rotation. The heart is enlarged noting atherosclerotic calcification of the thoracic aorta. There is pulmonary vascular congestion. Small pleural effusions are suspected with dependent consolidation. No pneumothorax is seen. The skeletal structures are osteopenic. The bony thorax is grossly intact. IMPRESSION: 1. Cardiomegaly with evidence of congestive failure. 2. Small pleural effusions with dependent consolidation. ACT 112: Negative or not required by law. Electronically signed by: Binu Heard M.D. 02/15/2023 4:05 PM ECG Additional Comments: Normal sinus rhythm, no acute ST segment or T-Wave changes noted Code Status & VTE Plan Code Status Conditional code; No CPR or Defibrillation in the event of cardiac arrest. Would want trial of intubation in the event of respiratory failure VTE Prophylaxis Plan VTE Prophylaxis will be ordered: Yes Supervising Physician Co-Signing Physician Notes I personally saw and examined the patient. I verified all rust points and agree with Scott [place] PA-C with the following exceptions and/or additions: 72 year old male presents to the ER from his PCP office due to acute on chronic shortness of breath. No significant improvement with recently prescribed prednisone/azithromycin course given from the ER on January 29. He reports not taking his Bumex routinely. O/E A&Ox3, Pursed lip breathing, using accessory muscle, unable to complete full sentences, bibasal fine crackles, HS RRR, no murmurs, Abdo SNT A/P Acute on chronic respiratory failure with hypoxia and hypercapnia - baseline 2lPM O2. Hypercapnia appears chronic with metabolic compensation, will try to encourage patient to wear BiPAP at least at night. Biofire negative. Suspect hypervolemic from CKD/CHF. Agree with increased Bumex dosing from 2mg PO daily to 2mg IV BID. TTE ordered. Weight increased. BNP increased. No WBC/procalcitonin/CXR changes to suggest bacterial pneumonia. Hypervolemia due to CKD, HFpEF - as above Hypertensive urgency - suspect due to missing his usual medications, restart usual medications and monitor PG Care Time/CCT Total # of Minutes Spent Total Time Spent with Patient: Total time spent is greater than 50% in coordination of care (as documented) at patient's floor/unit and/or counseling patient: Coding [place] [address] INT INP/OBS CARE 3/75MIN Patient Type Established Medical Decision Making Moderate Complexity Diagnoses Acute on chronic respiratory failure with hypoxia and hypercapnia J96.21; J96.22 Chronic kidney disease, stage 4 (severe) N18.4 CHF exacerbation I50.9 Obstructive sleep apnea G47.33 Essential hypertension I10 Hypertension type: essential hypertension Type 2 diabetes mellitus without complication, with long-term current use of insulin E11.9; Z79.4 Diabetes mellitus complication status: without complication Diabetes mellitus mcfp insulin use: with joint terminal attack controller use Diabetes mellitus type: type 2 Chronic back pain M54.9; G89.29 (5) Hypertension Hypertension type: essential hypertension Qualified Code(s): I10 - Essential (primary) hypertension (6) Diabetes Diabetes mellitus complication status: without complication Diabetes mellitus mcfp insulin use: with joint terminal attack controller use Diabetes mellitus type: type 2 Qualified Code(s): E11.9 - Type 2 diabetes mellitus without complications; Z79.4 - residential (current) use of insulin
[2023-02-15] MEDS ORDERED: hydrALAZINE TAB 50 MG TAB PO STA (18:54)
[2023-02-15] MEDS ORDERED: BUMETANIDE 2 MG in SYRINGE 0 ML IV ONE (19:00)
[2023-02-15 19:17] LABS: Base Excess ABG 12.8 mEq/L (-9-1.8); HCO3 ABG 40 mmol/L (19-24); Oxygen Saturation ABG 93.1 % (90-95); PCO2 ABG 60 mmHg (35-46); PO2 ABG 58 mmHg (80-95); pH ABG 7.43 (7.35-7.45)
[2023-02-15 19:18] LABS: Allen Test Pos (Pos)
[2023-02-15] MEDS ORDERED: GLUCOSE 10 TAB/TUBE PO PRN (19:47)
[2023-02-15] MEDS ORDERED: GLUCOSE 40% GEL 15 GM TUBE PO PRN (19:47)
[2023-02-15] MEDS ORDERED: GLUCAGON FOR INJ 1 MG VIAL SQ PRN (19:47)
[2023-02-15] MEDS ORDERED: CARBOHYDRATES FOR HYPOGLYCEMIA PO PRN (19:47)
[2023-02-15] MEDS ORDERED: DEXTROSE 50% 50 ML SYRINGE IV PRN (19:47)
[2023-02-15 20:44] LABS: Adenovirus PCR Not Detected (NotDetected); Bordetella parapertussis PCR Not Detected (NotDetected); Bordetella pertussis PCR Not Detected (NotDetected); Chlamydia pneumoniae PCR Not Detected (NotDetected); Coronavirus 229E PCR Not Detected (NotDetected); Coronavirus CoV-2 (COVID19)PCR Not Detected (NotDetected); Coronavirus HKU1 PCR Not Detected (NotDetected); Coronavirus NL63 PCR Not Detected (NotDetected); Coronavirus OC43PCR Not Detected (NotDetected); Human Metapneumovirus PCR Not Detected (NotDetected); Influenza A PCR Not Detected (NotDetected); Influenza B PCR Not Detected (NotDetected); Mycoplasma pneumoniae PCR Not Detected (NotDetected); Parainfluenza Virus 1 PCR Not Detected (NotDetected); Parainfluenza Virus 2 PCR Not Detected (NotDetected); Parainfluenza Virus 3 PCR Not Detected (NotDetected); Parainfluenza Virus 4 PCR Not Detected (NotDetected); Respiratory Syncytial VirusPCR Not Detected (NotDetected); Rhinovirus/Enterovirus PCR Not Detected (NotDetected)
[2023-02-15 21:01] LABS: Creatinine Urine Random 31.5 mg/dl; Protein Creatinine Ratio Urine 4.9 (0-0.2); Total Protein Urine Random 154.4 mg/dl (0-11.9)
[2023-02-15] MEDS: INSULIN ASPART PER UNIT CHARGE SC SCH (22:00)
--- NOTE | 2023-02-15 22:58 | Emergency Department Note ---
History of Present Illness General Chief Complaint: Shortness of Breath/Dyspnea Stated Complaint: SHORTNESS OF BREATH Time Seen by Provider: 02/15/23 16:05 History of Present Illness Provider Complaint: shortness of breath Onset (ago): week(s) (2) Consistency/Duration: + progressively worsening Maximum Pain Intensity: 9 Relieved By: + oxygen and + upright position Exacerbated By: + lying flat and + exertion Known history of: COPD and congestive heart failure Associated symptoms: + cough, + orthopnea and + chest congestion; no chest pain, no pain with inspiration, no wheezing, no sputum production, no polyuria, no hemoptysis or no abdominal pain Related Data Home oxygen amount: 2 liters Home Medications Medication Instructions Recorded Confirmed Type albuterol sulfate 2.5 mg/3 mL 2.5 mg inhalation QID PRN 03/10/19 02/15/23 History (0.083 %) solution for nebulization Shortness Of Breath Or Wheezing albuterol sulfate 90 mcg/actuation 2 puff inhalation QID PRN 03/10/19 02/15/23 History aerosol inhaler (Ventolin HFA) Shortness Of Breath Or Wheezing insulin aspart U-100 100 unit/mL 5 unit subcut DIRECTED 03/10/19 02/15/23 History (3 mL) subcutaneous pen (Novolog FlexPen U-100 Insulin aspart) fluticasone fur. 200 mcg-umeclid 1 inh inhalation DAILY 03/27/22 02/15/23 History 62.5 mcg-vilant 25 mcg inhalat.powder (Trelegy Ellipta) rosuvastatin 10 mg tablet 10 mg PO DAILY #90 tabs 03/27/22 02/15/23 Rx sacubitril 97 mg-valsartan 103 mg 1 tab PO BID 05/08/22 02/15/23 History tablet (Entresto) tamsulosin 0.4 mg capsule (Flomax) 0.4 mg PO DAILY 05/08/22 02/15/23 History ropinirole 0.5 mg tablet 0.5 mg PO HS #90 tabs 05/15/22 02/15/23 Rx metoprolol tartrate 50 mg tablet 50 mg PO BID #180 tabs 06/05/22 02/15/23 Rx (Lopressor) trazodone 50 mg tablet 50 mg PO HS #30 tabs 06/05/22 02/15/23 Rx aspirin 81 mg tablet,delayed 81 mg PO DAILY 10/19/22 02/15/23 History release cholecalciferol (vitamin D3) 25 25 mcg PO DAILY 10/19/22 02/15/23 History mcg (1,000 unit) capsule tramadol 50 mg tablet 50 mg PO DAILY #30 tabs 11/30/22 02/15/23 Rx escitalopram oxalate 5 mg tablet 5 mg PO DAILY #90 tabs 01/03/23 02/15/23 Rx (Lexapro) hydralazine 50 mg tablet 100 mg (2 x 50 mg) PO TID #270 tabs 01/03/23 02/15/23 Rx clonidine 0.3 mg/24 hr weekly 1 patch topical .COMPLEX #4 ea 01/04/23 02/15/23 Rx transdermal patch bumetanide 2 mg tablet 2 mg PO DAILY 02/15/23 02/15/23 History Allergies Allergy/AdvReac Type Severity Reaction Status Date / Time bee venom protein (honey bee) Allergy Severe ANAPHYLAXIS Verified 02/15/23 13:56 Past Med/Surg History Medical History Anemia Secondary hyperparathyroidism (of renal origin) Chronic kidney disease, stage 4 (severe) Chronic back pain Restrictive lung disease Hypercapnic respiratory failure Obstructive sleep apnea Chronic hypoxemic respiratory failure Hyperlipidemia Colon cancer Hypertension Diabetes Urinary problem COPD (chronic obstructive pulmonary disease) Prostate cancer (06/23/08) "Rising PSA Status post biopsy revealing adenocarcinoma Josy 3+4 10 of 24 cores positive, High-grade prostatic intraepithelial neoplasm present Status post robotic prostatectomy 10/06/2008 Adenocarcinoma Josy 3+3 negative margins Perineural invasion present Stage pT2c pN0M0 Rising PSA to 0.08 Status post completion of salvage radiation 11/16/2014 received 7040 cGy " On 11/24/14 15:53 Oliva Lozano wrote "Rising PSA Status post biopsy revealing adenocarcinoma Josy 3+4 10 of 24 cores positive, High-grade prostatic intraepithelial neoplasm present Status post robotic prostatectomy 10/06/2008 Adenocarcinoma Summers 3+3 negative margins Perineural invasion present Stage pT2c pN0M0 Rising PSA to 0.08 Status post completion of salvage radiation 11/16/2014 received 7040 cGy " On 09/04/14 10:59 Oliva Lozano wrote "Rising PSA Status post biopsy revealing adenocarcinoma Josy 3+4 10 of 24 cores positive, High-grade prostatic intraepithelial neoplasm present Status post robotic prostatectomy 10/06/2008 Adenocarcinoma Summers 3+3 negative margins Perineural invasion present PT2c pN0M0 Rising PSA to 0.08 " Knee pain Surgical History History of prostatectomy Family History Father Myocardial infarction, Onset Age: 70 Denies family history of Ovarian cancer Prostate cancer Breast cancer Colorectal cancer Social History Smoking Status: Former smoker Tobacco Type: Smokeless Tobacco (Dip or Chew) Second Hand Exposure: No; Do You Dip or Chew Tobacco: No; Hx Alcohol Use: No Hx Substance Use: No Preferred Language: Ethiopian Communication Ability: Effective Visual Impairment: Limited Hearing Ability: Normal Yeast Supervisor Required: No Beliefs That Will Affect Care: None marital status: Current Living Situation: Spouse Current Living Situation Comment: with current occupational status: 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 Feels Safe at Home: Yes Childhood Exposure to Second-Hand Smoke: Yes caffeine: Yes (soda) during the past year weight has: remained stable Dental Care, Regularly: No Physical Activity Frequency: Does not Exercise Seatbelt Use: never Sunscreen Use: No Assistive Devices: Cane, Glasses, Oxygen - Continuous, Walker and Wheelchair Physical Exam 2 Vital Signs: Vital Signs - 24 hr 02/15/23 15:16 02/15/23 15:26 02/15/23 15:27 Temperature 36.5 C Temperature Source Oral Pulse Rate 74 74 Pulse Rate [Apical ] Pulse Rate from Sp O2 Sensor Pulse Rhythm Respiratory Rate 28 H Respiratory Effort / Characteristics Labored Labored Respiratory Depth Shallow Normal Respiratory Patter n Regular Regular Blood Pressure 194/77 H Blood Pressure [Le ft Arm] Blood Pressure Charlee n 116 Blood Pressure Charlee n [Left Arm] Blood Pressure Pos ition [Left Arm] Pulse Oximetry 93 Oxygen Delivery Me thod Nasal Cannula Nasal Cannula Oxygen Flow Rate 6 6 Sepsis Recent Feve r Within 48 Hours No Sepsis New/Unexpla ined Change in Men mariposa Status No Sepsis Action Take n by Nursing No Action Required 02/15/23 16:00 02/15/23 16:12 02/15/23 16:33 Temperature Temperature Source Pulse Rate 65 71 Pulse Rate [Apical ] Pulse Rate from Sp O2 Sensor 66 Pulse Rhythm Respiratory Rate 41 H 26 H 22 Respiratory Effort / Characteristics Respiratory Depth Respiratory Patter n Blood Pressure 179/86 H 199/95 H 157/78 H Blood Pressure [Le ft Arm] Blood Pressure Charlee n 117 129 104 Blood Pressure Charlee n [Left Arm] Blood Pressure Pos ition [Left Arm] Pulse Oximetry 95 93 91 Oxygen Delivery Me thod Nasal Cannula Nasal Cannula Oxygen Flow Rate 3 3 Sepsis Recent Feve r Within 48 Hours Sepsis New/Unexpla ined Change in Men mariposa Status Sepsis Action Take n by Nursing 02/15/23 16:48 02/15/23 16:48 02/15/23 17:00 Temperature Temperature Source Pulse Rate 72 69 Pulse Rate [Apical ] Pulse Rate from Sp O2 Sensor 68 Pulse Rhythm Regular Respiratory Rate 21 24 Respiratory Effort / Characteristics Respiratory Depth Respiratory Patter n Blood Pressure 168/89 H Blood Pressure [Le ft Arm] Blood Pressure Charlee n 115 Blood Pressure Charlee n [Left Arm] Blood Pressure Pos ition [Left Arm] Pulse Oximetry 95 95 92 Oxygen Delivery Me thod Nasal Cannula Nasal Cannula Nasal Cannula Oxygen Flow Rate 3 3 2 Sepsis Recent Feve r Within 48 Hours Sepsis New/Unexpla ined Change in Men mar[place] Status Sepsis Action Take n by Nursing 02/15/23 17:37 02/15/23 17:37 02/15/23 18:00 Temperature Temperature Source Pulse Rate 70 75 Pulse Rate [Apical ] 71 Pulse Rate from Sp O2 Sensor 76 Pulse Rhythm Respiratory Rate 28 H 29 H 23 Respiratory Effort / Characteristics Non-Labored Sponta neous Respiratory Depth Normal Respiratory Patter n Blood Pressure 187/92 H 199/98 H Blood Pressure [Le ft Arm] 187/92 H Blood Pressure Charlee n 123 131 Blood Pressure Charlee n [Left Arm] 123 Blood Pressure Pos ition [Left Arm] Sitting Pulse Oximetry 96 98 93 Oxygen Delivery Me thod Nasal Cannula Nasal Cannula Nasal Cannula Oxygen Flow Rate 3 3 3 Sepsis Recent Feve r Within 48 Hours Sepsis New/Unexpla ined Change in Men mar[place] Status Sepsis Action Take n by Nursing 02/15/23 19:00 02/15/23 20:00 02/15/23 20:23 Temperature Temperature Source Pulse Rate 79 75 80 Pulse Rate [Apical ] Pulse Rate from Sp O2 Sensor 75 81 Pulse Rhythm Respiratory Rate 24 23 29 H Respiratory Effort / Characteristics Respiratory Depth Respiratory Patter n Blood Pressure 193/101 H 205/89 H 186/138 H Blood Pressure [Le ft Arm] Blood Pressure Charlee n 131 127 154 Blood Pressure Charlee n [Left Arm] Blood Pressure Pos ition [Left Arm] Pulse Oximetry 91 93 92 Oxygen Delivery Me thod Nasal Cannula Nasal Cannula Nasal Cannula Oxygen Flow Rate 3 3 3 Sepsis Recent Feve r Within 48 Hours Sepsis New/Unexpla ined Change in Men mariposa Status Sepsis Action Take n by Nursing 02/15/23 21:00 02/15/23 22:00 Temperature Temperature Source Pulse Rate 78 80 Pulse Rate [Apical ] Pulse Rate from Sp O2 Sensor 80 Pulse Rhythm Respiratory Rate 27 H 24 Respiratory Effort / Characteristics Respiratory Depth Respiratory Patter n Blood Pressure 189/83 H 176/84 H Blood Pressure [Le ft Arm] Blood Pressure Charlee n 118 114 Blood Pressure Charlee n [Left Arm] Blood Pressure Pos ition [Left Arm] Pulse Oximetry 94 92 Oxygen Delivery Me thod Nasal Cannula Nasal Cannula Oxygen Flow Rate 3 3 Sepsis Recent Feve r Within 48 Hours Sepsis New/Unexpla ined Change in Men mariposa Status Sepsis Action Take n by Nursing Physical Exam: Physical Exam GENERAL: oriented to person, place, and time. appears well-developed and well- nourished. HENT: Exam performed. - Head: Normocephalic and atraumatic. EYES: Conjunctivae and EOM are normal. Right eye exhibits no discharge. Left eye exhibits no discharge. No scleral icterus. NECK: Normal range of motion. Neck supple. No JVD present. CV: Normal rate, regular rhythm, normal heart sounds and intact distal pulses. 3+ pitting edema of the bilateral lower extremities. Palpable radial pulses bue. PULM/CHEST: Rales bilaterally. ABD: The abdomen is soft. There is no tenderness. NEURO: Motor and sensation grossly intact. SKIN: Skin is warm and dry. He is not diaphoretic. PSYCH: normal mood and affect. Behavior is normal. Judgment and thought content normal. Course Course 1605: The patient was evaluated in room A10. A complete history and physical exam was performed Cardiac monitoring: An order was placed for continuous cardiac monitoring. The monitor shows a rate of 70 with sinus rhythm interpreted by me Patient was hypoxic on his normal 2 L at his PCPs office. The nursing staff started the patient on 6 L oxygen. Patient's oxygen was quickly titrated down to 3 L. Patient blood pressure is 199/95. Thought that the patient could be suffering from pulmonary edema given his rales and bilateral lower extremity swelling also. Patient is not overtly tachypneic. Will hold off on BiPAP at this time. Patient be given sublingual nitroglycerin. 1645: Vital signs stable. Patient's blood pressure and respiratory rate improved with 1 sublingual nitroglycerin. Patient has not in any respiratory distress. Will hold off on BiPAP. Patient still tolerating 3 L nasal cannula well. 1720: Vital signs stable on supplemental oxygen 3 L via nasal cannula. Chest x- ray shows cardiomegaly with cephalization. Labs show VBG venous pH 7.36 venous pCO2 73 patient's creatinine 2.01. BNP 523. Patient will be admitted to the Health systemist team. Administered Medications Insulin Aspart (Insulin Aspart Per Unit Charge) 0 units SC ACHS LAZARO Stop: 03/17/23 20:59 Last Admin: 02/15/23 22:00 Dose: 3 units Documented By: RONNY Co-signed By: BS Discontinued Medications Furosemide (Furosemide 40 Mg/4 Ml Vial) 40 mg IV ONE ONE Stop: 02/15/23 17:18 Last Admin: 02/15/23 17:39 Dose: 40 mg Documented By: ERIC Hydralazine HCl (Hydralazine Tab 50 Mg Tab) 100 mg PO NOW STA Stop: 02/15/23 18:55 Last Admin: 02/15/23 19:54 Dose: 100 mg Documented By: RONNY Bumetanide 2 mg/ Syringe 8 mls @ 4 mls/min IV ONE ONE Stop: 02/15/23 19:01 Last Admin: 02/15/23 19:54 Dose: 4 mls/min Documented By: RONNY Nitroglycerin (Nitroglycerin Sl 0.4 Mg/Tab Tab) 0.4 mg SL NOW STA Stop: 02/15/23 16:14 Last Admin: 02/15/23 16:27 Dose: 0.4 mg Documented By: RONNY Medical Decision Making Laboratory Data Attestation: I reviewed the patient's lab results. 02/15/23 15:20 02/15/23 15:20 Lab Results 02/15/23 02/15/23 02/15/23 Range/Units 15:20 16:34 16:40 WBC 6.37 (4.8-10.8) K/ul RBC 3.29 L (4.70-6.10) M/uL Hgb 9.6 L (14.0-18.0) g/dl Hct 30.3 L (42.0-52.0) % MCV 92.1 (80.0-100.0) fL MCH 29.2 (25.0-34.0) pg MCHC 31.7 L (32.0-36.0) g/dL RDW Std Deviation 49.0 H (36.4-46.3) fL RDW Coeff of Lyric 14.5 (11.5-14.5) % Plt Count 184 (130-400) K/uL MPV 9.5 (9.4-12.4) fL Immature Gran % (Auto) 0.2 % Neut % (Auto) 85.2 % Lymph % (Auto) 5.8 % Monroe % (Auto) 6.4 % Eos % (Auto) 1.6 % Baso % (Auto) 0.8 % Neut # (Auto) 5.43 (1.40-6.50) K/uL Lymph # (Auto) 0.37 L (1.20-3.40) K/uL Monroe # (Auto) 0.41 (0.11-0.59) K/uL Eos # (Auto) 0.10 (0.00-0.50) K/uL Baso # (Auto) 0.05 (0.00-0.20) K/uL Immature Gran # (Auto) 0.01 (0.01-0.20) K/uL ABG pH (7.35-7.45) ABG pCO2 (35-46) mmHg ABG pO2 (80-95) mmHg ABG HCO3 (19-24) mmol/L ABG O2 Saturation (90-95) % ABG Base Excess (-9-1.8) mEq/L Jonathon Test (Pos) VBG pH 7.36 (7.36-7.41) VBG pCO2 73 H (38-50) mmHg VBG pO2 22 mmHg VBG HCO3 41 mmol/L VBG O2 Saturation < 60.0 % VBG Base Excess 12.4 mEq/L Oxygen Given Sodium 140 (136-145) mmol/L Potassium 4.8 (3.5-5.1) mmol/L Chloride 101 (98-107) mmol/L Carbon Dioxide 38 H (21-32) mmol/L Anion Gap 1 L (3-11) BUN 25 H (6-23) mg/dl Creatinine 2.01 H (0.6-1.4) mg/dl Est Cr Clr Drug Dosing Not Reportable Est GFR ( Amer) 37.0 ml/min Est GFR (Non-Af Amer) 32.0 ml/min BUN/Creatinine Ratio 12.4 (10-20) Glucose 156 H (70-99(Fasting)) mg/dl POC Glucose (70-99) mg/dl Calcium 9.1 (8.6-10.3) mg/dl Total Bilirubin 0.3 (0.2-1.0) mg/dl AST 14 (13-39) U/L ALT 12 (7-52) U/L Alkaline Phosphatase 88 (34-104) U/L Troponin I High Sens 9.3 (0-20) pg/ml B-Natriuretic Peptide 523 H (0-100) pg/ml Total Protein 6.4 (6.0-8.3) gm/dl Albumin 3.5 (3.4-5.0) gm/dl Globulin 2.9 (2.5-4.0) gm/dl Albumin/Globulin Ratio 1.2 (0.9-2) Procalcitonin < 0.05 (0-0.5) ng/ml Urine Color Yellow Urine Appearance Clear (Clear) Urine pH 7.0 (4.5-7.5) Ur Specific Lentner 1.009 (1.000-1.030) Urine Protein 2+ H (Negative) Urine Glucose (UA) Trace H (Negative) Urine Ketones Negative (Negative) Urine Blood 2+ H (Negative) Urine Nitrite Negative (Negative) Urine Bilirubin Negative (Negative) Urine Urobilinogen Negative (Negative) Ur Leukocyte Esterase Negative (Negative) Urine WBC (Auto) 1-5 (0-5) /hpf Urine RBC (Auto) >30 H (0-4) /hpf U Hyaline Cast (Auto) 0 (0-5) /lpf U Epithel Cells (Auto) 10-20 H (0-5) /lpf Urine Bacteria (Auto) Negative (Negative) Ur Random Creatinine 31.5 mg/dl U Random Total Protein 154.4 H (0-11.9) mg/dl Protein/Creatinin Ratio 4.9 H (0-0.2) Adenovirus (PCR) (NotDetected) B. pertussis DNA (PCR) (NotDetected) B.parapertussis DNA PCR (NotDetected) C. pneumoniae DNA (PCR) (NotDetected) Coronavirus OC43 (PCR) (NotDetected) Coronavirus HKU1 (PCR) (NotDetected) Coronavirus 229E (PCR) (NotDetected) SARS-CoV-2 (PCR) (NotDetected) Coronavirus NL63 (PCR) (NotDetected) Human Metapneumovir PCR (NotDetected) Influenza Type A (PCR) (NotDetected) Influenza Type B (PCR) (NotDetected) M. pneumoniae (PCR) (NotDetected) Parainfluenza 1 (PCR) (NotDetected) Parainfluenza 2 (PCR) (NotDetected) Parainfluenza 3 (PCR) (NotDetected) Parainfluenza 4 (PCR) (NotDetected) RSV (PCR) (NotDetected) Entero/Rhino (PCR) (NotDetected) 02/15/23 02/15/23 02/15/23 Range/Units 19:03 19:20 21:53 WBC (4.8-10.8) K/ul RBC (4.70-6.10) M/uL Hgb (14.0-18.0) g/dl Hct (42.0-52.0) % MCV (80.0-100.0) fL MCH (25.0-34.0) pg MCHC (32.0-36.0) g/dL RDW Std Deviation (36.4-46.3) fL RDW Coeff of Lyric (11.5-14.5) % Plt Count (130-400) K/uL MPV (9.4-12.4) fL Immature Gran % (Auto) % Neut % (Auto) % Lymph % (Auto) % Monroe % (Auto) % Eos % (Auto) % Baso % (Auto) % Neut # (Auto) (1.40-6.50) K/uL Lymph # (Auto) (1.20-3.40) K/uL Monroe # (Auto) (0.11-0.59) K/uL Eos # (Auto) (0.00-0.50) K/uL Baso # (Auto) (0.00-0.20) K/uL Immature Gran # (Auto) (0.01-0.20) K/uL ABG pH 7.43 (7.35-7.45) ABG pCO2 60 H (35-46) mmHg ABG pO2 58 L (80-95) mmHg ABG HCO3 40 H (19-24) mmol/L ABG O2 Saturation 93.1 (90-95) % ABG Base Excess 12.8 H (-9-1.8) mEq/L Jonathon Test Pos (Pos) VBG pH (7.36-7.41) VBG pCO2 (38-50) mmHg VBG pO2 mmHg VBG HCO3 mmol/L VBG O2 Saturation % VBG Base Excess mEq/L Oxygen Given 2 L Sodium (136-145) mmol/L Potassium (3.5-5.1) mmol/L Chloride (98-107) mmol/L Carbon Dioxide (21-32) mmol/L Anion Gap (3-11) BUN (6-23) mg/dl Creatinine (0.6-1.4) mg/dl Est Cr Clr Drug Dosing Est GFR ( Amer) ml/min Est GFR (Non-Af Amer) ml/min BUN/Creatinine Ratio (10-20) Glucose (70-99(Fasting)) mg/dl POC Glucose 230 H (70-99) mg/dl Calcium (8.6-10.3) mg/dl Total Bilirubin (0.2-1.0) mg/dl AST (13-39) U/L ALT (7-52) U/L Alkaline Phosphatase (34-104) U/L Troponin I High Sens (0-20) pg/ml B-Natriuretic Peptide (0-100) pg/ml Total Protein (6.0-8.3) gm/dl Albumin (3.4-5.0) gm/dl Globulin (2.5-4.0) gm/dl Albumin/Globulin Ratio (0.9-2) Procalcitonin (0-0.5) ng/ml Urine Color Urine Appearance (Clear) Urine pH (4.5-7.5) Ur Specific L[place] (1.000-1.030) Urine Protein (Negative) Urine Glucose (UA) (Negative) Urine Ketones (Negative) Urine Blood (Negative) Urine Nitrite (Negative) Urine Bilirubin (Negative) Urine Urobilinogen (Negative) Ur Leukocyte Esterase (Negative) Urine WBC (Auto) (0-5) /hpf Urine RBC (Auto) (0-4) /hpf U Hyaline Cast (Auto) (0-5) /lpf U Epithel Cells (Auto) (0-5) /lpf Urine Bacteria (Auto) (Negative) Ur Random Creatinine mg/dl U Random Total Protein (0-11.9) mg/dl Protein/Creatinin Ratio (0-0.2) Adenovirus (PCR) Not Detected (NotDetected) B. pertussis DNA (PCR) Not Detected (NotDetected) B.parapertussis DNA PCR Not Detected (NotDetected) C. pneumoniae DNA (PCR) Not Detected (NotDetected) Coronavirus OC43 (PCR) Not Detected (NotDetected) Coronavirus HKU1 (PCR) Not Detected (NotDetected) Coronavirus 229E (PCR) Not Detected (NotDetected) SARS-CoV-2 (PCR) Not Detected (NotDetected) Coronavirus NL63 (PCR) Not Detected (NotDetected) Human Metapneumovir PCR Not Detected (NotDetected) Influenza Type A (PCR) Not Detected (NotDetected) Influenza Type B (PCR) Not Detected (NotDetected) M. pneumoniae (PCR) Not Detected (NotDetected) Parainfluenza 1 (PCR) Not Detected (NotDetected) Parainfluenza 2 (PCR) Not Detected (NotDetected) Parainfluenza 3 (PCR) Not Detected (NotDetected) Parainfluenza 4 (PCR) Not Detected (NotDetected) RSV (PCR) Not Detected (NotDetected) Entero/Rhino (PCR) Not Detected (NotDetected) Imaging Data Attestation: I personally reviewed and interpreted this imaging study as follows: My Impression: Chest x-ray: Cardiomegaly with cephalization Radiologist's Impression: Chest X-Ray 02/15/23 15:38 SINGLE VIEW CHEST CLINICAL HISTORY: Dyspnea FINDINGS: And AP, portable, upright chest radiograph is compared to study dated 01/29/2023. Correlation is made with chest CT dated 10/30/2021. The examination is degraded by portable technique and patient rotation. The heart is enlarged noting atherosclerotic calcification of the thoracic aorta. There is pulmonary vascular congestion. Small pleural effusions are suspected with dependent consolidation. No pneumothorax is seen. The skeletal structures are osteopenic. The bony thorax is grossly intact. IMPRESSION: 1. Cardiomegaly with evidence of congestive failure. 2. Small pleural effusions with dependent consolidation. ACT 112: Negative or not required by law. Electronically signed by: Binu Heard M.D. 02/15/2023 4:05 PM ECG Data Attestation: I personally reviewed and interpreted this ECG as follows: Interpretation: Sinus rhythm with rate of 74. DC QRS and QTc intervals within normal limits. No ST elevation or ST depression there is mild artifact secondary to motion. [facility] Narrative 1605: The patient was evaluated in room A10. A complete history and physical exam was performed Cardiac monitoring: An order was placed for continuous cardiac monitoring. The monitor shows a rate of 70 with sinus rhythm interpreted by me Patient was hypoxic on his normal 2 L at his PCPs office. The nursing staff started the patient on 6 L oxygen. Patient's oxygen was quickly titrated down to 3 L. Patient blood pressure is 199/95. Thought that the patient could be suffering from pulmonary edema given his rales and bilateral lower extremity swelling also. Patient is not overtly tachypneic. Will hold off on BiPAP at this time. Patient be given sublingual nitroglycerin. 1645: Vital signs stable. Patient's blood pressure and respiratory rate improved with 1 sublingual nitroglycerin. Patient has not in any respiratory distress. Will hold off on BiPAP. Patient still tolerating 3 L nasal cannula well. 1720: Vital signs stable on supplemental oxygen 3 L via nasal cannula. Chest x- ray shows cardiomegaly with cephalization. Labs show VBG venous pH 7.36 venous pCO2 73 patient's creatinine 2.01. BNP 523. Patient will be admitted to the Health systemist team. Impression & Plan CHF exacerbation Discharge Plan Visit Data Chief Complaint: Shortness of Breath/Dyspnea Stated Complaint: SHORTNESS OF BREATH ED Provider: Patel Ballard Discharge Problem: CHF exacerbation Patient Disposition: Admitted As Inpatient Forms Stand Alone Forms: My [facility] Prescriptions Prescriptions: No Action ropinirole 0.5 mg tablet 0.5 mg PO HS Qty: 90 1RF metoprolol tartrate [Lopressor] 50 mg tablet 50 mg PO BID Qty: 180 2RF trazodone 50 mg tablet 50 mg PO HS Qty: 30 5RF escitalopram oxalate [Lexapro] 5 mg tablet 5 mg PO DAILY Qty: 90 1RF hydralazine 50 mg tablet 100 mg PO TID Qty: 270 3RF clonidine 0.3 mg/24 hr patch weekly 1 patch topical .COMPLEX Qty: 4 0RF Rx Instructions: 1 patch topically ONCE WEEKLY; Trelegy Ellipta 200-62.5-25 mcg blister with device 1 inh inhalation DAILY rosuvastatin 10 mg tablet 10 mg PO DAILY Qty: 90 3RF aspirin 81 mg tablet,delayed release (DR/EC) 81 mg PO DAILY cholecalciferol (vitamin D3) 25 mcg (1,000 unit) capsule 25 mcg PO DAILY tamsulosin [Flomax] 0.4 mg capsule 0.4 mg PO DAILY Entresto 97-103 mg tablet 1 tab PO BID bumetanide 2 mg tablet 2 mg PO DAILY tramadol 50 mg tablet 50 mg PO DAILY Qty: 30 0RF albuterol sulfate 2.5 mg /3 mL (0.083 %) Solution For Nebulization 2.5 mg INHALATION QID PRN (Reason: Shortness Of Breath Or Wheezing) albuterol sulfate [Ventolin HFA] 90 mcg/actuation Hfa Aerosol Inhaler 2 puff INHALATION QID PRN (Reason: Shortness Of Breath Or Wheezing) insulin aspart U-100 [Novolog FlexPen U-100 Insulin] 100 unit/mL (3 mL) insulin pen 5 unit SUBCUT DIRECTED Rx Instructions: take 5 units if BSG is over 200 Referrals Referrals: Nishant Fuentes CRNP [Primary Care Provider] -
[2023-02-15] MEDS ORDERED: ALBUTEROL 0.083% NEBU SOLN 3 ML VIAL INH PRN (23:00)
[2023-02-15] MEDS ORDERED: ALBUTEROL HFA 8 GM INHALER INH PRN (23:00)
[2023-02-15 23:31] LABS: Anion Gap 3 (3-11); BUN Creatinine Ratio 11.6 (10-20); Blood Urea Nitrogen 25 mg/dl (6-23); Calcium 9.2 mg/dl (8.6-10.3); Carbon Dioxide 38 mmol/L (21-32); Chloride 100 mmol/L (98-107); Est GFR (African American) 34.1 ml/min; Est GFR (Non-African American) 29.5 ml/min; Glucose 192 mg/dl (70-99(Fasting)); Magnesium 2.4 mg/dl (1.7-2.4); Potassium 4.6 mmol/L (3.5-5.1); Sodium 141 mmol/L (136-145)
[2023-02-16] MEDS: VALSARTAN/SACUBITRIL 103/97MG TAB PO SCH (00:13)
[2023-02-16] MEDS: rOPINIRole HCL 0.25 MG TABLET PO SCH ×2 (00:14→20:23)
[2023-02-16] MEDS: METOPROLOL TARTRATE 50 MG TAB PO SCH ×3 (00:14→20:24)
[2023-02-16] MEDS: HEPARIN SOD 5,000 UNIT/0.5 ML VIAL SQ SCH ×4 (00:15→23:30)
[2023-02-16] MEDS: CHECK CLONIDINE PATCH PLACEMENT SCH ×4 (00:15→23:30)
[2023-02-16 06:11] LABS: Base Excess ABG 13.1 mEq/L (-9-1.8); HCO3 ABG 41 mmol/L (19-24); Oxygen Saturation ABG 97.7 % (90-95); PCO2 ABG 68 mmHg (35-46); PO2 ABG 87 mmHg (80-95); pH ABG 7.39 (7.35-7.45)
[2023-02-16 06:19] LABS: Basophils # (auto) 0.04 K/uL (0.00-0.20); Basophils % (auto) 0.6 %; Eosinophils % (auto) 1.6 %; Hematocrit (blood only) 27.9 % (42.0-52.0); Hemoglobin 8.7 g/dl (14.0-18.0); Immature Granulocytes # (auto) 0.02 K/uL (0.01-0.20); Immature Granulocytes % (auto) 0.3 %; Lymphocytes # (auto) 0.39 K/uL (1.20-3.40); Lymphocytes % (auto) 6.3 %; Mean Corpuscular Hemoglobin 28.8 pg (25.0-34.0); Mean Corpuscular Hgb Conc 31.2 g/dL (32.0-36.0); Mean Corpuscular Volume 92.4 fL (80.0-100.0); Monocytes # (auto) 0.57 K/uL (0.11-0.59); Monocytes % (auto) 9.2 %; Neutrophils # (auto) 5.08 K/uL (1.40-6.50); Platelet Count 159 K/uL (130-400); RDW Coefficient of Variation 14.1 % (11.5-14.5); RDW Standard Deviation 48.3 fL (36.4-46.3); Red Blood Count 3.02 M/uL (4.70-6.10)
[2023-02-16 06:24] LABS: Allen Test Pos (Pos)
[2023-02-16 06:36] LABS: Albumin Globulin Ratio 1.3 (0.9-2); BUN Creatinine Ratio 12.1 (10-20); Bilirubin,Total 0.4 mg/dl (0.2-1.0); Calcium 8.5 mg/dl (8.6-10.3); Creatinine Clr Calc Pharmacy 35.5 ml/min; Est GFR (African American) 35.7 ml/min; Est GFR (Non-African American) 30.8 ml/min; Globulin 2.4 gm/dl (2.5-4.0); Magnesium 2.1 mg/dl (1.7-2.4); Potassium 4.4 mmol/L (3.5-5.1); Total Protein 5.4 gm/dl (6.0-8.3)
[2023-02-16 06:43] LABS: Prothrombin Time 10.9 Seconds (9.0-12.0)
[2023-02-16 08:01] LABS: Estimated Average Glucose 143 mg/dl; Hemoglobin A1C 6.6 % (4.5-5.6)
[2023-02-16] MEDS: ASPIRIN 81 MG ECTAB PO SCH (08:21)
[2023-02-16] MEDS: ESCITALOPRAM OXALATE 10 MG TAB PO SCH (08:21)
[2023-02-16] MEDS: FLUTICASONE FUROATE 200MCG 14 PUFFS/INHALER INH SCH (08:22)
[2023-02-16] MEDS: ROSUVASTATIN CALCIUM 10 MG TAB PO SCH (08:24)
[2023-02-16] MEDS: TAMSULOSIN HCL 0.4 MG CAP PO SCH (08:24)
[2023-02-16] MEDS: UMECLIDINIUM/VILANTEROL 62.5/25MCG 7 PUFFS/INHALER INH SCH (08:26)
[2023-02-16] MEDS: INSULIN ASPART PER UNIT CHARGE SC SCH ×6 (08:41→20:30)
[2023-02-16] MEDS ORDERED: hydrALAZINE TAB 50 MG TAB PO SCH (09:00)
[2023-02-16] MEDS ORDERED: NON-FORMULARY MEDICATION (Fluticasone-Umeclidin-Vilanter [Trelegy Ellipta] 200-62.5-25 mcg INH SCH (09:00)
[2023-02-16] MEDS ORDERED: hydrALAZINE HCL 20 MG/ML VIAL IV PRN (09:05)
[2023-02-16] MEDS: BUMETANIDE 2 MG in SYRINGE 0 ML IV SCH ×2 (09:39→16:16)
[2023-02-16] MEDS: NIFEdipine EXTENDED REL 30 MG TABCR PO SCH (10:39)
[2023-02-16] MEDS: ACETAMINOPHEN 325 MG TAB PO PRN ×2 (12:57→20:22)
[2023-02-16] MEDS: hydrALAZINE TAB 50 MG TAB PO SCH ×3 (12:58→20:23)
[2023-02-16] MEDS: LORazepam 0.5 MG TAB PO PRN ×2 (13:41→20:22)
--- NOTE | 2023-02-16 15:50 | Hospitalist Progress Note ---
Date of Service February 16, 2023 Assessment & Plan (1) Acute on chronic respiratory failure with hypoxia and hypercapnia: Plan: Oxygen to maintain saturation in the 90 to 92% range. No higher to prevent further CO2 retention. Wean back to baseline levels as tolerated. (2) Chronic kidney disease, stage 4 (severe): Plan: Entresto has been discontinued so he does not receive anymore valsartan. Monitor intake and output. Serial labs. (3) CHF exacerbation: Plan: Acute on chronic diastolic CHF. Repeat cardiac echo ordered. Continue Bumex diuresis. Blood pressure control. Entresto discontinued to eliminate the ARB. (4) Obstructive sleep apnea: Plan: Stable. HS Cpap/Bipap has been ordered (5) Hypertension: Plan: Hydralazine uptitrated to 4 times daily. Nifedipine added. Entresto discontinued to eliminate the ARB. Continue clonidine and metoprolol. (6) Diabetes: Plan: Type II. ADA diet. Sliding scale insulin coverage while hospitalized. Plan Hopeful discharge back to home tomorrowFebruary 17 Admission and Anticipated Discharge Date Admission Date: February 15, 2023 Subjective He is feeling better with Bumex diuresis. Entresto discontinued due to valsartan and component which might adversely affect the limited renal function. Hydralazine uptitrated to 4 times daily dosing with addition of amlodipine. He remains on clonidine, metoprolol. He is anxious to go home. Will repeat portable chest x-ray again tomorrow, February 17. Will make a decision at that time whether or not he can go home. Oxygen saturation 97% on 2 L. Will wean oxygen down aggressively to keep saturation in the 90 to 92% range to prevent further CO2 retention. Review of Systems 2 Review of Systems: Constitutional-no fever or chills ENT-no blurred vision, no double vision, no epistaxis, no sore throat Respiratory-no cough, no wheezing, no shortness of breath Cardiac-no palpitations, no chest pain, no syncope GI-no nausea, vomiting, diarrhea, melena, hematochezia -no urinary retention, no urinary incontinence, no dysuria, no hematuria Musculoskeletal-no joint pain, no muscle tenderness Skin-no bruising, no rashes, no pruritus Neuro-no isolated weakness, no paresthesia, no weakness Psych-no depression, no anxiety Physical Exam 2 Physical Exam: General-alert and oriented x3, no fevers, no chills HEENT-head atraumatic and normocephalic, pupils equal and reactive to light, extraocular muscles intact Neck-no lymphadenopathy or thyromegaly, trachea midline Chest-diminished breath sounds bilaterally. Faint bibasilar inspiratory rales. No wheezing Cardiac-regular rate and rhythm, normal S1 and S2 Abdomen-normal bowel sounds, nontender, no hepatosplenomegaly Extremities-1+ pitting edema bilateral lower extremities below the knees Neuro-cranial nerves II through XII intact, motor and sensory function within normal limits, strength symmetrical, no focal deficits Psych-normal affect, normal mood Results & Data Results & Data Vital Signs (Past 12 Hours) Vital Signs Temp Pulse Pulse Resp BP Pulse Ox O2 Del Method 02/16/23 15:13 74 02/16/23 15:10 36.6 C 77 20 152/57 H 95 Nasal Cannula 02/16/23 11:19 36.6 C 61 18 184/64 H 96 Nasal Cannula 02/16/23 07:55 36.8 C 68 18 215/79 H 97 Nasal Cannula 02/16/23 07:23 74 O2 Flow Rate 02/16/23 15:13 02/16/23 15:10 2 02/16/23 11:19 2 02/16/23 07:55 2 02/16/23 07:23 Laboratory Results 02/16/23 06:00 02/16/23 06:00 PG Care Time/CCT Total # of Minutes Spent Total Time Spent with Patient: Total time spent is greater than 50% in coordination of care (as documented) at patient's floor/unit and/or counseling patient: Coding Level of Care Code 11492 SUB INP/OBS CARE 3/50MIN Diagnoses Acute on chronic respiratory failure with hypoxia and hypercapnia J96.21; J96.22 Chronic kidney disease, stage 4 (severe) N18.4 CHF exacerbation I50.9 Obstructive sleep apnea G47.33 Essential hypertension I10 Hypertension type: essential hypertension Type 2 diabetes mellitus without complication, with long-term current use of insulin E11.9; Z79.4 Diabetes mellitus type: type 2 Diabetes mellitus correction insulin use: with buttermaker use Diabetes mellitus complication status: without complication (5) Hypertension Hypertension type: essential hypertension Qualified Code(s): I10 - Essential (primary) hypertension (6) Diabetes Diabetes mellitus type: type 2 Diabetes mellitus buttermaker insulin use: with correction use Diabetes mellitus complication status: without complication Qualified Code(s): E11.9 - Type 2 diabetes mellitus without complications; Z79.4 - buttermaker (current) use of insulin
--- NOTE | 2023-02-16 17:27 | Electrocardiogram Report ---
Test Reason : Blood Pressure : / mmHG Vent. Rate : 074 BPM Atrial Rate : 074 BPM P-R Int : 162 ms QRS Dur : 090 ms QT Int : 394 ms P-R-T Axes : 027 029 058 degrees QTc Int : 437 ms Normal sinus rhythm Normal ECG When compared with ECG of 29-JAN-2023 12:33, No significant change was found Confirmed by Ravin Dickinson ([id number]) on 02/16/2023 5:26:41 PM Referred By: REFERRED SELF Confirmed By:Jason Dickinson
--- NOTE | 2023-02-16 18:35 | XCELERA ---
[id number] [id number]___[id number]
[2023-02-17 07:26] LABS: Basophils # (auto) 0.04 K/uL (0.00-0.20); Basophils % (auto) 0.8 %; Eosinophils # (auto) 0.08 K/uL (0.00-0.50); Eosinophils % (auto) 1.6 %; Hematocrit (blood only) 27.2 % (42.0-52.0); Hemoglobin 8.6 g/dl (14.0-18.0); Immature Granulocytes # (auto) 0.02 K/uL (0.01-0.20); Immature Granulocytes % (auto) 0.4 %; Lymphocytes # (auto) 0.36 K/uL (1.20-3.40); Lymphocytes % (auto) 7.4 %; Mean Corpuscular Hemoglobin 29.2 pg (25.0-34.0); Mean Corpuscular Hgb Conc 31.6 g/dL (32.0-36.0); Mean Corpuscular Volume 92.2 fL (80.0-100.0); Mean Platelet Volume 9.1 fL (9.4-12.4); Monocytes # (auto) 0.48 K/uL (0.11-0.59); Monocytes % (auto) 9.8 %; Platelet Count 149 K/uL (130-400); RDW Coefficient of Variation 14.1 % (11.5-14.5); RDW Standard Deviation 47.8 fL (36.4-46.3); Red Blood Count 2.95 M/uL (4.70-6.10); White Blood Count 4.88 K/ul (4.8-10.8)
--- NOTE | 2023-02-17 07:45 | XRay Report ---
XR chest 1V portable CLINICAL HISTORY: Congestive heart failure. COMPARISON STUDY: Chest CT October 30, 2021. Chest radiograph February 15, 2023. FINDINGS: Lung volumes are again noted. There is no pneumothorax. There is a small left pleural effus ion. Left basilar opacity persists. There is mild cardiomegaly. Pulmonary vascular congestion with casillas spected mild pulmonary edema is unchanged. IMPRESSION: No significant change in appearance of the chest. Mild pulmonary edema with a small left pleural effusion with left basilar opacity which could reflect consolidation or atelectasis. ACT 112: Negative or not required by law. Electronically signed by: Rip Johnson M.D. 02/17/2023 7:44 AM
[2023-02-17 07:50] LABS: BUN Creatinine Ratio 11.6 (10-20); Calcium 8.4 mg/dl (8.6-10.3); Creatinine Clr Calc Pharmacy 31.4 ml/min; Est GFR (Non-African American) 26.7 ml/min; Potassium 4.5 mmol/L (3.5-5.1)
[2023-02-17] MEDS: VALSARTAN/SACUBITRIL 103/97MG TAB PO SCH (08:42)
[2023-02-17] MEDS: FLUTICASONE FUROATE 200MCG 14 PUFFS/INHALER INH SCH (09:13)
[2023-02-17] MEDS: UMECLIDINIUM/VILANTEROL 62.5/25MCG 7 PUFFS/INHALER INH SCH (09:13)
[2023-02-17] MEDS: NIFEdipine EXTENDED REL 30 MG TABCR PO SCH (09:14)
[2023-02-17] MEDS: ESCITALOPRAM OXALATE 10 MG TAB PO SCH (09:14)
[2023-02-17] MEDS: TAMSULOSIN HCL 0.4 MG CAP PO SCH (09:14)
[2023-02-17] MEDS: BUMETANIDE 2 MG in SYRINGE 0 ML IV SCH (09:14)
[2023-02-17] MEDS: ROSUVASTATIN CALCIUM 10 MG TAB PO SCH (09:15)
[2023-02-17] MEDS: hydrALAZINE TAB 50 MG TAB PO SCH (09:15)
[2023-02-17] MEDS: ASPIRIN 81 MG ECTAB PO SCH (09:15)
[2023-02-17] MEDS: HEPARIN SOD 5,000 UNIT/0.5 ML VIAL SQ SCH (09:15)
[2023-02-17] MEDS: CHECK CLONIDINE PATCH PLACEMENT SCH (09:15)
[2023-02-17] MEDS: METOPROLOL TARTRATE 50 MG TAB PO SCH (09:15)
[2023-02-17] MEDS: INSULIN ASPART PER UNIT CHARGE SC SCH (09:20)
--- NOTE | 2023-02-17 12:05 | Discharge Summary ---
Date of Service February 17, 2023 Admission HPI Per Admitting Provider Mr. Irizarry is a 72-year-old male with a history of HFpEF, Hypertension, Dyslipidemia, Type 2 Diabetes Mellitus, CKD, Sleep Apnea (did not tolerate CPAP), Chronic Hypoxemic/Hypercapnic Respiratory Failure on chronic 2L O2 therapy, and Restrictive Lung Disease/Recently Diagnosed Silicosis who presented to the [facility] ED from his PCP's office for acute on chronic SOB. In the ED the patient was noted to be hypertensive at 201/87, reportedly hypoxic at 85% (Unsure how much O2 he was on at that point), tachypneic with respirations in the 20's-40's, and afebrile. Labs were significant for a lymphocyte count of 0.37, VBG pH of 7.36. pCO2 of 73, and pO2 of 22, stable renal function, Bicarb of 38. Chest xray was read as "1. Cardiomegaly with evidence of congestive failure. 2. Small pleural effusions with dependent consolidation.". Prior to admission the patient was given 40 mg IV lasix and 0.4 mg SL nitroglycerine. At the time of the exam the patient was lying in bed in no acute distress. He is currently stable on 3L NC, I was able to successfully turn him back down to his baseline 2L NC during my exam. He states that he has been having progressive SOB/LEYVA, productive cough with clear sputum, and BL swelling for the past month. He was seen in the [facility] ED on 01/29 and was diagnosed with bronchitis. He was given a Z-pack and course of prednisone but states these did not improve him symptoms; he did complete both courses. He states that he went to his PCP's office today as he was unable to even walk from the family room to the kitchen without having to stop and take a break. Per the clinic note from today, the patient was unable to speak in full sentences and was saturating in the low 80's on his baseline 2L NC. When asked about salt intake he first states that "I don't eat any salt". I asked him if he ate a regular thanksgiving meal and he states, "Oh yes, my daughter probably put lots of salt on the food.". He then states that "I also ate japanese fries earlier this week". I asked if he was taking his bumex every day and he states he was not. I explained he needs to be better with his sodium restriction and fluid restriction, as well as taking his daily diuretics to prevent continued admissions and progressive respiratory failure. I asked why he cannot tolerate CPAP, he states the makes that the mask makes him too anxious. I explained that we will be repeat labs shortly, if they are getting worse we will need to escalate his oxygen delivery. He is willing to try Cpap/Bipap if needed. We also discussed code status, he does not want CPR/defibrillation in the event of cardiac arrest. He would want a trial of intubation in the event of respiratory failure. His would make medical decisions for him if he cannot make them himself. He denies recent fever, chills, chest pain, abd pain, nausea, vomiting, diarrhea, dysuria, hematuria. melena, and recent trauma. Per the last Cardiology note from 12/21/22, the patient's dry weight is 218 lbs. Per review, the patient weight approximately 103 Kg on 01/19. I weight him using the be scale during my exam and he is currently 111 K[address]. Please refer to Dr. Calloway's attestation for any changes to the treatment plan Principal Diagnosis Acute on chronic diastolic congestive heart failure, acute on chronic hypoxic/hypercarbic respiratory failure, uncontrolled hypertension Discharge Exam General-alert and oriented x3, no fevers, no chills HEENT-head atraumatic and normocephalic, pupils equal and reactive to light, ex traocular muscles intact Neck-no lymphadenopathy or thyromegaly, trachea midline Chest-diminished breath sounds bilaterally. Faint bibasilar inspiratory rales have resolved. No wheezing Cardiac-regular rate and rhythm, normal S1 and S2 Abdomen-normal bowel sounds, nontender, no hepatosplenomegaly Extremities-1+ pitting edema bilateral lower extremities below the knees has nearly resolved Neuro-cranial nerves II through XII intact, motor and sensory function within normal limits, strength symmetrical, no focal deficits Psych-normal affect, normal mood Discharge Data Allergies Allergy/AdvReac Type Severity Reaction Status Date / Time bee venom protein (honey bee) Allergy Severe ANAPHYLAXIS Verified 02/15/23 13:56 Consultations 02/15/23 17:18 ED Decision to Admit Stat Hospital Course (1) Acute on chronic respiratory failure with hypoxia and hypercapnia: Oxygen to maintain saturation in the 90 to 92% range. No higher to prevent further CO2 retention. Wean back to baseline levels as tolerated. He is now back to his baseline oxygen requirements (2) Chronic kidney disease, stage 4 (severe): Entresto has been discontinued so he does not receive anymore valsartan. Monitor intake and output. Serial labs. Creatinine has risen slightly due to diuresis but remains acceptable (3) CHF exacerbation: Acute on chronic diastolic CHF. Cardiac echo reveals moderate left ventricular hypertrophy with normal systolic function and evidence of diastolic dysfunction. Right ventricular systolic pressures are elevated. Repeat cardiac echo ordered. Continue Bumex diuresis. Blood pressure control. Entresto discontinued to eliminate the ARB. (4) Obstructive sleep apnea: Stable. HS Cpap/Bipap has been ordered (5) Hypertension: Improved after hydralazine uptitrated to 4 times daily. Nifedipine added. Entresto discontinued to eliminate the ARB. Continue clonidine and metoprolol. (6) Diabetes: Type II. ADA diet. Sliding scale insulin coverage while hospitalized. Plan Home todayFebruary 17 Total Time Total Time Spent Total Time Spent (In Minutes): 45-minute Discharge Plan Discharge Items Patient Disposition: Home - Self-Care Reason For Visit: ACUTE ON CHRONIC HYPOXIC RESP FAILURE Discharge Diagnosis: Acute on chronic diastolic congestive heart failure, acute on chronic hypoxic/hypercarbic respiratory failure, uncontrolled hypertension Activity: Resume your previous activity Non-emergency contact: Primary Care Provider Call non-emergency contact if: you have any medication questions and your symptoms worsen Follow-up/Referrals: Nishant Fuentes CRNP [Primary Care Provider] - Diet: Carb Consistent or DM2 and Heart Healthy Addtl Attending Provider Instructions: Hydralazine has been increased to 4 times daily. Nifedipine is a new medication taking once daily. Entresto has been discontinued. Pending Studies at Discharge: No Stand-Alone Forms: My [employer], Smoking Cessation Medications and DC Order Prescriptions: New hydralazine 100 mg tablet 100 mg PO QID Qty: 120 0RF nifedipine [Procardia XL] 30 mg Tablet Extended Release 24hr 30 mg PO QAM Qty: 30 0RF Continued ropinirole 0.5 mg tablet 0.5 mg PO HS Qty: 90 1RF metoprolol tartrate [Lopressor] 50 mg tablet 50 mg PO BID Qty: 180 2RF trazodone 50 mg tablet 50 mg PO HS Qty: 30 5RF escitalopram oxalate [Lexapro] 5 mg tablet 5 mg PO DAILY Qty: 90 1RF clonidine 0.3 mg/24 hr patch weekly 1 patch topical .COMPLEX Qty: 4 0RF Rx Instructions: 1 patch topically ONCE WEEKLY; Trelebianka Ellipta 200-62.5-25 mcg blister with device 1 inh inhalation DAILY rosuvastatin 10 mg tablet 10 mg PO DAILY Qty: 90 3RF aspirin 81 mg tablet,delayed release (DR/EC) 81 mg PO DAILY cholecalciferol (vitamin D3) 25 mcg (1,000 unit) capsule 25 mcg PO DAILY tamsulosin [Flomax] 0.4 mg capsule 0.4 mg PO DAILY bumetanide 2 mg tablet 2 mg PO DAILY tramadol 50 mg tablet 50 mg PO DAILY Qty: 30 0RF albuterol sulfate 2.5 mg /3 mL (0.083 %) Solution For Nebulization 2.5 mg INHALATION QID PRN (Reason: Shortness Of Breath Or Wheezing) albuterol sulfate [Ventolin HFA] 90 mcg/actuation Hfa Aerosol Inhaler 2 puff INHALATION QID PRN (Reason: Shortness Of Breath Or Wheezing) insulin aspart U-100 [Novolog FlexPen U-100 Insulin] 100 unit/mL (3 mL) insulin pen 5 unit SUBCUT DIRECTED Rx Instructions: take 5 units if BSG is over 200 Discontinued hydralazine 50 mg tablet 100 mg PO TID Qty: 270 3RF Entresto 97-103 mg tablet 1 tab PO BID Discharge Orders: Discharge Order- CHF (Routine); Ordered 02/17/23 Ordered By: Pradip Stuart/Other Patient Handouts: Managing Type 2 Diabetes Admission Data Admit Date/Time: 02/15/23 18:28 Attending Provider: Pradip May Admit Provider: Yazan Calloway Primary Care Provider: Nishant Fuentes Other Providers: Yazan Calloway Coding Level of Care Code 14148 INP/OBS DISCH >30 MIN Diagnoses Acute on chronic respiratory failure with hypoxia and hypercapnia J96.21; J96.22 Chronic kidney disease, stage 4 (severe) N18.4 CHF exacerbation I50.9 Obstructive sleep apnea G47.33 Essential hypertension I10 Hypertension type: essential hypertension Type 2 diabetes mellitus without complication, with long-term current use of insulin E11.9; Z79.4 Diabetes mellitus type: type 2 Diabetes mellitus fdc insulin use: with fdc use Diabetes mellitus complication status: without complication
[2023-02-18] MEDS ORDERED: cloNIDine HCL 0.3 MG/24 HR TRANSDERM SYS TD SCH (09:00)
== END 2023-02-17 13:23 | disposition home or self-care (01) | DRG 291 ==
LOC: ED 15:09 → 2S 18:28 → SUATTDRO 18:28 → 2S 22:35

== ENCOUNTER 2023-03-23 12:11 | Inpatient (IN) ==
--- NOTE | 2023-03-23 12:20 | Emergency Department Note ---
Impression & Plan Rigors, (HFpEF) heart failure with preserved ejection fraction, Restrictive lung disease, Chronic respiratory failure with hypoxia and hypercapnia, CKD (chronic kidney disease) ED Provider Note NAME: JO BISHOP AGE: 72 SEX: M ARRIVES VIA: Ambulance INFORMANT: Patient ED PROVIDER(S): Abdulkadir Johns MD CHIEF COMPLAINT: shortness of breath, referred. PLAN: Disposition: Admit MEDICAL DECISION MAKING: The patient is a pleasant 72-year-old gentleman with a past medical history of chronic respiratory failure with hypoxia and hypercapnia secondary to restrictive lung disease/silicosis, preserved EF/CHF, CKD, SHALA not tolerating CPAP, CKD who presents to the emergency department via EMS referred from his PCP office for worsening shortness of breath over the past 24 hours with the report of feeling chills and feverishness yesterday. They report that they were concerned that he may have a urinary infection as they were told by the ambulance crew that his urine was suggestive of this. He has had some mild cough and congestion with clear thin sputum production. On evaluation the patient is uncomfortable no distress, afebrile with blood pressure 210/100 and heart in the 90s and vital signs otherwise stable. O2 saturation is 91% on his home 2 L nasal cannula. Patient appears clinically dry. He has a scant wheeze of bilateral lower lung self and lungs are otherwise clear. EKG without overt acute ischemia. Chest x-ray with cardiomegaly and interstitial thickening with bronchovascular crowding suspicious for pulmonary edema per my preliminary interpretation. WBC and platelets within normal limits. H/H similar to prior. Chemistry without metabolic acidosis and with bicarbonate of 41 similar to prior in the setting of chronic hypercapnic respiratory failure. Creatinine 2.2, similar to prior values in the setting of CKD. Lactic acid 0.7, within normal limits. LFTs unremarkable. High-sensitivity troponin 12.8, within normal limits. Lipase is not elevated. Procalcitonin is undetectable. Respiratory viral panel/[employer] was negative. CT of the chest demonstrates cardiomegaly with pulmonary edema and trace right small left pleural effusions. Additional note is made of bibasilar consolidation left greater than right which is is suspected reflect atelectasis though pneumonia could appear similarly. Additional note of calcified mediastinal hilar lymphadenopathy was seen similar to 2021. CT of the abdomen pelvis was performed and demonstrates thickened bladder wall and surrounding infiltration suspicious for UTI. No additional acute process is identified. While the patient's UA did not show overt infection given their report of foul- smelling urine and rigors will treat empirically for UTI as well as possible pneumonia with ceftriaxone. IV fluid hydration deferred given CKD and component of CHF/pulmonary edema. Fluid volume limited to 50 cc of volume with the patient's ceftriaxone administration and 30 cc/kg of IV fluids deferred. Case was discussed with ITZEL De PAC, with ITZEL Yeager hospitalist who will evaluate the patient for admission. Of note, the patient's blood pressure did show some initial improvement without intervention to the 190s/80s however subsequently again became elevated. Further management per admitting team. Triage Nursing notes reviewed and agree them. Prior/external medical records reviewed Vital Signs: reviewed Differential diagnosis: Reactive airway disease, pneumonia, pneumothorax, COPD, CHF, infections, cardiac ischemia, pulmonary embolism, musculoskeletal, gastrointestinal, as well as other pathologies. ER treatment provided: See below. Diagnostics interpreted by me: ECG: Sinus tachycardia, 101 bpm, no ectopy, no overt ST elevation or depression, QTc 471, QRS 90. Cardiac Monitoring: An order for continuous cardiac monitoring was placed and demonstrated sinus tachycardia, 101 bpm, no ectopy. Laboratory studies: See below Imaging studies: See below Consultation(s): ITZEL De PAC, with ITZEL Yeager hospitalist HPI: The patient is a pleasant 72-year-old gentleman with a past medical history of chronic respiratory failure with hypoxia and hypercapnia secondary to restrictive lung disease/silicosis, preserved EF/CHF, CKD, SHALA not tolerating CPAP, CKD who presents to the emergency department via EMS referred from his PCP office for worsening shortness of breath over the past 24 hours with the report of feeling chills and feverishness yesterday. They report that they were concerned that he may have a urinary infection as they were told by the ambulance crew that his urine was suggestive of this. He has had some mild cough and congestion with clear thin sputum production. ROS: See above HPI for pertinent positives & negatives. A total of 10 systems reviewed and were otherwise negative. VITALS:See Below PHYSICAL EXAMINATION: GENERAL: Awake, alert, acute on chronically ill-appearing, in no distress HENT: Normocephalic, atraumatic. Oropharynx with dry mucous membranes and otherwise unremarkable. EYES: Normal conjunctiva. Sclera non-icteric. NECK: Supple. No nuchal rigidity. FROM. No JVD. RESPIRATORY: Intermittent wheeze of bilateral lower lung self and otherwise clear. CARDIAC: Regular rate, normal rhythm. Extremities warm and well perfused. Pulses equal. ABDOMEN: Soft, non-distended. No tenderness to palpation. No rebound or guarding. No masses. RECTAL: Deferred. MUSCULOSKELETAL: Chest examination reveals no tenderness. The back is symmetrical on inspection without obvious abnormality. There is no CVA tenderness to palpation. No joint edema. LOWER EXTREMITIES: Calves are equal size bilaterally and non-tender. No edema. No discoloration. NEURO: Normal sensorium. No sensory or motor deficits noted. SKIN: No rash or jaundice noted. Abdulkadir Johns MD Past Med/Surg History Medical History Diabetes Anemia Secondary hyperparathyroidism (of renal origin) Chronic kidney disease, stage 4 (severe) Chronic back pain Restrictive lung disease Hypercapnic respiratory failure Obstructive sleep apnea Chronic hypoxemic respiratory failure Hyperlipidemia Colon cancer Hypertension Urinary problem COPD (chronic obstructive pulmonary disease) Prostate cancer (06/23/08) "Rising PSA Status post biopsy revealing adenocarcinoma Josy 3+4 10 of 24 cores positive, High-grade prostatic intraepithelial neoplasm present Status post robotic prostatectomy 10/06/2008 Adenocarcinoma [place] 3+3 negative margins Perineural invasion present Stage pT2c pN0M0 Rising PSA to 0.08 Status post completion of salvage radiation 11/16/2014 received 7040 cGy " On 11/24/14 15:53 Oliva Lozano wrote "Rising PSA Status post biopsy revealing adenocarcinoma Josy 3+4 10 of 24 cores positive, High-grade prostatic intraepithelial neoplasm present Status post robotic prostatectomy 10/06/2008 Adenocarcinoma [place] 3+3 negative margins Perineural invasion present Stage pT2c pN0M0 Rising PSA to 0.08 Status post completion of salvage radiation 11/16/2014 received 7040 cGy " On 09/04/14 10:59 Oliva Lozano wrote "Rising PSA Status post biopsy revealing adenocarcinoma Josy 3+4 10 of 24 cores positive, High-grade prostatic intraepithelial neoplasm present Status post robotic prostatectomy 10/06/2008 Adenocarcinoma Jos[place] 3+3 negative margins Perineural invasion present PT2c pN0M0 Rising PSA to 0.08 " Knee pain Surgical History History of prostatectomy Family History Father Myocardial infarction, Onset Age: 70 Denies family history of Ovarian cancer Prostate cancer Breast cancer Colorectal cancer Social History Smoking Status: Never smoker Tobacco Type: Smokeless Tobacco (Dip or Chew) Second Hand Exposure: No; Do You Dip or Chew Tobacco: No (quit in 2008); Hx Alcohol Use: No Hx Substance Use: No Preferred Language: Mozambican Communication Ability: Effective Visual Impairment: Limited Hearing Ability: Normal [place] 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 Required: No Beliefs That Will Affect Care: None marital status: Current Living Situation: Spouse Current Living Situation Comment: with current occupational status: 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 Feels Safe at Home: Yes Childhood Exposure to Second-Hand Smoke: Yes caffeine: Yes (soda) during the past year weight has: remained stable Dental Care, Regularly: No Physical Activity Frequency: Does not Exercise Seatbelt Use: never Sunscreen Use: No Assistive Devices: Oxygen - Continuous and Walker Allergies Allergies Allergy/AdvReac Type Severity Reaction Status Date / Time bee venom protein (honey bee) Allergy Severe ANAPHYLAXIS Verified 03/23/23 10:55 Home Meds Home Medications Medication Instructions Recorded Confirmed albuterol sulfate 2.5 mg/3 mL 2.5 mg inhalation QID PRN 03/10/19 03/23/23 (0.083 %) solution for nebulization Shortness Of Breath Or Wheezing albuterol sulfate 90 mcg/actuation 2 puff inhalation QID PRN 03/10/19 03/23/23 aerosol inhaler (Ventolin HFA) Shortness Of Breath Or Wheezing insulin aspart U-100 100 unit/mL 5 unit subcut DIRECTED 03/10/19 03/23/23 (3 mL) subcutaneous pen (Novolog FlexPen U-100 Insulin aspart) fluticasone fur. 200 mcg-umeclid 1 inh inhalation DAILY 03/27/22 03/23/23 62.5 mcg-vilant 25 mcg inhalat.powder (Trelegy Ellipta) tamsulosin 0.4 mg capsule (Flomax) 0.4 mg PO DAILY 05/08/22 03/23/23 aspirin 81 mg tablet,delayed 81 mg PO DAILY 10/19/22 03/23/23 release cholecalciferol (vitamin D3) 25 25 mcg PO DAILY 10/19/22 03/23/23 mcg (1,000 unit) capsule bumetanide 2 mg tablet 2 mg PO DAILY 02/15/23 03/23/23 Previous Rx's Medication Instructions Recorded rosuvastatin 10 mg tablet 10 mg PO DAILY #90 tabs 03/27/22 ropinirole 0.5 mg tablet 0.5 mg PO HS #90 tabs 05/15/22 metoprolol tartrate 50 mg tablet 50 mg PO BID #180 tabs 06/05/22 (Lopressor) trazodone 50 mg tablet 50 mg PO HS #30 tabs 06/05/22 tramadol 50 mg tablet 50 mg PO DAILY #30 tabs 11/30/22 escitalopram oxalate 5 mg tablet 5 mg PO DAILY #90 tabs 01/03/23 (Lexapro) hydralazine 100 mg tablet 100 mg PO QID #120 tabs 02/17/23 clonidine 0.3 mg/24 hr weekly 1 patch topical .COMPLEX #4 ea 03/05/23 transdermal patch semaglutide 0.25 mg or 0.5 mg (2 0.25 mg (0.368 mL) subcut .Weekly 03/07/23 mg/3 mL) subcutaneous pen injector #3 mL (Ozempic) nifedipine 30 mg tablet,extended 30 mg PO QAM #30 tabs 03/20/23 release 24 hr (Procardia XL) Results & Data (ED) Vital Signs Vital Signs - 24 hr 03/23/23 12:15 03/23/23 12:15 03/23/23 12:35 Temperature 37.0 C Temperature Source Oral Pulse Rate 102 H 96 H Pulse Rate [Left Finger] Respiratory Rate 18 Respiratory Effort / Characteristics Labored Respiratory Depth Deep Respiratory Pattern See-Saw Blood Pressure 210/103 H Blood Pressure [Left Arm] Blood Pressure Mean 138 Blood Pressure Mean [Left Arm] Blood Pressure Position Sitting Blood Pressure Position [Left Arm] Pulse Oximetry 91 Oxygen Delivery Method Nasal Cannula Nasal Cannula Oxygen Flow Rate 2 2 Sepsis Recent Fever Within 48 Hours No Sepsis New/Unexplained Change in Mental Status No Sepsis Action Taken by Nursing No Action Required Oxygen Flow Rate - Titration Pulse Oximetry Post Tiitration 03/23/23 13:43 03/23/23 15:00 03/23/23 16:30 Temperature Temperature Source Pulse Rate Pulse Rate [Left Finger] 101 H 94 H 94 H Respiratory Rate 26 H 25 H Respiratory Effort / Characteristics Respiratory Depth Respiratory Pattern Blood Pressure Blood Pressure [Left Arm] 210/105 H 198/99 H 227/105 H Blood Pressure Mean Blood Pressure Mean [Left Arm] 140 132 145 Blood Pressure Position Blood Pressure Position [Left Arm] Sitting Semi-fowlers Semi-fowlers Pulse Oximetry 94 100 100 Oxygen Delivery Method Nasal Cannula Nasal Cannula Nasal Cannula Oxygen Flow Rate 3 3 3 Sepsis Recent Fever Within 48 Hours Sepsis New/Unexplained Change in Mental Status Sepsis Action Taken by Nursing Oxygen Flow Rate - Titration Pulse Oximetry Post Tiitration 03/23/23 16:32 03/23/23 17:05 03/23/23 17:26 Temperature Temperature Source Pulse Rate 93 H Pulse Rate [Left Finger] 92 H Respiratory Rate 29 H Respiratory Effort / Characteristics Respiratory Depth Respiratory Pattern Blood Pressure Blood Pressure [Left Arm] 212/82 H Blood Pressure Mean Blood Pressure Mean [Left Arm] 125 Blood Pressure Position Blood Pressure Position [Left Arm] Semi-fowlers Pulse Oximetry 99 100 Oxygen Delivery Method Nasal Cannula Nasal Cannula Oxygen Flow Rate 3 3 Sepsis Recent Fever Within 48 Hours Sepsis New/Unexplained Change in Mental Status Sepsis Action Taken by Nursing Oxygen Flow Rate - Titration 2 Pulse Oximetry Post Tiitration 93 03/23/23 18:00 Temperature Temperature Source Pulse Rate Pulse Rate [Left Finger] 89 Respiratory Rate 18 Respiratory Effort / Characteristics Respiratory Depth Respiratory Pattern Blood Pressure Blood Pressure [Left Arm] 217/106 H Blood Pressure Mean Blood Pressure Mean [Left Arm] 143 Blood Pressure Position Blood Pressure Position [Left Arm] Pulse Oximetry 95 Oxygen Delivery Method Nasal Cannula Oxygen Flow Rate 2 Sepsis Recent Fever Within 48 Hours Sepsis New/Unexplained Change in Mental Status Sepsis Action Taken by Nursing Oxygen Flow Rate - Titration Pulse Oximetry Post Tiitration Laboratory Data Attestation: I reviewed the patient's lab results. 03/23/23 12:25 03/23/23 12:25 Lab Results 03/23/23 03/23/23 03/23/23 Range/Units 12:25 13:01 15:02 WBC 7.79 (4.8-10.8) K/ul RBC 3.38 L (4.70-6.10) M/uL Hgb 9.7 L (14.0-18.0) g/dl Hct 29.8 L (42.0-52.0) % MCV 88.2 (80.0-100.0) fL MCH 28.7 (25.0-34.0) pg MCHC 32.6 (32.0-36.0) g/dL RDW Std Deviation 42.6 (36.4-46.3) fL RDW Coeff of Lyric 13.2 (11.5-14.5) % Plt Count 157 (130-400) K/uL MPV 9.2 L (9.4-12.4) fL Immature Gran % (Auto) 0.4 % Neut % (Auto) 87.7 % Lymph % (Auto) 4.6 % [place] % (Auto) 6.3 % Eos % (Auto) 0.4 % Baso % (Auto) 0.6 % Neut # (Auto) 6.83 H (1.40-6.50) K/uL Lymph # (Auto) 0.36 L (1.20-3.40) K/uL [place] # (Auto) 0.49 (0.11-0.59) K/uL Eos # (Auto) 0.03 (0.00-0.50) K/uL Baso # (Auto) 0.05 (0.00-0.20) K/uL Immature Gran # (Auto) 0.03 (0.01-0.20) K/uL PT 11.1 (9.0-12.0) Seconds INR 1.0 (0.9-1.1) VBG pH 7.34 L (7.36-7.41) VBG pCO2 84 H (38-50) mmHg VBG pO2 31 mmHg VBG HCO3 45 mmol/L VBG O2 Saturation < 60.0 % VBG Base Excess 15.3 mEq/L Sodium 142 (136-145) mmol/L Potassium 4.2 (3.5-5.1) mmol/L Chloride 97 L (98-107) mmol/L Carbon Dioxide 41 H* (21-32) mmol/L Anion Gap 4 (3-11) BUN 33 H (6-23) mg/dl Creatinine 2.29 H (0.6-1.4) mg/dl Est Cr Clr Drug Dosing 26.9 ml/min Est GFR ( Amer) 31.6 ml/min Est GFR (Non-Af Amer) 27.3 ml/min BUN/Creatinine Ratio 14.4 (10-20) Glucose 178 H (70-99(Fasting)) mg/dl Lactate 0.7 (0.4-2.0) mmol/L Calcium 9.7 (8.6-10.3) mg/dl Magnesium 1.8 (1.7-2.4) mg/dl Total Bilirubin 0.4 (0.2-1.0) mg/dl Direct Bilirubin 0.0 (0-0.2) mg/dl AST 13 (13-39) U/L ALT 7 (7-52) U/L Alkaline Phosphatase 78 (34-104) U/L Troponin I High Sens 12.8 (0-20) pg/ml B-Natriuretic Peptide (0-100) pg/ml Total Protein 7.1 (6.0-8.3) gm/dl Albumin 3.7 (3.4-5.0) gm/dl Lipase 31 (11-82) U/L Procalcitonin < 0.05 (0-0.5) ng/ml Urine Color Yellow Urine Appearance Clear (Clear) Urine pH 8.0 H (4.5-7.5) Ur Specific [place] 1.018 (1.000-1.030) Urine Protein 4+ H (Negative) Urine Glucose (UA) 1+ H (Negative) Urine Ketones Trace H (Negative) Urine Blood Negative (Negative) Urine Nitrite Negative (Negative) Urine Bilirubin Negative (Negative) Urine Urobilinogen Negative (Negative) Ur Leukocyte Esterase Negative (Negative) Urine WBC (Auto) 1-5 (0-5) /hpf Urine RBC (Auto) 5-10 H (0-4) /hpf U Hyaline Cast (Auto) 5-10 H (0-5) /lpf U Epithel Cells (Auto) 20-30 H (0-5) /lpf Urine Bacteria (Auto) Negative (Negative) Adenovirus (PCR) (NotDetected) B. pertussis DNA (PCR) (NotDetected) B.parapertussis DNA PCR (NotDetected) C. pneumoniae DNA (PCR) (NotDetected) Coronavirus OC43 (PCR) (NotDetected) Coronavirus HKU1 (PCR) (NotDetected) Coronavirus 229E (PCR) (NotDetected) SARS-CoV-2 (PCR) (NotDetected) Coronavirus NL63 (PCR) (NotDetected) Human Metapneumovir PCR (NotDetected) Influenza Type A (PCR) (NotDetected) Influenza Type B (PCR) (NotDetected) M. pneumoniae (PCR) (NotDetected) Parainfluenza 1 (PCR) (NotDetected) Parainfluenza 2 (PCR) (NotDetected) Parainfluenza 3 (PCR) (NotDetected) Parainfluenza 4 (PCR) (NotDetected) RSV (PCR) (NotDetected) Entero/Rhino (PCR) (NotDetected) 03/23/23 03/23/23 Range/Units 15:05 15:40 WBC (4.8-10.8) K/ul RBC (4.70-6.10) M/uL Hgb (14.0-18.0) g/dl Hct (42.0-52.0) % MCV (80.0-100.0) fL MCH (25.0-34.0) pg MCHC (32.0-36.0) g/dL RDW Std Deviation (36.4-46.3) fL RDW Coeff of Lyric (11.5-14.5) % Plt Count (130-400) K/uL MPV (9.4-12.4) fL Immature Gran % (Auto) % Neut % (Auto) % Lymph % (Auto) % [place] % (Auto) % Eos % (Auto) % Baso % (Auto) % Neut # (Auto) (1.40-6.50) K/uL Lymph # (Auto) (1.20-3.40) K/uL [place] # (Auto) (0.11-0.59) K/uL Eos # (Auto) (0.00-0.50) K/uL Baso # (Auto) (0.00-0.20) K/uL Immature Gran # (Auto) (0.01-0.20) K/uL PT (9.0-12.0) Seconds INR (0.9-1.1) VBG pH (7.36-7.41) VBG pCO2 (38-50) mmHg VBG pO2 mmHg VBG HCO3 mmol/L VBG O2 Saturation % VBG Base Excess mEq/L Sodium (136-145) mmol/L Potassium (3.5-5.1) mmol/L Chloride (98-107) mmol/L Carbon Dioxide (21-32) mmol/L Anion Gap (3-11) BUN (6-23) mg/dl Creatinine (0.6-1.4) mg/dl Est Cr Clr Drug Dosing ml/min Est GFR ( Amer) ml/min Est GFR (Non-Af Amer) ml/min BUN/Creatinine Ratio (10-20) Glucose (70-99(Fasting)) mg/dl Lactate (0.4-2.0) mmol/L Calcium (8.6-10.3) mg/dl Magnesium (1.7-2.4) mg/dl Total Bilirubin (0.2-1.0) mg/dl Direct Bilirubin (0-0.2) mg/dl AST (13-39) U/L ALT (7-52) U/L Alkaline Phosphatase (34-104) U/L Troponin I High Sens (0-20) pg/ml B-Natriuretic Peptide 368 H (0-100) pg/ml Total Protein (6.0-8.3) gm/dl Albumin (3.4-5.0) gm/dl Lipase (11-82) U/L Procalcitonin (0-0.5) ng/ml Urine Color Urine Appearance (Clear) Urine pH (4.5-7.5) Ur Specific [place] (1.000-1.030) Urine Protein (Negative) Urine Glucose (UA) (Negative) Urine Ketones (Negative) Urine Blood (Negative) Urine Nitrite (Negative) Urine Bilirubin (Negative) Urine Urobilinogen (Negative) Ur Leukocyte Esterase (Negative) Urine WBC (Auto) (0-5) /hpf Urine RBC (Auto) (0-4) /hpf U Hyaline Cast (Auto) (0-5) /lpf U Epithel Cells (Auto) (0-5) /lpf Urine Bacteria (Auto) (Negative) Adenovirus (PCR) Not Detected (NotDetected) B. pertussis DNA (PCR) Not Detected (NotDetected) B.parapertussis DNA PCR Not Detected (NotDetected) C. pneumoniae DNA (PCR) Not Detected (NotDetected) Coronavirus OC43 (PCR) Not Detected (NotDetected) Coronavirus HKU1 (PCR) Not Detected (NotDetected) Coronavirus 229E (PCR) Not Detected (NotDetected) SARS-CoV-2 (PCR) Not Detected (NotDetected) Coronavirus NL63 (PCR) Not Detected (NotDetected) Human Metapneumovir PCR Not Detected (NotDetected) Influenza Type A (PCR) Not Detected (NotDetected) Influenza Type B (PCR) Not Detected (NotDetected) M. pneumoniae (PCR) Not Detected (NotDetected) Parainfluenza 1 (PCR) Not Detected (NotDetected) Parainfluenza 2 (PCR) Not Detected (NotDetected) Parainfluenza 3 (PCR) Not Detected (NotDetected) Parainfluenza 4 (PCR) Not Detected (NotDetected) RSV (PCR) Not Detected (NotDetected) Entero/Rhino (PCR) Not Detected (NotDetected) Administered Medications Discontinued Medications Hydralazine HCl (Hydralazine Tab 50 Mg Tab) 100 mg PO NOW STA Stop: 03/23/23 17:15 Last Admin: 03/23/23 17:21 Dose: 100 mg Documented By: TREVER Ceftriaxone Sodium (Rocephin) 2,000 mg in 50 mls @ 100 mls/hr IV NOW STA Stop: 03/23/23 15:54 Last Infusion: 03/23/23 16:46 Dose: Infused Documented By: Admin: 03/23/23 16:06 Dose: 100 mls/hr Documented By: TREVER Acetaminophen (Ofirmev) 1,000 mg in 100 mls @ 400 mls/hr IV NOW STA Stop: 03/23/23 16:40 Last Infusion: 03/23/23 17:13 Dose: Infused Documented By: Admin: 03/23/23 16:45 Dose: 400 mls/hr Documented By: TREVER Imaging Data Radiologist's Impression: Chest X-Ray 03/23/23 13:05 XR chest 1V portable HISTORY: 72 years-old Male Sepsis acute sepsis COMPARISON: February 17, 2023 TECHNIQUE: AP view of the chest FINDINGS: Cardiomegaly. Hypoinflation with bronchovascular crowding. No pneumothorax. Probable small pleural effusions with bibasilar opacities. Pulmonary vascular congestion. Degenerative changes of the shoulders and spine. IMPRESSION: 1. Limited exam secondary to hypoinflation. 2. Cardiomegaly with suggestion of pulmonary edema with small pleural effusions and bibasilar opacities. ACT 112: Negative or not required by law. The above report was generated using voice recognition software. It may contain grammatical, syntax or spelling errors. Electronically signed by: Mp Das M.D. 03/23/2023 1:59 PM Abdomen/Pelvis CT 03/23/23 15:22 CT SCAN OF THE ABDOMEN AND PELVIS WITHOUT IV CONTRAST CLINICAL HISTORY: Sepsis. Urinary tract infection. Nausea. COMPARISON STUDY: Abdominal CT dated 03/07/2022. TECHNIQUE: CT scan of the abdomen and pelvis is performed from the lung bases to the proximal femora. Images are reviewed in the axial, sagittal, and coronal planes. IV contrast was not administered for this examination. Note that the examination was performed in significantly suboptimal fashion without IV contrast. A dose lowering technique was utilized adhering to the principles of ALARA. CT DOSE: 2236.91 mGy.cm FINDINGS: Lung bases: The heart is enlarged and without pericardial effusion. There are small left and trace right pleural effusions with dependent consolidation. Calcified mediastinal and hilar nodes are partially imaged. The coronary arteries are densely calcified. There is a tiny hiatal hernia. Liver: The unenhanced liver is normal in size, contour, and attenuation. There is no intrahepatic biliary ductal dilatation. Gallbladder: There are numerous calcified gallstones without CT evidence of acute cholecystitis. Spleen: Normal in size and attenuation. 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 Pancreas: Unremarkable. Adrenal glands: There is nonspecific thickening of the adrenal glands. A 10 mm myelolipoma seen on the left. There is also a 1.8 cm adenoma of the left adrenal gland. Kidneys: The unenhanced kidneys demonstrate cortical atrophy and are without hydronephrosis. No renal calculi are identified. Small simple and complex renal cysts measure up to 2.0 cm Abdominal vasculature: The abdominal aorta is normal in course and caliber noting moderate to advanced atherosclerotic calcification. Bowel: There is [id number] colonic diverticulosis without CT evidence of acute diverticulitis. No bowel obstruction is seen. There is mild colonic fecal retention. The appendix is well-visualized and normal. Peritoneum: There is no intraperitoneal free air or abdominal ascites. There is a fat-containing umbilical hernia. Lymphadenopathy: None. Pelvic viscera: The bladder is decompressed and the wall appears circumferentially thickened. There is pericystic infiltration. The prostate gland is surgically absent. Skeletal structures: The skeletal structures are osteopenic. There is moderate lumbosacral spondylosis. No lytic or blastic lesions are seen. IMPRESSION: 1. The bladder is decompressed, and the wall appears thickened with surrounding infiltration. Correlate with clinical findings and urinalysis. 2. Small left and trace right pleural effusions with dependent consolidation. 3. Colonic diverticulosis without CT evidence of acute diverticulitis. 4. Cholelithiasis. 5. Cardiomegaly with advanced coronary artery atherosclerosis. 6. Additional findings as above. ACT 112: Negative or not required by law. Electronically signed by: Binu Heard M.D. 03/23/2023 4:[address] 03/23/23 15:22 CT chest diagnostic wo con CLINICAL HISTORY: 72 years-old Male with sepsis, sob. Acute sepsis with shortness of breath TECHNIQUE: Multiaxial CT images of the chest were performed without contrast. A dose lowering technique was utilized adhering to the principles of ALARA. COMPARISON: CT abdomen and pelvis of same day, chest CT 10/30/2021 FINDINGS: Heterogeneous thyroid. Cardiomegaly with extensive coronary artery calcifications. Atherosclerosis of the thoracic aorta without aneurysm. Mediastinal and hilar lymph nodes measuring up to 12 mm are similar in size to the prior study, several which demonstrate partial calcification. Trace right and small left pleural effusions. No pneumothorax. Intralobular septal thickening with left greater than right bibasilar consolidation with air bronchograms. No suspicious pulmonary nodules identified. Central airways are patent. 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 Cholelithiasis. Unremarkable soft tissues. No acute fracture. IMPRESSION: 1. Cardiomegaly with pulmonary edema, trace right and small left pleural effusions. 2. Bibasilar consolidation, left greater than right likely represents atelectasis. Pneumonia could appear similarly. 3. Partially calcified mediastinal and hilar lymphadenopathy is similar in size to the study from 2021 . 4. Please refer to the CT abdomen and pelvis study of same day for additional findings. ACT 112: Negative or not required by law. Electronically signed by: Mp Das M.D. 03/23/2023 4:17 PM Discharge Plan Visit Data Chief Complaint: Shortness of Breath/Dyspnea Stated Complaint: SHORTNESS OF BREATH ED Provider: Abdulkadir Johns Discharge Problem: Rigors, (HFpEF) heart failure with preserved ejection fraction, Restrictive lung disease, Chronic respiratory failure with hypoxia and hypercapnia, CKD (chronic kidney disease) Forms Stand Alone Forms: [facility] [place] [employer] Prescriptions Prescriptions: No Action ropinirole 0.5 mg tablet 0.5 mg PO HS Qty: 90 1RF metoprolol tartrate [Lopressor] 50 mg tablet 50 mg PO BID Qty: 180 2RF trazodone 50 mg tablet 50 mg PO HS Qty: 30 5RF escitalopram oxalate [Lexapro] 5 mg tablet 5 mg PO DAILY Qty: 90 1RF clonidine 0.3 mg/24 hr patch weekly 1 patch topical .COMPLEX Qty: 4 0RF Rx Instructions: 1 patch topically ONCE WEEKLY; Ozempic 0.25 mg or 0.5 mg (2 mg/3 mL) pen injector 0.25 mg subcut .Weekly Qty: 3 3RF Rx Instructions: 0.25 mg subcutaneously once every 7 days at any time of day. After 4 weeks increase to 0.5 mg subcutaneously once weekly. nifedipine [Procardia XL] 30 mg tablet extended release 24hr 30 mg PO QAM Qty: 30 0RF Trelegy Ellipta 200-62.5-25 mcg blister with device 1 inh inhalation DAILY rosuvastatin 10 mg tablet 10 mg PO DAILY Qty: 90 3RF aspirin 81 mg tablet,delayed release (DR/EC) 81 mg PO DAILY cholecalciferol (vitamin D3) 25 mcg (1,000 unit) capsule 25 mcg PO DAILY tamsulosin [Flomax] 0.4 mg capsule 0.4 mg PO DAILY bumetanide 2 mg tablet 2 mg PO DAILY tramadol 50 mg tablet 50 mg PO DAILY Qty: 30 0RF albuterol sulfate 2.5 mg /3 mL (0.083 %) Solution For Nebulization 2.5 mg INHALATION QID PRN (Reason: Shortness Of Breath Or Wheezing) albuterol sulfate [Ventolin HFA] 90 mcg/actuation Hfa Aerosol Inhaler 2 puff INHALATION QID PRN (Reason: Shortness Of Breath Or Wheezing) insulin aspart U-100 [Novolog FlexPen U-100 Insulin] 100 unit/mL (3 mL) insulin pen 5 unit SUBCUT DIRECTED Rx Instructions: take 5 units if BSG is over 200 hydralazine 100 mg tablet 100 mg PO QID Qty: 120 0RF Referrals Referrals: Nishant Fuentes CRNP [Primary Care Provider] - Discharge Problem: (HFpEF) heart failure with preserved ejection fraction Qualifiers: Heart failure chronicity: unspecified Qualified Code(s): I50.30 - Unspecified diastolic (congestive) heart failure CKD (chronic kidney disease) Qualifiers: Chronic kidney disease stage: unspecified stage Qualified Code(s): N18.9 - Chronic kidney disease, unspecified
[2023-03-23 13:18] LABS: Appearance Urine Clear (Clear); Bacteria Urine Automated Negative (Negative); Bilirubin Urine Negative (Negative); Blood Urine Negative (Negative); Color Urine Yellow; Epithelial Cell Urine Auto 20-30 /lpf (0-5); Glucose Urine UA 1+ (Negative); Ketones Urine Trace (Negative); Leukocyte Esterase Urine Negative (Negative); Nitrite Urine Negative (Negative); Specific Gravity Urine 1.018 (1.000-1.030); Urobilinogen Urine Negative (Negative)
[2023-03-23 13:18] LABS: Basophils # (auto) 0.05 K/uL (0.00-0.20); Basophils % (auto) 0.6 %; Eosinophils # (auto) 0.03 K/uL (0.00-0.50); Eosinophils % (auto) 0.4 %; Hematocrit (blood only) 29.8 % (42.0-52.0); Hemoglobin 9.7 g/dl (14.0-18.0); Immature Granulocytes # (auto) 0.03 K/uL (0.01-0.20); Immature Granulocytes % (auto) 0.4 %; Lymphocytes # (auto) 0.36 K/uL (1.20-3.40); Lymphocytes % (auto) 4.6 %; Mean Corpuscular Hemoglobin 28.7 pg (25.0-34.0); Mean Corpuscular Hgb Conc 32.6 g/dL (32.0-36.0); Mean Corpuscular Volume 88.2 fL (80.0-100.0); Mean Platelet Volume 9.2 fL (9.4-12.4); Monocytes # (auto) 0.49 K/uL (0.11-0.59); Monocytes % (auto) 6.3 %; Neutrophils # (auto) 6.83 K/uL (1.40-6.50); Neutrophils % (auto) 87.7 %; Platelet Count 157 K/uL (130-400); RDW Coefficient of Variation 13.2 % (11.5-14.5); RDW Standard Deviation 42.6 fL (36.4-46.3); Red Blood Count 3.38 M/uL (4.70-6.10); White Blood Count 7.79 K/ul (4.8-10.8)
[2023-03-23 13:29] LABS: Prothrombin Time 11.1 Seconds (9.0-12.0)
[2023-03-23 13:31] LABS: Protein Urine 4+ (Negative)
[2023-03-23 13:47] LABS: Albumin Level 3.7 gm/dl (3.4-5.0); BUN Creatinine Ratio 14.4 (10-20); Bilirubin,Total 0.4 mg/dl (0.2-1.0); Calcium 9.7 mg/dl (8.6-10.3); Creatinine Clr Calc Pharmacy 26.9 ml/min; Est GFR (African American) 31.6 ml/min; Est GFR (Non-African American) 27.3 ml/min; Magnesium 1.8 mg/dl (1.7-2.4); Potassium 4.2 mmol/L (3.5-5.1); Total Protein 7.1 gm/dl (6.0-8.3); Troponin I High Sensitivity 12.8 pg/ml (0-20)
--- NOTE | 2023-03-23 14:00 | XRay Report ---
XR chest 1V portable HISTORY: 72 years-old Male Sepsis acute sepsis COMPARISON: February 17, 2023 TECHNIQUE: AP view of the chest FINDINGS: Cardiomegaly. Hypoinflation with bronchovascular crowding. No pneumothorax. Probable small pleural ef fusions with bibasilar opacities. Pulmonary vascular congestion. Degenerative changes of the shoulder s and spine. IMPRESSION: 1. Limited exam secondary to hypoinflation. 2. Cardiomegaly with suggestion of pulmonary edema with small pleural effusions and bibasilar opaciti es. ACT 112: Negative or not required by law. The above report was generated using voice recognition software. It may contain grammatical, syntax o r spelling errors. Electronically signed by: Mp Das M.D. 03/23/2023 1:59 PM
[2023-03-23 15:18] LABS: Base Excess VBG 15.3 mEq/L; HCO3 VBG 45 mmol/L; Oxygen Saturation VBG < 60.0 %; PCO2 VBG 84 mmHg (38-50); PO2 VBG 31 mmHg; pH VBG 7.34 (7.36-7.41)
[2023-03-23] MEDS ORDERED: cefTRIAXone SODIUM 2,000 MG/50 ML BAG IV STA (15:25)
--- NOTE | 2023-03-23 15:37 | Electrocardiogram Report ---
Test Reason : Blood Pressure : / mmHG Vent. Rate : 101 BPM Atrial Rate : 101 BPM P-R Int : 180 ms QRS Dur : 090 ms QT Int : 364 ms P-R-T Axes : 048 056 064 degrees QTc Int : 471 ms Sinus tachycardia Otherwise normal ECG When compared with ECG of 15-FEB-2023 15:17, No significant change was found Confirmed by Eric Camarillo ([id number]) on 03/23/2023 3:36:46 PM Referred By: REFERRED SELF Confirmed By:Eric Camarillo
--- NOTE | 2023-03-23 16:13 | CT Scan Report ---
CT SCAN OF THE ABDOMEN AND PELVIS WITHOUT IV CONTRAST CLINICAL HISTORY: Sepsis. Urinary tract infection. Nausea. COMPARISON STUDY: Abdominal CT dated 03/07/2022. TECHNIQUE: CT scan of the abdomen and pelvis is performed from the lung bases to the proximal femora. Images are reviewed in the axial, sagittal, and coronal planes. IV contrast was not administered for this examination. Note that the examination was performed in significantly suboptimal fashion withou t IV contrast. A dose lowering technique was utilized adhering to the principles of ALARA. CT DOSE: 2236.91 mGy.cm FINDINGS: Lung bases: The heart is enlarged and without pericardial effusion. There are small left and trace ri ght pleural effusions with dependent consolidation. Calcified mediastinal and hilar nodes are partial ly imaged. The coronary arteries are densely calcified. There is a tiny hiatal hernia. Liver: The unenhanced liver is normal in size, contour, and attenuation. There is no intrahepatic lilo iary ductal dilatation. Gallbladder: There are numerous calcified gallstones without CT evidence of acute cholecystitis. Spleen: Normal in size and attenuation. There is a 10 mm peripherally calcified splenic artery aneury sm. Pancreas: Unremarkable. Adrenal glands: There is nonspecific thickening of the adrenal glands. A 10 mm myelolipoma seen on th e left. There is also a 1.8 cm adenoma of the left adrenal gland. Kidneys: The unenhanced kidneys demonstrate cortical atrophy and are without hydronephrosis. No renal calculi are identified. Small simple and complex renal cysts measure up to 2.0 cm Abdominal vasculat ure: The abdominal aorta is normal in course and caliber noting moderate to advanced atherosclerotic calcification. Bowel: There is [id number] colonic diverticulosis without CT evidence of acute diverticulitis. No bowel obstruction is seen. There is mild colonic fecal retention. The appendix is well-visualized and normal. Peritoneum: There is no intraperitoneal free air or abdominal ascites. There is a fat-containing umbi lical hernia. Lymphadenopathy: None. Pelvic viscera: The bladder is decompressed and the wall appears circumferentially thickened. There i s pericystic infiltration. The prostate gland is surgically absent. Skeletal structures: The skeletal structures are osteopenic. There is moderate lumbosacral spondylosi s. No lytic or blastic lesions are seen. IMPRESSION: 1. The bladder is decompressed, and the wall appears thickened with surrounding infiltration. Correla te with clinical findings and urinalysis. 2. Small left and trace right pleural effusions with dependent consolidation. 3. Colonic diverticulosis without CT evidence of acute diverticulitis. 4. Cholelithiasis. 5. Cardiomegaly with advanced coronary artery atherosclerosis. 6. Additional findings as above. ACT 112: Negative or not required by law. Electronically signed by: Binu Heard M.D. 03/23/2023 4:11 PM
--- NOTE | 2023-03-23 16:18 | CT Scan Report ---
CT chest diagnostic wo con CLINICAL HISTORY: 72 years-old Male with sepsis, sob. Acute sepsis with shortness of breath TECHNIQUE: Multiaxial CT images of the chest were performed without contrast. A dose lowering techni que was utilized adhering to the principles of ALARA. COMPARISON: CT abdomen and pelvis of same day, chest CT 10/30/2021 FINDINGS: Heterogeneous thyroid. Cardiomegaly with extensive coronary artery calcifications. Atherosc lerosis of the thoracic aorta without aneurysm. Mediastinal and hilar lymph nodes measuring up to 12 mm are similar in size to the prior study, several which demonstrate partial calcification. Trace right and small left pleural effusions. No pneumothorax. Intralobular septal thickening with le ft greater than right bibasilar consolidation with air bronchograms. No suspicious pulmonary nodules identified. Central airways are patent. 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 Cholelithiasis. Unremarkable soft tissues. No a cute fracture. IMPRESSION: 1. Cardiomegaly with pulmonary edema, trace right and small left pleural effusions. 2. Bibasilar consolidation, left greater than right likely represents atelectasis. Pneumonia could ap pear similarly. 3. Partially calcified mediastinal and hilar lymphadenopathy is similar in size to the study from 202 2 . 4. Please refer to the CT abdomen and pelvis study of same day for additional findings. ACT 112: Negative or not required by law. Electronically signed by: Mp Das M.D. 03/23/2023 4:17 PM
[2023-03-23] MEDS ORDERED: ACETAMINOPHEN 1,000 MG/100 ML VIAL IV STA ×2 (16:26→19:59)
[2023-03-23 16:42] LABS: Adenovirus PCR Not Detected (NotDetected); Bordetella parapertussis PCR Not Detected (NotDetected); Bordetella pertussis PCR Not Detected (NotDetected); Chlamydia pneumoniae PCR Not Detected (NotDetected); Coronavirus 229E PCR Not Detected (NotDetected); Coronavirus CoV-2 (COVID19)PCR Not Detected (NotDetected); Coronavirus HKU1 PCR Not Detected (NotDetected); Coronavirus NL63 PCR Not Detected (NotDetected); Coronavirus OC43PCR Not Detected (NotDetected); Human Metapneumovirus PCR Not Detected (NotDetected); Influenza A PCR Not Detected (NotDetected); Influenza B PCR Not Detected (NotDetected); Mycoplasma pneumoniae PCR Not Detected (NotDetected); Parainfluenza Virus 1 PCR Not Detected (NotDetected); Parainfluenza Virus 2 PCR Not Detected (NotDetected); Parainfluenza Virus 3 PCR Not Detected (NotDetected); Parainfluenza Virus 4 PCR Not Detected (NotDetected); Respiratory Syncytial VirusPCR Not Detected (NotDetected); Rhinovirus/Enterovirus PCR Not Detected (NotDetected)
--- NOTE | 2023-03-23 16:44 | History & Physical Report ---
Date of Service March 23, 2023 Assessment & Plan (1) Rigors: Plan: Onset of rigors, chills, and lower back pain the morning of 03/22 No leukocytosis; afebrile BioFire negative Troponin WNL Procalcitonin WNL Lactate WNL Lipase WNL Blood cultures ordered, pending Abdomen/pelvic CT revealed decompressed bladder Patient started on Rocephin 2000 mg IV in the ED Continue Rocephin 2000 mg IV q24h empirically; follow blood cultures Acetaminophen as needed for pain/fever A.m. CBC, BMP (2) CHF exacerbation: Plan: Acute on chronic Last echo on 02/16/2023 revealed LVEF at 60-65%; RVSP elevated at 5060mmHg Chest CT cardiomegaly with pulmonary edema, trace right and small left pleural effusions Abdomen/pelvic CT revealed cardiomegaly with advanced coronary artery atherosclerosis Patient reports good compliance with his Bumex 2 mg daily Last BNP 523 on 02/15/2023 BNP 368 on arrival Hold Bumex 2 mg daily Switched to Lasix 40 mg IV BID17 (3) Hematuria: Plan: Clinically, patient endorses burning with urination that started on 03/23, and hematuria starting in the ED; patient described it as a few drops of blood at the end of his stream (note: this was prior to Arreguin insertion) However, UA negative for bacteria; +4 protein Continue to monitor (4) Silicosis: Plan: CXR Limited exam secondary to hypoinflation Patient is on 2L NC continuous oxygen therapy at home VB.34/84/31/[address] on arrival revealed bibasilar consolidation, likely atelectasis (5) Diabetes: Plan: Last A1c at 6.6% on 02/16/2023 Glucose 170 on admission Patient reports that he takes NovoLog 5u for glucose >200 at home Hold semaglutide Recommend Lantus 5u BID while inpatient SSI; with target BSG range 110-140mg/dL, CF 55, carb ratio 20 T2DM diet BSG ACHS Adjust regimen as needed (6) Chronic hypoxemic respiratory failure: Plan Disposition: Admit to PCU telemetry DNR/DNI T2DM, AHA diet VTE PPx: SCDs (hold chemical DVT PPx in setting of hematuria) History of Present Illness Chief Complaint: Rigors Primary Care Provider: PERCY Chavez is a 72-year-old male with PMH of COPD, restrictive lung disease/silicosis (from working in a brick yard), colon cancer, prostate cancer, HLD, HFpEF, anxiety and depression, and SHALA not tolerating CPAP. He developed SOB, rigors, and confusion the morning of 03/22. He was then seen by his PCP on 03/23 and asked to come in for burning with urination. Patient is a poor historian, most of the history is provided by at bedside. The patient, and patient's , report that he had blood in his urine in the ED. He endorses intermittent lower back pain that started 2 days ago. No radiation. It does not wake him from sleep. Patient is on continuous 2L NC supplemental oxygen therapy at home; however reports that he was at 79% SpO2 at home, and increased it to 4L. He did not take any of his morning medications today. He also reports he has not eaten anything today. No history of kidney stones. History of prior UTI 9 years ago. Patient has not been taking any additional medications at home for pain, rigors, or SOB. Of note, the patient recently had a dialysis port placed on his RUE; however he has not started dialysis yet. He denies smoking, tobacco use, alcohol use, and recreational drug use. Patient is hypertensive at 210/105, tachypneic at 26, and SpO2 94% on 3L NC. ED course: Acetaminophen 1000 mg IV Rocephin 2000 mg IV ROS: Patient endorses FELIX, rigors, chills, productive cough (clear), abdominal cramping, dry heaves, nausea, burning with urination, blood in urine, bilateral flank pain, lower back pain. Patient denies fever, sweating, CP, SOB, vomiting, and diarrhea. Allergies Allergy/AdvReac Type Severity Reaction Status Date / Time bee venom protein (honey bee) Allergy Severe ANAPHYLAXIS Verified 03/23/23 10:55 Home Medications Medication Instructions Recorded Confirmed Type albuterol sulfate 2.5 mg/3 mL 2.5 mg inhalation QID PRN 03/10/19 03/23/23 History (0.083 %) solution for nebulization Shortness Of Breath Or Wheezing albuterol sulfate 90 mcg/actuation 2 puff inhalation QID PRN 03/10/19 03/23/23 History aerosol inhaler (Ventolin HFA) Shortness Of Breath Or Wheezing insulin aspart U-100 100 unit/mL 5 unit subcut DIRECTED 03/10/19 03/23/23 History (3 mL) subcutaneous pen (Novolog FlexPen U-100 Insulin aspart) fluticasone fur. 200 mcg-umeclid 1 inh inhalation DAILY 03/27/22 03/23/23 History 62.5 mcg-vilant 25 mcg inhalat.powder (Trelegy Ellipta) rosuvastatin 10 mg tablet 10 mg PO DAILY #90 tabs 03/27/22 03/23/23 Rx tamsulosin 0.4 mg capsule (Flomax) 0.4 mg PO DAILY 05/08/22 03/23/23 History ropinirole 0.5 mg tablet 0.5 mg PO HS #90 tabs 05/15/22 03/23/23 Rx metoprolol tartrate 50 mg tablet 50 mg PO BID #180 tabs 06/05/22 03/23/23 Rx (Lopressor) trazodone 50 mg tablet 50 mg PO HS #30 tabs 06/05/22 03/23/23 Rx aspirin 81 mg tablet,delayed 81 mg PO DAILY 10/19/22 03/23/23 History release cholecalciferol (vitamin D3) 25 25 mcg PO DAILY 10/19/22 03/23/23 History mcg (1,000 unit) capsule tramadol 50 mg tablet 50 mg PO DAILY #30 tabs 11/30/22 03/23/23 Rx escitalopram oxalate 5 mg tablet 5 mg PO DAILY #90 tabs 01/03/23 03/23/23 Rx (Lexapro) bumetanide 2 mg tablet 2 mg PO DAILY 02/15/23 03/23/23 History hydralazine 100 mg tablet 100 mg PO QID #120 tabs 02/17/23 03/23/23 Rx clonidine 0.3 mg/24 hr weekly 1 patch topical .COMPLEX #4 ea 03/05/23 03/23/23 Rx transdermal patch semaglutide 0.25 mg or 0.5 mg (2 0.25 mg (0.368 mL) subcut .Weekly 03/07/23 03/23/23 Rx mg/3 mL) subcutaneous pen injector #3 mL (Ozempic) nifedipine 30 mg tablet,extended 30 mg PO QAM #30 tabs 03/20/23 03/23/23 Rx release 24 hr (Procardia XL) Past Med/Surg History Medical History Diabetes Anemia Secondary hyperparathyroidism (of renal origin) Chronic kidney disease, stage 4 (severe) Chronic back pain Restrictive lung disease Hypercapnic respiratory failure Obstructive sleep apnea Chronic hypoxemic respiratory failure Hyperlipidemia Colon cancer Hypertension Urinary problem COPD (chronic obstructive pulmonary disease) Prostate cancer (06/23/08) "Rising PSA Status post biopsy revealing adenocarcinoma [place] 3+4 10 of 24 cores positive, High-grade prostatic intraepithelial neoplasm present Status post robotic prostatectomy 10/06/2008 Adenocarcinoma [place] 3+3 negative margins Perineural invasion present Stage pT2c pN0M0 Rising PSA to 0.08 Status post completion of salvage radiation 11/16/2014 received 7040 cGy " On 11/24/14 15:53 Oliva Lozano wrote "Rising PSA Status post biopsy revealing adenocarcinoma [place] 3+4 10 of 24 cores positive, High-grade prostatic intraepithelial neoplasm present Status post robotic prostatectomy 10/06/2008 Adenocarcinoma [place] 3+3 negative margins Perineural invasion present Stage pT2c pN0M0 Rising PSA to 0.08 Status post completion of salvage radiation 11/16/2014 received 7040 cGy " On 09/04/14 10:59 Oliva Lozano wrote "Rising PSA Status post biopsy revealing adenocarcinoma [place] 3+4 10 of 24 cores positive, High-grade prostatic intraepithelial neoplasm present Status post robotic prostatectomy 10/06/2008 Adenocarcinoma [place] 3+3 negative margins Perineural invasion present PT2c pN0M0 Rising PSA to 0.08 " Knee pain Surgical History History of prostatectomy Family History Father Myocardial infarction, Onset Age: 70 Denies family history of Ovarian cancer Prostate cancer Breast cancer Colorectal cancer Social History Smoking Status: Never smoker Tobacco Type: Smokeless Tobacco (Dip or Chew) Second Hand Exposure: No; Do You Dip or Chew Tobacco: No (quit in 2008); Hx Alcohol Use: No Hx Substance Use: No Preferred Language: Senegalese Communication Ability: Effective Visual Impairment: Limited Hearing Ability: Normal Towel Distributor Required: No Beliefs That Will Affect Care: None marital status: Current Living Situation: Spouse Current Living Situation Comment: with current occupational status: 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 Feels Safe at Home: Yes Childhood Exposure to Second-Hand Smoke: Yes caffeine: Yes (soda) during the past year weight has: remained stable Dental Care, Regularly: No Physical Activity Frequency: Does not Exercise Seatbelt Use: never Sunscreen Use: No Assistive Devices: CPAP, Denture - Upper, Glasses, Oxygen - Continuous and Walker Review of Systems Review of Systems: See HPI above Physical Exam Physical Exam: General: no acute distress; non-toxic appearing; well-nourished; cooperative; 96% SpO2 on 2L HEENT: normocephalic, atraumatic; no scleral icterus; PERRLA w/ EOMs intact; moist mucus membrane; vision and hearing grossly intact Neck: supple; no JVD; no lymphadenopathy; trachea midline Skin: warm, dry without signs of tenting; no cyanosis; no rashes, bruising, lesions, or erythema noted CV: chest wall NTP; RR, mildly tachycardic around 100 bpm; S1/S2 normal; no murmurs/rubs/gallops; pulses intact, bounding, and symmetric at radial, DP, and PT Lungs: no acute respiratory distress; symmetrical chest wall expansion; diminished breath sounds across all lung self bilaterally; no wheezing ABD: Soft, NTP; BS present; no rebound/guarding; no ascites; no distention Back: Negative CVA tenderness; lumbar spine TTP; upper back NTP MSK: no tics or fasciculations; no edema noted in the LEs b/l Neuro: A&Ox3; normal mood and affect; fluent speech; CN2-12 intact; no focal deficits; sensation grossly intact Results & Data Results & Data Vital Signs (Past 12 Hours) Vital Signs Temp Pulse Pulse Resp BP BP Pulse Ox 03/23/23 13:43 101 H 26 H 210/105 H 94 03/23/23 12:35 96 H 03/23/23 12:15 03/23/23 12:15 37.0 C 102 H 18 210/103 H 91 O2 Del Method O2 Flow Rate 03/23/23 13:43 Nasal Cannula 3 03/23/23 12:35 03/23/23 12:15 Nasal Cannula 2 03/23/23 12:15 Nasal Cannula 2 Laboratory Results Abnormal lab results 03/23/23 03/23/23 03/23/23 Range/Units 12:25 13:01 15:02 RBC 3.38 L (4.70-6.10) M/uL Hgb 9.7 L (14.0-18.0) g/dl Hct 29.8 L (42.0-52.0) % MPV 9.2 L (9.4-12.4) fL Neut # (Auto) 6.83 H (1.40-6.50) K/uL Lymph # (Auto) 0.36 L (1.20-3.40) K/uL VBG pH 7.34 L (7.36-7.41) VBG pCO2 84 H (38-50) mmHg Chloride 97 L (98-107) mmol/L Carbon Dioxide 41 H* (21-32) mmol/L BUN 33 H (6-23) mg/dl Creatinine 2.29 H (0.6-1.4) mg/dl Glucose 178 H (70-99(Fasting)) mg/dl Urine pH 8.0 H (4.5-7.5) Urine Protein 4+ H (Negative) Urine Glucose (UA) 1+ H (Negative) Urine Ketones Trace H (Negative) Urine RBC (Auto) 5-10 H (0-4) /hpf U Hyaline Cast (Auto) 5-10 H (0-5) /lpf U Epithel Cells (Auto) 20-30 H (0-5) /lpf Diagnostic Findings Chest X-Ray 03/23/23 13:05 XR chest 1V portable HISTORY: 72 years-old Male Sepsis acute sepsis COMPARISON: February 17, 2023 TECHNIQUE: AP view of the chest FINDINGS: Cardiomegaly. Hypoinflation with bronchovascular crowding. No pneumothorax. Probable small pleural effusions with bibasilar opacities. Pulmonary vascular congestion. Degenerative changes of the shoulders and spine. IMPRESSION: 1. Limited exam secondary to hypoinflation. 2. Cardiomegaly with suggestion of pulmonary edema with small pleural effusions and bibasilar opacities. ACT 112: Negative or not required by law. The above report was generated using voice recognition software. It may contain grammatical, syntax or spelling errors. Electronically signed by: Mp Das M.D. 03/23/2023 1:59 PM Abdomen/Pelvis CT 03/23/23 15:22 CT SCAN OF THE ABDOMEN AND PELVIS WITHOUT IV CONTRAST CLINICAL HISTORY: Sepsis. Urinary tract infection. Nausea. COMPARISON STUDY: Abdominal CT dated 03/07/2022. TECHNIQUE: CT scan of the abdomen and pelvis is performed from the lung bases to the proximal femora. Images are reviewed in the axial, sagittal, and coronal planes. IV contrast was not administered for this examination. Note that the examination was performed in significantly suboptimal fashion without IV contrast. A dose lowering technique was utilized adhering to the principles of ALARA. CT DOSE: 2236.91 mGy.cm FINDINGS: Lung bases: The heart is enlarged and without pericardial effusion. There are small left and trace right pleural effusions with dependent consolidation. Calcified mediastinal and hilar nodes are partially imaged. The coronary arteries are densely calcified. There is a tiny hiatal hernia. Liver: The unenhanced liver is normal in size, contour, and attenuation. There is no intrahepatic biliary ductal dilatation. Gallbladder: There are numerous calcified gallstones without CT evidence of acute cholecystitis. Spleen: Normal in size and attenuation. 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 Pancreas: Unremarkable. Adrenal glands: There is nonspecific thickening of the adrenal glands. A 10 mm myelolipoma seen on the left. There is also a 1.8 cm adenoma of the left adrenal gland. Kidneys: The unenhanced kidneys demonstrate cortical atrophy and are without hydronephrosis. No renal calculi are identified. Small simple and complex renal cysts measure up to 2.0 cm Abdominal vasculature: The abdominal aorta is normal in course and caliber noting moderate to advanced atherosclerotic calcification. Bowel: There is [id number] colonic diverticulosis without CT evidence of acute diverticulitis. No bowel obstruction is seen. There is mild colonic fecal retention. The appendix is well-visualized and normal. Peritoneum: There is no intraperitoneal free air or abdominal ascites. There is a fat-containing umbilical hernia. Lymphadenopathy: None. Pelvic viscera: The bladder is decompressed and the wall appears circumferentially thickened. There is pericystic infiltration. The prostate gland is surgically absent. Skeletal structures: The skeletal structures are osteopenic. There is moderate lumbosacral spondylosis. No lytic or blastic lesions are seen. IMPRESSION: 1. The bladder is decompressed, and the wall appears thickened with surrounding infiltration. Correlate with clinical findings and urinalysis. 2. Small left and trace right pleural effusions with dependent consolidation. 3. Colonic diverticulosis without CT evidence of acute diverticulitis. 4. Cholelithiasis. 5. Cardiomegaly with advanced coronary artery atherosclerosis. 6. Additional findings as above. ACT 112: Negative or not required by law. Electronically signed by: Binu Heard M.D. 03/23/2023 4:[address] 03/23/23 15:22 CT chest diagnostic wo con CLINICAL HISTORY: 72 years-old Male with sepsis, sob. Acute sepsis with shortness of breath TECHNIQUE: Multiaxial CT images of the chest were performed without contrast. A dose lowering technique was utilized adhering to the principles of ALARA. COMPARISON: CT abdomen and pelvis of same day, chest CT 10/30/2021 FINDINGS: Heterogeneous thyroid. Cardiomegaly with extensive coronary artery calcifications. Atherosclerosis of the thoracic aorta without aneurysm. Mediastinal and hilar lymph nodes measuring up to 12 mm are similar in size to the prior study, several which demonstrate partial calcification. Trace right and small left pleural effusions. No pneumothorax. Intralobular septal thickening with left greater than right bibasilar consolidation with air bronchograms. No suspicious pulmonary nodules identified. Central airways are patent. 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 Cholelithiasis. Unremarkable soft tissues. No acute fracture. IMPRESSION: 1. Cardiomegaly with pulmonary edema, trace right and small left pleural effusions. 2. Bibasilar consolidation, left greater than right likely represents atelectasis. Pneumonia could appear similarly. 3. Partially calcified mediastinal and hilar lymphadenopathy is similar in size to the study from 2021 . 4. Please refer to the CT abdomen and pelvis study of same day for additional findings. ACT 112: Negative or not required by law. Electronically signed by: Mp Das M.D. 03/23/2023 4:17 PM Code Status & VTE Plan Code Status DNR/DNI VTE Prophylaxis Plan VTE Prophylaxis will be ordered: Yes Supervising Physician Co-Signing Physician Notes Patient seen and examined, chart reviewed, case discussed with Dilan Holt PA-C and I agree with the assessment and plan as above except as otherwise noted Labs and images reviewed Russ is a 72-year-old male with a past medical history of heart failure preserved ejection fraction, chronic hypoxemic respiratory failure, colon cancer, COPD, distant prostate cancer, anxiety/depression who presents to the ER with shortness of breath and confusion, increased oxygen requirements compared to his baseline, hypertension, and tachypnea. Bio fire is negative. CT of the chest is with evidence of pulmonary edema, right and small left pleural effusions, and basilar consolidation suspicious for atelectasis from it from which pneumonia cannot be ruled out. CT of the abdomen and pelvis also, bladder thickening, otherwise no acute findings. effusions as previously noted. Patient has a respiratory acidosis with VBG 7.3 / with secondary chronic metabolic compensatory alkalosis. Patient does have SHALA but is not compliant/tolerant of CPAP at baseline. Creatinine baseline appears approximately around 2.22.6. This is 2.29 on admission, no MILTON. Radiographically volume overloaded, lungs are with diminished sounds bibasilarly. Suspect acute hypoxic respiratory failure due to acute on chronic CHF. Cannot rule out superimposed pneumonia which may be the source of his chills although his Pro-Danielito is negative he has no leukocytosis and fever curve is negative. Agree with temporary treatment with ceftriaxone. Hypertensive like with medication noncompliance and rebound, home oral meds ordered and oral clonidine x 1 given due to slow onset of patch. Lasix for volume overload given, clinically progressing. Patient reports he did have some back pain this appears to be under his right shoulder blade and is without midline spinal tenderness and CT of the chest does not note any evidence of abscess or abnormalities. UA is contaminated appearing but not infected appearing, patient has had some urinary symptoms is covered with Rocephin as noted. PG Care Time/CCT Total # of Minutes Spent Total Time Spent with Patient: Total time spent is greater than 50% in coordination of care (as documented) at patient's floor/unit and/or counseling patient: Coding [place] [address] INT INP/OBS CARE 3/75MIN Patient Type Established History Comprehensive Exam Comprehensive Medical Decision Making High Complexity Diagnoses Rigors R68.89 CHF exacerbation I50.9 Hematuria R31.9 Silicosis J62.8 Type 2 diabetes mellitus without complication, with long-term current use of insulin E11.9; Z79.4 Diabetes mellitus complication status: without complication Diabetes mellitus retirement insulin use: with terminal operations manager use Diabetes mellitus type: type 2 Chronic hypoxemic respiratory failure J96.11 (5) Diabetes Diabetes mellitus complication status: without complication Diabetes mellitus terminal operations manager insulin use: with terminal operations manager use Diabetes mellitus type: type 2 Qualified Code(s): E11.9 - Type 2 diabetes mellitus without complications; Z79.4 - termite control representative (current) use of insulin
[2023-03-23] MEDS ORDERED: hydrALAZINE TAB 50 MG TAB PO STA (17:14)
[2023-03-23] MEDS ORDERED: BUMETANIDE 1 MG TAB PO STA (18:02)
[2023-03-23] MEDS ORDERED: DEXTROSE 50% 50 ML SYRINGE IV PRN (19:58)
[2023-03-23] MEDS ORDERED: ALBUTEROL 0.083% NEBU SOLN 3 ML VIAL INH PRN (19:58)
[2023-03-23] MEDS ORDERED: GLUCOSE 40% GEL 15 GM TUBE PO PRN (19:58)
[2023-03-23] MEDS ORDERED: GLUCOSE 10 TAB/TUBE PO PRN (19:58)
[2023-03-23] MEDS ORDERED: GLUCAGON FOR INJ 1 MG VIAL SQ PRN (19:58)
[2023-03-23] MEDS ORDERED: CARBOHYDRATES FOR HYPOGLYCEMIA PO PRN (19:58)
[2023-03-23] MEDS ORDERED: ALBUTEROL HFA 8 GM INHALER INH PRN (19:58)
[2023-03-23] MEDS ORDERED: METOPROLOL TARTRATE 1 MG/ML VIAL IV STA (19:59)
[2023-03-23] MEDS ORDERED: traMADol HCL 50 MG TABLET PO STA (20:15)
[2023-03-23] MEDS ORDERED: cloNIDine HCL 0.1 MG TAB PO ONE (21:30)
[2023-03-23] MEDS: LANTUS PER UNIT CHARGE SQ SCH (21:34)
[2023-03-23] MEDS: traZODone HCL 50 MG TAB PO SCH (21:35)
[2023-03-23] MEDS: hydrALAZINE TAB 50 MG TAB PO SCH (21:35)
[2023-03-23] MEDS: cloNIDine HCL 0.3 MG/24 HR TRANSDERM SYS TD SCH (21:36)
[2023-03-23] MEDS: METOPROLOL TARTRATE 50 MG TAB PO SCH (21:36)
[2023-03-23] MEDS: INSULIN ASPART PER UNIT CHARGE SC SCH (21:37)
[2023-03-23] MEDS: rOPINIRole HCL 0.25 MG TABLET PO SCH (21:37)
[2023-03-24] MEDS: CHECK CLONIDINE PATCH PLACEMENT SCH ×3 (01:04→16:10)
[2023-03-24] MEDS ORDERED: ONDANSETRON INJ 2 MG/ML 2 ML VIAL ONE (04:51)
[2023-03-24] MEDS: ONDANSETRON INJ 2 MG/ML 2 ML VIAL IV PRN ×2 (04:59→21:30)
[2023-03-24 06:16] LABS: Basophils # (auto) 0.05 K/uL (0.00-0.20); Basophils % (auto) 0.9 %; Eosinophils # (auto) 0.09 K/uL (0.00-0.50); Eosinophils % (auto) 1.6 %; Hematocrit (blood only) 27.3 % (42.0-52.0); Immature Granulocytes # (auto) 0.03 K/uL (0.01-0.20); Immature Granulocytes % (auto) 0.5 %; Lymphocytes # (auto) 0.39 K/uL (1.20-3.40); Lymphocytes % (auto) 6.8 %; Mean Corpuscular Hemoglobin 28.8 pg (25.0-34.0); Mean Corpuscular Volume 87.5 fL (80.0-100.0); Mean Platelet Volume 8.5 fL (9.4-12.4); Monocytes # (auto) 0.59 K/uL (0.11-0.59); Monocytes % (auto) 10.3 %; Neutrophils # (auto) 4.56 K/uL (1.40-6.50); Neutrophils % (auto) 79.9 %; Platelet Count 150 K/uL (130-400); RDW Coefficient of Variation 13.2 % (11.5-14.5); RDW Standard Deviation 41.8 fL (36.4-46.3); Red Blood Count 3.12 M/uL (4.70-6.10); White Blood Count 5.71 K/ul (4.8-10.8)
[2023-03-24 06:18] LABS: BUN Creatinine Ratio 14.2 (10-20); Calcium 9.5 mg/dl (8.6-10.3); Creatinine Clr Calc Pharmacy 32.6 ml/min; Est GFR (African American) 32.1 ml/min; Est GFR (Non-African American) 27.7 ml/min; Potassium 4.2 mmol/L (3.5-5.1)
--- NOTE | 2023-03-24 08:08 | Hospitalist Progress Note ---
Date of Service March 24, 2023 Assessment & Plan (1) Hematuria: Plan: Gross hematuria on inspection of guerrero bag Initial UA without bacteria, nitrite, LE, though maintain fairly high suspicion of infectious etiology as explanation for current presentation Urine cx not taken prior to initiation of abx treatment Preliminary blood cx grew gm pos cocci in clusters, at this time suspect this is most likely contaminant as pt non-toxic in appearance, awaiting final cx results. Continue IV Ceftriaxone for now, continue to monitor (2) Chronic hypoxemic respiratory failure: Plan: Prior history of silicosis and untreated sleep apnea, coupled with hospital course, characterized by dip in O2 sat while sleeping, suggestive of chronic hypoventilation Repeat VBG today significant for pH 7.31, pCO2 88, bicarb 44 further supports this Discussed machine long goods helper need for CPAP treatment, consider BiPap while in hospital if nocturnal hypoventilation continues to be an issue. Supplemental O2 to maintain SpO2>90 (3) Rigors: Plan: Onset of rigors, chills, and lower back pain the morning of 03/22 - None observed today Initial infectious workup largely negative: No leukocytosis; afebrile BioFire negative Troponin WNL Procalcitonin WNL Lactate WNL Blood cultures: Preliminary growth of gram positive cocci in clusters at 24H, second cx pending Abdomen/pelvic CT significant for thickening of bladder wall Continue IV Ceftriaxone Acetaminophen as needed for pain/fever (4) CHF exacerbation: Plan: Acute on chronic Last echo on 02/16/2023 revealed LVEF at 60-65%; RVSP elevated [place] 5060mmHg Chest CT significant for cardiomegaly with pulmonary edema, trace right and small left pleural effusions Abdomen/pelvic CT revealed cardiomegaly with advanced coronary artery atherosclerosis Last BNP 523 on 02/15/2023 Continue Lasix 40 mg IV BID17 (5) Silicosis: Plan: CXR Limited exam secondary to hypoinflation Patient is on 2L NC continuous oxygen therapy at home VB.34/84/31/[address] on arrival revealed bibasilar consolidation, likely atelectasis (6) Diabetes: Plan: Last A1c at 6.6% on 02/16/2023 Glucose 170 on admission Hold semaglutide Recommend Lantus 5u BID while inpatient SSI; with target BSG range 110-140mg/dL, CF 55, carb ratio 20 T2DM diet BSG ACHS Adjust regimen as needed Plan Disposition: PCU telemetry DNR/DNI T2DM, AHA diet VTE PPx: SCDs (hold chemical DVT PPx in setting of hematuria) Admission and Anticipated Discharge Date Admission Date: March 23, 2023 Supervising Physician Co-Signing Physician Notes I personally examined the patient and verified all rust points of history and exam, discussed case, and agree with decision making with Dr Harris feeling Ok. no sob. no abdominal pain. vitals noted nad heent nc at mmm breathing unlabored lungs quiet but cta no r/r/w good effort no conversational dyspnea no accessory muscles weakness - deconditioning, likely mostly due to UTI, also from acute on chronic respiratory failure hematuria - working dx UTI - due to reflex orders urine culture not sent on initial labs, follow on abx, low threshold to send cx but since already on abx, would only really be helpful if he doesn't get better. obviously will need to make sure hematuria clears and may need cysto in future. least likely kidney cysts causing bleeding on ddx but seems highly unlikley (but complex cyst will need outpt f/u) acute on chronic hypoxic and hypercapnic respiratory failure- restrictive lung disease and untreated SHALA. he notes having tried CPAP for months but was a long time ago - briefly discussed outcomes of untreated SHALA and he seems willing to retry after dc. 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 He presented with SOB, rigors, confusion, dysuria: Pt evaluated at bedside this AM, is alert to person and place and appears to be a fair historian. Patient states that he feels more mentally sharp today but has ongoing generalized weakness, dysuria, seemingly more frequent hematuria. Denies SOB, fever/chills. Review of Systems Review of Systems: as per HPI Physical Exam Constitutional: WD/WN, vitals as above Respiratory: normal respiratory effort, lungs clear to auscultation Cardiovascular: RRR, no murmur, no edema Skin: no rashes, warm and dry Results & Data Results & Data Vital Signs (Past 12 Hours) Vital Signs Pulse Pulse Resp BP BP Pulse Ox Pulse Ox 03/24/23 07:20 75 03/24/23 06:31 75 19 158/77 H 98 03/24/23 04:58 72 25 H 167/85 H 95 03/24/23 02:58 66 19 139/75 99 03/24/23 00:40 65 21 157/76 H 03/24/23 00:40 99 03/23/23 23:30 74 03/23/23 20:56 81 187/92 H 03/23/23 20:13 86 195/100 H O2 Del Method O2 Del Method O2 Flow Rate O2 Flow Rate 03/24/23 07:20 03/24/23 06:31 Nasal Cannula 2 03/24/23 04:58 Nasal Cannula 2 03/24/23 02:58 Nasal Cannula 2 03/24/23 00:40 03/24/23 00:40 Nasal Cannula 2 03/23/23 23:30 03/23/23 20:56 03/23/23 20:13 Resident Activity Tracking Resident Involvement: Resident Care Provided Care Provided: Adult Hospital Medicine (6) Diabetes Diabetes mellitus complication status: without complication Diabetes mellitus penitentiary insulin use: with machine long goods helper use Diabetes mellitus type: type 2 Qualified Code(s): E11.9 - Type 2 diabetes mellitus without complications; Z79.4 - snf (current) use of insulin
[2023-03-24] MEDS ORDERED: NON-FORMULARY MEDICATION (Fluticasone-Umeclidin-Vilanter [Trelegy Ellipta] 200-62.5-25 mcg INH SCH (09:00)
[2023-03-24] MEDS: UMECLIDINIUM/VILANTEROL 62.5/25MCG 7 PUFFS/INHALER INH SCH (10:10)
[2023-03-24] MEDS: FLUTICASONE FUROATE 200MCG 14 PUFFS/INHALER INH SCH (10:11)
[2023-03-24] MEDS: ASPIRIN 81 MG ECTAB PO SCH (10:12)
[2023-03-24] MEDS: ROSUVASTATIN CALCIUM 10 MG TAB PO SCH (10:12)
[2023-03-24] MEDS: TAMSULOSIN HCL 0.4 MG CAP PO SCH (10:12)
[2023-03-24] MEDS: ESCITALOPRAM OXALATE 10 MG TAB PO SCH (10:12)
[2023-03-24] MEDS: NIFEdipine EXTENDED REL 30 MG TABCR PO SCH (10:12)
[2023-03-24] MEDS: FUROSEMIDE 40 MG/4 ML VIAL IV SCH ×2 (10:13→17:02)
[2023-03-24] MEDS: LANTUS PER UNIT CHARGE SQ SCH ×2 (10:19→20:45)
[2023-03-24] MEDS: INSULIN ASPART PER UNIT CHARGE SC SCH ×4 (10:19→20:21)
[2023-03-24] MEDS: METOPROLOL TARTRATE 50 MG TAB PO SCH ×2 (10:22→20:47)
[2023-03-24] MEDS: hydrALAZINE TAB 50 MG TAB PO SCH ×4 (10:22→20:48)
[2023-03-24] MEDS: traMADol HCL 50 MG TABLET PO SCH (10:22)
[2023-03-24 14:21] LABS: A calco-baum cmplx NotReported Not Detected (NotDetected); Bact fragilis Not Reported Not Detected (NotDetected); Blood Culture Id Panel See PCR Comment (NotDetected); C auris Not Reported Not Detected (NotDetected); Calbicans Not Reported Not Detected (NotDetected); Candida glabrata Not Reported Not Detected (NotDetected); Candida krusei Not Reported Not Detected (NotDetected); Cneoformans/gatti Not Reported Not Detected (NotDetected); Cparapsilosis Not Reported Not Detected (NotDetected); E cloacae compx Not Reported Not Detected (NotDetected); Efaecalis Not Reported Not Detected (NotDetected); Efaecium Not Reported Not Detected (NotDetected); Enterobacterales Not Reported Not Detected (NotDetected); Escherichia coli Not Reported Not Detected (NotDetected); H influenzae Not Reported Not Detected (NotDetected); K aerogenes Not Reported Not Detected (NotDetected); Koxytoca Not Reported Not Detected (NotDetected); Kpneumoniae grp Not Reported Not Detected (NotDetected); Lmonocyt Not Reported Not Detected (NotDetected); N meningitidis Not Reported Not Detected (NotDetected); P aeruginosa Not Reported Not Detected (NotDetected); Proteus spp Not Reported Not Detected (NotDetected); Salmonella spp Not Reported Not Detected (NotDetected); Smarcescens Not Reported Not Detected (NotDetected); Staph lugdunensis Not Reported Not Detected (NotDetected); Staph spp. Not Reported DETECTED (NotDetected); Staphaureus Not Reported Not Detected (NotDetected); Staphepi Not Reported Not Detected (NotDetected); Stenmaltophilia Not Reported Not Detected (NotDetected); Strep agal(GrpB) Not Reported Not Detected (NotDetected); Strep pneum Not Reported Not Detected (NotDetected); Strep pyog (GrpA) Not Reported Not Detected (NotDetected); Strep spp Not Reported Not Detected (NotDetected)
[2023-03-24 14:24] LABS: Staphylococcus spp. DETECTED (NotDetected)
[2023-03-24 15:08] LABS: Base Excess VBG 13.8 mEq/L; HCO3 VBG 44 mmol/L; PCO2 VBG 88 mmHg (38-50); PO2 VBG 39 mmHg; pH VBG 7.31 (7.36-7.41)
[2023-03-24] MEDS: cefTRIAXone SODIUM 2,000 MG in DEXTROSE 5 % MINI-B 50 ML IV SCH (16:06)
--- NOTE | 2023-03-24 17:57 | Billing Data ---
Date of Service March 24, 2023 Coding Level of Care Code 06708 SUB INP/OBS CARE
[2023-03-24] MEDS: traZODone HCL 50 MG TAB PO SCH (20:48)
[2023-03-24] MEDS: rOPINIRole HCL 0.25 MG TABLET PO SCH (20:49)
[2023-03-24] MEDS ORDERED: hydrOXYzine HCl 25 MG TAB PO STA (20:54)
[2023-03-25] MEDS: CHECK CLONIDINE PATCH PLACEMENT SCH ×3 (00:50→17:55)
[2023-03-25 03:42] LABS: Basophils # (auto) 0.05 K/uL (0.00-0.20); Basophils % (auto) 0.7 %; Eosinophils % (auto) 1.4 %; Hematocrit (blood only) 30.5 % (42.0-52.0); Hemoglobin 9.7 g/dl (14.0-18.0); Immature Granulocytes # (auto) 0.02 K/uL (0.01-0.20); Immature Granulocytes % (auto) 0.3 %; Lymphocytes # (auto) 0.38 K/uL (1.20-3.40); Lymphocytes % (auto) 5.2 %; Mean Corpuscular Hemoglobin 28.5 pg (25.0-34.0); Mean Corpuscular Hgb Conc 31.8 g/dL (32.0-36.0); Mean Corpuscular Volume 89.7 fL (80.0-100.0); Mean Platelet Volume 8.4 fL (9.4-12.4); Monocytes # (auto) 0.75 K/uL (0.11-0.59); Monocytes % (auto) 10.3 %; Neutrophils # (auto) 5.96 K/uL (1.40-6.50); Neutrophils % (auto) 82.1 %; Platelet Count 153 K/uL (130-400); RDW Coefficient of Variation 13.2 % (11.5-14.5); RDW Standard Deviation 42.9 fL (36.4-46.3); White Blood Count 7.26 K/ul (4.8-10.8)
[2023-03-25 04:28] LABS: BUN Creatinine Ratio 14.7 (10-20); Creatinine Clr Calc Pharmacy 29.4 ml/min; Est GFR (African American) 31.3 ml/min
--- NOTE | 2023-03-25 07:54 | Hospitalist Progress Note ---
Date of Service March 25, 2023 Assessment & Plan (1) Hematuria: Plan: Continued gross hematuria on inspection of guerrero bag Initial UA without bacteria, nitrite, LE, though maintain fairly high suspicion of infectious etiology as explanation for current presentation Urine cx not taken prior to initiation of abx treatment, urine culture ordered 03/25 Preliminary blood cx grew gm pos cocci in clusters, second blood cx negative, suspect this is most likely contaminant as pt non-toxic in appearance Continue IV Ceftriaxone for now, continue to monitor - if patient continues to have hematuria without improvement, consider urology consult for cystoscopy (2) Chronic hypoxemic respiratory failure: Plan: Hypoxic, hypercapnic respiratory failure: Prior history of silicosis and untreated sleep apnea, coupled with hospital course, characterized by dip in O2 sat while sleeping, suggestive of chronic hypoventilation Repeat VBG 03/24 significant for pH 7.31, pCO2 88, bicarb 44 further supports this Discussed prison need for CPAP treatment, tried BiPAP previous night though patient could not tolerate after a few minutes. Will continue to emphasize importance of CPAP/BiPAP in the setting of chronic hypoventilation Check AM VBG Supplemental O2 to maintain SpO2>90 (3) Rigors: Plan: Onset of rigors, chills, and lower back pain the morning of 03/22 - None observed during past 2 days Initial infectious workup largely negative: No leukocytosis; afebrile BioFire negative Troponin WNL Procalcitonin WNL Lactate WNL Blood cultures: Preliminary growth of gram positive cocci in clusters at 24H, second cx negative, likely contaminant Abdomen/pelvic CT significant for thickening of bladder wall Continue IV Ceftriaxone Acetaminophen as needed for pain/fever (4) CHF exacerbation: Plan: Acute on chronic Last echo on 02/16/2023 revealed LVEF at 60-65%; RVSP elevated at 5060mmHg Chest CT significant for cardiomegaly with pulmonary edema, trace right and small left pleural effusions Abdomen/pelvic CT revealed cardiomegaly with advanced coronary artery atherosclerosis Last BNP 523 on 02/15/2023 Continue Lasix 40 mg IV BID17 (5) Silicosis: Plan: CXR Limited exam secondary to hypoinflation Patient is on 2L NC continuous oxygen therapy at home Chest CT on arrival revealed bibasilar consolidation, likely atelectasis (6) Diabetes: Plan: Last A1c at 6.6% on 02/16/2023 Glucose 170 on admission Hold semaglutide Recommend Lantus 5u BID while inpatient SSI; with target BSG range 110-140mg/dL, CF 55, carb ratio 20 T2DM diet BSG ACHS Adjust regimen as needed Plan Disposition: PCU telemetry DNR/DNI T2DM, AHA diet VTE PPx: SCDs (hold chemical DVT PPx in setting of hematuria) Admission and Anticipated Discharge Date Admission Date: March 23, 2023 Supervising Physician Co-Signing Physician Notes I personally examined the patient and verified all rust points of history and exam, discussed case, and agree with decision making with Dr Harris feeling Ok. no sob. no abdominal pain. hematuria appears basically unchanged vitals noted nad heent nc at mmm breathing unlabored good effort no conversational dyspnea no accessory muscles weakness - deconditioning, initial differential was most likely due to UTI but also for acute on chronic respiratory failurebut given that his hematuria may not actually be infectious, and given that his hypoventilation seems to be fairly severe, and starting to be concerned that it is predominantly a hypoventilation problem leading to his decline hematuria - working dx UTI - at the same time he is now been on antibiotics for a few days with no real change in his hematuria; a culture was not sent initially due to it being a reflex order off of the initial UA that was surprisingly clean, and he was already on antibiotics by the time we assumed his care yesterday. That said, now that I am getting more suspicious it is not infectious cause of hematuriasend urine culture todayif there is no growth and he is on ceftriaxone and the hematuria does not continue to clear, it is not very likely to be infectious, and very likely we will need to get a cystoscopy in the near future. If he does show infection that is resistant to ceftriaxone, then we would continue to treat as a hemorrhagic cystitis for the time being. At this point, low threshold for urology evaluation (either inpatient or outpatient) for cystoscopy to evaluate the hematuria further acute on chronic hypoxic and hypercapnic respiratory failure- restrictive lung disease and untreated SHALA. he notes having tried CPAP for months but was a long time ago - and last night he only tried BiPAP for maybe 15 minutes. Discussed my growing concern that his hypoventilation is the main thing getting him weaker, and that his severity of respiratory failure is more concerning than I initially thought as far as his long-term health. He expresses a willingness to try BiPAP every time I talk to him, but then when he has actually had it initiated he very quickly declined using it. Discussed that nocturnal pressure support would really be the optimal way of management, and would ask that he reconsider. Will also ask pulmonary to see him especially as far as any experience in troubleshooting the patient with his degree of hypoventilation who seems to not want or not tolerate pressure support. DVT proph - pharmacologic contraindicated currently due to hematuria; has SCDs Subjective 72-year-old male with PMH of COPD, restrictive lung disease/silicosis (from working in a brick yard), colon cancer, prostate cancer, HLD, HFpEF, anxiety and depression, and SHALA not tolerating CPAP. He presented with SOB, rigors, confusion, dysuria: Pt evaluated at bedside this AM, notes feeling somewhat more short of breath but improves with supplemental O2. States that he tried the BiPAP last night but could not tolerate it for more than 10-15 minutes. Continues to wake up feeling transiently confused, though he thinks this may be present at baseline. Denies CP, fever/chills, abdominal pain, dysuria. Gross hematuria noted in guerrero bag. Review of Systems Review of Systems: as per HPI Physical Exam Constitutional: WD/WN, vitals as above Respiratory: normal respiratory effort, lungs clear to auscultation Cardiovascular: RRR, no murmur, no edema Skin: no rashes, warm and dry Results & Data Results & Data Vital Signs (Past 12 Hours) Vital Signs Pulse Pulse Resp BP Pulse Ox Pulse Ox O2 Del Method 03/25/23 06:00 75 20 111/64 94 High Flow Nasal Cannula 03/25/23 03:39 72 27 H 93 03/25/23 03:00 87 L High Flow Nasal Cannula 03/25/23 03:00 71 21 146/69 H 95 High Flow Nasal Cannula 03/25/23 00:00 94 03/24/23 23:30 78 20 168/107 H 95 Nasal Cannula 03/24/23 23:00 78 03/24/23 21:33 85 L Nasal Cannula 03/24/23 21:11 89 24 173/87 H 91 Nasal Cannula O2 Del Method O2 Flow Rate O2 Flow Rate 03/25/23 06:00 9 03/25/23 03:39 9 03/25/23 03:00 5 03/25/23 03:00 9 03/25/23 00:00 Nasal Cannula 5 03/24/23 23:30 5 03/24/23 23:00 03/24/23 21:33 4 03/24/23 21:11 4 Resident Activity Tracking Resident Involvement: Resident Care Provided Care Provided: Adult Hospital Medicine (6) Diabetes Diabetes mellitus complication status: without complication Diabetes mellitus prison insulin use: with rat exterminator use Diabetes mellitus type: type 2 Qualified Code(s): E11.9 - Type 2 diabetes mellitus without complications; Z79.4 - long term care phlebotomist (current) use of insulin
[2023-03-25] MEDS: ASPIRIN 81 MG ECTAB PO SCH (09:14)
[2023-03-25] MEDS: FUROSEMIDE 40 MG/4 ML VIAL IV SCH ×2 (09:15→17:42)
[2023-03-25] MEDS: NIFEdipine EXTENDED REL 30 MG TABCR PO SCH (09:15)
[2023-03-25] MEDS: ROSUVASTATIN CALCIUM 10 MG TAB PO SCH (09:15)
[2023-03-25] MEDS: TAMSULOSIN HCL 0.4 MG CAP PO SCH (09:15)
[2023-03-25] MEDS: METOPROLOL TARTRATE 50 MG TAB PO SCH ×2 (09:15→20:30)
[2023-03-25] MEDS: ESCITALOPRAM OXALATE 10 MG TAB PO SCH (09:15)
[2023-03-25] MEDS: FLUTICASONE FUROATE 200MCG 14 PUFFS/INHALER INH SCH (09:26)
[2023-03-25] MEDS: traMADol HCL 50 MG TABLET PO SCH (09:26)
[2023-03-25] MEDS: UMECLIDINIUM/VILANTEROL 62.5/25MCG 7 PUFFS/INHALER INH SCH (09:26)
[2023-03-25] MEDS: hydrALAZINE TAB 50 MG TAB PO SCH ×4 (09:27→20:39)
[2023-03-25] MEDS: LANTUS PER UNIT CHARGE SQ SCH ×2 (09:29→20:30)
[2023-03-25] MEDS: INSULIN ASPART PER UNIT CHARGE SC SCH ×4 (09:29→20:11)
[2023-03-25] MEDS: cefTRIAXone SODIUM 2,000 MG in DEXTROSE 5 % MINI-B 50 ML IV SCH (16:32)
--- NOTE | 2023-03-25 20:14 | Billing Data ---
Date of Service March 25, 2023 Coding Level of Care Code 53500 SUB INP/OBS CARE MIN
[2023-03-25] MEDS: rOPINIRole HCL 0.25 MG TABLET PO SCH (20:30)
[2023-03-25] MEDS: traZODone HCL 50 MG TAB PO SCH (20:30)
[2023-03-26] MEDS: CHECK CLONIDINE PATCH PLACEMENT SCH ×3 (01:37→17:09)
[2023-03-26 06:37] LABS: Base Excess VBG 17.8 mEq/L; HCO3 VBG 46 mmol/L; Oxygen Saturation VBG 73.1 %; PCO2 VBG 76 mmHg (38-50); PO2 VBG 40 mmHg; pH VBG 7.39 (7.36-7.41)
[2023-03-26 06:48] LABS: Basophils # (auto) 0.06 K/uL (0.00-0.20); Basophils % (auto) 0.8 %; Eosinophils # (auto) 0.06 K/uL (0.00-0.50); Eosinophils % (auto) 0.8 %; Hematocrit (blood only) 33.1 % (42.0-52.0); Hemoglobin 10.6 g/dl (14.0-18.0); Immature Granulocytes # (auto) 0.05 K/uL (0.01-0.20); Immature Granulocytes % (auto) 0.7 %; Lymphocytes # (auto) 0.37 K/uL (1.20-3.40); Lymphocytes % (auto) 5.1 %; Mean Corpuscular Hemoglobin 28.4 pg (25.0-34.0); Mean Corpuscular Volume 88.7 fL (80.0-100.0); Monocytes # (auto) 0.63 K/uL (0.11-0.59); Monocytes % (auto) 8.7 %; Neutrophils # (auto) 6.08 K/uL (1.40-6.50); Neutrophils % (auto) 83.9 %; Platelet Count 164 K/uL (130-400); RDW Coefficient of Variation 13.2 % (11.5-14.5); RDW Standard Deviation 43.1 fL (36.4-46.3); Red Blood Count 3.73 M/uL (4.70-6.10); White Blood Count 7.25 K/ul (4.8-10.8)
[2023-03-26 07:24] LABS: BUN Creatinine Ratio 13.6 (10-20); Creatinine Clr Calc Pharmacy 24.2 ml/min; Est GFR (African American) 24.8 ml/min; Est GFR (Non-African American) 21.4 ml/min; Potassium 3.8 mmol/L (3.5-5.1)
--- NOTE | 2023-03-26 07:34 | Hospitalist Progress Note ---
Date of Service March 26, 2023 Assessment & Plan (1) Hematuria: Plan: (2) Chronic hypoxemic respiratory failure: (3) Rigors: (4) CHF exacerbation: (5) Diabetes: Plan 72-year-old male with PMH of COPD, restrictive lung disease, colon cancer, prostate cancer, HLD, HFpEF, anxiety and depression, and SHALA not tolerating CPAP. He presented with SOB, rigors, confusion, dysuria: Hematuria Continue painless gross hematuria on Arreguin Hgb: 10.6 Initial UA without bacteria, nitrite, LE Urine cx :negative Continue IV Ceftriaxone for now, continue to monitor Hx of prostate cancer, last Oncology 09/28: start Lupron 22.5 IM Q3 months (only one dose received) Will continue following CBC am Chronic hypoxemic respiratory failure with hypercapnia - untreated sleep apnea, coupled with hospital course, characterized by dip in O2 sat while sleeping, suggestive of chronic hypoventilation -VBG: PH: 7.31, PCO2: 76, HCO3 46 - Patient on BiPaP during the night, not tolerating well. Currently on nasal cannula 5L O2 sat: 90 (baseline 2 L) -Pneumology recommendations: Continue oxygen supplementation -Follow up with hog grader at [facility] -Keep oxygen saturation above 88% Bilateral lower extremities weakness -Deconditioning due to current illness -PT/OT ordered CHF Acute on chronic Last echo on 02/16/2023 revealed LVEF at 60-65%; RVSP elevated at 5060mmHg Chest CT significant for cardiomegaly with pulmonary edema, trace right and small left pleural effusions Abdomen/pelvic CT revealed cardiomegaly with advanced coronary artery atherosclerosis Last BNP 523 on 02/15/2023 Continue Lasix 40 mg IV BID17 Rigors-Resolved Onset of rigors, chills, and lower back pain the morning of 03/22 - None observed during past 2 days No leukocytosis; afebrile Blood cultures: Preliminary growth of gram positive cocci in clusters at 24H, second cx negative, likely contaminant Abdomen/pelvic CT significant for thickening of bladder wall Will repeat Blood culture Acetaminophen as needed for pain/fever Restrictive lung disease - PFTs in 2012 -CT: no significant parenchymal abnormality -Baseline of 2L NC O supplementation Diabetes: Last A1c at 6.6% on 02/16/2023 Hold semaglutide Recommend Lantus 5u BID while inpatient SSI; with target BSG range 110-140mg/dL, CF 55, carb ratio 20 T2DM diet BSG ACHS Adjust regimen as needed Plan Disposition: PCU telemetry DNR/DNI T2DM, AHA diet VTE PPx: SCDs (hold chemical DVT PPx in setting of hematuria) Admission and Anticipated Discharge Date Admission Date: March 23, 2023 Supervising Physician Co-Signing Physician Notes Attending Physician Supervision Note: I independently interviewed and examined the patient and verified the rust history and physical, reviewed labs and image studies and agree with findings and care plan noted above. only concern is his legs feeling weak. vitals noted nad heent nc at mmm breathing unlabored good effort no conversational dyspnea no accessory muscles, lungs - CTA hematuria - will consult urology. urine cx neg- will d/c abx weakness - deconditioning, PT/OT acute on chronic hypoxic and hypercapnic respiratory failure- d/t likely untreated SHALA/OHA. Pul consult - -well compensated with acceptable pH. hypoxia sec to hypercapnia. -patient to sleep with the head of bed elevated is much as possible. -cpap/bipap as tolerated. -Continued weight loss may be beneficial. -consider repeating sleep study. DVT proph - pharmacologic contraindicated currently due to hematuria; has SCDs Subjective 72-year-old male with PMH of COPD, restrictive lung disease, colon cancer, prostate cancer, HLD, HFpEF, anxiety and depression, and SHALA not tolerating CPAP. He presented with SOB, rigors, confusion, dysuria Pt evaluated at bedside this AM. He refers feeling tired, not improving. Refers weakness on both legs, no neuro deficit, no bowel or urine incontinence Denies CP, fever/chills, abdominal pain, dysuria. Gross hematuria noted in Arreguin bag. Review of Systems Review of Systems: as per HPI Physical Exam Constitutional: WD/WN, vitals as above Respiratory: normal respiratory effort, lungs clear to auscultation Cardiovascular: RRR, no murmur, no edema Neurologic: normal touch/pain/proprioception, CN's II-XI intact bilaterally and moves all extremities (Lower bilateral extremities weakness) Results & Data Results & Data Vital Signs (Past 12 Hours) Vital Signs Pulse Pulse Resp BP Pulse Ox Pulse Ox O2 Del Method 03/26/23 06:26 85 17 159/94 H 89 L Nasal Cannula 03/26/23 00:00 89 L 03/25/23 23:20 82 03/25/23 20:26 84 18 147/76 H 88 L Nasal Cannula O2 Del Method O2 Flow Rate O2 Flow Rate 03/26/23 06:26 6 03/26/23 00:00 Nasal Cannula 4 03/25/23 23:20 03/25/23 20:26 6 Resident Activity Tracking Resident Involvement: Resident Care Provided Care Provided: Adult Hospital Medicine (5) Diabetes Diabetes mellitus complication status: without complication Diabetes mellitus long term care social worker insulin use: with nursing home use Diabetes mellitus type: type 2 Qualified Code(s): E11.9 - Type 2 diabetes mellitus without complications; Z79.4 - care home (current) use of insulin
--- NOTE | 2023-03-26 08:07 | Pulmonary Consultation ---
Date of Consultation March 26, 2023 Assessment & Plan (1) Chronic respiratory failure with hypoxia and hypercapnia: (2) Acute on chronic respiratory failure with hypoxia and hypercapnia: (3) Restrictive lung disease: (4) Overweight (BMI 25.0-29.9): Plan Impression: 72-year-old male with restrictive lung disease and hypercarbic respiratory failure contributing to hypoxemic respiratory failure. He is well compensated currently in spite of the fact that he is not using noninvasive positive pressure ventilation at night Recommendations: 1. Hypercarbic respiratory failure: Patient appears to be well compensated currently with an acceptable pH. Would recommend having the patient sleep with the head of bed elevated is much as possible. This may alleviate some degree of sleep disordered breathing. There is no real other alternative to positive airway pressure ventilation other than consideration for tracheostomy which the patient would like to avoid and I do not think is necessary in this case. Continued weight loss may be beneficial. As we do not have copies of his sleep studies, consideration for repeating sleep study might be appropriate. If he has mild sleep disordered breathing, please consider an oral appliance however I do not think that would likely impact hypoventilation syndrome. 2. Patient can follow-up with the heat treating furnace tender at [facility] [address] at discharge 3. Continue oxygen titrated to keep saturations at or above 88%. Given his elevated CO2 level, I think this explains his hypoxemia. 4. Management the patient's other medical issues per primary admitting service 5. The patient does not have evidence of silicosis on CT scan and this diagnosis will be removed from his problem list Patient's pulmonary issues at this point in time appears stable. Pulmonary will sign off at this point in time. Again he can follow-up with the heat treating furnace tender and [facility] at discharge. Feel free to contact us with additional questions or concerns. History of Present Illness Attending Physician: Yarelis Díaz MD History of Present Illness Asked by hospitalist to assist in evaluation management of this patient with c hronic hypoxemic and hypercarbic respiratory failure admitted with possible urinary tract infection. He was incidentally noted to have hypercarbic respiratory failure and has been attempted on BiPAP but was poorly tolerant of it. I seen this patient in the outpatient setting a few years ago and we discussed interventions to improve noninvasive positive pressure ventilation however the patient is quite adamant that he is not interested in pursuing any of these interventions. The patient is a 72-year-old male who has a longstanding history of chronic hypoxemic respiratory failure as well as sleep disordered breathing. Carries a diagnosis of COPD and sleep disordered breathing prior studies were not available to review. PFTs performed back in 2012 did show restrictive lung disease. He had CT scan which demonstrated no significant parenchymal abnormality. The patient presented to the hospital 03/23/2023 with complaints of shortness of breath and rigors. He had some dysuria. He had some mild hematuria in the emergency room as well as some back pain. He was found to be hypertensive and tachypneic in the emergency room. Is been placed on Rocephin. He was placed on Lasix. Blood gas demonstrated acute on chronic hypercarbic respiratory failure. He been tried on noninvasive positive pressure ventilation on a few occasions during the course of this hospitalization but was poorly tolerant of it and refuses additional attempts at CPAP or BiPAP. The patient feels that his breathing is actually doing okay currently. He is not coughing wheezing or expectorating any phlegm. He does sleep upright at home on occasion and states this is effective in improving his sleeping and breathing. He denies any daytime sleepiness. Allergies Allergy/AdvReac Type Severity Reaction Status Date / Time bee venom protein (honey bee) Allergy Severe ANAPHYLAXIS Verified 03/23/23 10:55 Home Medications Medication Instructions Recorded Confirmed Type albuterol sulfate 2.5 mg/3 mL 2.5 mg inhalation QID PRN 03/10/19 03/23/23 History (0.083 %) solution for nebulization Shortness Of Breath Or Wheezing albuterol sulfate 90 mcg/actuation 2 puff inhalation QID PRN 03/10/19 03/23/23 History aerosol inhaler (Ventolin HFA) Shortness Of Breath Or Wheezing insulin aspart U-100 100 unit/mL 5 unit subcut DIRECTED 03/10/19 03/23/23 History (3 mL) subcutaneous pen (Novolog FlexPen U-100 Insulin aspart) fluticasone fur. 200 mcg-umeclid 1 inh inhalation DAILY 03/27/22 03/23/23 History 62.5 mcg-vilant 25 mcg inhalat.powder (Trelegy Ellipta) rosuvastatin 10 mg tablet 10 mg PO DAILY #90 tabs 03/27/22 03/23/23 Rx tamsulosin 0.4 mg capsule (Flomax) 0.4 mg PO DAILY 05/08/22 03/23/23 History ropinirole 0.5 mg tablet 0.5 mg PO HS #90 tabs 05/15/22 03/23/23 Rx metoprolol tartrate 50 mg tablet 50 mg PO BID #180 tabs 06/05/22 03/23/23 Rx (Lopressor) trazodone 50 mg tablet 50 mg PO HS #30 tabs 06/05/22 03/23/23 Rx aspirin 81 mg tablet,delayed 81 mg PO DAILY 10/19/22 03/23/23 History release cholecalciferol (vitamin D3) 25 25 mcg PO DAILY 10/19/22 03/23/23 History mcg (1,000 unit) capsule tramadol 50 mg tablet 50 mg PO DAILY #30 tabs 11/30/22 03/23/23 Rx escitalopram oxalate 5 mg tablet 5 mg PO DAILY #90 tabs 01/03/23 03/23/23 Rx (Lexapro) bumetanide 2 mg tablet 2 mg PO DAILY 02/15/23 03/23/23 History hydralazine 100 mg tablet 100 mg PO QID #120 tabs 02/17/23 03/23/23 Rx clonidine 0.3 mg/24 hr weekly 1 patch topical .COMPLEX #4 ea 03/05/23 03/23/23 Rx transdermal patch semaglutide 0.25 mg or 0.5 mg (2 0.25 mg (0.368 mL) subcut .Weekly 03/07/23 03/23/23 Rx mg/3 mL) subcutaneous pen injector #3 mL (Ozempic) nifedipine 30 mg tablet,extended 30 mg PO QAM #30 tabs 03/20/23 03/23/23 Rx release 24 hr (Procardia XL) Patient History Medical History Diabetes Anemia Secondary hyperparathyroidism (of renal origin) Chronic kidney disease, stage 4 (severe) Chronic back pain Restrictive lung disease Hypercapnic respiratory failure Obstructive sleep apnea Chronic hypoxemic respiratory failure Hyperlipidemia Colon cancer Hypertension Urinary problem COPD (chronic obstructive pulmonary disease) Prostate cancer (06/23/08) "Rising PSA Status post biopsy revealing adenocarcinoma Josy 3+4 10 of 24 cores positive, High-grade prostatic intraepithelial neoplasm present Status post robotic prostatectomy 10/06/2008 Adenocarcinoma Josy 3+3 negative margins Perineural invasion present Stage pT2c pN0M0 Rising PSA to 0.08 Status post completion of salvage radiation 11/16/2014 received 7040 cGy " On 11/24/14 15:53 Oliva Lozano wrote "Rising PSA Status post biopsy revealing adenocarcinoma Colp 3+4 10 of 24 cores positive, High-grade prostatic intraepithelial neoplasm present Status post robotic prostatectomy 10/06/2008 Adenocarcinoma Colp 3+3 negative margins Perineural invasion present Stage pT2c pN0M0 Rising PSA to 0.08 Status post completion of salvage radiation 11/16/2014 received 7040 cGy " On 09/04/14 10:59 Oliva Lozano wrote "Rising PSA Status post biopsy revealing adenocarcinoma Colp 3+4 10 of 24 cores positive, High-grade prostatic intraepithelial neoplasm present Status post robotic prostatectomy 10/06/2008 Adenocarcinoma Josy 3+3 negative margins Perineural invasion present PT2c pN0M0 Rising PSA to 0.08 " Knee pain Surgical History History of prostatectomy Family History Father Myocardial infarction, Onset Age: 70 Denies family history of Ovarian cancer Prostate cancer Breast cancer Colorectal cancer Social History Smoking Status: Never smoker Tobacco Type: Smokeless Tobacco (Dip or Chew) Second Hand Exposure: No; Do You Dip or Chew Tobacco: No (quit in 2008); Hx Alcohol Use: No Hx Substance Use: No Preferred Language: Kazakh Communication Ability: Effective Visual Impairment: Limited Hearing Ability: Normal Custodial Operations Manager Required: No Beliefs That Will Affect Care: None marital status: Current Living Situation: Spouse Current Living Situation Comment: with 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 No additions or deletions Physical Exam Constitutional: WD/WN, vitals as above Respiratory: normal respiratory effort, lungs clear to auscultation Cardiovascular: RRR, no murmur, no edema Skin: no rashes, warm and dry Results & Data Results & Data Vital Signs (Past 12 Hours) Vital Signs Pulse Pulse Resp BP Pulse Ox Pulse Ox O2 Del Method 03/26/23 06:26 85 17 159/94 H 89 L Nasal Cannula 03/26/23 00:00 89 L 03/25/23 23:20 82 03/25/23 20:26 84 18 147/76 H 88 L Nasal Cannula O2 Del Method O2 Flow Rate O2 Flow Rate 03/26/23 06:26 6 03/26/23 00:00 Nasal Cannula 4 03/25/23 23:20 03/25/23 20:26 6 Diagnostic Findings PFTs performed at [facility] [address] 10/23/2022 showed moderate restrictive defect with diffusion capacity correcting when adjusted for alveolar ventilation. Critical Care Results & Data Vital Signs (Past 12 Hours) Vital Signs Pulse Pulse Resp BP Pulse Ox Pulse Ox O2 Del Method 03/26/23 06:26 85 17 159/94 H 89 L Nasal Cannula 03/26/23 00:00 89 L 03/25/23 23:20 82 03/25/23 20:26 84 18 147/76 H 88 L Nasal Cannula O2 Del Method O2 Flow Rate O2 Flow Rate 03/26/23 06:26 6 03/26/23 00:00 Nasal Cannula 4 03/25/23 23:20 03/25/23 20:26 6 Lab & Micro Results (Past 24 Hours) RBC 3.73 M/uL (4.70-6.10) L 03/26/23 WBC 7.25 K/ul (4.8-10.8) 03/26/23 Hgb 10.6 g/dl (14.0-18.0) L 03/26/23 Hct 33.1 % (42.0-52.0) L 03/26/23 MCV 88.7 fL (80.0-100.0) 03/26/23 MCH 28.4 pg (25.0-34.0) 03/26/23 MCHC 32.0 g/dL (32.0-36.0) 03/26/23 RDW Standard Deviation 43.1 fL (36.4-46.3) 03/26/23 RDW Coefficient of Variation 13.2 % (11.5-14.5) 03/26/23 Plt Count 164 K/uL (130-400) 03/26/23 MPV 9.0 fL (9.4-12.4) L 03/26/23 Neutrophils (%) (Auto) 83.9 % 03/26/23 Lymphocytes (%) (Auto) 5.1 % 03/26/23 Monocytes # (Auto) 0.63 K/uL (0.11-0.59) H 03/26/23 Eosinophils # (Auto) 0.06 K/uL (0.00-0.50) 03/26/23 Immature Granulocyte % (Auto) 0.7 % 03/26/23 Neutrophils # (Auto) 6.08 K/uL (1.40-6.50) 03/26/23 Lymphocytes # (Auto) 0.37 K/uL (1.20-3.40) L 03/26/23 Monocytes # (Auto) 0.63 K/uL (0.11-0.59) H 03/26/23 Eosinophils # (Auto) 0.06 K/uL (0.00-0.50) 03/26/23 Basophils # (Auto) 0.06 K/uL (0.00-0.20) 03/26/23 Immature Granulocyte # (Auto) 0.05 K/uL (0.01-0.20) 4 Na 142 mmol/L (136-145) 03/26/23 K 3.8 mmol/L (3.5-5.1) 03/26/23 Cl 94 mmol/L (98-107) L 03/26/23 CO2 42 mmol/L (21-32) H* 03/26/23 Anion Gap 6 (3-11) 03/26/23 BUN 38 mg/dl (6-23) H 03/26/23 Creatinine 2.80 mg/dl (0.6-1.4) H 03/26/23 Estimated GFR ( Amer) 24.8 ml/min 03/26/23 Estimated GFR (Non-Af Amer) 21.4 ml/min 03/26/23 BUN/Creatinine Ratio 13.6 (10-20) 03/26/23 Glu 101 mg/dl (70-99(Fasting)) H 03/26/23 Ca 9.0 mg/dl (8.6-10.3) 03/26/23 Calcium Level 9.0 mg/dl (8.6-10.3) 03/26/23 06:26 Venous Blood pH 7.39 (7.36-7.41) 03/26/23 06:26 Venous Blood Partial Pressure CO2 76 mmHg (38-50) H 03/26/23 06 :26 Venous Blood Partial Pressure O2 40 mmHg 03/26/23 06:26 Venous Blood HCO3 46 mmol/L 03/26/23 06:26 Venous Blood Base Excess 17.8 mEq/L 03/26/23 06:26 Venous Blood Oxygen Saturation 73.1 % 03/26/23 06:26 Microbiology 03/25/23 18:06 Urine Culture - Preliminary Urine,Clean Catch No growth - Less than 1,000 colonies/mL, Final report to follow. 03/23/23 15:02 Aerobic Blood Culture - Preliminary Blood Gram positive cocci clusters Anaerobic Blood Culture - Preliminary No growth in Anaerobic bottle after 48 hours. 03/23/23 15:02 Aerobic Blood Culture - Preliminary Blood No growth in Aerobic bottle after 48 hours. Anaerobic Blood Culture - Preliminary No growth in Anaerobic bottle after 48 hours. I & O Totals 24 Hours 03/25/23 03/26/23 03/27/23 06:59 06:59 06:59 Intake Total 50 / 50 50 / 50 Output Total 1300 / 1300 600 / 600 Balance -1250 / -1250 -550 / -550 Cumulative 03/23/23 11:59 thru 03/25/23 17:59 Intake Total 250 Output Total 2400 Balance -2150 RT Ventilator Mngmt (Last Documented) Ventilator Ordered Settings Respiratory Rate 17 03/26/23 06:26 Ventilator - PT Measurements Respiratory Rate 17 PG Care Time/CCT Total # of Minutes Spent Total Time Spent with Patient: Total time spent is greater than 50% in coordination of care (as documented) at patient's floor/unit and/or counseling patient: Coding Level of Care Code 20001 INT INP/OBS CARE 3/75MIN Diagnoses Chronic respiratory failure with hypoxia and hypercapnia J96.11; J96.12 Acute on chronic respiratory failure with hypoxia and hypercapnia J96.21; J96.22 Restrictive lung disease J98.4 Overweight (BMI 25.0-29.9) E66.3
[2023-03-26] MEDS: traMADol HCL 50 MG TABLET PO SCH (08:17)
[2023-03-26] MEDS: ASPIRIN 81 MG ECTAB PO SCH (08:18)
[2023-03-26] MEDS: FUROSEMIDE 40 MG/4 ML VIAL IV SCH ×2 (08:18→17:36)
[2023-03-26] MEDS: ESCITALOPRAM OXALATE 10 MG TAB PO SCH (08:18)
[2023-03-26] MEDS: hydrALAZINE TAB 50 MG TAB PO SCH ×4 (08:18→20:10)
[2023-03-26] MEDS: METOPROLOL TARTRATE 50 MG TAB PO SCH ×2 (08:19→20:11)
[2023-03-26] MEDS: TAMSULOSIN HCL 0.4 MG CAP PO SCH (08:19)
[2023-03-26] MEDS: NIFEdipine EXTENDED REL 30 MG TABCR PO SCH (08:19)
[2023-03-26] MEDS: ROSUVASTATIN CALCIUM 10 MG TAB PO SCH (08:19)
[2023-03-26] MEDS: FLUTICASONE FUROATE 200MCG 14 PUFFS/INHALER INH SCH (08:19)
[2023-03-26] MEDS: INSULIN ASPART PER UNIT CHARGE SC SCH ×4 (09:23→20:16)
[2023-03-26] MEDS: LANTUS PER UNIT CHARGE SQ SCH ×2 (09:26→20:16)
[2023-03-26] MEDS: UMECLIDINIUM/VILANTEROL 62.5/25MCG 7 PUFFS/INHALER INH SCH (09:29)
[2023-03-26] MEDS ORDERED: cefTRIAXone SODIUM 2,000 MG in DEXTROSE 5 % MINI-B 50 ML IV SCH (18:00)
[2023-03-26] MEDS: rOPINIRole HCL 0.25 MG TABLET PO SCH (20:11)
[2023-03-26] MEDS: traZODone HCL 50 MG TAB PO SCH (20:16)
--- NOTE | 2023-03-26 21:03 | Urology Consultation ---
Date of Consultation March 26, 2023 Assessment & Plan (1) Hematuria: The patient is currently mid on the hospitalist service Management of patient's admitting problems will be deferred to the primary service Concerning patient's hematuria we recommend the following: Serial hemoglobin and hematocrits should be followed There does not appear to be any evidence of urinary tract infection by urinalysis or urine culture The patient's Arreguin catheter appears patent at this time. If the patient's Arreguin catheter does become clogged manual flushing and irrigation can be performed by nursing staff to alleviate any obstruction from blood clots The patient's hematuria may be due to traumatic Arreguin catheter insertion. Once the patient's Arreguin catheter is no longer needed (this can be determined by the primary service) a voiding trial can be performed. If the patient does have persistent hematuria suggestive of an alternate cause of his hematuria further evaluation with cystoscopy can be consideredthis can likely be performed as an outpatient History of Present Illness Reason for Consultation: Hematuria Attending Physician: Yarelis Díaz MD History of Present Illness This is a 72-year-old male who was admitted to [facility] on 03/23/2023. The patient was admitted as as an outpatient he was having shortness of breath, rigors, and confusion. He was also noted to have a report of burning with his urination when seen by his PCP on 03/23/2022. The patient reportedly had a Arreguin catheter placed in the emergency department. Review of nursing notes at time of Arreguin catheter insertion noted that patient had clear urine at the time of insertion. Since the catheter was inserted the patient suddenly developed some hematuria. The patient was noted to have urine draining from around the Arreguin catheter and nursing staff was able to flush and irrigate the catheter. Per nursing notes several medium size blood clots were retrieved. Patient's Arreguin catheter was subsequently irrigated and additional time and no additional blood clots were retrieved. Because of the patient's hematuria nursing staff noted that they exchanged the catheter and since the catheter has been exchanged has been patent and draining appropriately. I did question patient on his urologic history and he does note a history of prostate cancer. He notes that this was surgically removed. The patient notes that he does follow locally with [facility]. His most recent visit available for my review was on 11/08/2021 at which time he saw Dr. Blackwood. Dr. Blackwood did perform a office cystoscopy. During this procedure no masses or lesions were noted in the bladder. Patient notes that prior to this admission he was not having issues with hematuria. He denies any flank pain. He does not report taking any blood thinners Imaging modalities off from 03/23/2023. These include a chest x-ray that showed cardiomegaly with pulmonary edema and small pleural effusions with bibasilar opacities. A CT scan of the abdomen pelvis was performed. On this study there is no evidence of hydronephrosis. There is cortical atrophy noted of the kidneys. There are no kidney stones identified. Patient was noted to have small and simple complex renal cysts measuring up to 2.[address] scan of the chest demonstrated pulmonary edema and small bilateral effusions. Most recent labs are from today which include a normal white blood cell count normal platelet count. The patient's hemoglobin and hematocrit were 10.6 and 33.1. (These values did not demonstrate a precipitous drop in his baseline values.) Labs included a chemistry profile sodium and potassium are normal. The patient's BUN and creatinine are 38 and 2.8. (Review of labs show the patient's baseline creatinine runs anywhere from 2.0-2.6) a urinalysis was performed on 03/23/2023. The specimen was negative for blood and had 5-10 red blood cells per high-power field. There is no evidence of UTI on the specimen. Patient also had a urine culture performed from 03/25/2023 which was negative for bacterial growth. Since admission the hospital the patient has been treated for chronic hypoxemic respiratory failure with hypercapnia along with a CHF exacerbation. Urology has been asked to see the patient for the above noted hematuria. At the time of my interview the patient was resting comfortably in bed and he was in no distress. Allergies Allergy/AdvReac Type Severity Reaction Status Date / Time bee venom protein (honey bee) Allergy Severe ANAPHYLAXIS Verified 03/23/23 10:55 Home Medications Medication Instructions Recorded Confirmed Type albuterol sulfate 2.5 mg/3 mL 2.5 mg inhalation QID PRN 03/10/19 03/23/23 History (0.083 %) solution for nebulization Shortness Of Breath Or Wheezing albuterol sulfate 90 mcg/actuation 2 puff inhalation QID PRN 03/10/19 03/23/23 History aerosol inhaler (Ventolin HFA) Shortness Of Breath Or Wheezing insulin aspart U-100 100 unit/mL 5 unit subcut DIRECTED 03/10/19 03/23/23 History (3 mL) subcutaneous pen (Novolog FlexPen U-100 Insulin aspart) fluticasone fur. 200 mcg-umeclid 1 inh inhalation DAILY 03/27/22 03/23/23 History 62.5 mcg-vilant 25 mcg inhalat.powder (Trelegy Ellipta) rosuvastatin 10 mg tablet 10 mg PO DAILY #90 tabs 03/27/22 03/23/23 Rx tamsulosin 0.4 mg capsule (Flomax) 0.4 mg PO DAILY 05/08/22 03/23/23 History ropinirole 0.5 mg tablet 0.5 mg PO HS #90 tabs 05/15/22 03/23/23 Rx metoprolol tartrate 50 mg tablet 50 mg PO BID #180 tabs 06/05/22 03/23/23 Rx (Lopressor) trazodone 50 mg tablet 50 mg PO HS #30 tabs 06/05/22 03/23/23 Rx aspirin 81 mg tablet,delayed 81 mg PO DAILY 10/19/22 03/23/23 History release cholecalciferol (vitamin D3) 25 25 mcg PO DAILY 10/19/22 03/23/23 History mcg (1,000 unit) capsule tramadol 50 mg tablet 50 mg PO DAILY #30 tabs 11/30/22 03/23/23 Rx escitalopram oxalate 5 mg tablet 5 mg PO DAILY #90 tabs 01/03/23 03/23/23 Rx (Lexapro) bumetanide 2 mg tablet 2 mg PO DAILY 02/15/23 03/23/23 History hydralazine 100 mg tablet 100 mg PO QID #120 tabs 02/17/23 03/23/23 Rx clonidine 0.3 mg/24 hr weekly 1 patch topical .COMPLEX #4 ea 03/05/23 03/23/23 Rx transdermal patch semaglutide 0.25 mg or 0.5 mg (2 0.25 mg (0.368 mL) subcut .Weekly 03/07/23 03/23/23 Rx mg/3 mL) subcutaneous pen injector #3 mL (Ozempic) nifedipine 30 mg tablet,extended 30 mg PO QAM #30 tabs 03/20/23 03/23/23 Rx release 24 hr (Procardia XL) Patient History Medical History Diabetes Anemia Secondary hyperparathyroidism (of renal origin) Chronic kidney disease, stage 4 (severe) Chronic back pain Restrictive lung disease Hypercapnic respiratory failure Obstructive sleep apnea Chronic hypoxemic respiratory failure Hyperlipidemia Colon cancer Hypertension Urinary problem COPD (chronic obstructive pulmonary disease) Prostate cancer (06/23/08) "Rising PSA Status post biopsy revealing adenocarcinoma [place] 3+4 10 of 24 cores positive, High-grade prostatic intraepithelial neoplasm present Status post robotic prostatectomy 10/06/2008 Adenocarcinoma Josy 3+3 negative margins Perineural invasion present Stage pT2c pN0M0 Rising PSA to 0.08 Status post completion of salvage radiation 11/16/2014 received 7040 cGy " On 11/24/14 15:53 Oliva Lozano wrote "Rising PSA Status post biopsy revealing adenocarcinoma Josy 3+4 10 of 24 cores positive, High-grade prostatic intraepithelial neoplasm present Status post robotic prostatectomy 10/06/2008 Adenocarcinoma Josy 3+3 negative margins Perineural invasion present Stage pT2c pN0M0 Rising PSA to 0.08 Status post completion of salvage radiation 11/16/2014 received 7040 cGy " On 09/04/14 10:59 Oliva Lozano wrote "Rising PSA Status post biopsy revealing adenocarcinoma Josy 3+4 10 of 24 cores positive, High-grade prostatic intraepithelial neoplasm present Status post robotic prostatectomy 10/06/2008 Adenocarcinoma Josy 3+3 negative margins Perineural invasion present PT2c pN0M0 Rising PSA to 0.08 " Knee pain Surgical History History of prostatectomy Family History Father Myocardial infarction, Onset Age: 70 Denies family history of Ovarian cancer Prostate cancer Breast cancer Colorectal cancer Social History Smoking Status: Never smoker Tobacco Type: Smokeless Tobacco (Dip or Chew) Second Hand Exposure: No; Do You Dip or Chew Tobacco: No (quit in 2008); Hx Alcohol Use: No Hx Substance Use: No Preferred Language: Japanese Communication Ability: Effective Visual Impairment: Limited Hearing Ability: Normal Overlock Collar Setter Required: No Beliefs That Will Affect Care: None marital status: Current Living Situation: Spouse Current Living Situation Comment: with current occupational status: 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 Feels Safe at Home: Yes Childhood Exposure to Second-Hand Smoke: Yes caffeine: Yes (soda) during the past year weight has: remained stable Dental Care, Regularly: No Physical Activity Frequency: Does not Exercise Seatbelt Use: never Sunscreen Use: No Assistive Devices: Oxygen - Continuous, Walker and Other Review of Systems Constitutional: + chills; no fever Ear, Nose, Mouth, Throat: no hearing loss Respiratory: + dyspnea Cardiovascular: no chest pain Gastrointestinal: no nausea Genitourinary: + as per Subjective / HPI Musculoskeletal: no back pain Integumentary: no rash Neurologic: no localized weakness Physical Exam Constitutional: WD/WN, vitals as above Eyes: no conjunctival abnormality ENMT: Ears: no hearing impairment Neck: trachea midline Respiratory: At the time of my interview patient was not using event specialist food demonstrator muscles to aid in respiration. He did not appear dyspneic. Breath sounds are decreased at bases Cardiovascular: Rate/Rhythm: regular rate and regular rhythm Gastrointestinal (Abdomen): Soft, nontender, no rebound tenderness or guarding Musculoskeletal: No calf tenderness Skin: no rashes Neurologic: moves all extremities Genitourinary: Arreguin catheter is in place. The urine in the collection bag appears alexa- colored. There appeared to be some remnants of dried blood in the Arreguin tubing but no gross blood clots. The Arreguin catheter did appear patent. Results & Data Vital Signs (Past 12 Hours) Vital Signs Temp Pulse Pulse Resp BP BP Pulse Ox 03/26/23 19:49 03/26/23 19:07 36.6 C 87 20 157/74 H 96 03/26/23 15:47 86 03/26/23 15:23 36.9 C 85 19 162/74 H 90 03/26/23 11:02 76 03/26/23 11:01 03/26/23 11:00 36.8 C 75 20 173/82 H 92 03/26/23 10:00 83 19 97 03/26/23 10:00 147/93 H O2 Del Method O2 Flow Rate 03/26/23 19:49 Nasal Cannula 5 03/26/23 19:07 Nasal Cannula 5 03/26/23 15:47 03/26/23 15:23 Nasal Cannula 5 03/26/23 11:02 03/26/23 11:01 Nasal Cannula 6 03/26/23 11:00 Nasal Cannula 6 03/26/23 10:00 03/26/23 10:00 PG Care Time/CCT Total # of Minutes Spent Total Time Spent with Patient: Total time spent is greater than 50% in coordination of care (as documented) at patient's floor/unit and/or counseling patient: Coding Level of Care Code 48995 INT INP/OBS CARE 3/75MIN Diagnoses Hematuria R31.9
[2023-03-26] MEDS: ACETAMINOPHEN 325 MG TAB PO PRN (23:16)
[2023-03-27] MEDS: ONDANSETRON INJ 2 MG/ML 2 ML VIAL IV PRN (00:06)
[2023-03-27] MEDS: CHECK CLONIDINE PATCH PLACEMENT SCH ×3 (00:08→17:41)
--- NOTE | 2023-03-27 07:13 | Hospitalist Progress Note ---
Date of Service March 27, 2023 Assessment & Plan (1) Hematuria: Plan: (2) Chronic hypoxemic respiratory failure: (3) Rigors: (4) CHF exacerbation: (5) Diabetes: Plan 72-year-old male with PMH of COPD, restrictive lung disease, colon cancer, prostate cancer, HLD, HFpEF, anxiety and depression, and SHALA not tolerating CPAP. He presented with SOB, rigors, confusion, dysuria: Chronic hypoxemic respiratory failure secondary to hypercapnia - untreated sleep apnea, coupled with hospital course, characterized by dip in O2 sat while sleeping, suggestive of chronic hypoventilation -CO2 today: 45 - Patient on BiPaP during the night, not tolerating well. Currently on oxymask 6L (baseline 2 L) -Pneumology recommendations: Well compensated with acceptable ph.Continue oxygen supplementation -Follow up with wine steward at [facility] at [place] -Repeat sleep study -Keep oxygen saturation above 88% -Inspirometry -keep head elevation while sleeping Hematuria Lavinia color on Guerrero today Hgb: 10.6 , H/H-> 9.7, 10 Initial UA without bacteria, nitrite, LE Urine cx :negative Blood culture cx: negative for 24 hr Ceftriaxone d/c yesterday Urology consulted: hematuria due to catheter trauma, hx of radiation ,possible infection. Follow outpatient for possible repeat of cystoscopy Will D/C guerrero today, and do a void trial Bilateral lower extremities weakness -Deconditioning due to current illness -PT/OT evaluation pending CHF Acute on Chronic Last echo on 02/16/2023 revealed LVEF at 60-65%; RVSP elevated at 5060mmHg Chest CT significant for cardiomegaly with pulmonary edema, trace right and small left pleural effusions Abdomen/pelvic CT revealed cardiomegaly with advanced coronary artery athero sclerosis Last BNP 523 on 02/15/2023 Continue Lasix 40 mg IV BID17 Rigors-Resolved Onset of rigors, chills, and lower back pain the morning of 03/22 - None observed during past 2 days No leukocytosis; afebrile Blood cultures: Preliminary growth of gram positive cocci in clusters at 24H, second cx negative, likely contaminant Abdomen/pelvic CT significant for thickening of bladder wall Will repeat Blood culture - negative for 24 hrs Acetaminophen as needed for pain/fever Restrictive lung disease - PFTs in 2012 -CT: no significant parenchymal abnormality -Baseline of 2L NC O supplementation Diabetes: Last A1c at 6.6% on 02/16/2023 Hold semaglutide Recommend Lantus 5u BID while inpatient SSI; with target BSG range 110-140mg/dL, CF 55, carb ratio 20 T2DM diet BSG ACHS Adjust regimen as needed Plan Disposition: PCU telemetry DNR/DNI T2DM, AHA diet VTE PPx: SCDs (hold chemical DVT PPx in setting of hematuria) Admission and Anticipated Discharge Date Admission Date: March 23, 2023 Supervising Physician Co-Signing Physician Notes Attending Physician Supervision Note: I independently interviewed and examined the patient and verified the rust history and physical, reviewed labs and image studies and agree with findings and care plan noted above. continues to feel weak. refusing bipap. vitals noted nad heent nc at mmm breathing unlabored good effort no conversational dyspnea no accessory muscles, lungs - CTA hematuria - urine cx neg- abx d/jose urology consult - likely from guerrero. if hematuria persists - to consider cys toscopy. -d/c guerrero - voiding trial. acute on chronic hypoxic and hypercapnic respiratory failure- d/t likely untreated SHALA/OHA with acute diastolic chf. Pul consult - -well compensated with acceptable pH. hypoxia sec to hypercapnia. -patient to sleep with the head of bed elevated is much as possible. -cpap/bipap as tolerated. -Continued weight loss may be beneficial. -consider repeating sleep study. CHF - uncontrolled bp likely contributing. Rise in BUN/Creatine noted -will d/c lasix. Neg 3L weakness - multifactorial. For deconditioning - PT/OT DVT proph - pharmacologic contraindicated currently due to hematuria; has SCDs d/c guerrero - voiding trial Subjective 72-year-old male with PMH of COPD, restrictive lung disease, colon cancer, prostate cancer, HLD, HFpEF, anxiety and depression, and SHALA not tolerating CPAP. He presented with SOB, rigors, confusion, dysuria Pt evaluated at bedside this AM. Awake, in no acute distress. He refers feels ok, no complains. Refers weakness is less on his legs. He is denying BIPAP. Currently on Oxymask 6L. Guerrero was discontinue today and do a void trial. Denies CP, fever/chills, abdominal pain, dysuria. Gross hematuria noted in Guerrero bag. Review of Systems Review of Systems: as per HPI Physical Exam Constitutional: awake in no acute distress, not using accessory muscles Respiratory: Auscultation: + rhonchi (bilateral) Cardiovascular: RRR, no murmur, no edema Gastrointestinal (Abdomen): normal bowel sounds, soft, nontender, no hepatosplenomegaly Neurologic: moves all extremities Results & Data Results & Data Vital Signs (Past 12 Hours) Vital Signs Temp Pulse Pulse Resp BP Pulse Ox Pulse Ox 03/27/23 02:55 36.6 C 77 20 134/70 93 03/27/23 00:00 92 03/26/23 23:00 89 03/26/23 22:54 36.8 C 88 20 127/63 92 03/26/23 19:49 O2 Del Method O2 Del Method O2 Flow Rate O2 Flow Rate 03/27/23 02:55 Oxymask 6 03/27/23 00:00 Nasal Cannula 5 03/26/23 23:00 03/26/23 22:54 Nasal Cannula 5 03/26/23 19:49 Nasal Cannula 5 Resident Activity Tracking Resident Involvement: Resident Care Provided Care Provided: Adult Hospital Medicine (5) Diabetes Diabetes mellitus complication status: without complication Diabetes mellitus senior living insulin use: with senior living use Diabetes mellitus type: type 2 Qualified Code(s): E11.9 - Type 2 diabetes mellitus without complications; Z79.4 - senior living (current) use of insulin
[2023-03-27 07:36] LABS: Basophils # (auto) 0.06 K/uL (0.00-0.20); Basophils % (auto) 0.6 %; Eosinophils # (auto) 0.15 K/uL (0.00-0.50); Eosinophils % (auto) 1.6 %; Hematocrit (blood only) 31.2 % (42.0-52.0); Hemoglobin 9.7 g/dl (14.0-18.0); Immature Granulocytes # (auto) 0.02 K/uL (0.01-0.20); Immature Granulocytes % (auto) 0.2 %; Lymphocytes # (auto) 0.47 K/uL (1.20-3.40); Lymphocytes % (auto) 5.1 %; Mean Corpuscular Hemoglobin 27.9 pg (25.0-34.0); Mean Corpuscular Hgb Conc 31.1 g/dL (32.0-36.0); Mean Corpuscular Volume 89.7 fL (80.0-100.0); Mean Platelet Volume 9.1 fL (9.4-12.4); Monocytes # (auto) 0.79 K/uL (0.11-0.59); Monocytes % (auto) 8.5 %; Neutrophils # (auto) 7.75 K/uL (1.40-6.50); Platelet Count 185 K/uL (130-400); RDW Coefficient of Variation 13.4 % (11.5-14.5); RDW Standard Deviation 43.9 fL (36.4-46.3); Red Blood Count 3.48 M/uL (4.70-6.10); White Blood Count 9.24 K/ul (4.8-10.8)
[2023-03-27 07:58] LABS: Albumin Level 3.2 gm/dl (3.4-5.0); BUN Creatinine Ratio 15.1 (10-20); Bilirubin,Total 0.3 mg/dl (0.2-1.0); Calcium 8.7 mg/dl (8.6-10.3); Creatinine Clr Calc Pharmacy 23.3 ml/min; Est GFR (African American) 23.6 ml/min; Est GFR (Non-African American) 20.3 ml/min; Globulin 3.3 gm/dl (2.5-4.0); Potassium 3.8 mmol/L (3.5-5.1); Total Protein 6.5 gm/dl (6.0-8.3)
[2023-03-27] MEDS: ASPIRIN 81 MG ECTAB PO SCH (08:25)
[2023-03-27] MEDS: FUROSEMIDE 40 MG/4 ML VIAL IV SCH (08:25)
[2023-03-27] MEDS: hydrALAZINE TAB 50 MG TAB PO SCH ×4 (08:25→21:00)
[2023-03-27] MEDS: METOPROLOL TARTRATE 50 MG TAB PO SCH ×2 (08:25→21:01)
[2023-03-27] MEDS: UMECLIDINIUM/VILANTEROL 62.5/25MCG 7 PUFFS/INHALER INH SCH (08:26)
[2023-03-27] MEDS: TAMSULOSIN HCL 0.4 MG CAP PO SCH (08:26)
[2023-03-27] MEDS: FLUTICASONE FUROATE 200MCG 14 PUFFS/INHALER INH SCH (08:26)
[2023-03-27] MEDS: NIFEdipine EXTENDED REL 30 MG TABCR PO SCH (08:26)
[2023-03-27] MEDS: ROSUVASTATIN CALCIUM 10 MG TAB PO SCH (08:26)
[2023-03-27] MEDS: ESCITALOPRAM OXALATE 10 MG TAB PO SCH (08:26)
[2023-03-27] MEDS: INSULIN ASPART PER UNIT CHARGE SC SCH ×4 (08:27→21:00)
[2023-03-27] MEDS: LANTUS PER UNIT CHARGE SQ SCH ×2 (08:27→21:00)
[2023-03-27] MEDS: traMADol HCL 50 MG TABLET PO SCH (08:29)
--- NOTE | 2023-03-27 09:12 | Urology Progress Note ---
Date of Service March 27, 2023 Assessment & Plan (1) Hematuria: Plan 72yo/M with a hx of prostate cancer s/p prostatectomy and radiation admitted with chronic hypoxemic respiratory failure, CHF exacerbation, hematuria. - Afebrile, VSS, on 6L Oxymask - Labs reviewed - WBC 9.24, Hemoglobin 9.7, Creatinine 2.92. Continue to trend. - Urinalysis on admit 5-10RBC, 20-30Epis, negative bacteria, negative nitrite, negative LE. - Urine culture 03/25 prelim no growth. It is noted that the urine cx was not taken prior to initiation of abx treatment - Blood cultures prelim aerococcus viridans and staph species, repeat pending. - Was on Ceftriaxone, stopped 03/26 per primary team - CTAP 03/23 reviewed - No stones or hydronephrosis. Bladder decompressed with thickened wall and surrounding infiltration. - Arreguin draining appropriately - urine is alexa colored with some sediment. No hematuria or clot noted at time of exam. - No urological intervention warranted at this time. - Pt had prior office cysto 10/[address] Blackwood. Note reviewed - No masses or lesions within bladder. No tumors or nodules. - Hematuria possibly due to catheter trauma from insertion, hx of radiation, possible infection. - Maintain Arreguin catheter. OK to manually irrigate as needed for clots, reten tion, suprapubic pain. - Depending on clinical course, can try void trial before discharge or we can arrange outpatient in our office if needed. - Continue supportive care and management per primary team. - Continue tamsulosin. - Will arrange outpatient follow-up with our service for continued care and possible repeat cystoscopy. - Urology will follow peripherally. Please call with any questions/concerns. Admission and Anticipated Discharge Date Admission Date: March 23, 2023 Subjective Pt examined at bedside this AM. Asleep on arrival, awakened to name. No acute distress. Arreguin intact, draining alexa colored urine with sediment. Denies any pain or discomfort at present. Review of Systems Constitutional: as per Subjective / HPI Genitourinary: + as per Subjective / HPI Physical Exam Constitutional: no acute distress Respiratory: no respiratory distress and no labored breathing on O2 via Oxymask Gastrointestinal (Abdomen): Soft, nontender Neurologic: moves all extremities Psychiatric: Orientation: alert and cooperative Genitourinary: Arreguin catheter is in place draining alexa-colored urine with sediment. No gross hematuria or clots visualized. Results & Data Vital Signs (Past 12 Hours) Vital Signs Temp Pulse Pulse Resp BP Pulse Ox Pulse Ox 03/27/23 07:30 74 03/27/23 07:04 36.3 C L 82 21 152/74 H 99 03/27/23 02:55 36.6 C 77 20 134/70 93 03/27/23 00:00 92 03/26/23 23:00 89 03/26/23 22:54 36.8 C 88 20 127/63 92 O2 Del Method O2 Del Method O2 Flow Rate O2 Flow Rate 03/27/23 07:30 03/27/23 07:04 Oxymask 6 03/27/23 02:55 Oxymask 6 03/27/23 00:00 Nasal Cannula 5 03/26/23 23:00 03/26/23 22:54 Nasal Cannula 5 PG Care Time/CCT Total # of Minutes Spent Total Time Spent with Patient: Total time spent is greater than 50% in coordination of care (as documented) at patient's floor/unit and/or counseling patient: Coding Level of Care Code 37282 SUB INP/OBS CARE 2/35MIN Diagnoses Hematuria R31.9
[2023-03-27 12:02] LABS: Hematocrit (blood only) 30.6 % (42.0-52.0)
[2023-03-27 18:24] LABS: Hemoglobin 10.3 g/dl (14.0-18.0)
[2023-03-27] MEDS: traZODone HCL 50 MG TAB PO SCH (21:00)
[2023-03-27] MEDS: rOPINIRole HCL 0.25 MG TABLET PO SCH (21:02)
[2023-03-28] MEDS: CHECK CLONIDINE PATCH PLACEMENT SCH ×4 (00:26→23:58)
[2023-03-28 06:03] LABS: Basophils # (auto) 0.04 K/uL (0.00-0.20); Basophils % (auto) 0.3 %; Eosinophils # (auto) 0.16 K/uL (0.00-0.50); Eosinophils % (auto) 1.3 %; Hematocrit (blood only) 31.6 % (42.0-52.0); Hemoglobin 10.1 g/dl (14.0-18.0); Immature Granulocytes # (auto) 0.05 K/uL (0.01-0.20); Immature Granulocytes % (auto) 0.4 %; Lymphocytes # (auto) 0.33 K/uL (1.20-3.40); Lymphocytes % (auto) 2.7 %; Mean Corpuscular Hemoglobin 28.7 pg (25.0-34.0); Mean Corpuscular Volume 89.8 fL (80.0-100.0); Mean Platelet Volume 8.8 fL (9.4-12.4); Monocytes # (auto) 0.96 K/uL (0.11-0.59); Neutrophils % (auto) 87.3 %; Platelet Count 189 K/uL (130-400); RDW Coefficient of Variation 13.5 % (11.5-14.5); RDW Standard Deviation 44.3 fL (36.4-46.3); Red Blood Count 3.52 M/uL (4.70-6.10); White Blood Count 12.04 K/ul (4.8-10.8)
[2023-03-28 06:25] LABS: Albumin Level 3.3 gm/dl (3.4-5.0); BUN Creatinine Ratio 14.9 (10-20); Bilirubin,Total 0.3 mg/dl (0.2-1.0); Calcium 8.5 mg/dl (8.6-10.3); Creatinine Clr Calc Pharmacy 19.5 ml/min; Est GFR (African American) 18.9 ml/min; Est GFR (Non-African American) 16.3 ml/min; Globulin 3.4 gm/dl (2.5-4.0); Potassium 3.8 mmol/L (3.5-5.1); Total Protein 6.7 gm/dl (6.0-8.3)
--- NOTE | 2023-03-28 06:54 | Hospitalist Progress Note ---
Date of Service March 28, 2023 Assessment & Plan (1) Hematuria: Plan: (2) Chronic hypoxemic respiratory failure: (3) Rigors: (4) CHF exacerbation: (5) Diabetes: Plan 72-year-old male with PMH of COPD, restrictive lung disease, colon cancer, prostate cancer, HLD, HFpEF, anxiety and depression, and SHALA not tolerating CPAP. He presented with SOB, rigors, confusion, dysuria: Chronic hypoxemic respiratory failure secondary to hypercapnia - untreated sleep apnea, coupled with hospital course, characterized by dip in O2 sat while sleeping, suggestive of chronic hypoventilation - Patient on BiPaP during the night, declining during the night. Currently on oxymask 2L (baseline 2 L) -Pneumology recommendations: Well compensated with acceptable ph.Continue oxygen supplementation -Follow up with guest room inspector at [facility] -Repeat sleep study -Keep oxygen saturation above 88% -Inspirometry -keep head elevation while sleeping Hematuria likely from trauma Guerrero HGB stable at 10, stable Urine cx :negative Ceftriaxone Urology consulted: hematuria due to catheter trauma, hx of radiation ,possible infection. Follow outpatient for possible repeat of cystoscopy. Recommend catheter replacement with an Guerrero d/c yesterday. As per nursing some incontinence. Will monitor ability to void and post void residuals and reconsider Guerrero Bilateral lower extremities weakness -Deconditioning due to current illness -PT/OT :recommended inpatient rehab, patient decline. CM following One blood culture positive - positive for Aerococcus viridans - bacteremia vs contaminated -Second Blood culture: negative -Ceftriaxone MILTON on CKD4 baseline for 2.5 Cr: 3.50 Avoid nephrotoxic medication Lasix was d/c BMP AM CHF Chronic Last echo on 02/16/2023 LVEF at 60-65% Chest CT significant for cardiomegaly with pulmonary edema, trace right and small left pleural effusions Last BNP 523 on 02/15/2023 Restrictive lung disease - PFTs in 2013 -CT: no significant parenchymal abnormality -Baseline of 2L NC O supplementation Diabetes: Last A1c at 6.6% on 02/16/2023 Recommend Lantus 5u BID while inpatient Adjust regimen as needed Plan Disposition: PCU telemetry DNR/DNI T2DM, AHA diet VTE PPx: SCDs (hold chemical DVT PPx in setting of hematuria) Admission and Anticipated Discharge Date Admission Date: March 23, 2023 Supervising Physician Co-Signing Physician Notes Attending Physician Supervision Note: I independently interviewed and examined the patient and verified the rust history and physical, reviewed labs and image studies and agree with findings and care plan noted above. no new concerns. continues to feel weak and refusing bipap. vitals noted nad heent nc at mmm breathing unlabored good effort no conversational dyspnea no accessory muscles, lungs - CTA Acute metabolic encephalopathy - likely multifactorial - hypercapnia, probable uti and bacteremia mentation cleared but lethargy exits. acute on chronic hypoxic and hypercapnic respiratory failure- d/t likely untrea xavi SHALA/OHA with acute diastolic chf. Pul consult - -well compensated with acceptable pH. hypoxia sec to hypercapnia. -patient to sleep with the head of bed elevated is much as possible. -cpap/bipap as tolerated. -Continued weight loss may be beneficial. -consider repeating sleep study. Acute on chronic HFpEF - uncontrolled bp likely contributing. Rise in BUN/Creatine noted -d/jose lasix. Not adherent to home dose lasix. MILTON on ckd holding lasix. follow renal function. Positive one blood culture with Aerococcus - Aerococcus infection usually nosocomial and cause uti urine cx drawn after 2 days of abx. will continue rocephin to finish treatment hematuria urology consult - likely from guerrero. -d/jose guerrero - urine cleared. weakness - multifactorial. For deconditioning - PT/OT DVT proph - pharmacologic contraindicated currently due to hematuria; has SCDs Subjective 72-year-old male with PMH of COPD, restrictive lung disease, colon cancer, prostate cancer, HLD, HFpEF, anxiety and depression, and SHALA not tolerating CPAP. He presented with SOB, rigors, confusion, dysuria Pt evaluated at bedside this AM. Awake, in no acute distress. He refers feels ok,. Still denying BIPAP. Currently on nasal cannula 2 L. Guerrero was discontinue today and do a void trial. Denies CP, fever/chills, abdominal pain, dysuria. Review of Systems Review of Systems: as per HPI Physical Exam Constitutional: WD/WN, vitals as above Respiratory: normal respiratory effort, lungs clear to auscultation Auscultation: + rhonchi (bilateral) Cardiovascular: RRR, no murmur, no edema Gastrointestinal (Abdomen): normal bowel sounds, soft, nontender, no hepatosplenomegaly Neurologic: normal touch/pain/proprioception, CN's II-XI intact bilaterally and moves all extremities Results & Data Results & Data Vital Signs (Past 12 Hours) Vital Signs Temp Pulse Pulse Resp BP Pulse Ox Pulse Ox 03/28/23 03:07 36.5 C 79 20 142/70 H 97 03/28/23 00:00 97 03/27/23 23:00 76 03/27/23 22:37 36.6 C 76 20 116/66 98 03/27/23 20:00 03/27/23 19:06 36.7 C 71 18 119/62 98 O2 Del Method O2 Del Method O2 Flow Rate 03/28/23 03:07 Oxymask 4 03/28/23 00:00 Oxymask 03/27/23 23:00 03/27/23 22:37 Oxymask 6 03/27/23 20:00 Oxymask 6 03/27/23 19:06 Oxymask 6 Resident Activity Tracking Resident Involvement: Resident Care Provided Care Provided: Adult Hospital Medicine (5) Diabetes Diabetes mellitus complication status: without complication Diabetes mellitus detention insulin use: with oysterman use Diabetes mellitus type: type 2 Qualified Code(s): E11.9 - Type 2 diabetes mellitus without complications; Z79.4 - shelter (current) use of insulin
[2023-03-28] MEDS: INSULIN ASPART PER UNIT CHARGE SC SCH ×4 (07:59→21:10)
[2023-03-28] MEDS: ACETAMINOPHEN 325 MG TAB PO PRN ×2 (08:02→16:57)
[2023-03-28] MEDS: METOPROLOL TARTRATE 50 MG TAB PO SCH ×2 (08:03→21:12)
[2023-03-28] MEDS: ASPIRIN 81 MG ECTAB PO SCH (08:03)
[2023-03-28] MEDS: ESCITALOPRAM OXALATE 10 MG TAB PO SCH (08:03)
[2023-03-28] MEDS: TAMSULOSIN HCL 0.4 MG CAP PO SCH (08:03)
[2023-03-28] MEDS: ROSUVASTATIN CALCIUM 10 MG TAB PO SCH (08:03)
[2023-03-28] MEDS: hydrALAZINE TAB 50 MG TAB PO SCH ×4 (08:03→21:11)
[2023-03-28] MEDS: NIFEdipine EXTENDED REL 30 MG TABCR PO SCH (08:03)
[2023-03-28] MEDS: UMECLIDINIUM/VILANTEROL 62.5/25MCG 7 PUFFS/INHALER INH SCH (08:04)
[2023-03-28] MEDS: FLUTICASONE FUROATE 200MCG 14 PUFFS/INHALER INH SCH (08:04)
[2023-03-28] MEDS: LANTUS PER UNIT CHARGE SQ SCH ×2 (08:08→21:11)
[2023-03-28] MEDS: traMADol HCL 50 MG TABLET PO SCH (08:08)
[2023-03-28] MEDS ORDERED: AMPICILLIN 250 MG in SODIUM CHLORIDE 0.9% 50 ML IV SCH (08:45)
[2023-03-28] MEDS ORDERED: AMPICILLIN 2,000 MG in SODIUM CHLOR 0.9% MINI-B 100 ML IV SCH (09:00)
[2023-03-28] MEDS: cefTRIAXone SODIUM 2,000 MG in DEXTROSE 5 % MINI-B 50 ML IV SCH (10:20)
--- NOTE | 2023-03-28 11:24 | Urology Progress Note ---
Date of Service March 28, 2023 Assessment & Plan (1) Hematuria: Plan 72yo/M with a hx of prostate cancer s/p prostatectomy and radiation admitted with chronic hypoxemic respiratory failure, CHF exacerbation, hematuria. - Afebrile, VSS, O2 via Oxymask - Labs reviewed - WBC 12.04, Hemoglobin 10.1, Creatinine 2.92- 3.5 today. Continue to trend. - Urinalysis on admit 5-10RBC, 20-30Epis, negative bacteria, negative nitrite, negative LE. - Urine culture 03/25 negative. It is noted that the urine cx was not taken prior to initiation of abx treatment - Blood cultures prelim aerococcus viridans and staph species, repeat BCx prelim no growth. - On Ceftriaxone. - CTAP 03/23 reviewed - No stones or hydronephrosis. Bladder decompressed with thickened wall and surrounding infiltration. - Arreguin removed yesterday for void trial. Pt voiding spontaneously, but mostly incontinent per nursing. - Recommend monitoring ability to void and post void residuals. Recommend catheter replacement with any s/s of retention. - Continue supportive care and management per primary team. - Continue tamsulosin. - Will arrange outpatient follow-up with our service. - Urology will follow peripherally. Please call with any questions/concerns. Admission and Anticipated Discharge Date Admission Date: March 23, 2023 Subjective Pt examined at bedside this AM. Asleep on arrival, awakened to name. No acute distress. Arreguin removed yesterday for void trial. Per nursing, voiding but has been mostly incontinent. Pt denies any pain at present. Review of Systems Constitutional: as per Subjective / HPI Genitourinary: + as per Subjective / HPI Physical Exam Constitutional: no acute distress Respiratory: no respiratory distress on O2 via Oxymask Gastrointestinal (Abdomen): Soft, nontender Psychiatric: Orientation: alert and cooperative Results & Data Vital Signs (Past 12 Hours) Vital Signs Temp Pulse Pulse Resp BP Pulse Ox Pulse Ox 03/28/23 11:04 36.3 C L 80 22 129/66 91 03/28/23 09:45 03/28/23 07:42 82 03/28/23 07:03 36.7 C 83 20 136/69 97 03/28/23 03:07 36.5 C 79 20 142/70 H 97 03/28/23 00:00 97 O2 Del Method O2 Del Method O2 Flow Rate 03/28/23 11:04 Oxymask 2 03/28/23 09:45 Oxymask 4 03/28/23 07:42 03/28/23 07:03 Oxymask 4 03/28/23 03:07 Oxymask 4 03/28/23 00:00 Oxymask PG Care Time/CCT Total # of Minutes Spent Total Time Spent with Patient: Total time spent is greater than 50% in coordination of care (as documented) at patient's floor/unit and/or counseling patient: Coding Level of Care Code 38705 SUB INP/OBS CARE 2/35MIN Diagnoses Hematuria R31.9
[2023-03-28] MEDS: traZODone HCL 50 MG TAB PO SCH (21:10)
[2023-03-28] MEDS: rOPINIRole HCL 0.25 MG TABLET PO SCH (21:12)
--- NOTE | 2023-03-29 06:47 | Hospitalist Progress Note ---
Date of Service March 29, 2023 Assessment & Plan (1) Hematuria: Plan: (2) Chronic hypoxemic respiratory failure: (3) Rigors: (4) CHF exacerbation: (5) Diabetes: Plan 72-year-old male with PMH of COPD, restrictive lung disease, colon cancer, prostate cancer, HLD, HFpEF, anxiety and depression, and SHALA not tolerating CPAP. He presented with SOB, rigors, confusion, dysuria: Chronic hypoxemic respiratory failure secondary to hypercapnia - untreated sleep apnea, characterized by dip in O2 sat while sleeping, suggestive of chronic hypoventilation - Patient on BiPaP during the night, declining during the night. -Patient currently back on his baseline 2L Nasal Cannula -Pneumology recommendations: Well compensated with acceptable ph. Continue oxygen supplementation -Follow up with needle straightener at [facility] -Repeat sleep study -Keep oxygen saturation above 90-92% to prevent further CO2 retention -Inspirometry -keep head elevation while sleeping - Acute metabolic encephalopathy vs dementia -multifactorial- hypercapnia, uti/bacteremia -Will reassess baseline with family Deconditioning Bilateral lower extremities weakness -Deconditioning due to current illness -PT/OT :recommended inpatient rehab, patient decline. CM following -plan for discussion of goals of care MILTON on CKD4 baseline for Cr 2.5 Cr: 3.60 Avoid nephrotoxic medication Lasix was d/c BMP AM Urine incontinence -Will monitor ability to void and post void residuals and reconsider Guerrero Hematuria- Resolved likely from trauma Guerrero HGB stable at 10, stable Urine cx :negative Ceftriaxone Urology consulted: Follow outpatient for possible repeat of cystoscopy Guerrero d/c yesterday. One blood culture positive - positive for Aerococcus viridans - bacteremia vs contaminated -Second Blood culture: negative -Ceftriaxone CHF Chronic Last echo on 02/16/2023 LVEF at 60-65% Chest CT significant for cardiomegaly with pulmonary edema, trace right and small left pleural effusions Last BNP 523 on 02/15/2023 Restrictive lung disease - PFTs in 2012 -CT: no significant parenchymal abnormality -Baseline of 2L NC O supplementation Diabetes: Last A1c at 6.6% on 02/16/2023 Recommend Lantus 5u BID while inpatient Adjust regimen as needed Plan Disposition: PCU telemetry DNR/DNI T2DM, AHA diet VTE PPx: Heparin 5,000 SQ Q8h Admission and Anticipated Discharge Date Admission Date: March 23, 2023 Supervising Physician Co-Signing Physician Notes Attending Physician Supervision Note: I independently interviewed and examined the patient and verified the rust history and physical, reviewed labs and image studies and agree with findings and care plan noted above. no new concerns. continues to feel weak and refusing bipap. nursing reports incontinence of urine and had soft stools. vitals noted nad heent nc at mmm breathing unlabored good effort no conversational dyspnea no accessory muscles, lungs - CTA Acute metabolic encephalopathy - likely multifactorial - hypercapnia, probable uti and bacteremia mentation cleared but lethargy exits. acute on chronic hypoxic and hypercapnic respiratory failure- d/t likely untreated SHALA/OHA with acute diastolic chf. Pul consult - -well compensated with acceptable pH. hypoxia sec to hypercapnia. -to sleep with the head of bed elevated is much as possible. -cpap/bipap as tolerated. Continued weight loss may be beneficial. consider repeating sleep study. Acute on chronic HFpEF - uncontrolled bp likely contributing. Rise in BUN/Creatine noted -d/jose lasix. Not adherent to home dose lasix. MILTON on ckd holding lasix. NSS 500ml d/t continued rise in creatinine. follow bmp. Positive one blood culture with Aerococcus - Aerococcus infection usually nosocomial and cause uti urine cx drawn after 2 days of abx. to finish rocephin course tomorrow. hematuria urology consult - likely from guerrero. -d/jose guerrero - urine cleared. Urine incontinence condom catheter. weakness - multifactorial. For deconditioning - PT/OT DVT proph - pharmacologic contraindicated currently due to hematuria; has SCDs Subjective 72-year-old male with PMH of COPD, restrictive lung disease, colon cancer, prostate cancer, HLD, HFpEF, anxiety and depression, and SHALA not tolerating CPAP. He presented with SOB, rigors, confusion, dysuria Pt evaluated at bedside this AM. Awake, in no acute distress.. Still denying BIPAP. Currently on nasal cannula 2 L. Patient voiding, no hematuria with some incontinence. His Nancy was on the room at pm rounding. Update given and goals of care discussion. Seem that patient and would like to consider hospice/ HH. She will discuss with sons/family. Denies CP, fever/chills, abdominal pain, dysuria. Review of Systems Review of Systems: as per HPI Physical Exam Constitutional: WD/WN, vitals as above Respiratory: normal respiratory effort, lungs clear to auscultation Auscultation: + rhonchi (bilateral) Cardiovascular: RRR, no murmur, no edema Gastrointestinal (Abdomen): normal bowel sounds, soft, nontender, no hepatosplenomegaly Neurologic: normal touch/pain/proprioception, CN's II-XI intact bilaterally and moves all extremities Results & Data Results & Data Vital Signs (Past 12 Hours) Vital Signs Temp Pulse Pulse Resp BP Pulse Ox O2 Del Method 03/29/23 03:31 37.1 C 79 125/57 L 03/29/23 00:18 37 C 85 20 151/65 H 97 Oxymask 03/29/23 00:00 03/28/23 23:30 75 36 H 90 03/28/23 23:00 87 03/28/23 20:00 Nasal Cannula 03/28/23 19:27 37 C 89 19 159/72 H 91 Nasal Cannula O2 Del Method O2 Flow Rate O2 Flow Rate 03/29/23 03:31 03/29/23 00:18 5 03/29/23 00:00 Nasal Cannula 2 03/28/23 23:30 5 03/28/23 23:00 03/28/23 20:00 2 03/28/23 19:27 2 Resident Activity Tracking Resident Involvement: Resident Care Provided Care Provided: Adult Hospital Medicine (5) Diabetes Diabetes mellitus complication status: without complication Diabetes mellitus intermediate frame tender insulin use: with halfway use Diabetes mellitus type: type 2 Qualified Code(s): E11.9 - Type 2 diabetes mellitus without complications; Z79.4 - nursing home (current) use of insulin
[2023-03-29 07:08] LABS: Basophils # (auto) 0.05 K/uL (0.00-0.20); Basophils % (auto) 0.3 %; Eosinophils % (auto) 0.6 %; Hematocrit (blood only) 29.7 % (42.0-52.0); Hemoglobin 9.4 g/dl (14.0-18.0); Immature Granulocytes # (auto) 0.15 K/uL (0.01-0.20); Immature Granulocytes % (auto) 0.9 %; Lymphocytes % (auto) 2.5 %; Mean Corpuscular Hemoglobin 28.1 pg (25.0-34.0); Mean Corpuscular Hgb Conc 31.6 g/dL (32.0-36.0); Mean Corpuscular Volume 88.9 fL (80.0-100.0); Mean Platelet Volume 9.2 fL (9.4-12.4); Monocytes # (auto) 1.52 K/uL (0.11-0.59); Monocytes % (auto) 9.6 %; Neutrophils # (auto) 13.69 K/uL (1.40-6.50); Neutrophils % (auto) 86.1 %; Platelet Count 201 K/uL (130-400); RDW Coefficient of Variation 13.5 % (11.5-14.5); RDW Standard Deviation 43.8 fL (36.4-46.3); Red Blood Count 3.34 M/uL (4.70-6.10); White Blood Count 15.91 K/ul (4.8-10.8)
[2023-03-29 07:30] LABS: Albumin Level 3.1 gm/dl (3.4-5.0); BUN Creatinine Ratio 15.6 (10-20); Bilirubin,Total 0.2 mg/dl (0.2-1.0); Calcium 8.2 mg/dl (8.6-10.3); Creatinine Clr Calc Pharmacy 20.4 ml/min; Est GFR (African American) 18.3 ml/min; Est GFR (Non-African American) 15.8 ml/min; Globulin 3.2 gm/dl (2.5-4.0); Potassium 3.6 mmol/L (3.5-5.1); Total Protein 6.3 gm/dl (6.0-8.3)
[2023-03-29] MEDS: METOPROLOL TARTRATE 50 MG TAB PO SCH ×2 (08:13→21:01)
[2023-03-29] MEDS: ESCITALOPRAM OXALATE 10 MG TAB PO SCH (08:13)
[2023-03-29] MEDS: hydrALAZINE TAB 50 MG TAB PO SCH ×4 (08:13→21:01)
[2023-03-29] MEDS: ROSUVASTATIN CALCIUM 10 MG TAB PO SCH (08:14)
[2023-03-29] MEDS: TAMSULOSIN HCL 0.4 MG CAP PO SCH (08:14)
[2023-03-29] MEDS: LANTUS PER UNIT CHARGE SQ SCH ×2 (08:14→21:04)
[2023-03-29] MEDS: ASPIRIN 81 MG ECTAB PO SCH (08:14)
[2023-03-29] MEDS: NIFEdipine EXTENDED REL 30 MG TABCR PO SCH (08:14)
[2023-03-29] MEDS: INSULIN ASPART PER UNIT CHARGE SC SCH ×4 (08:14→20:54)
[2023-03-29] MEDS: CHECK CLONIDINE PATCH PLACEMENT SCH ×3 (08:15→23:45)
[2023-03-29] MEDS: FLUTICASONE FUROATE 200MCG 14 PUFFS/INHALER INH SCH (08:15)
[2023-03-29] MEDS: UMECLIDINIUM/VILANTEROL 62.5/25MCG 7 PUFFS/INHALER INH SCH (08:15)
[2023-03-29] MEDS: traMADol HCL 50 MG TABLET PO SCH (08:17)
[2023-03-29] MEDS: cefTRIAXone SODIUM 2,000 MG in DEXTROSE 5 % MINI-B 50 ML IV SCH (09:50)
[2023-03-29] MEDS: SODIUM CHLORIDE 0.9% 500 ML IV SCH ×3 (09:51→22:22)
[2023-03-29] MEDS: ACETAMINOPHEN 325 MG TAB PO PRN ×2 (12:46→22:52)
[2023-03-29] MEDS: traZODone HCL 50 MG TAB PO SCH (21:01)
[2023-03-29] MEDS: rOPINIRole HCL 0.25 MG TABLET PO SCH (21:01)
[2023-03-29] MEDS: HEPARIN SOD 5,000 UNIT/0.5 ML VIAL SQ SCH (21:02)
[2023-03-30] MEDS: HEPARIN SOD 5,000 UNIT/0.5 ML VIAL SQ SCH ×3 (05:13→21:24)
[2023-03-30 06:31] LABS: Hemoglobin 10.7 g/dl (14.0-18.0); Mean Corpuscular Hemoglobin 28.8 pg (25.0-34.0); Mean Corpuscular Hgb Conc 33.4 g/dL (32.0-36.0); Mean Corpuscular Volume 86.3 fL (80.0-100.0); Mean Platelet Volume 9.3 fL (9.4-12.4); Platelet Count 212 K/uL (130-400); RDW Coefficient of Variation 13.5 % (11.5-14.5); RDW Standard Deviation 42.5 fL (36.4-46.3); Red Blood Count 3.71 M/uL (4.70-6.10)
[2023-03-30 07:07] LABS: Albumin Level 2.9 gm/dl (3.4-5.0); Bilirubin,Total 0.3 mg/dl (0.2-1.0); Calcium 8.2 mg/dl (8.6-10.3); Potassium 3.5 mmol/L (3.5-5.1)
[2023-03-30 07:13] LABS: Albumin Globulin Ratio 0.9 (0.9-2); BUN Creatinine Ratio 16.9 (10-20); Creatinine Clr Calc Pharmacy 21.8 ml/min; Est GFR (African American) 19.8 ml/min; Est GFR (Non-African American) 17.1 ml/min; Globulin 3.2 gm/dl (2.5-4.0); Total Protein 6.1 gm/dl (6.0-8.3)
[2023-03-30 07:14] LABS: Basophils # (auto) 0.04 K/uL (0.00-0.20); Basophils % (auto) 0.2 %; Dohle Bodies 1+; Eosinophils # (auto) 0.06 K/uL (0.00-0.50); Eosinophils % (auto) 0.4 %; Immature Granulocytes # (auto) 0.15 K/uL (0.01-0.20); Immature Granulocytes % (auto) 0.9 %; Lymphocytes # (auto) 0.31 K/uL (1.20-3.40); Lymphocytes % (auto) 1.9 %; Monocytes # (auto) 1.65 K/uL (0.11-0.59); Monocytes % (auto) 10.1 %; Neutrophils # (auto) 14.09 K/uL (1.40-6.50); Neutrophils % (auto) 86.5 %
--- NOTE | 2023-03-30 08:44 | Hospitalist Progress Note ---
Date of Service March 30, 2023 Assessment & Plan (1) Hematuria: Plan: (2) Chronic hypoxemic respiratory failure: (3) Rigors: (4) CHF exacerbation: (5) Diabetes: Plan 72-year-old male with PMH of COPD, restrictive lung disease, colon cancer, prostate cancer, HLD, HFpEF, anxiety and depression, and SHALA not tolerating CPAP. He presented with SOB, rigors, confusion, dysuria: Chronic hypoxemic respiratory failure secondary to hypercapnia - untreated sleep apnea, characterized by dip in O2 sat while sleeping, suggestive of chronic hypoventilation - Patient on BiPaP during the night. He is unwilling to use BIPAP machine overnight, only accepting nasal cannula -Patient currently on Nasal cannula between 2-4 L -Pneumology recommendations: acceptable ph. Continue oxygen supplementation -Follow up with captain cannery tender at [facility] [place] -consider repeating sleep study -Keep oxygen saturation above 90-92% to prevent further CO2 retention -Inspirometry -keep head elevation while sleeping - Acute metabolic encephalopathy vs dementia -multifactorial- hypercapnia, uti/bacteremia -Acute decline during admission, lethargy with lucid intervals Deconditioning Bilateral lower extremities weakness -Deconditioning due to current illness -PT/OT :recommended inpatient rehab -After discussion of goals of care, the decision of hospice was made today. CM following MILTON on CKD4 baseline for Cr 2.5 Cr: 3.37 , slightly improvement Avoid nephrotoxic medication Lasix was d/c BMP AM One blood culture positive - positive for Aerococcus viridans (UTI pathogen) - bacteremia vs contaminated -One peak of fever 38 C, resolved -Second Blood culture: negative -Ceftriaxone -Continue monitoring Urine incontinence -Will monitor ability to void and post void residuals and reconsider Guerrero Hematuria- Resolved likely from trauma Guerrero HGB stable at 10, stable Urine cx :negative Ceftriaxone Urology consulted: Follow outpatient for possible repeat of cystoscopy Guerrero d/c yesterday. CHF Chronic Last echo on 02/16/2023 LVEF at 60-65% Chest CT significant for cardiomegaly with pulmonary edema, trace right and small left pleural effusions Last BNP 523 on 02/15/2023 Diabetes: Last A1c at 6.6% on 02/16/2023 Recommend Lantus 5u BID while inpatient Adjust regimen as needed Plan Disposition: PCU telemetry DNR/DNI T2DM, AHA diet VTE PPx: Heparin 5,000 SQ Q8h Admission and Anticipated Discharge Date Admission Date: March 23, 2023 Supervising Physician Co-Signing Physician Notes Attending Physician Supervision Note: I independently interviewed and examined the patient and verified the rust history and physical, reviewed labs and image studies and agree with findings and care plan noted above. no new concerns. continues to feel weak and staying confused. lethargic/confused. vitals noted nad heent nc at mmm breathing unlabored good effort no conversational dyspnea no accessory muscles, lungs - CTA Acute metabolic encephalopathy - likely multifactorial - hypercapnia, probable uti and bacteremia mentation waxing and waning. acute on chronic hypoxic and hypercapnic respiratory failure- d/t likely untreated SHALA/OHA with acute diastolic chf. Pul consult - -well compensated with acceptable pH. hypoxia sec to hypercapnia. -to sleep with the head of bed elevated is much as possible. -cpap/bipap as tolerated. Continued weight loss may be beneficial. consider repeating sleep study. Acute on chronic HFpEF - uncontrolled bp likely contributing. Rise in BUN/Creatine noted -d/jose lasix. Not adherent to home dose lasix. MILTON on ckd holding lasix. Improvement in creatinine after NSS 500ml. follow bmp. Positive one blood culture with Aerococcus - Aerococcus infection usually nosocomial and cause uti urine cx drawn after 2 days of abx. to finish rocephin course tomorrow. Fever and rise in wbc - suspect atelectasis with limited mobility contributing. hematuria urology consult - likely from guerrero. -d/jose guerrero - urine cleared. Urine incontinence chronic. weakness - multifactorial. DVT proph - pharmacologic contraindicated currently due to hematuria; has SCDs Goals of care - patient has been sleeping and lethargic at home for a long time. no quality of life per . wondering about hospice care. Considering the overall morbidity with baseline chronic hypercapnic respiratory failure, diastolic heart failure, echo with moderate LVH, pulmonary hypertension in setting of ckd 4, obesity leading to restrictive lungs ds, cognitive decline, prostate cancer with recent rise in PSA pointing to recurrence - Will purse arrangement of hospice care. Subjective 72-year-old male with PMH of COPD, restrictive lung disease, colon cancer, prostate cancer, HLD, HFpEF, anxiety and depression, and SHALA not tolerating CPAP. He presented with SOB, rigors, confusion, dysuria Pt evaluated at bedside this AM. Awake, in no acute distress.. Still denying BIPAP. Currently on nasal cannula 2 L. Patient voiding, no hematuria with some incontinence. His Nancy was on the room at pm rounding. Discussion of goals of care today in the afternoon with . would like to take do hospice and take him home. She want the patient be comfortable. Case management follow up Denies CP, fever/chills, abdominal pain, dysuria. Review of Systems Review of Systems: as per hpi Physical Exam Constitutional: WD/WN, vitals as above Respiratory: normal respiratory effort, lungs clear to auscultation Auscultation: + rhonchi (bilateral) Cardiovascular: RRR, no murmur, no edema Gastrointestinal (Abdomen): normal bowel sounds, soft, nontender, no hepatosplenomegaly Neurologic: normal touch/pain/proprioception, CN's II-XI intact bilaterally and moves all extremities Results & Data Results & Data Vital Signs (Past 12 Hours) Vital Signs Temp Pulse Pulse Resp BP Pulse Ox Pulse Ox 03/30/23 08:09 37.0 C 97 H 20 145/71 H 95 03/30/23 07:27 97 H 03/30/23 03:48 36.9 C 89 18 136/78 96 03/30/23 00:00 93 03/29/23 23:47 89 03/29/23 22:47 38.0 C H 83 20 158/67 H 91 O2 Del Method O2 Del Method O2 Flow Rate O2 Flow Rate 03/30/23 08:09 Nasal Cannula 4 03/30/23 07:27 03/30/23 03:48 Nasal Cannula 3 03/30/23 00:00 Nasal Cannula 3 03/29/23 23:47 03/29/23 22:47 Nasal Cannula 3 Resident Activity Tracking Resident Involvement: Resident Care Provided Care Provided: Adult Hospital Medicine (5) Diabetes Diabetes mellitus complication status: without complication Diabetes mellitus keno terminal operator insulin use: with keno terminal operator use Diabetes mellitus type: type 2 Qualified Code(s): E11.9 - Type 2 diabetes mellitus without complications; Z79.4 - custodial (current) use of insulin
[2023-03-30] MEDS: NIFEdipine EXTENDED REL 30 MG TABCR PO SCH (09:29)
[2023-03-30] MEDS: hydrALAZINE TAB 50 MG TAB PO SCH ×4 (09:29→21:23)
[2023-03-30] MEDS: METOPROLOL TARTRATE 50 MG TAB PO SCH ×2 (09:29→21:24)
[2023-03-30] MEDS: TAMSULOSIN HCL 0.4 MG CAP PO SCH (09:30)
[2023-03-30] MEDS: ASPIRIN 81 MG ECTAB PO SCH (09:30)
[2023-03-30] MEDS: cloNIDine HCL 0.3 MG/24 HR TRANSDERM SYS TD SCH (09:30)
[2023-03-30] MEDS: UMECLIDINIUM/VILANTEROL 62.5/25MCG 7 PUFFS/INHALER INH SCH (09:33)
[2023-03-30] MEDS: ESCITALOPRAM OXALATE 10 MG TAB PO SCH (09:33)
[2023-03-30] MEDS: ROSUVASTATIN CALCIUM 10 MG TAB PO SCH (09:33)
[2023-03-30] MEDS: FLUTICASONE FUROATE 200MCG 14 PUFFS/INHALER INH SCH (09:34)
[2023-03-30] MEDS: INSULIN ASPART PER UNIT CHARGE SC SCH ×4 (09:44→21:22)
[2023-03-30] MEDS: CHECK CLONIDINE PATCH PLACEMENT SCH ×2 (09:45→17:34)
[2023-03-30] MEDS: traMADol HCL 50 MG TABLET PO SCH (10:15)
[2023-03-30] MEDS: LANTUS PER UNIT CHARGE SQ SCH ×2 (10:18→21:22)
[2023-03-30] MEDS: rOPINIRole HCL 0.25 MG TABLET PO SCH (21:23)
[2023-03-30] MEDS: traZODone HCL 50 MG TAB PO SCH (21:32)
[2023-03-31] MEDS: CHECK CLONIDINE PATCH PLACEMENT SCH ×3 (00:25→17:28)
[2023-03-31] MEDS: HEPARIN SOD 5,000 UNIT/0.5 ML VIAL SQ SCH ×3 (06:13→21:46)
--- NOTE | 2023-03-31 07:50 | Hospitalist Progress Note ---
Date of Service March 31, 2023 Assessment & Plan (1) Hematuria: Plan: (2) Chronic hypoxemic respiratory failure: (3) Rigors: (4) CHF exacerbation: (5) Diabetes: Plan 72-year-old male with PMH of COPD, restrictive lung disease, colon cancer, prostate cancer, HLD, HFpEF, anxiety and depression, and SHALA not tolerating CPAP. He presented with SOB, rigors, confusion, dysuria: Chronic hypoxemic respiratory failure secondary to hypercapnia - untreated sleep apnea, characterized by dip in O2 sat while sleeping, suggestive of chronic hypoventilation - Patient on BiPaP during the night. He is unwilling to use BIPAP machine overnight, only accepting nasal cannula -Patient currently on Nasal cannula between 2-4 L -Pneumology recommendations: acceptable ph. Continue oxygen supplementation -Follow up with [facility]ipper at [facility] [place] -consider repeating sleep study -Keep oxygen saturation above 90-92% to prevent further CO2 retention -Inspirometry -keep head elevation while sleeping - CM on case: coordinating Hospice - Acute metabolic encephalopathy vs dementia -multifactorial- hypercapnia, uti/bacteremia -Acute decline during admission, lethargy with lucid intervals Deconditioning Bilateral lower extremities weakness -Deconditioning due to current illness -PT/OT :recommended inpatient rehab -After discussion of goals of care, the decision of hospice was made today. CM following MILTON on CKD4 baseline for Cr 2.5 Bump on Cr -- IVF 80 ml/hr Avoid nephrotoxic medication Lasix was d/c BMP AM One blood culture positive - positive for Aerococcus viridans (UTI pathogen) - bacteremia vs contaminated -One peak of fever 38 C, resolved -Second Blood culture: negative -s/p Ceftriaxone -Continue monitoring Urine incontinence -Will monitor ability to void and post void residuals and reconsider Guerrero Hematuria- Resolved likely from trauma Guerrero HGB stable at 10, stable Urine cx :negative Ceftriaxone Urology consulted: Follow outpatient for possible repeat of cystoscopy Guerrero d/c yesterday. CHF Chronic Last echo on 02/16/2023 LVEF at 60-65% Chest CT significant for cardiomegaly with pulmonary edema, trace right and small left pleural effusions Last BNP 523 on 02/15/2023 Diabetes: Last A1c at 6.6% on 02/16/2023 Recommend Lantus 5u BID while inpatient Adjust regimen as needed Plan Disposition: PCU telemetry DNR/DNI T2DM, AHA diet VTE PPx: Heparin 5,000 SQ Q8h Admission and Anticipated Discharge Date Admission Date: March 23, 2023 Supervising Physician Co-Signing Physician Notes Attending Physician Supervision Note: I independently interviewed and examined the patient and verified the rust history and physical, reviewed labs and image studies and agree with findings and care plan noted above. no new concerns. continues to be lethargic. Acute metabolic encephalopathy - likely multifactorial - hypercapnia, probable uti and bacteremia mentation waxing and waning. acute on chronic hypoxic and hypercapnic respiratory failure- d/t likely untreated SHALA/OHA with acute diastolic chf. Pul consult - -well compensated with acceptable pH. hypoxia sec to hypercapnia. -to sleep with the head of bed elevated is much as possible. -cpap/bipap as tolerated. Continued weight loss may be beneficial. consider repeating sleep study. Acute on chronic HFpEF - uncontrolled bp likely contributing. -d/jose lasix d/t rise in creat. Not adherent to home dose lasix. MILTON on ckd holding lasix. Improvement in creatinine after NSS 500ml. follow bmp. Positive one blood culture with Aerococcus - Aerococcus infection usually nosocomial and cause uti urine cx drawn after 2 days of abx. s/p course of ceftriaxone Fever and rise in wbc - suspect atelectasis with limited mobility contributing. no further fever but wbc higher. since approaching hospice - will defer any further investigation. hematuria urology consult - likely from guerrero. -d/jose guerrero - urine cleared. Urine incontinence chronic. weakness - multifactorial. SCD Goals of care - patient has been sleeping and lethargic at home for a long time. no quality of life per . wondering about hospice care. Considering the overall morbidity with baseline chronic hypercapnic respiratory failure, diastolic heart failure, echo with moderate LVH, pulmonary hypertension in setting of ckd 4, obesity leading to restrictive lungs ds, cognitive decline, prostate cancer with recent rise in PSA pointing to recurrence - Will purse arrangement of hospice care. Subjective 72-year-old male with PMH of COPD, restrictive lung disease, colon cancer, prostate cancer, HLD, HFpEF, anxiety and depression, and SHALA not tolerating CPAP. He presented with SOB, rigors, confusion, dysuria Pt evaluated at bedside this AM. Awake, in no acute distress.. Still denying BIPAP. Currently on nasal cannula 2 L. Patient voiding, no hematuria with some incontinence. Family want hospice and take him home. She want the patient be comfortable. Case management following up. Denies CP, fever/chills, abdominal pain, dysuria. Review of Systems Review of Systems: as per hpi Physical Exam Constitutional: WD/WN, vitals as above Respiratory: normal respiratory effort, lungs clear to auscultation Auscultation: + rhonchi (bilateral) Cardiovascular: RRR, no murmur, no edema Gastrointestinal (Abdomen): normal bowel sounds, soft, nontender, no hepatosplenomegaly Neurologic: normal touch/pain/proprioception, CN's II-XI intact bilaterally and moves all extremities Results & Data Results & Data Vital Signs (Past 12 Hours) Vital Signs Temp Pulse Pulse Resp BP Pulse Ox Pulse Ox 03/31/23 07:15 94 H 03/31/23 03:59 37.1 C 95 H 16 119/67 97 03/31/23 00:00 97 03/30/23 23:47 37.4 C 103 H 16 136/69 97 03/30/23 22:01 103 H 03/30/23 20:15 36.5 C 104 H 18 144/66 H 97 03/30/23 20:00 O2 Del Method O2 Del Method O2 Flow Rate O2 Flow Rate 03/31/23 07:15 03/31/23 03:59 Nasal Cannula 4 03/31/23 00:00 Nasal Cannula 4 03/30/23 23:47 Nasal Cannula 4 03/30/23 22:01 03/30/23 20:15 Nasal Cannula 4 03/30/23 20:00 Nasal Cannula 4 (5) Diabetes Diabetes mellitus complication status: without complication Diabetes mellitus mcfp insulin use: with buttermilk drier operator use Diabetes mellitus type: type 2 Qualified Code(s): E11.9 - Type 2 diabetes mellitus without complications; Z79.4 - penitentiary (current) use of insulin
[2023-03-31 07:56] LABS: Hematocrit (blood only) 30.7 % (42.0-52.0); Hemoglobin 10.3 g/dl (14.0-18.0); Mean Corpuscular Hemoglobin 28.6 pg (25.0-34.0); Mean Corpuscular Hgb Conc 33.6 g/dL (32.0-36.0); Mean Corpuscular Volume 85.3 fL (80.0-100.0); Mean Platelet Volume 9.4 fL (9.4-12.4); Platelet Count 254 K/uL (130-400); RDW Coefficient of Variation 13.8 % (11.5-14.5); RDW Standard Deviation 43.2 fL (36.4-46.3); White Blood Count 19.48 K/ul (4.8-10.8)
[2023-03-31] MEDS: INSULIN ASPART PER UNIT CHARGE SC SCH ×4 (08:05→20:06)
[2023-03-31] MEDS: traMADol HCL 50 MG TABLET PO SCH (08:05)
[2023-03-31] MEDS: LANTUS PER UNIT CHARGE SQ SCH ×2 (08:07→21:45)
[2023-03-31] MEDS: ESCITALOPRAM OXALATE 10 MG TAB PO SCH (08:19)
[2023-03-31] MEDS: ASPIRIN 81 MG ECTAB PO SCH (08:19)
[2023-03-31] MEDS: hydrALAZINE TAB 50 MG TAB PO SCH ×4 (08:21→21:46)
[2023-03-31] MEDS: ROSUVASTATIN CALCIUM 10 MG TAB PO SCH (08:21)
[2023-03-31] MEDS: TAMSULOSIN HCL 0.4 MG CAP PO SCH (08:22)
[2023-03-31] MEDS: NIFEdipine EXTENDED REL 30 MG TABCR PO SCH (08:22)
[2023-03-31] MEDS: UMECLIDINIUM/VILANTEROL 62.5/25MCG 7 PUFFS/INHALER INH SCH (08:22)
[2023-03-31] MEDS: METOPROLOL TARTRATE 50 MG TAB PO SCH ×2 (08:22→21:47)
[2023-03-31 08:23] LABS: Albumin Globulin Ratio 0.9 (0.9-2); Albumin Level 2.7 gm/dl (3.4-5.0); BUN Creatinine Ratio 18.2 (10-20); Bilirubin,Total 0.2 mg/dl (0.2-1.0); Calcium 8.1 mg/dl (8.6-10.3); Creatinine Clr Calc Pharmacy 20.4 ml/min; Est GFR (African American) 18.4 ml/min; Est GFR (Non-African American) 15.9 ml/min; Globulin 3.1 gm/dl (2.5-4.0); Potassium 3.7 mmol/L (3.5-5.1); Total Protein 5.8 gm/dl (6.0-8.3)
[2023-03-31] MEDS: FLUTICASONE FUROATE 200MCG 14 PUFFS/INHALER INH SCH (08:23)
[2023-03-31 08:26] LABS: Basophils # (auto) 0.04 K/uL (0.00-0.20); Basophils % (auto) 0.2 %; Dohle Bodies 1+; Eosinophils # (auto) 0.02 K/uL (0.00-0.50); Eosinophils % (auto) 0.1 %; Immature Granulocytes # (auto) 0.14 K/uL (0.01-0.20); Immature Granulocytes % (auto) 0.7 %; Lymphocytes # (auto) 0.34 K/uL (1.20-3.40); Lymphocytes % (auto) 1.7 %; Monocytes # (auto) 1.97 K/uL (0.11-0.59); Monocytes % (auto) 10.1 %; Neutrophils # (auto) 16.97 K/uL (1.40-6.50); Neutrophils % (auto) 87.2 %; Polychromasia 1+
[2023-03-31] MEDS: LACTATED RINGER'S 1,000 ML IV SCH ×2 (09:58→22:28)
[2023-03-31] MEDS: rOPINIRole HCL 0.25 MG TABLET PO SCH (21:45)
[2023-03-31] MEDS: traZODone HCL 50 MG TAB PO SCH (21:46)
[2023-04-01] MEDS: CHECK CLONIDINE PATCH PLACEMENT SCH ×4 (00:03→23:43)
[2023-04-01] MEDS: HEPARIN SOD 5,000 UNIT/0.5 ML VIAL SQ SCH ×3 (06:06→21:14)
[2023-04-01 07:29] LABS: Hematocrit (blood only) 33.3 % (42.0-52.0); Hemoglobin 10.5 g/dl (14.0-18.0); Mean Corpuscular Hemoglobin 28.2 pg (25.0-34.0); Mean Corpuscular Hgb Conc 31.5 g/dL (32.0-36.0); Mean Corpuscular Volume 89.3 fL (80.0-100.0); Mean Platelet Volume 9.3 fL (9.4-12.4); Nucleated RBC # (auto) 0.02 K/uL (0.00-0.12); Nucleated RBC % (auto) 0.1 %; Platelet Count 270 K/uL (130-400); RDW Coefficient of Variation 13.7 % (11.5-14.5); Red Blood Count 3.73 M/uL (4.70-6.10); White Blood Count 19.43 K/ul (4.8-10.8)
[2023-04-01 07:44] LABS: Albumin Globulin Ratio 0.8 (0.9-2); Albumin Level 2.5 gm/dl (3.4-5.0); BUN Creatinine Ratio 17.2 (10-20); Bilirubin,Total 0.2 mg/dl (0.2-1.0); Calcium 8.4 mg/dl (8.6-10.3); Creatinine Clr Calc Pharmacy 17.1 ml/min; Est GFR (African American) 14.8 ml/min; Est GFR (Non-African American) 12.7 ml/min; Globulin 3.1 gm/dl (2.5-4.0); Potassium 3.9 mmol/L (3.5-5.1); Total Protein 5.6 gm/dl (6.0-8.3)
[2023-04-01 07:54] LABS: Basophils # (auto) 0.09 K/uL (0.00-0.20); Basophils % (auto) 0.5 %; Eosinophils # (auto) 0.04 K/uL (0.00-0.50); Eosinophils % (auto) 0.2 %; Immature Granulocytes # (auto) 0.15 K/uL (0.01-0.20); Immature Granulocytes % (auto) 0.8 %; Lymphocytes # (auto) 0.35 K/uL (1.20-3.40); Lymphocytes % (auto) 1.8 %; Monocytes # (auto) 2.05 K/uL (0.11-0.59); Monocytes % (auto) 10.6 %; Neutrophils # (auto) 16.75 K/uL (1.40-6.50); Neutrophils % (auto) 86.1 %
--- NOTE | 2023-04-01 08:03 | Hospitalist Progress Note ---
Date of Service April 01, 2023 Assessment & Plan (1) Hematuria: Plan: (2) Chronic hypoxemic respiratory failure: (3) Rigors: (4) CHF exacerbation: (5) Diabetes: Plan 72-year-old male with PMH of COPD, restrictive lung disease, colon cancer, prostate cancer, HLD, HFpEF, anxiety and depression, and SHALA not tolerating CPAP. He presented with SOB, rigors, confusion, dysuria: Chronic hypoxemic respiratory failure secondary to hypercapnia - untreated sleep apnea, characterized by dip in O2 sat while sleeping, suggestive of chronic hypoventilation - Patient on BiPaP during the night. He is unwilling to use BIPAP machine overnight, only accepting nasal cannula -Patient currently on Nasal cannula between 2-4 L -Pneumology recommendations: acceptable ph. Continue oxygen supplementation -Keep oxygen saturation above 90-92% to prevent further CO2 retention -Inspirometry -keep head elevation while sleeping - CM on case: coordinating Hospice, plan for home morning am - Acute metabolic encephalopathy vs dementia -multifactorial- hypercapnia, uti/bacteremia -Acute decline during admission -Lethargic, answered after call his name Deconditioning Bilateral lower extremities weakness -Deconditioning due to current illness -PT/OT :recommended inpatient rehab -After discussion of goals of care, the decision of hospice was made today. CM following Rise on WBC -suspect atelectasis with limited mobility contributing. -only one episode of fever -since approaching hospice - will defer any further investigation. MILTON on CKD4 baseline for Cr 2.5 Bump on Cr -- s/p IVF 80 ml/hr Avoid nephrotoxic medication Lasix was d/c -Defer following, hospice status One blood culture positive - positive for Aerococcus viridans (UTI pathogen) - bacteremia vs contaminated -One peak of fever 38 C, resolved -Second Blood culture: negative -s/p Ceftriaxone - Hospice status, will defers further investigation Urine incontinence -Will monitor voids and post voiding residuals - if retaining -->Guerrero catheter Hematuria- Resolved likely from trauma Guerrero HGB stable CHF Acute on Chronic- Last echo on 02/16/2023 LVEF at 60-65%, Moderate LVH, pulmonary HTN Chest CT significant for cardiomegaly with pulmonary edema, trace right and small left pleural effusions - d/c lasix due to rise in Cr Diabetes: Recommend Lantus 5u BID while inpatient Adjust regimen as needed Prostate cancer Recurrence- rise on PSA - Hospice care Plan Disposition: PCU telemetry VTE PPx: Heparin 5,000 SQ Q8h Admission and Anticipated Discharge Date Admission Date: March 23, 2023 Supervising Physician Co-Signing Physician Notes Attending Physician Supervision Note: I independently interviewed and examined the patient and verified the rust hist ory and physical, reviewed labs and image studies and agree with findings and care plan noted above. no new concerns. continues to be lethargic. Goals of care - patient has been sleeping and lethargic at home for a long time. no quality of life per . wondering about hospice care. Considering the overall morbidity with baseline chronic hypercapnic respiratory failure, diastolic heart failure, echo with moderate LVH, pulmonary hypertension in setting of ckd 4, obesity leading to restrictive lungs ds, cognitive decline, prostate cancer with recent rise in PSA pointing to recurrence, MILTON - Pursuing arrangement of hospice care. Consider further medication deescalation at the time of discharge. Acute metabolic encephalopathy - likely multifactorial - hypercapnia, probable uti and bacteremia mentation waxing and waning. acute on chronic hypoxic and hypercapnic respiratory failure- d/t likely untreated SHALA/OHA with acute diastolic chf. Pul consult - Initial plan - -well compensated with acceptable pH. hypoxia sec to hypercapnia. -to sleep with the head of bed elevated is much as possible. -cpap/bipap as tolerated. Continued weight loss may be beneficial. consider repeating sleep study. Acute on chronic HFpEF - uncontrolled bp likely contributing. -d/jose lasix d/t rise in creat. Has not been adherent to home dose lasix. MILTON on ckd stopped lasix due to worsening bun. worsening creatinine despite IVF. d/ce IVF. Positive one blood culture with Aerococcus - Aerococcus infection usually nosocomial and cause uti urine cx drawn after 2 days of abx. s/p course of ceftriaxone Fever (03/29) and rise in wbc - suspect atelectasis with limited mobility contributing. no further fever but wbc higher. since approaching hospice - will defer any further investigation. hematuria urology consult - likely from guerrero. -d/jose guerrero - urine cleared. Urine incontinence chronic. Chronic pain scheduled tramadol weakness - multifactorial. Heparin Subjective 72-year-old male with PMH of COPD, restrictive lung disease, colon cancer, prostate cancer, HLD, HFpEF, anxiety and depression, and SHALA not tolerating CPAP. He presented with SOB, rigors, confusion, dysuria Pt evaluated at bedside this AM.Still denying BIPAP. More lethargic. Currently on nasal cannula 2-4L. Patient voiding, no hematuria with some incontinence. Pending hospice. Denies CP, fever/chills, abdominal pain, dysuria. Review of Systems Review of Systems: as per HPI Physical Exam Constitutional: WD/WN, vitals as above Respiratory: Auscultation: + rhonchi (bilateral) Cardiovascular: RRR, no murmur, no edema Gastrointestinal (Abdomen): normal bowel sounds, soft, nontender, no hepatosplenomegaly Neurologic: normal touch/pain/proprioception, CN's II-XI intact bilaterally and moves all extremities Results & Data Results & Data Vital Signs (Past 12 Hours) Vital Signs Temp Pulse Pulse Resp BP Pulse Ox Pulse Ox 04/01/23 07:50 36.8 C 85 16 106/60 97 04/01/23 03:10 36.5 C 93 H 18 132/66 96 04/01/23 00:00 97 03/31/23 22:00 95 H 03/31/23 22:00 36.6 C 95 H 18 128/69 97 O2 Del Method O2 Del Method O2 Flow Rate O2 Flow Rate 04/01/23 07:50 Nasal Cannula 4 04/01/23 03:10 Nasal Cannula 4 04/01/23 00:00 Nasal Cannula 4 03/31/23 22:00 03/31/23 22:00 Nasal Cannula 4 Resident Activity Tracking Resident Involvement: Resident Care Provided Care Provided: Adult Hospital Medicine (5) Diabetes Diabetes mellitus complication status: without complication Diabetes mellitus usp insulin use: with joint terminal attack controller use Diabetes mellitus type: type 2 Qualified Code(s): E11.9 - Type 2 diabetes mellitus without complications; Z79.4 - terminal makeup operator (current) use of insulin
[2023-04-01] MEDS: INSULIN ASPART PER UNIT CHARGE SC SCH ×4 (08:29→21:13)
[2023-04-01] MEDS: FLUTICASONE FUROATE 200MCG 14 PUFFS/INHALER INH SCH (08:30)
[2023-04-01] MEDS: ASPIRIN 81 MG ECTAB PO SCH (08:30)
[2023-04-01] MEDS: TAMSULOSIN HCL 0.4 MG CAP PO SCH (08:31)
[2023-04-01] MEDS: METOPROLOL TARTRATE 50 MG TAB PO SCH ×2 (08:31→21:14)
[2023-04-01] MEDS: ROSUVASTATIN CALCIUM 10 MG TAB PO SCH (08:31)
[2023-04-01] MEDS: ESCITALOPRAM OXALATE 10 MG TAB PO SCH (08:31)
[2023-04-01] MEDS: hydrALAZINE TAB 50 MG TAB PO SCH ×4 (08:32→21:12)
[2023-04-01] MEDS: UMECLIDINIUM/VILANTEROL 62.5/25MCG 7 PUFFS/INHALER INH SCH (08:33)
[2023-04-01] MEDS: LANTUS PER UNIT CHARGE SQ SCH ×2 (08:36→21:12)
[2023-04-01] MEDS: traMADol HCL 50 MG TABLET PO SCH (08:36)
[2023-04-01] MEDS: LACTATED RINGER'S 1,000 ML IV SCH (12:05)
[2023-04-01] MEDS: NIFEdipine EXTENDED REL 30 MG TABCR PO SCH (12:05)
[2023-04-01] MEDS: ACETAMINOPHEN 325 MG TAB PO PRN (14:34)
[2023-04-01] MEDS: rOPINIRole HCL 0.25 MG TABLET PO SCH (21:13)
[2023-04-01] MEDS: traZODone HCL 50 MG TAB PO SCH (21:17)
[2023-04-02] MEDS: HEPARIN SOD 5,000 UNIT/0.5 ML VIAL SQ SCH (05:22)
[2023-04-02] MEDS: traMADol HCL 50 MG TABLET PO SCH (09:09)
[2023-04-02] MEDS: LANTUS PER UNIT CHARGE SQ SCH (09:09)
[2023-04-02] MEDS: INSULIN ASPART PER UNIT CHARGE SC SCH ×2 (09:10→12:13)
[2023-04-02] MEDS: METOPROLOL TARTRATE 50 MG TAB PO SCH (09:10)
[2023-04-02] MEDS: CHECK CLONIDINE PATCH PLACEMENT SCH (09:10)
[2023-04-02] MEDS: NIFEdipine EXTENDED REL 30 MG TABCR PO SCH (09:10)
[2023-04-02] MEDS: ESCITALOPRAM OXALATE 10 MG TAB PO SCH (09:11)
[2023-04-02] MEDS: TAMSULOSIN HCL 0.4 MG CAP PO SCH (09:11)
[2023-04-02] MEDS: ROSUVASTATIN CALCIUM 10 MG TAB PO SCH (09:12)
[2023-04-02] MEDS: ASPIRIN 81 MG ECTAB PO SCH (09:12)
[2023-04-02] MEDS: hydrALAZINE TAB 50 MG TAB PO SCH ×2 (09:13→12:13)
[2023-04-02] MEDS: FLUTICASONE FUROATE 200MCG 14 PUFFS/INHALER INH SCH (09:28)
[2023-04-02] MEDS: UMECLIDINIUM/VILANTEROL 62.5/25MCG 7 PUFFS/INHALER INH SCH (09:28)
[2023-04-02] MEDS: ONDANSETRON INJ 2 MG/ML 2 ML VIAL IV PRN (09:37)
--- NOTE | 2023-04-02 09:54 | Hospitalist Progress Note ---
Date of Service April 02, 2023 Assessment & Plan (1) Hematuria: Plan: (2) Chronic hypoxemic respiratory failure: (3) Rigors: (4) CHF exacerbation: (5) Diabetes: Plan 72-year-old male with PMH of COPD, restrictive lung disease, colon cancer, prostate cancer, HLD, HFpEF, anxiety and depression, and SHALA not tolerating CPAP. He presented with SOB, rigors, confusion, dysuria: Chronic hypoxemic respiratory failure secondary to hypercapnia - untreated sleep apnea, characterized by dip in O2 sat while sleeping, suggestive of chronic hypoventilation - Patient on BiPaP during the night. He is unwilling to use BIPAP machine overnight, only accepting nasal cannula -Patient currently on Nasal cannula between 2-4 L -Pneumology recommendations: acceptable ph. Continue oxygen supplementation -Keep oxygen saturation above 90-92% to prevent further CO2 retention -Inspirometry -keep head elevation while sleeping - CM on case: coordinating Hospice, plan for home morning am - Acute metabolic encephalopathy vs dementia -multifactorial- hypercapnia, uti/bacteremia -Acute decline during admission -Lethargic, answered after call his name Deconditioning Bilateral lower extremities weakness -Deconditioning due to current illness -PT/OT :recommended inpatient rehab -After discussion of goals of care, the decision of hospice was made today. CM following Rise on WBC -suspect atelectasis with limited mobility contributing. -only one episode of fever -since approaching hospice - will defer any further investigation. MILTON on CKD4 baseline for Cr 2.5 Bump on Cr -- s/p IVF 80 ml/hr Avoid nephrotoxic medication Lasix was d/c -Defer following, hospice status One blood culture positive - positive for Aerococcus viridans (UTI pathogen) - bacteremia vs contaminated -One peak of fever 38 C, resolved -Second Blood culture: negative -s/p Ceftriaxone - Hospice status, will defers further investigation Urine incontinence -Will monitor voids and post voiding residuals - if retaining -->Arreguin catheter Hematuria- Resolved likely from trauma Arreguin HGB stable CHF Acute on Chronic- Last echo on 02/16/2023 LVEF at 60-65%, Moderate LVH, pulmonary HTN Chest CT significant for cardiomegaly with pulmonary edema, trace right and small left pleural effusions - d/c lasix due to rise in Cr Diabetes: Recommend Lantus 5u BID while inpatient Adjust regimen as needed Prostate cancer Recurrence- rise on PSA - Hospice care Plan Disposition: PCU telemetry VTE PPx: Heparin 5,000 SQ Q8h Admission and Anticipated Discharge Date Admission Date: March 23, 2023 Subjective 72-year-old male with PMH of COPD, restrictive lung disease, colon cancer, prostate cancer, HLD, HFpEF, anxiety and depression, and SHALA not tolerating CPAP. He presented with SOB, rigors, confusion, dysuria Pt evaluated at bedside this AM.Still denying BIPAP. More lethargic. Currently on nasal cannula 2-4L. Patient voiding, no hematuria with some incontinence. Pending hospice. Denies CP, fever/chills, abdominal pain, dysuria. Review of Systems Review of Systems: as per HPI Physical Exam Constitutional: WD/WN, vitals as above Respiratory: normal respiratory effort, lungs clear to auscultation Auscultation: + rhonchi (bilateral) Cardiovascular: RRR, no murmur, no edema Gastrointestinal (Abdomen): normal bowel sounds, soft, nontender, no hepatosplenomegaly Neurologic: normal touch/pain/proprioception, CN's II-XI intact bilaterally and moves all extremities Results & Data Results & Data Vital Signs (Past 12 Hours) Vital Signs Temp Pulse Pulse Resp BP Pulse Ox Pulse Ox 04/02/23 07:36 36.7 C 82 19 125/56 L 90 04/02/23 07:30 81 04/02/23 03:34 36.6 C 103 H 18 121/62 95 04/02/23 00:00 93 04/01/23 23:33 36.7 C 86 18 129/63 92 04/01/23 22:27 04/01/23 21:56 85 O2 Del Method O2 Del Method O2 Flow Rate O2 Flow Rate 04/02/23 07:36 Nasal Cannula 5.0 04/02/23 07:30 04/02/23 03:34 Nasal Cannula 4 04/02/23 00:00 Nasal Cannula 4 04/01/23 23:33 Room Air 04/01/23 22:27 Nasal Cannula 4 04/01/23 21:56 (5) Diabetes Diabetes mellitus type: type 2 Diabetes mellitus termination clerk insulin use: with halfway use Diabetes mellitus complication status: without complication Qualified Code(s): E11.9 - Type 2 diabetes mellitus without complications; Z79.4 - terminal gauger (current) use of insulin
--- NOTE | 2023-04-02 11:18 | Discharge Summary ---
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 He developed SOB, rigors, and confusion the morning of 03/22. He was then seen by his PCP on 03/23 and asked to come in for burning with urination. Patient is a poor historian, most of the history is provided by at bedside. The patient, and patient's , report that he had blood in his urine in the ED. He endorses intermittent lower back pain that started 2 days ago. No radiation. It does not wake him from sleep. Patient is on continuous 2L NC supplemental oxygen therapy at home; however reports that he was at 79% SpO2 at home, and increased it to 4L. He did not take any of his morning medications today. He also reports he has not eaten anything today. No history of kidney stones. History of prior UTI 9 years ago. Patient has not been taking any additional medications at home for pain, rigors, or SOB. Of note, the patient recently had a dialysis port placed on his RUE; however he has not started dialysis yet. He denies smoking, tobacco use, alcohol use, and recreational drug use. Patient is hypertensive at 210/105, tachypneic at 26, and SpO2 94% on 3L NC. ED course: Acetaminophen 1000 mg IV Rocephin 2000 mg IV ROS: Patient endorses FELIX, rigors, chills, productive cough (clear), abdominal cramping, dry heaves, nausea, burning with urination, blood in urine, bilateral flank pain, lower back pain. Patient denies fever, sweating, CP, SOB, vomiting, and diarrhea. Admission Exam Per Admitting Provider General: no acute distress; non-toxic appearing; well-nourished; cooperative; 96% SpO2 on 2L HEENT: normocephalic, atraumatic; no scleral icterus; PERRLA w/ EOMs intact; moist mucus membrane; vision and hearing grossly intact Neck: supple; no JVD; no lymphadenopathy; trachea midline Skin: warm, dry without signs of tenting; no cyanosis; no rashes, bruising, lesions, or erythema noted CV: chest wall NTP; RR, mildly tachycardic around 100 bpm; S1/S2 normal; no murmurs/rubs/gallops; pulses intact, bounding, and symmetric at radial, DP, and PT Lungs: no acute respiratory distress; symmetrical chest wall expansion; diminished breath sounds across all lung self bilaterally; no wheezing ABD: Soft, NTP; BS present; no rebound/guarding; no ascites; no distention Back: Negative CVA tenderness; lumbar spine TTP; upper back NTP MSK: no tics or fasciculations; no edema noted in the LEs b/l Neuro: A&Ox3; normal mood and affect; fluent speech; CN2-12 intact; no focal deficits; sensation grossly intact Principal Diagnosis Chronic hypoxemic respiratory failure secondary to hypercapnia Discharge Exam Constitutional + obese, + altered mental status, + physical limitations and + frail appearing Respiratory Auscultation: + rales and + rhonchi (Bilateral) Cardiovascular RRR, no murmur, no edema Gastrointestinal (Abdomen) normal bowel sounds, soft, nontender, no hepatosplenomegaly Discharge Data Allergies Allergy/AdvReac Type Severity Reaction Status Date / Time bee venom protein (honey bee) Allergy Severe ANAPHYLAXIS Verified 03/23/23 10:55 Consultations 03/23/23 16:27 ED Decision to Admit Stat 03/25/23 20:09 Consult Pulmonology Routine 03/26/23 19:38 Consult Urology Routine Ordered Studies Microbiology 03/26/23 11:41 Blood Aerobic Blood Culture - Final No growth in Aerobic bottle after 5 days. 03/26/23 11:41 Blood Anaerobic Blood Culture - Final No growth in Anaerobic bottle after 5 days. 03/26/23 11:24 Blood Aerobic Blood Culture - Final No growth in Aerobic bottle after 5 days. 03/26/23 11:24 Blood Anaerobic Blood Culture - Final No growth in Anaerobic bottle after 5 days. 03/23/23 15:02 Blood Aerobic Blood Culture - Final Aerococcus viridans Coag neg staph not lugdunensis 03/23/23 15:02 Blood Anaerobic Blood Culture - Final No growth in Anaerobic bottle after 5 days. 03/23/23 15:02 Blood Aerobic Blood Culture - Final No growth in Aerobic bottle after 5 days. 03/23/23 15:02 Blood Anaerobic Blood Culture - Final No growth in Anaerobic bottle after 5 days. 03/25/23 18:06 Urine,Clean Catch Urine Culture - Final No growth - less than 1,000 colonies/mL. Labs 03/23/23 03/23/23 03/23/23 12:25 13:01 15:02 WBC 7.79 RBC 3.38 L Hgb 9.7 L Hct 29.8 L MCV 88.2 MCH 28.7 MCHC 32.6 RDW Std Deviation 42.6 RDW Coeff of Lyric 13.2 Plt Count 157 MPV 9.2 L Immature Gran % (Auto) 0.4 Neut % (Auto) 87.7 Lymph % (Auto) 4.6 [place] % (Auto) 6.3 Eos % (Auto) 0.4 Baso % (Auto) 0.6 Neut # (Auto) 6.83 H Lymph # (Auto) 0.36 L [place] # (Auto) 0.49 Eos # (Auto) 0.03 Baso # (Auto) 0.05 Immature Gran # (Auto) 0.03 Absolute Nucleated RBC Nucleated RBC % (auto) Dohle Bodies Polychromasia PT 11.1 INR 1.0 VBG pH 7.34 L VBG pCO2 84 H VBG pO2 31 VBG HCO3 45 VBG O2 Saturation < 60.0 VBG Base Excess 15.3 Sodium 142 Potassium 4.2 Chloride 97 L Carbon Dioxide 41 H* Anion Gap 4 BUN 33 H Creatinine 2.29 H Est Cr Clr Drug Dosing 26.9 Est GFR ( Amer) 31.6 Est GFR (Non-Af Amer) 27.3 BUN/Creatinine Ratio 14.4 Glucose 178 H POC Glucose Lactate 0.7 Calcium 9.7 Magnesium 1.8 Total Bilirubin 0.4 Direct Bilirubin 0.0 AST 13 ALT 7 Alkaline Phosphatase 78 Troponin I High Sens 12.8 B-Natriuretic Peptide Total Protein 7.1 Albumin 3.7 Globulin Albumin/Globulin Ratio Lipase 31 Procalcitonin < 0.05 Urine Color Yellow Urine Appearance Clear Urine pH 8.0 H Ur Specific [place] 1.018 Urine Protein 4+ H Urine Glucose (UA) 1+ H Urine Ketones Trace H Urine Blood Negative Urine Nitrite Negative Urine Bilirubin Negative Urine Urobilinogen Negative Ur Leukocyte Esterase Negative Urine WBC (Auto) 1-5 Urine RBC (Auto) 5-10 H U Hyaline Cast (Auto) 5-10 H U Epithel Cells (Auto) 20-30 H Urine Bacteria (Auto) Negative Adenovirus (PCR) B. pertussis DNA (PCR) B.parapertussis DNA PCR C. pneumoniae DNA (PCR) Coronavirus OC43 (PCR) Coronavirus HKU1 (PCR) Coronavirus 229E (PCR) SARS-CoV-2 (PCR) Coronavirus NL63 (PCR) Human Metapneumovir PCR Influenza Type A (PCR) Influenza Type B (PCR) M. pneumoniae (PCR) Parainfluenza 1 (PCR) Parainfluenza 2 (PCR) Parainfluenza 3 (PCR) Parainfluenza 4 (PCR) RSV (PCR) Entero/Rhino (PCR) Staphylococcus sp PCR DETECTED A Bld Cult ID Panel PCR See PCR Comment 03/23/23 03/23/23 03/23/23 15:05 15:40 21:21 WBC RBC Hgb Hct MCV MCH MCHC RDW Std Deviation RDW Coeff of Lyric Plt Count MPV Immature Gran % (Auto) Neut % (Auto) Lymph % (Auto) [place] % (Auto) Eos % (Auto) Baso % (Auto) Neut # (Auto) Lymph # (Auto) [place] # (Auto) Eos # (Auto) Baso # (Auto) Immature Gran # (Auto) Absolute Nucleated RBC Nucleated RBC % (auto) Dohle Bodies Polychromasia PT INR VBG pH VBG pCO2 VBG pO2 VBG HCO3 VBG O2 Saturation VBG Base Excess Sodium Potassium Chloride Carbon Dioxide Anion Gap BUN Creatinine Est Cr Clr Drug Dosing Est GFR ( Amer) Est GFR (Non-Af Amer) BUN/Creatinine Ratio Glucose POC Glucose 130 H Lactate Calcium Magnesium Total Bilirubin Direct Bilirubin AST ALT Alkaline Phosphatase Troponin I High Sens B-Natriuretic Peptide 368 H Total Protein Albumin Globulin Albumin/Globulin Ratio Lipase Procalcitonin Urine Color Urine Appearance Urine pH Ur Specific [place] Urine Protein Urine Glucose (UA) Urine Ketones Urine Blood Urine Nitrite Urine Bilirubin Urine Urobilinogen Ur Leukocyte Esterase Urine WBC (Auto) Urine RBC (Auto) U Hyaline Cast (Auto) U Epithel Cells (Auto) Urine Bacteria (Auto) Adenovirus (PCR) Not Detected B. pertussis DNA (PCR) Not Detected B.parapertussis DNA PCR Not Detected C. pneumoniae DNA (PCR) Not Detected Coronavirus OC43 (PCR) Not Detected Coronavirus HKU1 (PCR) Not Detected Coronavirus 229E (PCR) Not Detected SARS-CoV-2 (PCR) Not Detected Coronavirus NL63 (PCR) Not Detected Human Metapneumovir PCR Not Detected Influenza Type A (PCR) Not Detected Influenza Type B (PCR) Not Detected M. pneumoniae (PCR) Not Detected Parainfluenza 1 (PCR) Not Detected Parainfluenza 2 (PCR) Not Detected Parainfluenza 3 (PCR) Not Detected Parainfluenza 4 (PCR) Not Detected RSV (PCR) Not Detected Entero/Rhino (PCR) Not Detected Staphylococcus sp PCR Bld Cult ID Panel PCR 03/24/23 03/24/23 03/24/23 04:56 05:30 08:36 WBC 5.71 RBC 3.12 L Hgb 9.0 L Hct 27.3 L MCV 87.5 MCH 28.8 MCHC 33.0 RDW Std Deviation 41.8 RDW Coeff of Lyric 13.2 Plt Count 150 MPV 8.5 L Immature Gran % (Auto) 0.5 Neut % (Auto) 79.9 Lymph % (Auto) 6.8 [place] % (Auto) 10.3 Eos % (Auto) 1.6 Baso % (Auto) 0.9 Neut # (Auto) 4.56 Lymph # (Auto) 0.39 L [place] # (Auto) 0.59 Eos # (Auto) 0.09 Baso # (Auto) 0.05 Immature Gran # (Auto) 0.03 Absolute Nucleated RBC Nucleated RBC % (auto) Dohle Bodies Polychromasia PT INR VBG pH VBG pCO2 VBG pO2 VBG HCO3 VBG O2 Saturation VBG Base Excess Sodium 141 Potassium 4.2 Chloride 97 L Carbon Dioxide 40 H Anion Gap 4 BUN 32 H Creatinine 2.26 H Est Cr Clr Drug Dosing 32.6 Est GFR ( Amer) 32.1 Est GFR (Non-Af Amer) 27.7 BUN/Creatinine Ratio 14.2 Glucose 107 H POC Glucose 110 H 117 H Lactate Calcium 9.5 Magnesium Total Bilirubin Direct Bilirubin AST ALT Alkaline Phosphatase Troponin I High Sens B-Natriuretic Peptide Total Protein Albumin Globulin Albumin/Globulin Ratio Lipase Procalcitonin Urine Color Urine Appearance Urine pH Ur Specific [place] Urine Protein Urine Glucose (UA) Urine Ketones Urine Blood Urine Nitrite Urine Bilirubin Urine Urobilinogen Ur Leukocyte Esterase Urine WBC (Auto) Urine RBC (Auto) U Hyaline Cast (Auto) U Epithel Cells (Auto) Urine Bacteria (Auto) Adenovirus (PCR) B. pertussis DNA (PCR) B.parapertussis DNA PCR C. pneumoniae DNA (PCR) Coronavirus OC43 (PCR) Coronavirus HKU1 (PCR) Coronavirus 229E (PCR) SARS-CoV-2 (PCR) Coronavirus NL63 (PCR) Human Metapneumovir PCR Influenza Type A (PCR) Influenza Type B (PCR) M. pneumoniae (PCR) Parainfluenza 1 (PCR) Parainfluenza 2 (PCR) Parainfluenza 3 (PCR) Parainfluenza 4 (PCR) RSV (PCR) Entero/Rhino (PCR) Staphylococcus sp PCR Bld Cult ID Panel PCR 03/24/23 03/24/23 03/24/23 11:57 14:50 17:40 WBC RBC Hgb Hct MCV MCH MCHC RDW Std Deviation RDW Coeff of Lyric Plt Count MPV Immature Gran % (Auto) Neut % (Auto) Lymph % (Auto) [place] % (Auto) Eos % (Auto) Baso % (Auto) Neut # (Auto) Lymph # (Auto) [place] # (Auto) Eos # (Auto) Baso # (Auto) Immature Gran # (Auto) Absolute Nucleated RBC Nucleated RBC % (auto) Dohle Bodies Polychromasia PT INR VBG pH 7.31 L VBG pCO2 88 H VBG pO2 39 VBG HCO3 44 VBG O2 Saturation 67.0 VBG Base Excess 13.8 Sodium Potassium Chloride Carbon Dioxide Anion Gap BUN Creatinine Est Cr Clr Drug Dosing Est GFR ( Amer) Est GFR (Non-Af Amer) BUN/Creatinine Ratio Glucose POC Glucose 122 H 116 H Lactate Calcium Magnesium Total Bilirubin Direct Bilirubin AST ALT Alkaline Phosphatase Troponin I High Sens B-Natriuretic Peptide Total Protein Albumin Globulin Albumin/Globulin Ratio Lipase Procalcitonin Urine Color Urine Appearance Urine pH Ur Specific [place] Urine Protein Urine Glucose (UA) Urine Ketones Urine Blood Urine Nitrite Urine Bilirubin Urine Urobilinogen Ur Leukocyte Esterase Urine WBC (Auto) Urine RBC (Auto) U Hyaline Cast (Auto) U Epithel Cells (Auto) Urine Bacteria (Auto) Adenovirus (PCR) B. pertussis DNA (PCR) B.parapertussis DNA PCR C. pneumoniae DNA (PCR) Coronavirus OC43 (PCR) Coronavirus HKU1 (PCR) Coronavirus 229E (PCR) SARS-CoV-2 (PCR) Coronavirus NL63 (PCR) Human Metapneumovir PCR Influenza Type A (PCR) Influenza Type B (PCR) M. pneumoniae (PCR) Parainfluenza 1 (PCR) Parainfluenza 2 (PCR) Parainfluenza 3 (PCR) Parainfluenza 4 (PCR) RSV (PCR) Entero/Rhino (PCR) Staphylococcus sp PCR Bld Cult ID Panel PCR 03/24/23 03/25/23 03/25/23 20:18 03:13 08:47 WBC 7.26 RBC 3.40 L Hgb 9.7 L Hct 30.5 L MCV 89.7 MCH 28.5 MCHC 31.8 L RDW Std Deviation 42.9 RDW Coeff of Lyric 13.2 Plt Count 153 MPV 8.4 L Immature Gran % (Auto) 0.3 Neut % (Auto) 82.1 Lymph % (Auto) 5.2 [place] % (Auto) 10.3 Eos % (Auto) 1.4 Baso % (Auto) 0.7 Neut # (Auto) 5.96 Lymph # (Auto) 0.38 L [place] # (Auto) 0.75 H Eos # (Auto) 0.10 Baso # (Auto) 0.05 Immature Gran # (Auto) 0.02 Absolute Nucleated RBC Nucleated RBC % (auto) Dohle Bodies Polychromasia PT INR VBG pH VBG pCO2 VBG pO2 VBG HCO3 VBG O2 Saturation VBG Base Excess Sodium 140 Potassium 4.0 Chloride 95 L Carbon Dioxide 41 H* Anion Gap 4 BUN 34 H Creatinine 2.31 H Est Cr Clr Drug Dosing 29.4 Est GFR ( Amer) 31.3 Est GFR (Non-Af Amer) 27.0 BUN/Creatinine Ratio 14.7 Glucose 104 H POC Glucose 132 H 110 H Lactate Calcium 9.0 Magnesium Total Bilirubin Direct Bilirubin AST ALT Alkaline Phosphatase Troponin I High Sens B-Natriuretic Peptide Total Protein Albumin Globulin Albumin/Globulin Ratio Lipase Procalcitonin Urine Color Urine Appearance Urine pH Ur Specific [place] Urine Protein Urine Glucose (UA) Urine Ketones Urine Blood Urine Nitrite Urine Bilirubin Urine Urobilinogen Ur Leukocyte Esterase Urine WBC (Auto) Urine RBC (Auto) U Hyaline Cast (Auto) U Epithel Cells (Auto) Urine Bacteria (Auto) Adenovirus (PCR) B. pertussis DNA (PCR) B.parapertussis DNA PCR C. pneumoniae DNA (PCR) Coronavirus OC43 (PCR) Coronavirus HKU1 (PCR) Coronavirus 229E (PCR) SARS-CoV-2 (PCR) Coronavirus NL63 (PCR) Human Metapneumovir PCR Influenza Type A (PCR) Influenza Type B (PCR) M. pneumoniae (PCR) Parainfluenza 1 (PCR) Parainfluenza 2 (PCR) Parainfluenza 3 (PCR) Parainfluenza 4 (PCR) RSV (PCR) Entero/Rhino (PCR) Staphylococcus sp PCR Bld Cult ID Panel PCR 03/25/23 03/25/23 03/25/23 11:42 17:38 20:08 WBC RBC Hgb Hct MCV MCH MCHC RDW Std Deviation RDW Coeff of Lyric Plt Count MPV Immature Gran % (Auto) Neut % (Auto) Lymph % (Auto) [place] % (Auto) Eos % (Auto) Baso % (Auto) Neut # (Auto) Lymph # (Auto) [place] # (Auto) Eos # (Auto) Baso # (Auto) Immature Gran # (Auto) Absolute Nucleated RBC Nucleated RBC % (auto) Dohle Bodies Polychromasia PT INR VBG pH VBG pCO2 VBG pO2 VBG HCO3 VBG O2 Saturation VBG Base Excess Sodium Potassium Chloride Carbon Dioxide Anion Gap BUN Creatinine Est Cr Clr Drug Dosing Est GFR ( Amer) Est GFR (Non-Af Amer) BUN/Creatinine Ratio Glucose POC Glucose 100 H 147 H 124 H Lactate Calcium Magnesium Total Bilirubin Direct Bilirubin AST ALT Alkaline Phosphatase Troponin I High Sens B-Natriuretic Peptide Total Protein Albumin Globulin Albumin/Globulin Ratio Lipase Procalcitonin Urine Color Urine Appearance Urine pH Ur Specific [place] Urine Protein Urine Glucose (UA) Urine Ketones Urine Blood Urine Nitrite Urine Bilirubin Urine Urobilinogen Ur Leukocyte Esterase Urine WBC (Auto) Urine RBC (Auto) U Hyaline Cast (Auto) U Epithel Cells (Auto) Urine Bacteria (Auto) Adenovirus (PCR) B. pertussis DNA (PCR) B.parapertussis DNA PCR C. pneumoniae DNA (PCR) Coronavirus OC43 (PCR) Coronavirus HKU1 (PCR) Coronavirus 229E (PCR) SARS-CoV-2 (PCR) Coronavirus NL63 (PCR) Human Metapneumovir PCR Influenza Type A (PCR) Influenza Type B (PCR) M. pneumoniae (PCR) Parainfluenza 1 (PCR) Parainfluenza 2 (PCR) Parainfluenza 3 (PCR) Parainfluenza 4 (PCR) RSV (PCR) Entero/Rhino (PCR) Staphylococcus sp PCR Bld Cult ID Panel PCR 03/26/23 03/26/23 03/26/23 06:26 07:55 11:07 WBC 7.25 RBC 3.73 L Hgb 10.6 L Hct 33.1 L MCV 88.7 MCH 28.4 MCHC 32.0 RDW Std Deviation 43.1 RDW Coeff of Lyric 13.2 Plt Count 164 MPV 9.0 L Immature Gran % (Auto) 0.7 Neut % (Auto) 83.9 Lymph % (Auto) 5.1 [place] % (Auto) 8.7 Eos % (Auto) 0.8 Baso % (Auto) 0.8 Neut # (Auto) 6.08 Lymph # (Auto) 0.37 L [place] # (Auto) 0.63 H Eos # (Auto) 0.06 Baso # (Auto) 0.06 Immature Gran # (Auto) 0.05 Absolute Nucleated RBC Nucleated RBC % (auto) Dohle Bodies Polychromasia PT INR VBG pH 7.39 VBG pCO2 76 H VBG pO2 40 VBG HCO3 46 VBG O2 Saturation 73.1 VBG Base Excess 17.8 Sodium 142 Potassium 3.8 Chloride 94 L Carbon Dioxide 42 H* Anion Gap 6 BUN 38 H Creatinine 2.80 H D Est Cr Clr Drug Dosing 24.2 Est GFR ( Amer) 24.8 Est GFR (Non-Af Amer) 21.4 BUN/Creatinine Ratio 13.6 Glucose 101 H POC Glucose 107 H 125 H Lactate Calcium 9.0 Magnesium Total Bilirubin Direct Bilirubin AST ALT Alkaline Phosphatase Troponin I High Sens B-Natriuretic Peptide Total Protein Albumin Globulin Albumin/Globulin Ratio Lipase Procalcitonin Urine Color Urine Appearance Urine pH Ur Specific [place] Urine Protein Urine Glucose (UA) Urine Ketones Urine Blood Urine Nitrite Urine Bilirubin Urine Urobilinogen Ur Leukocyte Esterase Urine WBC (Auto) Urine RBC (Auto) U Hyaline Cast (Auto) U Epithel Cells (Auto) Urine Bacteria (Auto) Adenovirus (PCR) B. pertussis DNA (PCR) B.parapertussis DNA PCR C. pneumoniae DNA (PCR) Coronavirus OC43 (PCR) Coronavirus HKU1 (PCR) Coronavirus 229E (PCR) SARS-CoV-2 (PCR) Coronavirus NL63 (PCR) Human Metapneumovir PCR Influenza Type A (PCR) Influenza Type B (PCR) M. pneumoniae (PCR) Parainfluenza 1 (PCR) Parainfluenza 2 (PCR) Parainfluenza 3 (PCR) Parainfluenza 4 (PCR) RSV (PCR) Entero/Rhino (PCR) Staphylococcus sp PCR Bld Cult ID Panel PCR 03/26/23 03/26/23 03/27/23 16:11 19:57 06:56 WBC 9.24 RBC 3.48 L Hgb 9.7 L Hct 31.2 L MCV 89.7 MCH 27.9 MCHC 31.1 L RDW Std Deviation 43.9 RDW Coeff of Lyric 13.4 Plt Count 185 MPV 9.1 L Immature Gran % (Auto) 0.2 Neut % (Auto) 84.0 Lymph % (Auto) 5.1 [place] % (Auto) 8.5 Eos % (Auto) 1.6 Baso % (Auto) 0.6 Neut # (Auto) 7.75 H Lymph # (Auto) 0.47 L [place] # (Auto) 0.79 H Eos # (Auto) 0.15 Baso # (Auto) 0.06 Immature Gran # (Auto) 0.02 Absolute Nucleated RBC Nucleated RBC % (auto) Dohle Bodies Polychromasia PT INR VBG pH VBG pCO2 VBG pO2 VBG HCO3 VBG O2 Saturation VBG Base Excess Sodium 142 Potassium 3.8 Chloride 94 L Carbon Dioxide 45 H* Anion Gap 3 BUN 44 H Creatinine 2.92 H Est Cr Clr Drug Dosing 23.3 Est GFR ( Amer) 23.6 Est GFR (Non-Af Amer) 20.3 BUN/Creatinine Ratio 15.1 Glucose 96 POC Glucose 125 H 161 H Lactate Calcium 8.7 Magnesium Total Bilirubin 0.3 Direct Bilirubin AST 14 ALT 6 L Alkaline Phosphatase 67 Troponin I High Sens B-Natriuretic Peptide Total Protein 6.5 Albumin 3.2 L Globulin 3.3 Albumin/Globulin Ratio 1.0 Lipase Procalcitonin Urine Color Urine Appearance Urine pH Ur Specific [place] Urine Protein Urine Glucose (UA) Urine Ketones Urine Blood Urine Nitrite Urine Bilirubin Urine Urobilinogen Ur Leukocyte Esterase Urine WBC (Auto) Urine RBC (Auto) U Hyaline Cast (Auto) U Epithel Cells (Auto) Urine Bacteria (Auto) Adenovirus (PCR) B. pertussis DNA (PCR) B.parapertussis DNA PCR C. pneumoniae DNA (PCR) Coronavirus OC43 (PCR) Coronavirus HKU1 (PCR) Coronavirus 229E (PCR) SARS-CoV-2 (PCR) Coronavirus NL63 (PCR) Human Metapneumovir PCR Influenza Type A (PCR) Influenza Type B (PCR) M. pneumoniae (PCR) Parainfluenza 1 (PCR) Parainfluenza 2 (PCR) Parainfluenza 3 (PCR) Parainfluenza 4 (PCR) RSV (PCR) Entero/Rhino (PCR) Staphylococcus sp PCR Bld Cult ID Panel PCR 03/27/23 03/27/23 03/27/23 07:04 11:20 11:45 WBC RBC Hgb 10.0 L Hct 30.6 L MCV MCH MCHC RDW Std Deviation RDW Coeff of Lyric Plt Count MPV Immature Gran % (Auto) Neut % (Auto) Lymph % (Auto) [place] % (Auto) Eos % (Auto) Baso % (Auto) Neut # (Auto) Lymph # (Auto) [place] # (Auto) Eos # (Auto) Baso # (Auto) Immature Gran # (Auto) Absolute Nucleated RBC Nucleated RBC % (auto) Dohle Bodies Polychromasia PT INR VBG pH VBG pCO2 VBG pO2 VBG HCO3 VBG O2 Saturation VBG Base Excess Sodium Potassium Chloride Carbon Dioxide Anion Gap BUN Creatinine Est Cr Clr Drug Dosing Est GFR ( Amer) Est GFR (Non-Af Amer) BUN/Creatinine Ratio Glucose POC Glucose 104 H 124 H Lactate Calcium Magnesium Total Bilirubin Direct Bilirubin AST ALT Alkaline Phosphatase Troponin I High Sens B-Natriuretic Peptide Total Protein Albumin Globulin Albumin/Globulin Ratio Lipase Procalcitonin Urine Color Urine Appearance Urine pH Ur Specific [place] Urine Protein Urine Glucose (UA) Urine Ketones Urine Blood Urine Nitrite Urine Bilirubin Urine Urobilinogen Ur Leukocyte Esterase Urine WBC (Auto) Urine RBC (Auto) U Hyaline Cast (Auto) U Epithel Cells (Auto) Urine Bacteria (Auto) Adenovirus (PCR) B. pertussis DNA (PCR) B.parapertussis DNA PCR C. pneumoniae DNA (PCR) Coronavirus OC43 (PCR) Coronavirus HKU1 (PCR) Coronavirus 229E (PCR) SARS-CoV-2 (PCR) Coronavirus NL63 (PCR) Human Metapneumovir PCR Influenza Type A (PCR) Influenza Type B (PCR) M. pneumoniae (PCR) Parainfluenza 1 (PCR) Parainfluenza 2 (PCR) Parainfluenza 3 (PCR) Parainfluenza 4 (PCR) RSV (PCR) Entero/Rhino (PCR) Staphylococcus sp PCR Bld Cult ID Panel PCR 03/27/23 03/27/23 03/27/23 16:06 17:44 20:04 WBC RBC Hgb 10.3 L Hct 32.0 L MCV MCH MCHC RDW Std Deviation RDW Coeff of Lyric Plt Count MPV Immature Gran % (Auto) Neut % (Auto) Lymph % (Auto) [place] % (Auto) Eos % (Auto) Baso % (Auto) Neut # (Auto) Lymph # (Auto) [place] # (Auto) Eos # (Auto) Baso # (Auto) Immature Gran # (Auto) Absolute Nucleated RBC Nucleated RBC % (auto) Dohle Bodies Polychromasia PT INR VBG pH VBG pCO2 VBG pO2 VBG HCO3 VBG O2 Saturation VBG Base Excess Sodium Potassium Chloride Carbon Dioxide Anion Gap BUN Creatinine Est Cr Clr Drug Dosing Est GFR ( Amer) Est GFR (Non-Af Amer) BUN/Creatinine Ratio Glucose POC Glucose 154 H 176 H Lactate Calcium Magnesium Total Bilirubin Direct Bilirubin AST ALT Alkaline Phosphatase Troponin I High Sens B-Natriuretic Peptide Total Protein Albumin Globulin Albumin/Globulin Ratio Lipase Procalcitonin Urine Color Urine Appearance Urine pH Ur Specific [place] Urine Protein Urine Glucose (UA) Urine Ketones Urine Blood Urine Nitrite Urine Bilirubin Urine Urobilinogen Ur Leukocyte Esterase Urine WBC (Auto) Urine RBC (Auto) U Hyaline Cast (Auto) U Epithel Cells (Auto) Urine Bacteria (Auto) Adenovirus (PCR) B. pertussis DNA (PCR) B.parapertussis DNA PCR C. pneumoniae DNA (PCR) Coronavirus OC43 (PCR) Coronavirus HKU1 (PCR) Coronavirus 229E (PCR) SARS-CoV-2 (PCR) Coronavirus NL63 (PCR) Human Metapneumovir PCR Influenza Type A (PCR) Influenza Type B (PCR) M. pneumoniae (PCR) Parainfluenza 1 (PCR) Parainfluenza 2 (PCR) Parainfluenza 3 (PCR) Parainfluenza 4 (PCR) RSV (PCR) Entero/Rhino (PCR) Staphylococcus sp PCR Bld Cult ID Panel PCR 03/28/23 03/28/23 03/28/23 05:47 07:06 11:06 WBC 12.04 H RBC 3.52 L Hgb 10.1 L Hct 31.6 L MCV 89.8 MCH 28.7 MCHC 32.0 RDW Std Deviation 44.3 RDW Coeff of Lyric 13.5 Plt Count 189 MPV 8.8 L Immature Gran % (Auto) 0.4 Neut % (Auto) 87.3 Lymph % (Auto) 2.7 [place] % (Auto) 8.0 Eos % (Auto) 1.3 Baso % (Auto) 0.3 Neut # (Auto) 10.50 H Lymph # (Auto) 0.33 L [place] # (Auto) 0.96 H Eos # (Auto) 0.16 Baso # (Auto) 0.04 Immature Gran # (Auto) 0.05 Absolute Nucleated RBC Nucleated RBC % (auto) Dohle Bodies Polychromasia PT INR VBG pH VBG pCO2 VBG pO2 VBG HCO3 VBG O2 Saturation VBG Base Excess Sodium 142 Potassium 3.8 Chloride 94 L Carbon Dioxide 41 H* Anion Gap 7 BUN 52 H Creatinine 3.50 H D Est Cr Clr Drug Dosing 19.5 Est GFR ( Amer) 18.9 Est GFR (Non-Af Amer) 16.3 BUN/Creatinine Ratio 14.9 Glucose 119 H POC Glucose 124 H 143 H Lactate Calcium 8.5 L Magnesium Total Bilirubin 0.3 Direct Bilirubin AST 11 L ALT 5 L Alkaline Phosphatase 68 Troponin I High Sens B-Natriuretic Peptide Total Protein 6.7 Albumin 3.3 L Globulin 3.4 Albumin/Globulin Ratio 1.0 Lipase Procalcitonin Urine Color Urine Appearance Urine pH Ur Specific [place] Urine Protein Urine Glucose (UA) Urine Ketones Urine Blood Urine Nitrite Urine Bilirubin Urine Urobilinogen Ur Leukocyte Esterase Urine WBC (Auto) Urine RBC (Auto) U Hyaline Cast (Auto) U Epithel Cells (Auto) Urine Bacteria (Auto) Adenovirus (PCR) B. pertussis DNA (PCR) B.parapertussis DNA PCR C. pneumoniae DNA (PCR) Coronavirus OC43 (PCR) Coronavirus HKU1 (PCR) Coronavirus 229E (PCR) SARS-CoV-2 (PCR) Coronavirus NL63 (PCR) Human Metapneumovir PCR Influenza Type A (PCR) Influenza Type B (PCR) M. pneumoniae (PCR) Parainfluenza 1 (PCR) Parainfluenza 2 (PCR) Parainfluenza 3 (PCR) Parainfluenza 4 (PCR) RSV (PCR) Entero/Rhino (PCR) Staphylococcus sp PCR Bld Cult ID Panel PCR 03/28/23 03/28/23 03/29/23 16:23 20:57 06:45 WBC 15.91 H RBC 3.34 L Hgb 9.4 L Hct 29.7 L MCV 88.9 MCH 28.1 MCHC 31.6 L RDW Std Deviation 43.8 RDW Coeff of Lyric 13.5 Plt Count 201 MPV 9.2 L Immature Gran % (Auto) 0.9 Neut % (Auto) 86.1 Lymph % (Auto) 2.5 [place] % (Auto) 9.6 Eos % (Auto) 0.6 Baso % (Auto) 0.3 Neut # (Auto) 13.69 H Lymph # (Auto) 0.40 L [place] # (Auto) 1.52 H Eos # (Auto) 0.10 Baso # (Auto) 0.05 Immature Gran # (Auto) 0.15 Absolute Nucleated RBC Nucleated RBC % (auto) Dohle Bodies Polychromasia PT INR VBG pH VBG pCO2 VBG pO2 VBG HCO3 VBG O2 Saturation VBG Base Excess Sodium 139 Potassium 3.6 Chloride 93 L Carbon Dioxide 40 H Anion Gap 6 BUN 56 H Creatinine 3.60 H Est Cr Clr Drug Dosing 20.4 Est GFR ( Amer) 18.3 Est GFR (Non-Af Amer) 15.8 BUN/Creatinine Ratio 15.6 Glucose 138 H POC Glucose 127 H 176 H Lactate Calcium 8.2 L Magnesium Total Bilirubin 0.2 Direct Bilirubin AST 11 L ALT 5 L Alkaline Phosphatase 74 Troponin I High Sens B-Natriuretic Peptide Total Protein 6.3 Albumin 3.1 L Globulin 3.2 Albumin/Globulin Ratio 1.0 Lipase Procalcitonin Urine Color Urine Appearance Urine pH Ur Specific [place] Urine Protein Urine Glucose (UA) Urine Ketones Urine Blood Urine Nitrite Urine Bilirubin Urine Urobilinogen Ur Leukocyte Esterase Urine WBC (Auto) Urine RBC (Auto) U Hyaline Cast (Auto) U Epithel Cells (Auto) Urine Bacteria (Auto) Adenovirus (PCR) B. pertussis DNA (PCR) B.parapertussis DNA PCR C. pneumoniae DNA (PCR) Coronavirus OC43 (PCR) Coronavirus HKU1 (PCR) Coronavirus 229E (PCR) SARS-CoV-2 (PCR) Coronavirus NL63 (PCR) Human Metapneumovir PCR Influenza Type A (PCR) Influenza Type B (PCR) M. pneumoniae (PCR) Parainfluenza 1 (PCR) Parainfluenza 2 (PCR) Parainfluenza 3 (PCR) Parainfluenza 4 (PCR) RSV (PCR) Entero/Rhino (PCR) Staphylococcus sp PCR Bld Cult ID Panel PCR 03/29/23 03/29/23 03/29/23 07:03 11:37 16:33 WBC RBC Hgb Hct MCV MCH MCHC RDW Std Deviation RDW Coeff of Lyric Plt Count MPV Immature Gran % (Auto) Neut % (Auto) Lymph % (Auto) [place] % (Auto) Eos % (Auto) Baso % (Auto) Neut # (Auto) Lymph # (Auto) [place] # (Auto) Eos # (Auto) Baso # (Auto) Immature Gran # (Auto) Absolute Nucleated RBC Nucleated RBC % (auto) Dohle Bodies Polychromasia PT INR VBG pH VBG pCO2 VBG pO2 VBG HCO3 VBG O2 Saturation VBG Base Excess Sodium Potassium Chloride Carbon Dioxide Anion Gap BUN Creatinine Est Cr Clr Drug Dosing Est GFR ( Amer) Est GFR (Non-Af Amer) BUN/Creatinine Ratio Glucose POC Glucose 152 H 202 H 153 H Lactate Calcium Magnesium Total Bilirubin Direct Bilirubin AST ALT Alkaline Phosphatase Troponin I High Sens B-Natriuretic Peptide Total Protein Albumin Globulin Albumin/Globulin Ratio Lipase Procalcitonin Urine Color Urine Appearance Urine pH Ur Specific [place] Urine Protein Urine Glucose (UA) Urine Ketones Urine Blood Urine Nitrite Urine Bilirubin Urine Urobilinogen Ur Leukocyte Esterase Urine WBC (Auto) Urine RBC (Auto) U Hyaline Cast (Auto) U Epithel Cells (Auto) Urine Bacteria (Auto) Adenovirus (PCR) B. pertussis DNA (PCR) B.parapertussis DNA PCR C. pneumoniae DNA (PCR) Coronavirus OC43 (PCR) Coronavirus HKU1 (PCR) Coronavirus 229E (PCR) SARS-CoV-2 (PCR) Coronavirus NL63 (PCR) Human Metapneumovir PCR Influenza Type A (PCR) Influenza Type B (PCR) M. pneumoniae (PCR) Parainfluenza 1 (PCR) Parainfluenza 2 (PCR) Parainfluenza 3 (PCR) Parainfluenza 4 (PCR) RSV (PCR) Entero/Rhino (PCR) Staphylococcus sp PCR Bld Cult ID Panel PCR 03/29/23 03/30/23 03/30/23 20:04 06:05 07:25 WBC 16.30 H RBC 3.71 L Hgb 10.7 L Hct 32.0 L MCV 86.3 MCH 28.8 MCHC 33.4 RDW Std Deviation 42.5 RDW Coeff of Lyric 13.5 Plt Count 212 MPV 9.3 L Immature Gran % (Auto) 0.9 Neut % (Auto) 86.5 Lymph % (Auto) 1.9 [place] % (Auto) 10.1 Eos % (Auto) 0.4 Baso % (Auto) 0.2 Neut # (Auto) 14.09 H Lymph # (Auto) 0.31 L [place] # (Auto) 1.65 H Eos # (Auto) 0.06 Baso # (Auto) 0.04 Immature Gran # (Auto) 0.15 Absolute Nucleated RBC Nucleated RBC % (auto) Dohle Bodies 1+ Polychromasia PT INR VBG pH VBG pCO2 VBG pO2 VBG HCO3 VBG O2 Saturation VBG Base Excess Sodium 140 Potassium 3.5 Chloride 94 L Carbon Dioxide 38 H Anion Gap 8 BUN 57 H Creatinine 3.37 H Est Cr Clr Drug Dosing 21.8 Est GFR ( Amer) 19.8 Est GFR (Non-Af Amer) 17.1 BUN/Creatinine Ratio 16.9 Glucose 121 H POC Glucose 119 H 128 H Lactate Calcium 8.2 L Magnesium Total Bilirubin 0.3 Direct Bilirubin AST 12 L ALT 7 Alkaline Phosphatase 79 Troponin I High Sens B-Natriuretic Peptide Total Protein 6.1 Albumin 2.9 L Globulin 3.2 Albumin/Globulin Ratio 0.9 Lipase Procalcitonin Urine Color Urine Appearance Urine pH Ur Specific [place] Urine Protein Urine Glucose (UA) Urine Ketones Urine Blood Urine Nitrite Urine Bilirubin Urine Urobilinogen Ur Leukocyte Esterase Urine WBC (Auto) Urine RBC (Auto) U Hyaline Cast (Auto) U Epithel Cells (Auto) Urine Bacteria (Auto) Adenovirus (PCR) B. pertussis DNA (PCR) B.parapertussis DNA PCR C. pneumoniae DNA (PCR) Coronavirus OC43 (PCR) Coronavirus HKU1 (PCR) Coronavirus 229E (PCR) SARS-CoV-2 (PCR) Coronavirus NL63 (PCR) Human Metapneumovir PCR Influenza Type A (PCR) Influenza Type B (PCR) M. pneumoniae (PCR) Parainfluenza 1 (PCR) Parainfluenza 2 (PCR) Parainfluenza 3 (PCR) Parainfluenza 4 (PCR) RSV (PCR) Entero/Rhino (PCR) Staphylococcus sp PCR Bld Cult ID Panel PCR 03/30/23 03/30/23 03/30/23 11:03 16:06 20:25 WBC RBC Hgb Hct MCV MCH MCHC RDW Std Deviation RDW Coeff of Lyric Plt Count MPV Immature Gran % (Auto) Neut % (Auto) Lymph % (Auto) [place] % (Auto) Eos % (Auto) Baso % (Auto) Neut # (Auto) Lymph # (Auto) [place] # (Auto) Eos # (Auto) Baso # (Auto) Immature Gran # (Auto) Absolute Nucleated RBC Nucleated RBC % (auto) Dohle Bodies Polychromasia PT INR VBG pH VBG pCO2 VBG pO2 VBG HCO3 VBG O2 Saturation VBG Base Excess Sodium Potassium Chloride Carbon Dioxide Anion Gap BUN Creatinine Est Cr Clr Drug Dosing Est GFR ( Amer) Est GFR (Non-Af Amer) BUN/Creatinine Ratio Glucose POC Glucose 157 H 162 H 147 H Lactate Calcium Magnesium Total Bilirubin Direct Bilirubin AST ALT Alkaline Phosphatase Troponin I High Sens B-Natriuretic Peptide Total Protein Albumin Globulin Albumin/Globulin Ratio Lipase Procalcitonin Urine Color Urine Appearance Urine pH Ur Specific [place] Urine Protein Urine Glucose (UA) Urine Ketones Urine Blood Urine Nitrite Urine Bilirubin Urine Urobilinogen Ur Leukocyte Esterase Urine WBC (Auto) Urine RBC (Auto) U Hyaline Cast (Auto) U Epithel Cells (Auto) Urine Bacteria (Auto) Adenovirus (PCR) B. pertussis DNA (PCR) B.parapertussis DNA PCR C. pneumoniae DNA (PCR) Coronavirus OC43 (PCR) Coronavirus HKU1 (PCR) Coronavirus 229E (PCR) SARS-CoV-2 (PCR) Coronavirus NL63 (PCR) Human Metapneumovir PCR Influenza Type A (PCR) Influenza Type B (PCR) M. pneumoniae (PCR) Parainfluenza 1 (PCR) Parainfluenza 2 (PCR) Parainfluenza 3 (PCR) Parainfluenza 4 (PCR) RSV (PCR) Entero/Rhino (PCR) Staphylococcus sp PCR Bld Cult ID Panel PCR 03/31/23 03/31/23 03/31/23 07:11 07:44 11:29 WBC 19.48 H RBC 3.60 L Hgb 10.3 L Hct 30.7 L MCV 85.3 MCH 28.6 MCHC 33.6 RDW Std Deviation 43.2 RDW Coeff of Lyric 13.8 Plt Count 254 MPV 9.4 Immature Gran % (Auto) 0.7 Neut % (Auto) 87.2 Lymph % (Auto) 1.7 [place] % (Auto) 10.1 Eos % (Auto) 0.1 Baso % (Auto) 0.2 Neut # (Auto) 16.97 H Lymph # (Auto) 0.34 L [place] # (Auto) 1.97 H Eos # (Auto) 0.02 Baso # (Auto) 0.04 Immature Gran # (Auto) 0.14 Absolute Nucleated RBC Nucleated RBC % (auto) Dohle Bodies 1+ Polychromasia 1+ PT INR VBG pH VBG pCO2 VBG pO2 VBG HCO3 VBG O2 Saturation VBG Base Excess Sodium 136 Potassium 3.7 Chloride 92 L Carbon Dioxide 36 H Anion Gap 8 BUN 65 H Creatinine 3.58 H Est Cr Clr Drug Dosing 20.4 Est GFR ( Amer) 18.4 Est GFR (Non-Af Amer) 15.9 BUN/Creatinine Ratio 18.2 Glucose 124 H POC Glucose 129 H 115 H Lactate Calcium 8.1 L Magnesium Total Bilirubin 0.2 Direct Bilirubin AST 11 L ALT 7 Alkaline Phosphatase 80 Troponin I High Sens B-Natriuretic Peptide Total Protein 5.8 L Albumin 2.7 L Globulin 3.1 Albumin/Globulin Ratio 0.9 Lipase Procalcitonin Urine Color Urine Appearance Urine pH Ur Specific [place] Urine Protein Urine Glucose (UA) Urine Ketones Urine Blood Urine Nitrite Urine Bilirubin Urine Urobilinogen Ur Leukocyte Esterase Urine WBC (Auto) Urine RBC (Auto) U Hyaline Cast (Auto) U Epithel Cells (Auto) Urine Bacteria (Auto) Adenovirus (PCR) B. pertussis DNA (PCR) B.parapertussis DNA PCR C. pneumoniae DNA (PCR) Coronavirus OC43 (PCR) Coronavirus HKU1 (PCR) Coronavirus 229E (PCR) SARS-CoV-2 (PCR) Coronavirus NL63 (PCR) Human Metapneumovir PCR Influenza Type A (PCR) Influenza Type B (PCR) M. pneumoniae (PCR) Parainfluenza 1 (PCR) Parainfluenza 2 (PCR) Parainfluenza 3 (PCR) Parainfluenza 4 (PCR) RSV (PCR) Entero/Rhino (PCR) Staphylococcus sp PCR Bld Cult ID Panel PCR 03/31/23 03/31/23 04/01/23 15:52 20:02 06:24 WBC RBC Hgb Hct MCV MCH MCHC RDW Std Deviation RDW Coeff of Lyric Plt Count MPV Immature Gran % (Auto) Neut % (Auto) Lymph % (Auto) [place] % (Auto) Eos % (Auto) Baso % (Auto) Neut # (Auto) Lymph # (Auto) [place] # (Auto) Eos # (Auto) Baso # (Auto) Immature Gran # (Auto) Absolute Nucleated RBC Nucleated RBC % (auto) Dohle Bodies Polychromasia PT INR VBG pH VBG pCO2 VBG pO2 VBG HCO3 VBG O2 Saturation VBG Base Excess Sodium 134 L Potassium 3.9 Chloride 91 L Carbon Dioxide 36 H Anion Gap 7 BUN 74 H Creatinine 4.30 H D Est Cr Clr Drug Dosing 17.1 Est GFR ( Amer) 14.8 Est GFR (Non-Af Amer) 12.7 BUN/Creatinine Ratio 17.2 Glucose 106 H POC Glucose 112 H 120 H Lactate Calcium 8.4 L Magnesium Total Bilirubin 0.2 Direct Bilirubin AST 10 L ALT 8 Alkaline Phosphatase 92 Troponin I High Sens B-Natriuretic Peptide Total Protein 5.6 L Albumin 2.5 L Globulin 3.1 Albumin/Globulin Ratio 0.8 L Lipase Procalcitonin Urine Color Urine Appearance Urine pH Ur Specific [place] Urine Protein Urine Glucose (UA) Urine Ketones Urine Blood Urine Nitrite Urine Bilirubin Urine Urobilinogen Ur Leukocyte Esterase Urine WBC (Auto) Urine RBC (Auto) U Hyaline Cast (Auto) U Epithel Cells (Auto) Urine Bacteria (Auto) Adenovirus (PCR) B. pertussis DNA (PCR) B.parapertussis DNA PCR C. pneumoniae DNA (PCR) Coronavirus OC43 (PCR) Coronavirus HKU1 (PCR) Coronavirus 229E (PCR) SARS-CoV-2 (PCR) Coronavirus NL63 (PCR) Human Metapneumovir PCR Influenza Type A (PCR) Influenza Type B (PCR) M. pneumoniae (PCR) Parainfluenza 1 (PCR) Parainfluenza 2 (PCR) Parainfluenza 3 (PCR) Parainfluenza 4 (PCR) RSV (PCR) Entero/Rhino (PCR) Staphylococcus sp PCR Bld Cult ID Panel PCR 04/01/23 04/01/23 04/01/23 06:29 07:10 10:55 WBC 19.43 H RBC 3.73 L Hgb 10.5 L Hct 33.3 L MCV 89.3 MCH 28.2 MCHC 31.5 L RDW Std Deviation 45.0 RDW Coeff of Lyric 13.7 Plt Count 270 MPV 9.3 L Immature Gran % (Auto) 0.8 Neut % (Auto) 86.1 Lymph % (Auto) 1.8 [place] % (Auto) 10.6 Eos % (Auto) 0.2 Baso % (Auto) 0.5 Neut # (Auto) 16.75 H Lymph # (Auto) 0.35 L [place] # (Auto) 2.05 H Eos # (Auto) 0.04 Baso # (Auto) 0.09 Immature Gran # (Auto) 0.15 Absolute Nucleated RBC 0.02 Nucleated RBC % (auto) 0.1 Dohle Bodies Polychromasia PT INR VBG pH VBG pCO2 VBG pO2 VBG HCO3 VBG O2 Saturation VBG Base Excess Sodium Potassium Chloride Carbon Dioxide Anion Gap BUN Creatinine Est Cr Clr Drug Dosing Est GFR ( Amer) Est GFR (Non-Af Amer) BUN/Creatinine Ratio Glucose POC Glucose 113 H 113 H Lactate Calcium Magnesium Total Bilirubin Direct Bilirubin AST ALT Alkaline Phosphatase Troponin I High Sens B-Natriuretic Peptide Total Protein Albumin Globulin Albumin/Globulin Ratio Lipase Procalcitonin Urine Color Urine Appearance Urine pH Ur Specific [place] Urine Protein Urine Glucose (UA) Urine Ketones Urine Blood Urine Nitrite Urine Bilirubin Urine Urobilinogen Ur Leukocyte Esterase Urine WBC (Auto) Urine RBC (Auto) U Hyaline Cast (Auto) U Epithel Cells (Auto) Urine Bacteria (Auto) Adenovirus (PCR) B. pertussis DNA (PCR) B.parapertussis DNA PCR C. pneumoniae DNA (PCR) Coronavirus OC43 (PCR) Coronavirus HKU1 (PCR) Coronavirus 229E (PCR) SARS-CoV-2 (PCR) Coronavirus NL63 (PCR) Human Metapneumovir PCR Influenza Type A (PCR) Influenza Type B (PCR) M. pneumoniae (PCR) Parainfluenza 1 (PCR) Parainfluenza 2 (PCR) Parainfluenza 3 (PCR) Parainfluenza 4 (PCR) RSV (PCR) Entero/Rhino (PCR) Staphylococcus sp PCR Bld Cult ID Panel PCR 04/01/23 04/01/23 04/02/23 16:04 20:15 07:07 WBC RBC Hgb Hct MCV MCH MCHC RDW Std Deviation RDW Coeff of Lyric Plt Count MPV Immature Gran % (Auto) Neut % (Auto) Lymph % (Auto) [place] % (Auto) Eos % (Auto) Baso % (Auto) Neut # (Auto) Lymph # (Auto) [place] # (Auto) Eos # (Auto) Baso # (Auto) Immature Gran # (Auto) Absolute Nucleated RBC Nucleated RBC % (auto) Dohle Bodies Polychromasia PT INR VBG pH VBG pCO2 VBG pO2 VBG HCO3 VBG O2 Saturation VBG Base Excess Sodium Potassium Chloride Carbon Dioxide Anion Gap BUN Creatinine Est Cr Clr Drug Dosing Est GFR ( Amer) Est GFR (Non-Af Amer) BUN/Creatinine Ratio Glucose POC Glucose 141 H 151 H 144 H Lactate Calcium Magnesium Total Bilirubin Direct Bilirubin AST ALT Alkaline Phosphatase Troponin I High Sens B-Natriuretic Peptide Total Protein Albumin Globulin Albumin/Globulin Ratio Lipase Procalcitonin Urine Color Urine Appearance Urine pH Ur Specific [place] Urine Protein Urine Glucose (UA) Urine Ketones Urine Blood Urine Nitrite Urine Bilirubin Urine Urobilinogen Ur Leukocyte Esterase Urine WBC (Auto) Urine RBC (Auto) U Hyaline Cast (Auto) U Epithel Cells (Auto) Urine Bacteria (Auto) Adenovirus (PCR) B. pertussis DNA (PCR) B.parapertussis DNA PCR C. pneumoniae DNA (PCR) Coronavirus OC43 (PCR) Coronavirus HKU1 (PCR) Coronavirus 229E (PCR) SARS-CoV-2 (PCR) Coronavirus NL63 (PCR) Human Metapneumovir PCR Influenza Type A (PCR) Influenza Type B (PCR) M. pneumoniae (PCR) Parainfluenza 1 (PCR) Parainfluenza 2 (PCR) Parainfluenza 3 (PCR) Parainfluenza 4 (PCR) RSV (PCR) Entero/Rhino (PCR) Staphylococcus sp PCR Bld Cult ID Panel PCR 04/02/23 11:14 WBC RBC Hgb Hct MCV MCH MCHC RDW Std Deviation RDW Coeff of Lyric Plt Count MPV Immature Gran % (Auto) Neut % (Auto) Lymph % (Auto) [place] % (Auto) Eos % (Auto) Baso % (Auto) Neut # (Auto) Lymph # (Auto) [place] # (Auto) Eos # (Auto) Baso # (Auto) Immature Gran # (Auto) Absolute Nucleated RBC Nucleated RBC % (auto) Dohle Bodies Polychromasia PT INR VBG pH VBG pCO2 VBG pO2 VBG HCO3 VBG O2 Saturation VBG Base Excess Sodium Potassium Chloride Carbon Dioxide Anion Gap BUN Creatinine Est Cr Clr Drug Dosing Est GFR ( Amer) Est GFR (Non-Af Amer) BUN/Creatinine Ratio Glucose POC Glucose 152 H Lactate Calcium Magnesium Total Bilirubin Direct Bilirubin AST ALT Alkaline Phosphatase Troponin I High Sens B-Natriuretic Peptide Total Protein Albumin Globulin Albumin/Globulin Ratio Lipase Procalcitonin Urine Color Urine Appearance Urine pH Ur Specific [place] Urine Protein Urine Glucose (UA) Urine Ketones Urine Blood Urine Nitrite Urine Bilirubin Urine Urobilinogen Ur Leukocyte Esterase Urine WBC (Auto) Urine RBC (Auto) U Hyaline Cast (Auto) U Epithel Cells (Auto) Urine Bacteria (Auto) Adenovirus (PCR) B. pertussis DNA (PCR) B.parapertussis DNA PCR C. pneumoniae DNA (PCR) Coronavirus OC43 (PCR) Coronavirus HKU1 (PCR) Coronavirus 229E (PCR) SARS-CoV-2 (PCR) Coronavirus NL63 (PCR) Human Metapneumovir PCR Influenza Type A (PCR) Influenza Type B (PCR) M. pneumoniae (PCR) Parainfluenza 1 (PCR) Parainfluenza 2 (PCR) Parainfluenza 3 (PCR) Parainfluenza 4 (PCR) RSV (PCR) Entero/Rhino (PCR) Staphylococcus sp PCR Bld Cult ID Panel PCR Chest X-Ray 03/23/23 13:05 XR chest 1V portable HISTORY: 72 years-old Male Sepsis acute sepsis COMPARISON: February 17, 2023 TECHNIQUE: AP view of the chest FINDINGS: Cardiomegaly. Hypoinflation with bronchovascular crowding. No pneumothorax. Probable small pleural effusions with bibasilar opacities. Pulmonary vascular congestion. Degenerative changes of the shoulders and spine. IMPRESSION: 1. Limited exam secondary to hypoinflation. 2. Cardiomegaly with suggestion of pulmonary edema with small pleural effusions and bibasilar opacities. ACT 112: Negative or not required by law. The above report was generated using voice recognition software. It may contain grammatical, syntax or spelling errors. Electronically signed by: Mp Das M.D. 03/23/2023 1:59 PM Abdomen/Pelvis CT 03/23/23 15:22 CT SCAN OF THE ABDOMEN AND PELVIS WITHOUT IV CONTRAST CLINICAL HISTORY: Sepsis. Urinary tract infection. Nausea. COMPARISON STUDY: Abdominal CT dated 03/07/2022. TECHNIQUE: CT scan of the abdomen and pelvis is performed from the lung bases to the proximal femora. Images are reviewed in the axial, sagittal, and coronal planes. IV contrast was not administered for this examination. Note that the examination was performed in significantly suboptimal fashion without IV contrast. A dose lowering technique was utilized adhering to the principles of ALARA. CT DOSE: 2236.91 mGy.cm FINDINGS: Lung bases: The heart is enlarged and without pericardial effusion. There are small left and trace right pleural effusions with dependent consolidation. Calcified mediastinal and hilar nodes are partially imaged. The coronary arteries are densely calcified. There is a tiny hiatal hernia. Liver: The unenhanced liver is normal in size, contour, and attenuation. There is no intrahepatic biliary ductal dilatation. Gallbladder: There are numerous calcified gallstones without CT evidence of acut e cholecystitis. Spleen: Normal in size and attenuation. 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 Pancreas: Unremarkable. Adrenal glands: There is nonspecific thickening of the adrenal glands. A 10 mm myelolipoma seen on the left. There is also a 1.8 cm adenoma of the left adrenal gland. Kidneys: The unenhanced kidneys demonstrate cortical atrophy and are without hy dronephrosis. No renal calculi are identified. Small simple and complex renal cysts measure up to 2.0 cm Abdominal vasculature: The abdominal aorta is normal in course and caliber noting moderate to advanced atherosclerotic calcification. Bowel: There is [id number] colonic diverticulosis without CT evidence of acute diverticulitis. No bowel obstruction is seen. There is mild colonic fecal retention. The appendix is well-visualized and normal. Peritoneum: There is no intraperitoneal free air or abdominal ascites. There is a fat-containing umbilical hernia. Lymphadenopathy: None. Pelvic viscera: The bladder is decompressed and the wall appears circumferentially thickened. There is pericystic infiltration. The prostate gland is surgically absent. Skeletal structures: The skeletal structures are osteopenic. There is moderate lumbosacral spondylosis. No lytic or blastic lesions are seen. IMPRESSION: 1. The bladder is decompressed, and the wall appears thickened with surrounding infiltration. Correlate with clinical findings and urinalysis. 2. Small left and trace right pleural effusions with dependent consolidation. 3. Colonic diverticulosis without CT evidence of acute diverticulitis. 4. Cholelithiasis. 5. Cardiomegaly with advanced coronary artery atherosclerosis. 6. Additional findings as above. ACT 112: Negative or not required by law. Electronically signed by: Binu Heard M.D. 03/23/2023 4:[address] 03/23/23 15:22 CT chest diagnostic wo con CLINICAL HISTORY: 72 years-old Male with sepsis, sob. Acute sepsis with shortness of breath TECHNIQUE: Multiaxial CT images of the chest were performed without contrast. A dose lowering technique was utilized adhering to the principles of ALARA. COMPARISON: CT abdomen and pelvis of same day, chest CT 10/30/2021 FINDINGS: Heterogeneous thyroid. Cardiomegaly with extensive coronary artery calcifications. Atherosclerosis of the thoracic aorta without aneurysm. Mediastinal and hilar lymph nodes measuring up to 12 mm are similar in size to the prior study, several which demonstrate partial calcification. Trace right and small left pleural effusions. No pneumothorax. Intralobular septal thickening with left greater than right bibasilar consolidation with air bronchograms. No suspicious pulmonary nodules identified. Central airways are patent. 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 Cholelithiasis. Unremarkable soft tissues. No acute fracture. IMPRESSION: 1. Cardiomegaly with pulmonary edema, trace right and small left pleural effusions. 2. Bibasilar consolidation, left greater than right likely represents atelectasis. Pneumonia could appear similarly. 3. Partially calcified mediastinal and hilar lymphadenopathy is similar in size to the study from 2021 . 4. Please refer to the CT abdomen and pelvis study of same day for additional findings. ACT 112: Negative or not required by law. Electronically signed by: Mp Das M.D. 03/23/2023 4:17 PM 03/23/23 15:22 CT abd pelvis wo con Stat CT chest diagnostic wo con Stat Hospital Course (1) Hematuria: (2) Chronic hypoxemic respiratory failure: (3) Rigors: (4) CHF exacerbation: (5) Diabetes: Plan 72-year-old male with PMH of COPD, restrictive lung disease, colon cancer, prostate cancer, HLD, HFpEF, anxiety and depression, and SHALA not tolerating CPAP. He presented with SOB, rigors, confusion, dysuria: Goals of care - patient has been sleeping and lethargic at home for a long time. no quality of life per . wondering about hospice care. Considering the overall morbidity with baseline chronic hypercapnic respiratory failure, diastolic heart failure, echo with moderate LVH, pulmonary hypertension in setting of ckd 4, obesity leading to restrictive lungs ds, cognitive decline, prostate cancer with recent rise in PSA pointing to recurrence, [place] Chronic hypoxemic respiratory failure secondary to hypercapnia - untreated sleep apnea, characterized by dip in O2 sat while sleeping, suggestive of chronic hypoventilation - Patient on BiPaP during the night. He is unwilling to use BIPAP machine overnight, only accepting nasal cannula -Patient currently on Nasal cannula between 2-4 L -Pneumology recommendations: acceptable ph. Continue oxygen supplementation -Keep oxygen saturation above 90-92% to prevent further CO2 retention -Inspirometry -keep head elevation while sleeping -Patient will be sent home for Hospice - Acute metabolic encephalopathy vs dementia -multifactorial- hypercapnia, uti/bacteremia -Acute decline during admission -Lethargic, answered after call his name Deconditioning Bilateral lower extremities weakness -Deconditioning due to current illness Rise on WBC -suspect atelectasis with limited mobility contributing. -only one episode of fever -since approaching hospice - will defer any further investigation. MILTON on CKD4 baseline for Cr 2.5 Bump on Cr -- s/p IVF 80 ml/hr Avoid nephrotoxic medication Lasix was d/c -Defer following, hospice status One blood culture positive - positive for Aerococcus viridans (UTI pathogen) - bacteremia vs contaminated -One peak of fever 38 C, resolved -Second Blood culture: negative -s/p Ceftriaxone - Hospice status, will defers further investigation Hematuria- Resolved likely from trauma- Guerrero HGB stable CHF Acute on Chronic- Last echo on 02/16/2023 LVEF at 60-65%, Moderate LVH, pulmonary HTN Chest CT significant for cardiomegaly with pulmonary edema, trace right and small left pleural effusions - d/c lasix due to rise in Cr Diabetes: home regimen Prostate cancer Recurrence- rise on PSA - Hospice care Total Time Total Time Spent Total Time Spent (In Minutes): see attending attestation Discharge Plan Discharge Items Patient Disposition: Hospice - Home Reason For Visit: RIGORS, BURNING WITH URINATION, SOB Discharge Diagnosis: Chronic hypoxemic respiratory failure secondary to hypercapnia Activity: Per Instructions section Non-emergency contact: Primary Care Provider Call non-emergency contact if: you have any medication questions and your symptoms worsen Follow-up/Referrals: Nishant Fuentes CRNP [Primary Care Provider] - 04/12/23 10:20 am Diet: Regular Addtl Attending Provider Instructions: 72-year-old male with PMH of COPD, restrictive lung disease, colon cancer, prostate cancer, HLD, HFpEF, anxiety and depression, and SHALA not tolerating CPAP. Chronic hypoxemic respiratory failure secondary to hypercapnia - Patient during the admission had a increase on his Oxygen requirement as well worsening of hypercapnia (CO2 on his lungs were too high). -This is due to untreated sleep apnea and not use of BiPap overnight. - Continue supplementation of oxygen with nasal cannula -New baseline of Oxygen requirement on nasal canula is about 4 L, can be needed more. -Keep oxygen saturation above 90-92% to prevent further CO2 retention -Inspirometry -keep head elevation while sleeping -Patient will be sent home for hospice - Acute metabolic encephalopathy -Deconditioning Bilateral lower extremities weakness -Was noted during this admission a decline on his mentation -Multifactorial, current illness causing his decline on baseline -Hospice [facility] on CKD4 Increase on his Creatinine during admission that is not resolving with hydration Avoid nephrotoxic medication Lasix was discontinued to avoid more insult on the kidney One blood culture positive UTI - An pathogen were found on one of your blood culture. The source seem to be form an UTI PAyhogen -Patient was treated with antibiotics) Urine incontinence - Keep are dry -We discontinue the Guerrero catheter due to blood on the urine that seem to be provoke form the Guerrero CHF Acute decompensation during this admission Diabetes Continue Lantus 5u BID while inpatient Adjust regimen as needed Prostate cancer Recurrence- rise on PSA - Hospice care Pending Studies at Discharge: No Stand-Alone Forms: My [facility] Medications and DC Order Prescriptions: Continued ropinirole 0.5 mg tablet 0.5 mg PO HS Qty: 90 1RF metoprolol tartrate [Lopressor] 50 mg tablet 50 mg PO BID Qty: 180 2RF trazodone 50 mg tablet 50 mg PO HS Qty: 30 5RF escitalopram oxalate [Lexapro] 5 mg tablet 5 mg PO DAILY Qty: 90 1RF clonidine 0.3 mg/24 hr patch weekly 1 patch topical .COMPLEX Qty: 4 0RF Rx Instructions: 1 patch topically ONCE WEEKLY; Ozempic 0.25 mg or 0.5 mg (2 mg/3 mL) pen injector 0.25 mg subcut .Weekly Qty: 3 3RF Rx Instructions: 0.25 mg subcutaneously once every 7 days at any time of day. After 4 weeks increase to 0.5 mg subcutaneously once weekly. nifedipine [Procardia XL] 30 mg tablet extended release 24hr 30 mg PO QAM Qty: 30 0RF Trelegy Ellipta 200-62.5-25 mcg blister with device 1 inh inhalation DAILY rosuvastatin 10 mg tablet 10 mg PO DAILY Qty: 90 3RF aspirin 81 mg tablet,delayed release (DR/EC) 81 mg PO DAILY cholecalciferol (vitamin D3) 25 mcg (1,000 unit) capsule 25 mcg PO DAILY tamsulosin [Flomax] 0.4 mg capsule 0.4 mg PO DAILY bumetanide 2 mg tablet 2 mg PO DAILY tramadol 50 mg tablet 50 mg PO DAILY Qty: 30 0RF albuterol sulfate 2.5 mg /3 mL (0.083 %) Solution For Nebulization 2.5 mg INHALATION QID PRN (Reason: Shortness Of Breath Or Wheezing) albuterol sulfate [Ventolin HFA] 90 mcg/actuation Hfa Aerosol Inhaler 2 puff INHALATION QID PRN (Reason: Shortness Of Breath Or Wheezing) insulin aspart U-100 [Novolog FlexPen U-100 Insulin] 100 unit/mL (3 mL) insulin pen 5 unit SUBCUT DIRECTED Rx Instructions: take 5 units if BSG is over 200 hydralazine 100 mg tablet 100 mg PO QID Qty: 120 0RF Discharge Orders: Discharge Order (Routine); Ordered 04/02/23 Ordered By: Eulalio Rader Admission Data Admit Date/Time: 03/23/23 17:27 Attending Provider: Benjamin Burks Admit Provider: Tristin Glover Primary Care Provider: Nishant Fuentes Other Providers: Tristin Glover; [employer]ak Caba; Benjamin Burks; Sher Blackwood Other Interventions: Discharge Summary Assessment (RN) Last Done: 04/02/23 12:29 Supervising Physician Co-Signing Physician Notes I personally examined the patient and verified all rust points of history and exam, discussed case, and agree with decision making with Dr Denny Rader for home/hospice. vitals noted resting appearing comfortable nad breathing unlabored sitting ~45degrees at rest no accessory muscles for home/hospice today. last full a/p as follows: Goals of care - patient has been sleeping and lethargic at home for a long time. no quality of life per . wondering about hospice care. Considering the overall morbidity with baseline chronic hypercapnic respiratory failure, diastolic heart failure, echo with moderate LVH, pulmonary hypertension in setting of ckd 4, obesity leading to restrictive lungs ds, cognitive decline, prostate cancer with recent rise in PSA pointing to recurrence, [facility] - Pursuing arrangement of hospice care. Consider further medication deescalation at the time of discharge. Acute metabolic encephalopathy - likely multifactorial - hypercapnia, probable uti and bacteremia mentation waxing and waning. acute on chronic hypoxic and hypercapnic respiratory failure- d/t likely untreated SHALA/OHA with acute diastolic chf. Pul consult - Initial plan - -well compensated with acceptable pH. hypoxia sec to hypercapnia. -to sleep with the head of bed elevated is much as possible. -cpap/bipap as tolerated. Continued weight loss may be beneficial. consider repeating sleep study. Acute on chronic HFpEF - uncontrolled bp likely contributing. -d/jose lasix d/t rise in creat. Has not been adherent to home dose lasix. [facility] on ckd stopped lasix due to worsening bun. worsening creatinine despite IVF. d/ce IVF. Positive one blood culture with Aerococcus - Aerococcus infection usually nosocomial and cause uti urine cx drawn after 2 days of abx. s/p course of ceftriaxone Fever (03/29) and rise in wbc - suspect atelectasis with limited mobility contributing. no further fever but wbc higher. since approaching hospice - will defer any further investigation. hematuria urology consult - likely from guerrero. -d/jose guerrero - urine cleared. Urine incontinence chronic. Chronic pain scheduled tramadol weakness - multifactorial. Heparin
--- NOTE | 2023-04-02 13:10 | Billing Data ---
Date of Service April 02, 2023 Coding Level of Care Code 41855 IN/OBS DISCH 30 MIN/LESS
== END 2023-04-02 13:07 | disposition hospice, home (50) | DRG 291 ==
LOC: ED 12:11 → SUATTDRO 17:27 → EDINP 17:27 → 2S 19:36